=== PATIENT | male | born 1950 | race Caucasian/White ===

== ENCOUNTER 2016-05-29 09:32 | Inpatient (IN) | payer MEDICARE ==
--- NOTE | 2016-05-29 10:57 | ED ---
Psych HPI - General Chief Complaint: Psychiatric Symptoms Stated Complaint: MENTAL HEALTH Time Seen by Provider: 05/29/16 09:51 Source: patient, RN notes reviewed Mode of arrival: ambulatory - History of Present Illness Initial Comments: This patient is a 66-year-old man, with history of bipolar disease, who presents with concern that he may be becoming manic. The patient relates that over the past month he has nearly bought a motorcycle as well as a car, despite not really needing these vehicles. He has also had significant thoughts of suicide about 3 times over the past month. The patient did have a visiting nurse perform a mental health screening last night and she recommended that he be seen in the emergency department today about the symptoms. MD Complaint: other Onset/Timin -: month(s) Associated Psychiatric Symptoms: suicidal ideation, racing thoughts History of same: Yes Quality: getting worse Improves With: none Worsens With: none Associated Symptoms: denies other symptoms - Related Data Home Medications Medication Instructions Recorded Confirmed Citalopram Hydrobromide [CeleXA] 40 mg PO DAILY 10/08/13 05/29/16 Furosemide [Lasix] 20 mg PO DAILY 10/08/13 05/29/16 glipiZIDE [Glucotrol] 10 mg PO AC-BID 10/08/13 05/29/16 lamoTRIgine [LaMICtal] 100 mg PO DAILY 10/08/13 05/29/16 cloNIDine HCL [Catapres] 0.1 mg PO DAILY 01/07/14 05/29/16 Gabapentin [Neurontin] 400 mg PO Q5H 09/21/14 05/29/16 Metoprolol Tartrate [Lopressor] 50 mg PO AC-BRKFST 06/21/15 05/29/16 Metoprolol Tartrate [Lopressor] 75 mg PO HS 07/11/15 05/29/16 ALPRAZolam [Xanax] 0.5 mg PO DAILY PRN 07/12/15 05/29/16 Digoxin [Lanoxin] 250 mcg PO DAILY 07/12/15 05/29/16 metFORMIN HCL [Glucophage] 850 mg PO TID 07/12/15 05/29/16 ARIPiprazole [Abilify] 30 mg PO DAILY 05/29/16 05/29/16 Acyclovir 400 mg PO QID PRN 05/29/16 05/29/16 Albuterol Inhaler [Ventolin Hfa 2 puff INHALATION RT-Q6H PRN 05/29/16 05/29/16 Inhaler] Albuterol Nebulized [Ventolin 2.5 mg INHALATION RT-Q6H PRN 05/29/16 05/29/16 Nebulized] Cholecalciferol [Vitamin D3] 2,000 unit PO DAILY 05/29/16 05/29/16 HYDROcodone/APAP 5-325MG [[place] 1 tab PO DAILY PRN 05/29/16 05/29/16 5-325] LORazepam [Ativan] 1 mg PO Q6H PRN 05/29/16 05/29/16 Lisinopril [Prinivil] 20 mg PO BID 05/29/16 05/29/16 Niacin [Niacin ER] 750 mg PO HS 05/29/16 05/29/16 Nitrofurantoin Monohyd/M-Cryst 100 mg PO DAILY 05/29/16 05/29/16 [Macrobid] Warfarin [Coumadin] 10 mg PO DAILY 05/29/16 05/29/16 Zolpidem Tartrate [Ambien] 10 mg PO HS 05/29/16 05/29/16 amLODIPine [Norvasc] 5 mg PO DAILY 05/29/16 05/29/16 rOPINIRole HCL [Requip] 0.5 mg PO HS 05/29/16 05/29/16 Allergies Allergy/AdvReac Type Severity Reaction Status Date / Time No Known Allergies Allergy Verified 05/29/16 16:10 Review of Systems ROS Statement: Those systems with pertinent positive or pertinent negative responses have been documented in the HPI. ROS Other: All systems not noted in ROS Statement are negative. Constitutional: Denies: fever, chills Eyes: Denies: vision change Respiratory: Denies: cough, dyspnea Cardiovascular: Denies: chest pain, palpitations, syncope Gastrointestinal: Denies: abdominal pain, nausea, vomiting Genitourinary: Denies: dysuria, hematuria Musculoskeletal: Denies: back pain Skin: Denies: rash Neurological: Denies: headache Psychiatric: Reports: auditory hallucinations, suicidal thoughts, other (Racing thoughts). 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 peripheral neuropathy bilateral feet and hands progressively getting worse, exposure to agent orange,TIA- 2005, afib with cardiac ablation, NIDDM, COPD in the past but has been told no longer after he quit smoking, respiratory failure secondary to COPD and sepsis in 2012, last known seizure 1979, pt believes he has RA but has not been diagnosed by physician, psoriasis, R pulmonary nodes, infrahilar mass. History of Any Multi-Drug Resistant Organisms: None Reported Past Surgical History: Adenoidectomy, Cardiac Ablation, Cholecystectomy, Tonsillectomy Additional Past Surgical History / Comment(s): dual pancreas surgery with port placed between 1984, 2007 cardiac ablation for AFib, Biopsy of right arm mass December 2012, colonoscopy, CERVICAL CORE BX LYMPH NODE 06/26/15, bronchoscopy and bx, pilonidial cysts x 3 removed, L foot decub ulcer with debridements, R calf puritis rash. Past Anesthesia/Blood Transfusion Reactions: No Reported Reaction Past Psychological History: Anxiety, Depression, PTSD Additional Psychological History / Comment(s): Pt resides with his spouse. He uses a cane to ambulate. He no longer drives-his spouse takes him places. He has a wheelchair and walker and is in the process of getting modifications to his home thru [place]. Smoking Status: Former smoker Past Alcohol Use History: None Reported Additional Past Alcohol Use History / Comment(s): Patient was a smoker one pack per day from the time he was 20 years old to 42 and then he quit for 10 years. Patient then smoked again for 10 years and quit around his 62 year jean-pierre. Patient has had exposure to agent orange. Past Drug Use History: Marijuana Additional Drug Use History / Comment(s): Occ. marijuana use- LAST TIME SUMMER 2014 - Past Family History Father Family Medical History: Cancer Additional Family Medical History / Comment(s): brain/lung cancer Mother Family Medical History: Cancer Additional Family Medical History / Comment(s): brain/lung cancer General Exam Limitations: no limitations General appearance: alert, in no apparent distress Head exam: Present: atraumatic, normocephalic Eye exam: Present: normal appearance. Absent: scleral icterus, conjunctival injection Respiratory exam: Present: normal lung sounds bilaterally. Absent: respiratory distress, wheezes, rales, rhonchi, stridor Cardiovascular Exam: Present: regular rate, normal rhythm, normal heart sounds. Absent: systolic murmur, diastolic murmur, rubs, gallop GI/Abdominal exam: Present: soft. Absent: distended, tenderness, guarding, rebound, mass Extremities exam: Present: normal inspection, normal capillary refill. Absent: pedal edema, calf tenderness Neurological exam: Present: alert Psychiatric exam: Present: normal affect, suicidal ideation. Absent: depressed , agitated, anxious, flat affect, manic, homicidal ideation Skin exam: Present: warm, dry, intact, normal color. Absent: rash Course Vital Signs 05/29/16 05/29/16 09:36 14:44 Temperature 97.4 F L 98.3 F Pulse Rate 87 80 Respiratory 17 18 Rate Blood Pressure 139/83 175/83 O2 Sat by Pulse 96 95 Oximetry Medical Decision Making - Lab Data Result diagrams: 05/29/16 13:36 05/29/16 13:36 Lab Results 05/29/16 05/29/16 05/29/16 Range/Units 13:33 13:36 13:36 WBC 7.8 (3.8-10.6) k/uL RBC 4.47 (4.30-5.90) m/uL Hgb 14.4 (13.0-17.5) gm/dL Hct 41.2 (39.0-53.0) % MCV 92.2 (80.0-100.0) fL MCH 32.3 (25.0-35.0) pg MCHC 35.0 (31.0-37.0) g/dL RDW 14.1 (11.5-15.5) % Plt Count 199 (150-450) k/uL Neutrophils % 69 % Lymphocytes % 17 % Monocytes % 6 % Eosinophils % 4 % Basophils % 1 % Neutrophils # 5.4 (1.3-7.7) k/uL Lymphocytes # 1.3 (1.0-4.8) k/uL Monocytes # 0.5 (0-1.0) k/uL Eosinophils # 0.3 (0-0.7) k/uL Basophils # 0.1 (0-0.2) k/uL PT (9.0-12.0) sec INR (<1.1) Sodium 140 (137-145) mmol/L Potassium 4.4 (3.5-5.1) mmol/L Chloride 97 L (98-107) mmol/L Carbon Dioxide 28 (22-30) mmol/L Anion Gap 15 mmol/L BUN 13 (9-20) mg/dL Creatinine 0.63 L (0.66-1.25) mg/dL Est GFR (MDRD) Af Amer >60 (>60 ml/min/1.73 sqM) Est GFR (MDRD) Non-Af >60 (>60 ml/min/1.73 sqM) Glucose 225 H (74-99) mg/dL Calcium 9.1 (8.4-10.2) mg/dL Urine Opiates Screen Not Detected (NotDetected) Ur Oxycodone Screen Not Detected (NotDetected) Urine Methadone Screen Not Detected (NotDetected) Ur Propoxyphene Screen Not Detected (NotDetected) Ur Barbiturates Screen Not Detected (NotDetected) U Tricyclic Antidepress Not Detected (NotDetected) Ur Phencyclidine Scrn Not Detected (NotDetected) Ur Amphetamines Screen Not Detected (NotDetected) U Methamphetamines Scrn Not Detected (NotDetected) U Benzodiazepines Scrn Detected H (NotDetected) Urine Cocaine Screen Not Detected (NotDetected) U Marijuana (THC) Screen Not Detected (NotDetected) 05/29/16 Range/Units 13:36 WBC (3.8-10.6) k/uL RBC (4.30-5.90) m/uL Hgb (13.0-17.5) gm/dL Hct (39.0-53.0) % MCV (80.0-100.0) fL MCH (25.0-35.0) pg MCHC (31.0-37.0) g/dL RDW (11.5-15.5) % Plt Count (150-450) k/uL Neutrophils % % Lymphocytes % % Monocytes % % Eosinophils % % Basophils % % Neutrophils # (1.3-7.7) k/uL Lymphocytes # (1.0-4.8) k/uL Monocytes # (0-1.0) k/uL Eosinophils # (0-0.7) k/uL Basophils # (0-0.2) k/uL PT 26.1 H (9.0-12.0) sec INR 2.7 (<1.1) Sodium (137-145) mmol/L Potassium (3.5-5.1) mmol/L Chloride (98-107) mmol/L Carbon Dioxide (22-30) mmol/L Anion Gap mmol/L BUN (9-20) mg/dL Creatinine (0.66-1.25) mg/dL Est GFR (MDRD) Af Amer (>60 ml/min/1.73 sqM) Est GFR (MDRD) Non-Af (>60 ml/min/1.73 sqM) Glucose (74-99) mg/dL Calcium (8.4-10.2) mg/dL Urine Opiates Screen (NotDetected) Ur Oxycodone Screen (NotDetected) Urine Methadone Screen (NotDetected) Ur Propoxyphene Screen (NotDetected) Ur Barbiturates Screen (NotDetected) U Tricyclic Antidepress (NotDetected) Ur Phencyclidine Scrn (NotDetected) Ur Amphetamines Screen (NotDetected) U Methamphetamines Scrn (NotDetected) U Benzodiazepines Scrn (NotDetected) Urine Cocaine Screen (NotDetected) U Marijuana (THC) Screen (NotDetected) Disposition Clinical Impression: Bipolar disorder Disposition: ADMITTED IP TO THIS HOSP Condition: Fair
[2016-05-29 13:49] LABS: Basophils # (A) 0.1 k/uL (0-0.2); Basophils % (A) 1 %; CHCM 34.9; Eosinophils # (A) 0.3 k/uL (0-0.7); Eosinophils % (A) 4 %; HCT 41.2 % (39.0-53.0); HDW 2.99; HGB 14.4 gm/dL (13.0-17.5); Luc # (Auto) 0.27; Luc % (Auto) 3; Lymphocytes # (A) 1.3 k/uL (1.0-4.8); Lymphocytes % (A) 17 %; MCH 32.3 pg (25.0-35.0); MCV 92.2 fL (80.0-100.0); Mean Platelet Volume 7.3; Monocytes # (A) 0.5 k/uL (0-1.0); Monocytes % (A) 6 %; Neutrophils # (A) 5.4 k/uL (1.3-7.7); Neutrophils % (A) 69 %; RBC 4.47 m/uL (4.30-5.90); RDW 14.1 % (11.5-15.5); WBC 7.8 k/uL (3.8-10.6); WBC (Perox) 7.88
[2016-05-29 13:57] LABS: INR 2.7 (<1.1); Prothrombin Time 26.1 sec (9.0-12.0)
[2016-05-29 13:58] LABS: Anion Gap 15 mmol/L; Blood Urea Nitrogen 13 mg/dL (9-20); Calcium 9.1 mg/dL (8.4-10.2); Carbon Dioxide 28 mmol/L (22-30); Chloride 97 mmol/L (98-107); Glucose 225 mg/dL (74-99); Non-African American GFR(MDRD) >60 (>60 ml/min/1.73 sqM); Potassium 4.4 mmol/L (3.5-5.1); Sodium 140 mmol/L (137-145)
[2016-05-29] MEDS ORDERED: ALBUTEROL NEBULIZED 2.5 MG/3 ML INHALATION PRN (14:29)
[2016-05-29 15:33] VITALS: BMI 31.4
[2016-05-29] MEDS: GABAPENTIN 400 MG CAP PO SCH ×4 (15:58→23:31)
[2016-05-29 16:59] LABS: Glucose,Whole Blood 199 mg/dL (75-99)
[2016-05-29] MEDS: INSULIN LISPRO (humaLOG) 300 UNIT/3 ML VIAL SQ SCH ×2 (17:44→20:06)
[2016-05-29] MEDS: metFORMIN 850 MG TAB PO SCH (17:44)
[2016-05-29] MEDS: glipiZIDE 10 MG TAB PO SCH (17:44)
[2016-05-29 19:59] LABS: Glucose,Whole Blood 183 mg/dL (75-99)
[2016-05-29] MEDS: INSULIN GLARGINE 100 UNIT/ML 10 ML VIAL SQ SCH (20:05)
[2016-05-29] MEDS: LISINOPRIL 20 MG TAB PO SCH (20:06)
[2016-05-29] MEDS: NIACIN TR 250 MG CAPSULE.ER PO SCH (20:06)
[2016-05-29] MEDS: METOPROLOL TARTRATE 25 MG TAB PO SCH (20:06)
[2016-05-29] MEDS: ZOLPIDEM 10 MG TAB PO PRN (22:04)
[2016-05-30] MEDS: GABAPENTIN 400 MG CAP PO SCH ×4 (05:22→21:23)
[2016-05-30 06:14] LABS: Glucose,Whole Blood 190 mg/dL (75-99)
[2016-05-30] MEDS: glipiZIDE 10 MG TAB PO SCH ×2 (07:49→17:51)
[2016-05-30] MEDS: metFORMIN 850 MG TAB PO SCH ×3 (07:49→17:51)
[2016-05-30] MEDS: METOPROLOL TARTRATE 50 MG TAB PO SCH ×2 (07:50→21:22)
[2016-05-30] MEDS: INSULIN LISPRO (humaLOG) 300 UNIT/3 ML VIAL SQ SCH ×4 (07:50→21:15)
[2016-05-30] MEDS ORDERED: CITALOPRAM HYDROBROMIDE 20 MG TAB PO SCH (09:00)
[2016-05-30] MEDS: LISINOPRIL 20 MG TAB PO SCH ×2 (09:53→21:21)
[2016-05-30] MEDS: DIGOXIN 250 MCG TAB PO SCH (09:53)
[2016-05-30] MEDS: amLODIPine 5 MG TAB PO SCH (09:54)
[2016-05-30] MEDS: CHOLECALCIFEROL 1,000 UNIT TAB PO SCH (09:54)
[2016-05-30] MEDS: FUROSEMIDE 20 MG TAB PO SCH (09:54)
[2016-05-30] MEDS: NITROFURANTOIN MONOHYD/M-CRYST 100 MG CAP PO SCH (09:54)
[2016-05-30] MEDS: cloNIDine HCL 0.1 MG TAB PO SCH (09:55)
[2016-05-30] MEDS: ARIPiprazole 15 MG TAB PO SCH (09:55)
[2016-05-30] MEDS: lamoTRIgine 100 MG TAB PO SCH (09:55)
[2016-05-30 12:33] LABS: Glucose,Whole Blood 218 mg/dL (75-99)
--- NOTE | 2016-05-30 12:57 | P.HP ---
Psychiatric H&P - . H&P Date: 05/30/16 History & Physical: IDENTIFYING DATA: Mr. Patel is a 66-year-old who presented to voluntarily to the psychiatric unit at the behest of his family. HISTORY OF PRESENT ILLNESS: He was unable to describe a reason for his presentation. He stated that a psychiatric nurse, Anni, from [facility] suggested he come to the hospital during a home visit. He is unsure as to her concern about the reason she made the recommendation. He gave me permission to speak with his Irene. Irene stated that Anni came to the house yesterday on the orders of Mr. Patel's primary care provider. Apparently an occupational therapist who provides home health care recommended a psychiatric nurse assessment. The night after the home health nurse evaluation Mr. Patel told his that he was having suicidal thoughts. She asked him if he had a plan that he replied that he does endorse brought him to the emergency department. She stated that he has a history of a bipolar illness and has had a "bad cassy" since "January or March". She stated that during manic episodes he "does terrible things". She highlighted "indiscretions" with women. Recently she found out that he is setting up liaisons with women through a website called "[employer]." She discovered his contacts with the website because she received a billing statement for the service. She stated that he has had past "indiscretions" with women during past manic episodes. His infidelity has caused marital problems but she stated she is committed to maintaining the marriage. During manic episodes including the current he complains that his is not sexual enough and "uses this" as a reason for his infidelity. She stated that he tried to buy a car and actually purchased a motorcycle without his 's knowledge. She stated that she was able to stop the transaction for the motorcycle and recover that money that he had promised. She stated that he tried to refinance their house to obtain money. She stated that he is "lying to the children". For example, he told his son that he could not buy the motorcycle because "your mother never wanted him to be happy " ... "That is why she took the motorcycle away from me." His children noticed that "something is wrong" and his daughters have avoided all contact with him over the last few months. In addition to the sexual indiscretion and the impulsive behavior with money, his sleep has been poor and erratic. She stated that he goes for periods of up to 36-48 hours without sleeping. He talked about plans to go bow hunting even though he is physically incapacitated and requires a walker. He is much more talkative than usual and his children complained about his frequent calling at home and at work. He is irritable and becomes angry with his . She stated that after she stopped payment for the motorcycle he told her to "pack her bags". During a prior manic episodes he obtained a credit card under his daughter's name without her knowledge. He he made several charges to the credit card resulting in financial and legal problems for his daughter. PAST PSYCHIATRIC HISTORY: He stated that he "believes" he had one prior psychiatric hospitalization "many years ago" to this facility. He met with psychiatrists and therapists beginning and his mid 30s. A outpatient psychiatrist, Dr Antoine Foley, diagnose him with a bipolar disorder "in the early ." His current medications include Abilify 30 mg daily, citalopram 40 mg daily and Lamictal 100 mg daily. He last met with a psychiatrist " several years ago". His primary care physician has been managing his psychiatric medications. PAST MEDICAL HISTORY: He has a complicated medical history that includes atrial fibrillation, heart failure, COPD, CVA/TIA, diabetes mellitus, deafness, hypertension, peripheral neuropathy, gait disturbance, rheumatoid arthritis and a seizure disorder. He's been diagnosed with non-Hodgkin's lymphoma and completed a course of chemotherapy in October 2015. His current medications include albuterol,: Calciferol, digoxin, Lasix, gabapentin, insulin lispro and insulin glargine, lisinopril, metoprolol, niacin, nitrofurantoin, warfarin, clonidine, glipizide, metformin and Requip. ALLERGIES: He has NO KNOWN DRUG ALLERGIES.. SUBSTANCE USE HISTORY: He stated he does not use alcohol or other drugs to get high, help him sleep or changes mood. He is smoked marijuana in the past and used once in the last 12 months.. FAMILY PSYCHIATRIC/SUBSTANCE USE HISTORY: According to his he has a family history of mental illness in a paternal aunt and possibly his father. LEGAL HISTORY: He has no history of legal problems. SOCIAL HISTORY: His born and raised in [place] to an intact family. He graduated from high school and joined the [employer]. He was in the [employer] from 1969- 1974. 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 He denied that he was directly in combat or involved and fire fights. He is currently 100% service connected as a result of Agent George exposure, diabetes and non-Hodgkin's lymphoma. He began receiving social security disability in 2002 but denies that he is unemployed. 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 He has been for 43 years. He has 3 children and 3 grandchildren. 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 MENTAL STATUS EXAM: He presented as a tall neatly groomed elderly male with pale complexion and cespedes hair. He walked with the aid of a point walker. His gait was slow and slightly unsteady. He maintained eye contact and attended to interview. He had no distinguishing features or prominent physical abnormalities. He had a bright facial expression. He was alert and oriented to person, place and time. He showed no abnormality of psychomotor behavior. He had no abnormal involuntary movements. His speech was rapid with normal rhythm and gait. He had no articulation difficulties. His affect was bright almost inappropriate. He denied current suicidal ideation or wishes. He denied homicidal ideation. He denied depressive cognitions such as hopelessness , helplessness or worthlessness. He denied obsessions but ruminated about the issues that led to this hospitalization. He denied phobias, ideas reference, paranoid ideation and did not express delusional thoughts. His thinking was abstract. He showed flight of ideas. He did not demonstrate clang associations , neologisms or blocking. He described unusual auditory experiences. He states that he continually "hears music" and hears "whispering" as though "people were talking in a stadium." He denied visual or tactile hallucinations. Global impression of intellect is average to above. He has limited insight or understanding of his illness. We completed the [facility] Cognitive Assessment. His total score was 27/30. He has some difficulty with delayed recall and abstraction. He demonstrated no impairment with visual spatial/executive functioning, naming, attention, language or orientation. STRENGTHS: Strong family support, financial stability, stable housing, access to medical care and services. WEAKNESSES: Chronic mental illness, severe medical problems, poor insight or understanding of his mental illness. IMPRESSION: He is a 66-year-old male who has a history of bipolar illness. He presented to the psychiatric unit voluntarily at the behest of his family. He is unable to explain the reason for hospitalization but his describes a 2-3 month history of cassy and symptoms consistent with a manic episode. He has multiple medical problems and a complicated medical history including a recent course of chemotherapy for recurrence of non- Hodgkin's lymphoma. He should best be treated on an outpatient basis with a combination of psychotropic medications and multimodal therapy. Considering the severity of his manic episode he recommended discontinue the antidepressant and evaluate and today cassy treatment as an alternate or in addition to the current dose of aripiprazole. PRINCIPLE DIAGNOSIS: Bipolar disorder most most recent episode manic, history of non-Hodgkin's lymphoma and multiple other medical problems including hypertension, COPD, CVA/TIA, insulin-dependent diabetes mellitus, heart failure , atrial fibrillation, per probable peripheral neuropathy with gait disturbance , rheumatoid arthritis and a seizure disorder. RECOMMENDATION: Continue hospitalization on the inpatient psychiatric unit for treatment of acute cassy. Foreign Languages Department Chair textiles printer to complete a physical exam and medical history and manage current medical problems. Continue aripiprazole 30 mg daily. Discontinue citalopram 40 mg per day. Contact primary care provider and determine if the Lamictal was prescribed for seizures or for the treatment of the bipolar illness. If prescribed for bipolar illness then consider switching from Lamictal to an alternate mood stabilizer. Participated in therapeutic groups and activities. Evaluate clinical status and response to treatment on a daily basis. Allergies Allergy/AdvReac Type Severity Reaction Status Date / Time No Known Allergies Allergy Verified 05/29/16 16:10 Vital Signs Temp 97.6 F 05/30/16 05:15 Pulse 115 H 05/30/16 07:53 Resp 16 05/30/16 07:53 BP 126/76 05/30/16 07:53 Pulse Ox 95 05/29/16 14:44 Intake & Output 05/29/16 05/30/16 05/30/16 18:59 06:59 18:59 Weight 117.282 kg Laboratory Last Values WBC 7.8 k/uL (3.8-10.6) 05/29/16 13:36 RBC 4.47 m/uL (4.30-5.90) 05/29/16 13:36 Hgb 14.4 gm/dL (13.0-17.5) 05/29/16 13:36 Hct 41.2 % (39.0-53.0) 05/29/16 13:36 MCV 92.2 fL (80.0-100.0) 05/29/16 13:36 MCH 32.3 pg (25.0-35.0) 05/29/16 13:36 MCHC 35.0 g/dL (31.0-37.0) 05/29/16 13:36 RDW 14.1 % (11.5-15.5) 05/29/16 13:36 Plt Count 199 k/uL (150-450) 05/29/16 13:36 Neutrophils % 69 % 05/29/16 13:36 Lymphocytes % 17 % 05/29/16 13:36 Monocytes % 6 % 05/29/16 13:36 Eosinophils % 4 % 05/29/16 13:36 Basophils % 1 % 05/29/16 13:36 Neutrophils # 5.4 k/uL (1.3-7.7) 05/29/16 13:36 Lymphocytes # 1.3 k/uL (1.0-4.8) 05/29/16 13:36 Monocytes # 0.5 k/uL (0-1.0) 05/29/16 13:36 Eosinophils # 0.3 k/uL (0-0.7) 05/29/16 13:36 Basophils # 0.1 k/uL (0-0.2) 05/29/16 13:36 PT 26.1 sec (9.0-12.0) H 05/29/16 13:36 INR 2.7 (<1.1) 05/29/16 13:36 Sodium 140 mmol/L (137-145) 05/29/16 13:36 Potassium 4.4 mmol/L (3.5-5.1) 05/29/16 13:36 Chloride 97 mmol/L (98-107) L 05/29/16 13:36 Carbon Dioxide 28 mmol/L (22-30) 05/29/16 13:36 Anion Gap 15 mmol/L 05/29/16 13:36 BUN 13 mg/dL (9-20) 05/29/16 13:36 Creatinine 0.63 mg/dL (0.66-1.25) L 05/29/16 13:36 Est GFR (MDRD) Af Amer >60 (>60 ml/min/1.73 sqM) 05/29/16 13:36 Est GFR (MDRD) Non-Af >60 (>60 ml/min/1.73 sqM) 05/29/16 13:36 Glucose 225 mg/dL (74-99) H 05/29/16 13:36 POC Glucose (mg/dL) 190 mg/dL (75-99) H 05/30/16 06:08 POC Glu Otolaryngology Physician ID Seun Rosenbaum 05/30/16 06:[address] Glu mg/dL 183 mg/dL 05/29/16 14:37 Hemoglobin A1c 8.0 % (4.2-6.1) H 05/29/16 14:37 Calcium 9.1 mg/dL (8.4-10.2) 05/29/16 13:36 Urine Opiates Screen Not Detected (NotDetected) 05/29/16 13:33 Ur Oxycodone Screen Not Detected (NotDetected) 05/29/16 13:33 Urine Methadone Screen Not Detected (NotDetected) 05/29/16 13:33 Ur Propoxyphene Screen Not Detected (NotDetected) 05/29/16 13:33 Ur Barbiturates Screen Not Detected (NotDetected) 05/29/16 13:33 U Tricyclic Antidepress Not Detected (NotDetected) 05/29/16 13:33 Ur Phencyclidine Scrn Not Detected (NotDetected) 05/29/16 13:33 Ur Amphetamines Screen Not Detected (NotDetected) 05/29/16 13:33 U Methamphetamines Scrn Not Detected (NotDetected) 05/29/16 13:33 U Benzodiazepines Scrn Detected (NotDetected) H 05/29/16 13:33 Urine Cocaine Screen Not Detected (NotDetected) 05/29/16 13:33 U Marijuana (THC) Screen Not Detected (NotDetected) 05/29/16 13:33 05/30/16 09:58 05/30/16 12:15
[2016-05-30] MEDS ORDERED: LOPERAMIDE 2 MG CAP PO STA (16:24)
[2016-05-30 16:56] LABS: Glucose,Whole Blood 142 mg/dL (75-99)
[2016-05-30] MEDS: WARFARIN 10 MG TAB PO SCH (18:41)
[2016-05-30 20:15] LABS: Glucose,Whole Blood 193 mg/dL (75-99)
[2016-05-30] MEDS: INSULIN GLARGINE 100 UNIT/ML 10 ML VIAL SQ SCH (21:18)
[2016-05-30] MEDS: NIACIN TR 250 MG CAPSULE.ER PO SCH (21:20)
[2016-05-30] MEDS: METOPROLOL TARTRATE 25 MG TAB PO SCH (21:23)
[2016-05-30] MEDS: ZOLPIDEM 10 MG TAB PO PRN (22:37)
[2016-05-31] MEDS: GABAPENTIN 400 MG CAP PO SCH ×5 (04:28→20:13)
[2016-05-31 06:30] LABS: Glucose,Whole Blood 192 mg/dL (75-99)
[2016-05-31] MEDS: glipiZIDE 10 MG TAB PO SCH ×2 (07:51→17:35)
[2016-05-31] MEDS: metFORMIN 850 MG TAB PO SCH ×3 (07:51→17:35)
[2016-05-31] MEDS: INSULIN LISPRO (humaLOG) 300 UNIT/3 ML VIAL SQ SCH ×4 (07:51→20:18)
[2016-05-31] MEDS: lamoTRIgine 100 MG TAB PO SCH (07:54)
[2016-05-31] MEDS: cloNIDine HCL 0.1 MG TAB PO SCH (07:54)
[2016-05-31] MEDS: amLODIPine 5 MG TAB PO SCH (07:54)
[2016-05-31] MEDS: CHOLECALCIFEROL 1,000 UNIT TAB PO SCH (09:08)
[2016-05-31] MEDS: DIGOXIN 250 MCG TAB PO SCH (09:08)
[2016-05-31] MEDS: FUROSEMIDE 20 MG TAB PO SCH (09:08)
[2016-05-31] MEDS: NITROFURANTOIN MONOHYD/M-CRYST 100 MG CAP PO SCH (09:09)
[2016-05-31] MEDS: LISINOPRIL 20 MG TAB PO SCH ×2 (09:09→20:13)
[2016-05-31] MEDS: ARIPiprazole 15 MG TAB PO SCH (09:10)
--- NOTE | 2016-05-31 10:42 | CONS ---
DATE OF CONSULTATION: REASON FOR CONSULTATION: Medical management of hypertension, diabetes mellitus, coronary artery disease and multiple other medical problems including Coumadin monitoring. HISTORY OF PRESENT ILLNESS: Mr. Patel is a 66-year-old male with a known history of multiple medical problems including hypertension, insulin-dependent diabetes mellitus type 2, coronary artery disease, history of CVA, history of agent orange exposure, on anticoagulation due to CVA, chronic atrial fibrillation, non-Hodgkin's lymphoma, status post chemotherapy and relapse in June 2015 and had chemotherapy again until November 2015 from June 2015 presents to the ER with concerns that he may be becoming manic. Patient states that over the past month he has nearly bought a motorcycle as well as a car in spite of not really needing these vehicles, also having suicidal thoughts. Patient was admitted to the hospital for evaluation. Otherwise, currently patient complaining of funny feeling in the chest and spasms in the left axillary region lasting about 5 seconds, associated with lightheadedness. No nausea, vomiting. No headache. No syncope. Patient says that he had one episode of diarrhea this afternoon and also feeling like room is spinning around which is also lasting a few seconds only. No fever. No chills. No recent travel or sick contacts. Otherwise, no recent illnesses. REVIEW OF SYSTEMS: CONSTITUTIONAL: No fever. No chills. No weakness or malaise. RESPIRATORY: No cough or sputum production. CARDIOVASCULAR: No chest pain. No short of breath. No leg swelling. ABDOMEN: No nausea, vomiting or abdominal pain. NEUROLOGIC: No headache. Patient does have lightheadedness and vertigo. No numbness or tingling. No weakness. No focal weakness. PSYCHIATRIC: Cooperative and bipolar MUSCULOSKELETAL: Negative. SKIN: Negative. All other 41-point review of systems negative except the above. Past medical history includes atrial fibrillation chronic, history of non-Hodgkin's lymphoma, status post chemotherapy and relapse in early 2015, status post chemotherapy again, hearing disorder, diabetes mellitus, hypertension, rheumatoid arthritis, seizure disorder, diabetic neuropathy. PAST SURGICAL HISTORY: Adenoidectomy, cardiac ablation, cholecystectomy, tonsillectomy, dual pancreas surgery with port placed between 1984 and 2007, cardiac ablation for A. fib., biopsy of right arm mass in December 2012, colonoscopy, cervical core biopsy lymph node, bronchoscopy and biopsy, pilonidal cyst x3 removed, left foot decub ulcer with debridement, right calf pruritic rash. PSYCHOSOCIAL HISTORY: Anxiety, depression, PTSD and bipolar disorders. SOCIAL HISTORY: The patient resides with his spouse. He uses a cane to ambulate. No longer drives. The patient is a former smoker. Patient was a smoker 1 pack per day from the time he was 20 years old to 42 and then quit for 10 years. Patient then smoked again for 10 years and quit around 62 years of age. The patient has exposure to agent orange. History of marijuana use, last time was in summer of 2014. FAMILY HISTORY: Father had cancer, brain cancer and lung cancer. Mother had cancer as well. ALLERGIES: No known drug allergies. Home medications include Celexa, Lasix, ( ), Lamictal, Catapres, Neurontin, Lopressor, Xanax, digoxin, metformin, Abilify, acyclovir, albuterol inhaler, vitamin D3, [place] 5/325, lorazepam, Prinivil, Niacin, nitrofurantoin, warfarin, zolpidem, amlodipine, ropinirole. PHYSICAL EXAMINATION: A 66-year-old male sitting up in bed comfortably, awake, alert, oriented x3. Appears to be in no apparent distress. VITALS: Blood pressure is 136/67, pulse is 98, respirations 16, temperature afebrile, pulse ox 95% on room air. HEENT: Atraumatic, normocephalic. Neck is supple. No JVD. CVS: S1, S2 heard. No murmurs, no gallop, no rub. LUNGS: Bilateral air entry is present. No wheezes, no crackles. Nonlabored breathing. ABDOMEN: Soft, nontender. Bowel sounds are present. 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 No focal neurologic deficits. Cranial nerves grossly intact. EXTREMITIES: No edema. Pulses palpable bilaterally. No clubbing or cyanosis. PSYCHIATRIC: Cooperative, nonsuicidal. SKIN: No rash or skin lesions. LABORATORY DATA: WBC 7.8, hemoglobin 14.4, platelets 199. INR 2.7. Sodium 140, potassium 4.4, chloride 97, bicarb is 28. BUN 13, creatinine 0.63. Blood sugar is 225. HbA1c 8.0. UDS is positive for benzodiazepines. IMPRESSION: 1. Bipolar disorder with acute manic episode and is admitted to psychiatric unit at this time. 2. Hyperglycemia with uncontrolled diabetes, [id number]. HbA1c of 8.0. 3. Hypertension. 4. Hyperlipidemia. 5. History of cerebrovascular accident with no residual weakness. Was on Coumadin for stroke prophylaxis since then. 6. Atrial fibrillation with history of ablation. 7. Chest pain, atypical. We will check EKG and follow up. 8. Patient has history of non-Hodgkin lymphoma and status post chemotherapy and relapse in early 2016 status post chemotherapy again. 9. Acute diarrhea x1 episode, resolved now. 10. History of coronary artery disease. 11. Chronic history of nicotine addiction. 12. History of agent orange exposure. 13. ( ) INR monitoring. 14. History of seizure disorder. 15. Diabetic peripheral neuropathy. 16. Rheumatoid arthritis. 17. Hearing disorder/deafness. 18. Eye disorder. DISCUSSION AND PLAN: A 66-year-old male with known history of multiple medical problems and comorbid conditions was admitted to the hospital with manic symptoms. Otherwise, the patient will be continued on home dose of insulin and insulin sliding scale for better blood sugar control and will check UA as well. Apparently patient seems like he has been on Macrobid prophylactic dose 100 mg daily. Will check EKG and follow up closely. Continue the current medications and home medications. Further recommendations based on the clinical course.
[2016-05-31] MEDS: LORazepam 1 MG TAB PO PRN (12:10)
[2016-05-31 12:54] LABS: Glucose,Whole Blood 179 mg/dL (75-99)
--- NOTE | 2016-05-31 13:39 | P.PN ---
Progress Note - Text CLINICAL PROBLEMS: He is 66-year-old male who has history of bipolar disorder. He presented to the unit voluntarily at the behest of his family with a 2-3 month history of behaviors consistent with a manic episode. 24 HOUR EVENTS: According to the EMR he slept 5 hours last night. He received Ambien 10 mg a 20:37 last night. Female therapy staff reported that he is "flirty" and attempts to sit close and touch female staff and peers. He posed no management problem and did not require when necessary Geodon or lorazepam. EXAMINATION: He presented as a casually groomed 66-year-old male who was pleasant on approach. He had no abnormality of psychomotor behavior. He was not agitated or restless. His speech was spontaneous with normal rate, rhythm and volume. His affect was stable and appropriate. He did not express psychotic symptoms such as ideas of reference or paranoid ideation. 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 He denied auditory or visual hallucinations didn't appear to be responding to internal stimuli. PERTINENT DATA: His POC glucose has been elevated in the range of 179-218. ASSESSMENT: He is showing some elements of hypomania but not comparable to that described by his . His experienced no adverse effects after discontinuing the antidepressant. PLAN: Continue Abilify 30 mg and Lamictal 100 mg daily for treatment of bipolar illness. If he continues to show symptoms of cassy or hypomania consider changing the mood stabilizer from Lamictal to Depakote. Medicine consult pending. Evaluate clinical status response to treatment on a daily basis. Therapy staff to redirect inappropriate behaviors.
[2016-05-31 17:20] LABS: Glucose,Whole Blood 157 mg/dL (75-99)
[2016-05-31 20:06] LABS: Glucose,Whole Blood 206 mg/dL (75-99)
[2016-05-31] MEDS: NIACIN TR 250 MG CAPSULE.ER PO SCH (20:12)
[2016-05-31] MEDS: INSULIN GLARGINE 100 UNIT/ML 10 ML VIAL SQ SCH (20:20)
[2016-05-31] MEDS: ZOLPIDEM 10 MG TAB PO PRN (23:47)
[2016-06-01] MEDS: METOPROLOL TARTRATE 25 MG TAB PO SCH ×2 (00:05→20:41)
[2016-06-01] MEDS: GABAPENTIN 400 MG CAP PO SCH ×5 (06:31→22:26)
[2016-06-01 06:34] LABS: Glucose,Whole Blood 169 mg/dL (75-99)
[2016-06-01] MEDS: metFORMIN 850 MG TAB PO SCH ×3 (07:52→17:38)
[2016-06-01] MEDS: INSULIN LISPRO (humaLOG) 300 UNIT/3 ML VIAL SQ SCH ×4 (07:52→20:48)
[2016-06-01] MEDS: glipiZIDE 10 MG TAB PO SCH ×2 (07:52→17:38)
[2016-06-01] MEDS: METOPROLOL TARTRATE 50 MG TAB PO SCH (07:59)
[2016-06-01] MEDS: ARIPiprazole 15 MG TAB PO SCH (08:38)
[2016-06-01] MEDS: lamoTRIgine 100 MG TAB PO SCH (08:39)
[2016-06-01] MEDS: DIGOXIN 250 MCG TAB PO SCH (08:39)
[2016-06-01] MEDS: NITROFURANTOIN MONOHYD/M-CRYST 100 MG CAP PO SCH (08:39)
[2016-06-01] MEDS: LISINOPRIL 20 MG TAB PO SCH ×2 (08:39→20:41)
[2016-06-01] MEDS: CHOLECALCIFEROL 1,000 UNIT TAB PO SCH (08:39)
[2016-06-01] MEDS: FUROSEMIDE 20 MG TAB PO SCH (08:39)
[2016-06-01] MEDS: amLODIPine 5 MG TAB PO SCH (09:06)
[2016-06-01] MEDS: cloNIDine HCL 0.1 MG TAB PO SCH (09:06)
[2016-06-01 09:28] LABS: INR 1.6 (<1.1); Prothrombin Time 15.5 sec (9.0-12.0)
[2016-06-01 12:42] LABS: Glucose,Whole Blood 159 mg/dL (75-99)
[2016-06-01] MEDS ORDERED: ACETAMINOPHEN TAB 325 MG TAB PO PRN (13:59)
[2016-06-01] MEDS: ALBUTEROL INHALER 60 PUFF/8 GM INHALER INHALATION PRN ×2 (14:01→19:03)
--- NOTE | 2016-06-01 15:15 | P.PN ---
Subjective Psychiatric progress notes. Patient was seen covering for Dr. Srinivasan and he was cooperative and readily coming for evaluation and indicated that he is feeling much better and when he came he was in a manic state that was getting worse. Patient acknowledged that he has been under treatment for this and take the manic symptoms were getting steadily worse and at the request of his family members decided to come for inpatient care. With treatment his symptoms have been subsiding and at present does not have any specific issues, other than having pain in his lower extremities. Patient was requesting Tylenol as he cannot take other medications due to him being on Coumadin. Mental status. Patient is a tall well-built male who ambulates with the help of a walker and not showing any psychomotor disturbance. Patient was quite cooperative and somewhat spontaneous in speech explaining the circumstances of his admission as well as his past psychiatric and medical problems. 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 His speech and thought process did not show any abnormal traits. Patient was euthymic with appropriate affect. No evidence of any delusions or hallucinations. Has adequate degree of insight and judgment. Continue current treatment plans and Tylenol ordered. Objective - Vital Signs Vital signs: Vital Signs Temp 97.6 F 05/31/16 06:59 Pulse 107 H 06/01/16 09:07 Resp 16 06/01/16 09:07 BP 126/75 06/01/16 09:07 Pulse Ox 95 05/30/16 16:20 - Labs CBC & Chem 7: 05/29/16 13:36 05/29/16 13:36 Labs: Abnormal Lab Results - Last 24 Hours (Table) 05/31/16 05/31/16 06/01/16 Range/Units 17:16 20:03 06:26 PT (9.0-12.0) sec POC Glucose (mg/dL) 157 H 206 H 169 H (75-99) mg/dL 06/01/16 06/01/16 Range/Units 09:01 12:36 PT 15.5 H (9.0-12.0) sec POC Glucose (mg/dL) 159 H (75-99) mg/dL
[2016-06-01 17:37] LABS: Glucose,Whole Blood 138 mg/dL (75-99)
[2016-06-01] MEDS: WARFARIN 10 MG TAB PO SCH (17:55)
[2016-06-01 20:07] LABS: Glucose,Whole Blood 199 mg/dL (75-99)
[2016-06-01] MEDS: NIACIN TR 250 MG CAPSULE.ER PO SCH (20:42)
[2016-06-01] MEDS: INSULIN GLARGINE 100 UNIT/ML 10 ML VIAL SQ SCH (20:54)
[2016-06-01 23:06] LABS: Glucose,Whole Blood 150 mg/dL (75-99)
[2016-06-02 00:37] LABS: Troponin I <0.012 ng/mL (0.000-0.034)
[2016-06-02 00:48] LABS: Creatine Kinase MB 8.5 ng/mL (0.0-2.4)
[2016-06-02] MEDS: ZOLPIDEM 10 MG TAB PO PRN ×2 (02:27→23:52)
[2016-06-02] MEDS: GABAPENTIN 400 MG CAP PO SCH ×5 (04:39→22:41)
[2016-06-02 06:48] LABS: Glucose,Whole Blood 192 mg/dL (75-99)
[2016-06-02] MEDS: metFORMIN 850 MG TAB PO SCH ×3 (08:06→17:43)
[2016-06-02] MEDS: glipiZIDE 10 MG TAB PO SCH ×2 (08:06→17:43)
[2016-06-02] MEDS: INSULIN LISPRO (humaLOG) 300 UNIT/3 ML VIAL SQ SCH ×4 (08:07→21:38)
[2016-06-02] MEDS: METOPROLOL TARTRATE 50 MG TAB PO SCH (08:07)
[2016-06-02] MEDS: cloNIDine HCL 0.1 MG TAB PO SCH (09:26)
[2016-06-02] MEDS: ARIPiprazole 15 MG TAB PO SCH (09:26)
[2016-06-02] MEDS: DIGOXIN 250 MCG TAB PO SCH (09:26)
[2016-06-02] MEDS: amLODIPine 5 MG TAB PO SCH (09:26)
[2016-06-02] MEDS: CHOLECALCIFEROL 1,000 UNIT TAB PO SCH (09:26)
[2016-06-02] MEDS: NITROFURANTOIN MONOHYD/M-CRYST 100 MG CAP PO SCH (09:27)
[2016-06-02] MEDS: lamoTRIgine 100 MG TAB PO SCH (09:27)
[2016-06-02] MEDS: FUROSEMIDE 20 MG TAB PO SCH (09:27)
[2016-06-02] MEDS: LISINOPRIL 20 MG TAB PO SCH ×2 (09:27→21:33)
[2016-06-02 12:13] LABS: Glucose,Whole Blood 229 mg/dL (75-99)
[2016-06-02] MEDS: LORazepam 1 MG TAB PO PRN ×2 (12:13→21:34)
[2016-06-02] MEDS ORDERED: ACETAMINOPHEN TAB 500 MG TAB PO PRN (12:53)
[2016-06-02] MEDS: ASPIRIN 81 MG CHEW PO SCH (15:42)
--- NOTE | 2016-06-02 15:42 | P.PN ---
Subjective Psychiatric progress notes. Patient seen covering for Dr. Srinivasan indicates that he had somewhat of a rough time last evening, having had a dizzy spell while he was sitting and playing card. However all the necessary to send evaluation at that time did not show any abnormalities and his blood pressure was fine. Patient himself acknowledges that he understands why it happened and according to him it is because of the anxiety with a reference to the scheduled family session today. Further he stated that his 3 children do not acknowledge his psychiatric problem nor degree that he is in need of treatment. Patient states that he is somewhat hurt by their position however hopes to resolve that during the family session. 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 Patient had some difficulty sleeping last night. In general he does comply with treatment plans. Mental status. Patient is a tall average built gentleman of his stated age and comes readily for the evaluation maintaining good eye contact and without any psychomotor disturbance. Attention and concentration intact. Speech and thought process did not show any abnormal traits. Patient is preoccupied with the concern as to how the family session would go. Anxious over that. Denies any significant depression and person. Denies any thoughts of harm to self or others. No psychotic features. And has adequate degree of insight and judgment at this time. Continue current treatment plans. Objective - Vital Signs Vital signs: Vital Signs Temp 97.5 F L 06/02/16 05:38 Pulse 92 06/02/16 09:32 Resp 20 06/02/16 09:32 BP 152/69 06/02/16 09:32 Pulse Ox 96 06/02/16 00:54 Intake & Output 06/01/16 06/02/16 06/02/16 18:59 06:59 18:59 Weight 114.6 kg - Labs CBC & Chem 7: 05/29/16 13:36 05/29/16 13:36 Labs: Abnormal Lab Results - Last 24 Hours (Table) 06/01/16 06/01/16 06/01/16 Range/Units 17:32 20:05 22:46 POC Glucose (mg/dL) 138 H 199 H 150 H (75-99) mg/dL CK-MB (CK-2) (0.0-2.4) ng/mL 12/06/02/16 06/02/16 Range/Units 23:44 06:24 12:09 POC Glucose (mg/dL) 192 H 229 H (75-99) mg/dL CK-MB (CK-2) 8.5 H* (0.0-2.4) ng/mL
--- NOTE | 2016-06-02 17:23 | PN ---
DATE OF SERVICE: 06/02/2016 I am covering for Dr. Matute. This 66-year-old gentleman, who was admitted for psychiatry evaluation was complaining of chest pain yesterday. The pain was felt in the left side of the chest which are more sharp in character. CK-MB was 8.5, troponins are negative. EKG showed some old nonprogression R waves in the anterior leads and atrial fibrillation also. Patient is being closely monitored. No chest pain. No palpitations. No fever. No shortness of breath currently. The patient is being followed by day trader elsewhere at this time. On exam, alert and oriented times three. Pulse 84, blood pressure 151/82, respirations 18, temperature 97.2, pulse ox 94% on room air. HEENT: Conjunctivae normal. NECK: No jugular venous distention. CARDIOVASCULAR: S1, S2 muffled. RESPIRATORY: Breath sounds diminished at the bases. No rhonchi. No crackles. ABDOMEN: Soft. Nontender. LEGS: No edema. No swelling. CENTRAL NERVOUS SYSTEM: No focal deficits. LABS: Accu-Cheks noted. Otherwise, INR is 1.6. Troponins are negative. ASSESSMENT: 1. Chest pain, possibly musculoskeletal. 2. Rule out coronary artery disease. 3. Hypertension. 4. Diabetes mellitus type 2. 5. Obesity. 6. Bipolar. 7. Hyperlipidemia. 8. History of cerebrovascular incident. 9. History of atrial fibrillation with history of ablation. 10. Non-Hodgkin lymphoma. RECOMMENDATIONS AND DISCUSSION: In this 66-year-old gentleman who presented with multiple medical problems, presented for psychiatry evaluation, is being evaluated at this time currently. The patient did not have any evidence of acute coronary syndrome. I would recommend continued follow up with cardiology in the outpatient setting. Continue the current medications including beta blockers and as well as antiplatelet agents. Otherwise, continue to monitor. Further recommendations to follow. I recommend to add Ecotrin to the current regimen. Dr. Matute will follow.
[2016-06-02 17:27] LABS: Glucose,Whole Blood 163 mg/dL (75-99)
[2016-06-02] MEDS: WARFARIN 10 MG TAB PO SCH (17:43)
[2016-06-02] MEDS: ALBUTEROL INHALER 60 PUFF/8 GM INHALER INHALATION PRN (19:13)
[2016-06-02 20:37] LABS: Glucose,Whole Blood 224 mg/dL (75-99)
[2016-06-02] MEDS: NIACIN TR 250 MG CAPSULE.ER PO SCH (21:33)
[2016-06-02] MEDS: METOPROLOL TARTRATE 25 MG TAB PO SCH (21:33)
[2016-06-02] MEDS: INSULIN GLARGINE 100 UNIT/ML 10 ML VIAL SQ SCH (21:37)
[2016-06-03] MEDS: GABAPENTIN 400 MG CAP PO SCH ×5 (05:38→23:23)
[2016-06-03 06:16] LABS: Glucose,Whole Blood 161 mg/dL (75-99)
[2016-06-03] MEDS: INSULIN LISPRO (humaLOG) 300 UNIT/3 ML VIAL SQ SCH ×4 (08:13→20:15)
[2016-06-03] MEDS: ALBUTEROL INHALER 60 PUFF/8 GM INHALER INHALATION PRN ×2 (09:07→14:27)
[2016-06-03] MEDS: ARIPiprazole 15 MG TAB PO SCH (09:18)
[2016-06-03] MEDS: CHOLECALCIFEROL 1,000 UNIT TAB PO SCH (09:18)
[2016-06-03] MEDS: lamoTRIgine 100 MG TAB PO SCH (09:19)
[2016-06-03] MEDS: NITROFURANTOIN MONOHYD/M-CRYST 100 MG CAP PO SCH (09:19)
[2016-06-03] MEDS: FUROSEMIDE 20 MG TAB PO SCH (09:19)
[2016-06-03] MEDS: glipiZIDE 10 MG TAB PO SCH ×2 (09:20→18:03)
[2016-06-03] MEDS: metFORMIN 850 MG TAB PO SCH ×3 (09:20→18:04)
[2016-06-03 09:25] LABS: INR 1.8 (<1.1); Prothrombin Time 17.5 sec (9.0-12.0)
[2016-06-03] MEDS: METOPROLOL TARTRATE 50 MG TAB PO SCH ×2 (09:33→10:17)
[2016-06-03] MEDS: ASPIRIN 81 MG CHEW PO SCH (09:50)
[2016-06-03] MEDS: LISINOPRIL 20 MG TAB PO SCH ×2 (10:18→20:16)
[2016-06-03] MEDS: DIGOXIN 250 MCG TAB PO SCH (10:18)
[2016-06-03] MEDS: cloNIDine HCL 0.1 MG TAB PO SCH (10:18)
[2016-06-03] MEDS: amLODIPine 5 MG TAB PO SCH ×2 (10:18→11:36)
[2016-06-03] MEDS: LORazepam 1 MG TAB PO PRN ×2 (12:26→18:06)
[2016-06-03 12:43] LABS: Glucose,Whole Blood 167 mg/dL (75-99)
--- NOTE | 2016-06-03 13:59 | P.PN ---
Progress Note - Text CLINICAL PROBLEMS: He is a 66 y/o man who has a history of multiple medical problems (including a non-Hodgkin's lymphoma) and bipolar disorder. He was admitted 05/29/2016 with a reported history of hypomania. He denied problems or concerns on admission and the history of his behavior, prior to admission, was provided by his . 24 HOUR EVENTS: He was distressed regarding a family meeting from yesterday. He asked about the meaning of a "narcissistic personality" stating that the director of social work told his family that he has this problem. We talked about the concept of narcissism and he was able to identify what some behaviors but does not feel that he is a "narcissistic personality." He was distressed by the anger his children expressed during the family meeting. His son in particular was angry over his extramarital affairs. EXAMINATION: He presented as a tall casually groomed 66-year-old male who was pleasant on approach. He maintained eye contact and attended to the interview. He walked slowly and unsteadily with the aid of a wheeled walker. He had slight psychomotor retardation but no abnormal involuntary movements. His speech was slow with decreased rhythm and volume. His affect was depressed. He denied suicidal ideation or wishes. He denied homicidal ideation. He denied depressive cognitions such as hopelessness, helplessness or worthlessness. He denied ideas reference and did not express paranoid ideation. His thinking was abstract. Associations were coherent and logical. He denied hallucinations and did not appear to be responding to internal stimuli. PERTINENT DATA: He slept 5 hours last night. He's been compliant with medications. He is been attendting therapeutic groups and activities. He is posed no management problem. He is displayed no episodes of irritability or lost control over his anger. ASSESSMENT: He appears depressed over recent family meeting where his children expressed their anger and frustration about his past behaviors. However, he is denying symptoms suggestive of a depressive disorder. He does not have signs and symptoms of cassy or hypomania. PLAN: Continue Abilify 30 mg and Lamictal 100 mg daily, continue to encourage participation in therapeutic groups and activities, evaluate clinical status and response to treatment daily basis, discharge home on 06/04/2016 barring complications and arrange for outpatient mental health services that may include marital and/or family therapy.
[2016-06-03 14:34] LABS: Glucose,Whole Blood 155 mg/dL (75-99)
[2016-06-03 17:30] LABS: Glucose,Whole Blood 104 mg/dL (75-99)
[2016-06-03] MEDS: WARFARIN 10 MG TAB PO SCH (18:03)
[2016-06-03 20:00] LABS: Glucose,Whole Blood 139 mg/dL (75-99)
[2016-06-03] MEDS: INSULIN GLARGINE 100 UNIT/ML 10 ML VIAL SQ SCH (20:15)
[2016-06-03] MEDS: METOPROLOL TARTRATE 25 MG TAB PO SCH (20:16)
[2016-06-03] MEDS: NIACIN TR 250 MG CAPSULE.ER PO SCH (20:16)
[2016-06-03] MEDS: ZOLPIDEM 10 MG TAB PO PRN (21:46)
[2016-06-04] MEDS: GABAPENTIN 400 MG CAP PO SCH ×2 (06:01→10:12)
[2016-06-04] MEDS: LORazepam 1 MG TAB PO PRN ×2 (06:36→12:41)
[2016-06-04 06:37] LABS: Glucose,Whole Blood 137 mg/dL (75-99)
[2016-06-04 06:55] VITALS: TEMP 97.5
[2016-06-04] MEDS: glipiZIDE 10 MG TAB PO SCH (08:15)
[2016-06-04] MEDS: metFORMIN 850 MG TAB PO SCH ×2 (08:16→13:14)
[2016-06-04] MEDS: amLODIPine 5 MG TAB PO SCH (08:16)
[2016-06-04] MEDS: CHOLECALCIFEROL 1,000 UNIT TAB PO SCH (08:16)
[2016-06-04] MEDS: FUROSEMIDE 20 MG TAB PO SCH (08:16)
[2016-06-04] MEDS: ASPIRIN 81 MG CHEW PO SCH (08:16)
[2016-06-04] MEDS: METOPROLOL TARTRATE 50 MG TAB PO SCH (08:16)
[2016-06-04] MEDS: DIGOXIN 250 MCG TAB PO SCH (08:16)
[2016-06-04] MEDS: ARIPiprazole 15 MG TAB PO SCH (08:17)
[2016-06-04] MEDS: cloNIDine HCL 0.1 MG TAB PO SCH (08:18)
[2016-06-04] MEDS: lamoTRIgine 100 MG TAB PO SCH (08:18)
[2016-06-04] MEDS: LISINOPRIL 20 MG TAB PO SCH (08:18)
[2016-06-04] MEDS: NITROFURANTOIN MONOHYD/M-CRYST 100 MG CAP PO SCH (08:18)
[2016-06-04] MEDS: INSULIN LISPRO (humaLOG) 300 UNIT/3 ML VIAL SQ SCH ×2 (08:19→13:13)
[2016-06-04] MEDS: ALBUTEROL INHALER 60 PUFF/8 GM INHALER INHALATION PRN ×2 (08:46→12:31)
[2016-06-04 10:01] VITALS: BP 137/84; PULSE 81; RESP 18
--- NOTE | 2016-06-04 11:44 | P.DS ---
Providers Date of admission: 05/29/16 14:26 Attending physician: Antoine Srinivasan MD Consults: 05/30/16 08:38 Consult Physician Routine Consulting Provider: Teresa Camejo Consult Reason/Comments: history and physical Do you want consulting provider notified?: Already Contacted Primary care physician: Elver Matute - Discharge Diagnosis(es) (1) Bipolar disorder Current Visit: Yes Status: Chronic Priority: Medium (2) Diabetes Current Visit: No Status: Chronic Priority: Medium (3) Hyperlipidemia Current Visit: No Status: Chronic Priority: Low (4) Hypertension Current Visit: No Status: Chronic Priority: Low (5) Peripheral neuropathy Current Visit: No Status: Chronic Priority: Low Hospital Course: Mr. Patel is a 66-year-old who presented to voluntarily to the psychiatric unit at the behest of his family. He was unable to describe a reason for his presentation. He stated that a psychiatric nurse, Anni, from [facility] suggested he come to the hospital during a home visit. He is unsure as to her concern about the reason she made the recommendation. He gave me permission to speak with his Irene. Irene stated that Anni came to the house yesterday on the orders of Mr. Patel's primary care provider. Apparently an occupational therapist who provides home health care recommended a psychiatric nurse assessment. The night after the home health nurse evaluation Mr. Patel told his that he was having suicidal thoughts. She asked him if he had a plan that he replied that he does endorse brought him to the emergency department. She stated that he has a history of a bipolar illness and has had a "bad cassy" since "January or March". She stated that during manic episodes he "does terrible things". She highlighted "indiscretions" with women. Recently she found out that he is setting up liaisons with women through a website called "[employer]." She discovered his contacts with the website because she received a billing statement for the service. She stated that he has had past "indiscretions" with women during past manic episodes. His infidelity has caused marital problems but she stated she is committed to maintaining the marriage. During manic episodes including the current he complains that his is not sexual enough and "uses this" as a reason for his infidelity. She stated that he tried to buy a car and actually purchased a motorcycle without his 's knowledge. She stated that she was able to stop the transaction for the motorcycle and recover that money that he had promised. She stated that he tried to refinance their house to obtain money. She stated that he is "lying to the children". For example, he told his son that he could not buy the motorcycle because "your mother never wanted him to be happy " ... "That is why she took the motorcycle away from me." His children noticed that "something is wrong" and his daughters have avoided all contact with him over the last few months. In addition to the sexual indiscretion and the impulsive behavior with money, his sleep has been poor and erratic. She stated that he goes for periods of up to 36-48 hours without sleeping. He talked about plans to go bow hunting even though he is physically incapacitated and requires a walker. He is much more talkative than usual and his children complained about his frequent calling at home and at work. He is irritable and becomes angry with his . She stated that after she stopped payment for the motorcycle he told her to "pack her bags". During a prior manic episodes he obtained a credit card under his daughter's name without her knowledge. He he made several charges to the credit card resulting in financial and legal problems for his daughter. He presented as a tall neatly groomed elderly male with pale complexion and cespedes hair. He walked with the aid of a point walker. His gait was slow and slightly unsteady. He maintained eye contact and attended to interview. He had no distinguishing features or prominent physical abnormalities. He had a bright facial expression. He was alert and oriented to person, place and time. He showed no abnormality of psychomotor behavior. He had no abnormal involuntary movements. His speech was rapid with normal rhythm and gait. He had no articulation difficulties. His affect was bright almost inappropriate. He denied current suicidal ideation or wishes. He denied homicidal ideation. He denied depressive cognitions such as hopelessness, helplessness or worthlessness. He denied obsessions but ruminated about the issues that led to this hospitalization. He denied phobias, ideas reference, paranoid ideation and did not express delusional thoughts. His thinking was abstract. He showed flight of ideas. He did not demonstrate clang associations, neologisms or blocking. He described unusual auditory experiences. He states that he continually "hears music" and hears "whispering" as though "people were talking in a stadium." He denied visual or tactile hallucinations. Global impression of intellect is average to above. He has limited insight or understanding of his illness. We completed the [facility] Cognitive Assessment. His total score was 27/30. He has some difficulty with delayed recall and abstraction. He demonstrated no impairment with visual spatial/executive functioning, naming, attention, language or orientation. We admitted him to the psychiatric unit under the care of this telegraphic typewriter mechanic. We provided a biopsychosocial assessment. The application security consultant flower arranger completed the initial history and physical examination. The application security consultant recommended to continue with insulin in addition to a sliding scale. We resumed his outpatient medications with the exceptions of the antidepressant citalopram (we continued preadmission Abilify 30 mg by mouth daily and Lamictal 100 mg daily). We discontinued citalopram given the history of manic/hypomanic behavior. He showed signs of hypomania initially including increased self-esteem, talkativeness and some inappropriate sexual behavior. These symptoms gradually waned. He became markedly distress following a family meeting where his and children confronted him about his past behaviors including his infidelities. The social services assistant arranged for continued conjoint therapy sessions after discharge the family and interpersonal issues raised during the family meeting. He participated in therapeutic groups and activities. He posed no management problem and did not require when necessary medications for agitation or aggression. At the time of discharge he does not show signs of cassy or hypomania. He felt depressed over the results the family meeting but is looking forward to continued conjoint therapy sessions with his and children. He denied thoughts of or suicide. His speech was coherent with normal rate, rhythm and volume. His thinking was organized and goal directed. He denied psychotic symptoms such as auditory or visual hallucinations, ideas reference, thought insertion, thought broadcasting or thought control. Patient Condition at Discharge: Fair Plan - Discharge Summary New Discharge Prescriptions: Aspirin 81 mg PO DAILY #90 chew Discharge Medication List Furosemide [Lasix] 20 mg PO DAILY 10/08/13 [History] glipiZIDE [Glucotrol] 10 mg PO AC-BID 10/08/13 [History] lamoTRIgine [LaMICtal] 100 mg PO DAILY 10/08/13 [History] cloNIDine HCL [Catapres] 0.1 mg PO DAILY 01/07/14 [History] Gabapentin [Neurontin] 400 mg PO Q5H 09/21/14 [History] Metoprolol Tartrate [Lopressor] 50 mg PO AC-BRKFST 06/21/15 [History] Metoprolol Tartrate [Lopressor] 75 mg PO HS 07/11/15 [History] Digoxin [Lanoxin] 250 mcg PO DAILY 07/12/15 [History] metFORMIN HCL [Glucophage] 850 mg PO TID 07/12/15 [History] ARIPiprazole [Abilify] 30 mg PO DAILY 05/29/16 [History] Albuterol Inhaler [Ventolin Hfa Inhaler] 2 puff INHALATION RT-Q6H PRN 05/29/16 [ History] Cholecalciferol [Vitamin D3] 2,000 unit PO DAILY 05/29/16 [History] HYDROcodone/APAP 5-325MG [[place] 5-325] 1 tab PO DAILY PRN 05/29/16 [History] Lisinopril [Prinivil] 20 mg PO BID 05/29/16 [History] Niacin [Niacin ER] 750 mg PO HS 05/29/16 [History] Nitrofurantoin Monohyd/M-Cryst [Macrobid] 100 mg PO DAILY 05/29/16 [History] Warfarin [Coumadin] 10 mg PO DAILY 05/29/16 [History] Zolpidem Tartrate [Ambien] 10 mg PO HS 05/29/16 [History] amLODIPine [Norvasc] 5 mg PO DAILY 05/29/16 [History] rOPINIRole HCL [Requip] 0.5 mg PO HS 05/29/16 [History] Aspirin 81 mg PO DAILY #90 chew 06/04/16 [Rx] Insulin Glargine [Lantus] 15 unit SQ HS vial 06/04/16 [Rx] Follow up Appointment(s)/Referral(s): intake,intake [Other] - 06/05/16 10:00 am Elver Matute DO [Primary Care Provider] - 1 Week Activity/Diet/Wound Care/Special Instructions: Follow up with your protective signal repairer after discharge for follow up. Discharge Disposition: HOME SELF-CARE
[2016-06-04 11:52] LABS: Glucose,Whole Blood 184 mg/dL (75-99)
== END 2016-06-04 14:49 | disposition home or self-care (01) | DRG 885 ==
LOC: EC 09:32 → 3MHU 14:26
PROVIDERS: ADMIT Psychiatry & Neurology Psychiatry; ATTEND Psychiatry & Neurology Psychiatry
DX: F31.10 Bipolar disorder, current episode manic without psychotic features, unspecified (principal); R45.851 Suicidal ideations; E11.42 Type 2 diabetes mellitus with diabetic polyneuropathy; I50.9 Heart failure, unspecified; I11.0 Hypertensive heart disease with heart failure; I48.2 Chronic atrial fibrillation; E11.65 Type 2 diabetes mellitus with hyperglycemia; G40.909 Epilepsy, unspecified, not intractable, without status epilepticus; J44.9 Chronic obstructive pulmonary disease, unspecified; I25.10 Atherosclerotic heart disease of native coronary artery without angina pectoris; H91.90 Unspecified hearing loss, unspecified ear; M06.9 Rheumatoid arthritis, unspecified; F43.10 Post-traumatic stress disorder, unspecified; F12.90 Cannabis use, unspecified, uncomplicated; E78.5 Hyperlipidemia, unspecified; F41.9 Anxiety disorder, unspecified; H57.9 Unspecified disorder of eye and adnexa; R26.9 Unspecified abnormalities of gait and mobility; Z90.49 Acquired absence of other specified parts of digestive tract; Z92.21 Personal history of antineoplastic chemotherapy; Z85.72 Personal history of non-Hodgkin lymphomas; Z87.891 Personal history of nicotine dependence; Z86.73 Personal history of transient ischemic attack (TIA), and cerebral infarction without residual deficits; Z77.098 Contact with and (suspected) exposure to other hazardous, chiefly nonmedicinal, chemicals; Z79.01 Long term (current) use of anticoagulants; Z79.84 Long term (current) use of oral hypoglycemic drugs; Z79.899 Other long term (current) drug therapy; Z80.1 Family history of malignant neoplasm of trachea, bronchus and lung; Z80.8 Family history of malignant neoplasm of other organs or systems; Z63.0 Problems in relationship with spouse or partner
CPT/HCPCS: 36415; 80048; 80300; 82075; 82553; 83036; 84484; 85025; 85610; 93005; 94640; 99285

== ENCOUNTER → 2016-09-03 | Outpatient (CLI) | payer MEDICARE ==
[2016-09-03 18:29] LABS: Blood Urea Nitrogen 9 mg/dL (9-20); Non-African American GFR(MDRD) >60 (>60 ml/min/1.73 sqM)
--- NOTE | 2016-09-03 20:26 | CT ---
EXAMINATION TYPE: CT ChestAbdPelvis w con DATE OF EXAM: 09/03/2016 8:02 PM COMPARISON: NONE HISTORY: PT states of lumps to rigth buttocks area. Hx of lymphoma. CT DLP: 2073 mGycm Automated exposure control for dose reduction was used. CONTRAST: CT scan of the chest, abdomen and pelvis is performed with Oral Contrast and with IV Contrast, patien t injected with 100 mL of Omnipaque 300. FINDINGS: The lungs are clear of infiltrate. There is no evidence of a pulmonary mass. There is no pleural effu minesh. There is no mediastinal adenopathy. There are no hilar masses. There is no pericardial effusion. Liver spleen pancreas appear normal. There are clips from cholecystectomy. Bile ducts are not dilated . There is no adrenal mass. There are a few abdominal parodic lymph nodes that measure up to 1 cm. Th ere is a 2 cm cortical cyst on the lateral left kidney. There is no hydronephrosis. Abdominal aorta i s atheromatous. There are few diverticula in the sigmoid colon. There is no sign of diverticulitis. B ladder distends smoothly. There are prostatic calcifications. Appendix appears normal. I see no intes tinal wall thickening. There are no dilated loops. There is a 1.8 cm celiac lymph node. I see no bony destructive process. There are spondylotic changes in the thoracic and lumbar spine. There is a rounded soft tissue density that measures 1.6 cm in the subcutaneous fat over the right bu ttock. IMPRESSION: Left renal cortical cyst. There are a few abdominal retroperitoneal lymph nodes that brigette ure up to 1.8 cm without change in size compared to old CT scan of the abdomen of 11/11/2015. I do not see evidence of progression of disease in this patient with a history of lymphoma. Mild sigmoid dive rticulosis without diverticulitis. Normal appendix. There is a 1.6 mm rounded subcutaneous soft tissue density within the subcutaneous fat over the right buttock of uncertain significance.
== END | disposition home or self-care (01) ==
LOC: RADCTMAIN 17:44
PROVIDERS: ATTEND Internal Medicine Hematology & Oncology
DX: C85.90 Non-Hodgkin lymphoma, unspecified, unspecified site (principal); N28.1 Cyst of kidney, acquired; K57.30 Diverticulosis of large intestine without perforation or abscess without bleeding; M79.89 Other specified soft tissue disorders
CPT/HCPCS: 82565; 84520; 71260; 74177; 36415; Q9967

== ENCOUNTER 2016-09-16 13:52 | Day surgery (SDC) | payer MEDICARE ==
[2016-09-13 10:00] VITALS: BMI 68.4
[~2016-09-16 13:52] MED LIST: DEXAMETHASONE SOD PHOSPHATE 10 MG/ML 1 ML VIAL IV ONE; HYDROmorphone 1 MG/ML 1 ML SYRINGE IVP PRN; LACTATED RINGERS 1,000 ML IV SCH; LIDOCAINE 1% 20 ML VIAL (10MG/ML) FOR IV START INTRADERMA PRN; ONDANSETRON 4 MG/2 ML VIAL IVP ONE; Pre Op ABX Message 1 EACH MISC MISCELLANE ONE; SCOPOLAMINE 1.5MG/72HR PATCH TRANSDERM ONE
[2016-09-16 14:33] LABS: Glucose,Whole Blood 183 mg/dL (75-99)
[2016-09-16 14:58] LABS: INR 1.2 (<1.1); Prothrombin Time 12.3 sec (9.0-12.0)
[2016-09-16] MEDS ORDERED: MIDAZOLAM 2 MG/2 ML VIAL IV ONE (15:05)
[2016-09-16] MEDS: HEPARIN SODIUM,PORCINE 5,000 UNIT/ML 1 ML VIAL SQ ONE ×2 (15:06→15:30)
--- NOTE | 2016-09-16 15:40 | P.GSHP ---
History of Present Illness H&P Date: 09/16/16 Chief Complaint: Right buttock mass Patient is a 66-year-old male with a personal history of lymphoma. This was diagnosed in the arm at one point. He has already had one recurrence. Recently he felt a bulge in the right buttock that reminded him of previous episodes. There is some pain in that area the pain does radiate down the leg at times. He believes it is increasing in size. He is here today for surgical excision. 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 peripheral neuropathy bilateral feet and hands, exposure to agent orange, last known seizure 1979, psoriasis, infrahilar mass. Shingles 2013 History of Any Multi-Drug Resistant Organisms: None Reported Past Surgical History: Cardiac Ablation, Cholecystectomy, Tonsillectomy Additional Past Surgical History / Comment(s): dual pancreas surgery with port placed between 1984, 2007 cardiac ablation for AFib, Biopsy of right arm mass December 2012, colonoscopy, CERVICAL CORE BX LYMPH NODE 06/26/15, bronchoscopy and bx, pilonidial cysts x 3 removed, L foot decub ulcer with debridements, R calf puritis rash. Past Anesthesia/Blood Transfusion Reactions: No Reported Reaction Past Psychological History: Anxiety, Depression, PTSD Additional Psychological History / Comment(s): Pt resides with his spouse. He uses a cane to ambulate. He no longer drives-his spouse takes him places. He has a wheelchair and walker and is in the process of getting modifications to his home thru [place]. Smoking Status: Former smoker Past Alcohol Use History: None Reported Additional Past Alcohol Use History / Comment(s): Patient was a smoker one pack per day from the time he was 20 years old to 42 and then he quit for 10 years. Patient then smoked again for 10 years and quit around his 62 year jean-pierre. Patient has had exposure to agent orange. Past Drug Use History: Marijuana Additional Drug Use History / Comment(s): Occ. marijuana use- LAST TIME SUMMER 2014 - Past Family History Father Family Medical History: Cancer Additional Family Medical History / Comment(s): brain/lung cancer Mother Family Medical History: Cancer Additional Family Medical History / Comment(s): brain/lung cancer Medications and Allergies Home Medications Medication Instructions Recorded Confirmed Type Furosemide [Lasix] 20 mg PO W/LUNCH 10/08/13 09/13/16 History glipiZIDE [Glucotrol] 10 mg PO AC-BID 10/08/13 09/13/16 History lamoTRIgine [LaMICtal] 100 mg PO DAILY 10/08/13 09/13/16 History cloNIDine HCL [Catapres] 0.1 mg PO DAILY 01/07/14 09/13/16 History Gabapentin [Neurontin] 400 mg PO QID 09/21/14 09/13/16 History Metoprolol Tartrate [Lopressor] 50 mg PO AC-BRKFST 06/21/15 09/13/16 History Metoprolol Tartrate [Lopressor] 75 mg PO HS 07/11/15 09/13/16 History Digoxin [Lanoxin] 250 mcg PO DAILY 07/12/15 09/13/16 History metFORMIN HCL [Glucophage] 850 mg PO TID 07/12/15 09/13/16 History ARIPiprazole [Abilify] 30 mg PO DAILY 05/29/16 09/16/16 History Albuterol Inhaler [Ventolin Hfa 2 puff INHALATION RT-Q6H PRN 05/29/16 09/13/16 History Inhaler] Cholecalciferol [Vitamin D3] 2,000 unit PO DAILY 05/29/16 09/13/16 History HYDROcodone/APAP 5-325MG [[place] 1 tab PO DAILY PRN 05/29/16 09/13/16 History 5-325] Lisinopril [Prinivil] 20 mg PO BID 05/29/16 09/13/16 History Niacin [Niacin ER] 750 mg PO HS 05/29/16 09/13/16 History Warfarin [Coumadin] 10 mg PO DAILY 05/29/16 09/13/16 History Zolpidem Tartrate [Ambien] 10 mg PO HS 05/29/16 09/13/16 History amLODIPine [Norvasc] 5 mg PO DAILY 05/29/16 09/13/16 History LORazepam [Ativan] 1 mg PO Q6H PRN 09/13/16 09/13/16 History Multivitamin [Men's Multi-Vitamin] 1 each PO DAILY 09/13/16 09/13/16 History Allergies Allergy/AdvReac Type Severity Reaction Status Date / Time No Known Allergies Allergy Verified 09/13/16 09:40 Surgical - Exam Vital Signs Temp Pulse Resp BP Pulse Ox 97.3 F L 71 18 148/84 99 09/16/16 14:13 09/16/16 14:13 09/16/16 14:13 09/16/16 14:13 09/16/16 14:13 Physical exam: General: Well-developed, well-nourished HEENT: Normocephalic, sclerae nonicteric Abdomen: Nontender, nondistended Extremities: No edema, right buttock with 2.5 cm palpable slightly tender mass. No overlying skin changes Neuro: Alert and oriented Results - Labs Abnormal Lab Results - Last 24 Hours (Table) 09/16/16 09/16/16 Range/Units 14:19 14:23 PT 12.3 H (9.0-12.0) sec POC Glucose (mg/dL) 183 H (75-99) mg/dL Assessment and Plan (1) Right buttock pain Narrative/Plan: We'll proceed with surgical excision. Risks of bleeding, infection, recurrence were discussed. He understands and wishes to proceed. Status: Acute
[2016-09-16] MEDS ORDERED: PROPOFOL 10 MG/ML 20 ML VIAL IV ONE (16:02)
[2016-09-16] MEDS ORDERED: ePHEDrine 50 MG/ML 1 ML AMP ONE (16:02)
[2016-09-16] MEDS ORDERED: LIDOCAINE 1% INJ 10MG/ML (20 ML MDV) ONE (16:02)
[2016-09-16] MEDS ORDERED: PHENYLEPHRINE-0.9% NACL SYG 1 MG/10 ML SYRINGE ONE (16:02)
[2016-09-16] MEDS ORDERED: SUCCINYLCHOLINE CHLORIDE 100 MG/5 ML SYR IV ONE (16:02)
[2016-09-16] MEDS ORDERED: BUPIVACAIN-EPI 0.25%-1:200,000 30 ML VIAL SQ ONE ×3 (16:10→16:46)
[2016-09-16] MEDS ORDERED: LACTATED RINGERS 1,000 ML IV ONE ×3 (16:36)
[2016-09-16] MEDS ORDERED: HYDROcodone/APAP 5-325MG 1 EACH TAB PO PRN (16:53)
[2016-09-16] MEDS ORDERED: NALOXONE 0.4 MG/ML 1 ML VIAL IV PRN (16:53)
--- NOTE | 2016-09-16 16:55 | P.PCN ---
Date of Procedure: 09/16/16 Procedure(s) Performed: PREOPERATIVE DIAGNOSIS: Right buttock mass POSTOPERATIVE DIAGNOSIS: Same PROCEDURE: Excision SURGEON: Vicenta EBL: 5 mL ANESTHESIA: General COMPLICATIONS: None OPERATIVE PROCEDURE: Patient was placed in the left decubitus position after general anesthesia was achieved. The mass was identified. An overlying incision was created. The subcutaneous mass was excised at that point. This appeared to involve the fascia. This was fully excised with the use of electrocautery. This measured 3.2 x 2.2 cm in size. This was sent to pathology for close examination. The subcutaneous tissues were closed using 3- 0 Vicryl sutures and the skin was closed using a 5 running 4-0 Monocryl suture. DISPOSITION: Stable to recovery room
[2016-09-16 17:12] VITALS: TEMP 97.2
[2016-09-16 17:31] LABS: Glucose,Whole Blood 203 mg/dL (75-99)
[2016-09-16] MEDS ORDERED: INSULIN LISPRO (humaLOG) 300 UNIT/3 ML VIAL SQ ONE (17:32)
[2016-09-16 18:15] VITALS: RESP 18
[2016-09-16 18:28] VITALS: BP 145/78; PULSE 94
== END 2016-09-16 18:40 | disposition home or self-care (01) ==
LOC: OR 13:52
PROVIDERS: ATTEND Surgery
DX: C83.39 Diffuse large B-cell lymphoma, extranodal and solid organ sites (principal); I50.9 Heart failure, unspecified; I49.9 Cardiac arrhythmia, unspecified; I10 Essential (primary) hypertension; I48.91 Unspecified atrial fibrillation; F12.90 Cannabis use, unspecified, uncomplicated; G62.9 Polyneuropathy, unspecified; F31.9 Bipolar disorder, unspecified; H91.90 Unspecified hearing loss, unspecified ear; M06.9 Rheumatoid arthritis, unspecified; Z87.891 Personal history of nicotine dependence; Z79.84 Long term (current) use of oral hypoglycemic drugs; Z79.891 Long term (current) use of opiate analgesic; Z79.899 Other long term (current) drug therapy; Z92.21 Personal history of antineoplastic chemotherapy
CPT/HCPCS: 21931; 88305; 85610; 88342; 88341; J2250; J1644; J1100; J2405; J2001; J2370; J0330; J2704

== ENCOUNTER → 2016-09-28 | Outpatient (CLI) | payer MEDICARE ==
--- NOTE | 2016-09-30 18:51 | PE ---
EXAMINATION TYPE: PET CT fusion skull to thigh DATE OF EXAM: 09/28/2016 2:13 PM CLINICAL HISTORY: 66-year-old male subsequent staging for non-Hodgkin's lymphoma. Patient with last c hemotherapy on 06/06/2015. Prior biopsies in 2012 and 2017 along the arm and gluteal region, respective ly. TECHNIQUE: Following the intravenous administration of 14.67 mCi of F-18 FDG, whole body images are performed from the skull base to the midthigh. Images are reviewed on the computer in the coronal, axial, and sagittal planes. Reconstructed rotating images are created on independent workstation and reviewed on the computer. A localization and attenuation correction CT is performed in conjunction with the PET scan. Glucose level: 175 mg/dL CTDI: 5.14 mGy DLP: 518.07 mGy-cm COMPARISON: CT 09/03/[address] 11/25/2015 FINDINGS: PET: A few right-sided cervical lymph nodes. These are nonenlarged to mildly enlarged measuring up to 1.6 cm and show no discrete hypermetabolism and are stable from 11/25/2015. Mild focal FDG uptake in the region of the right lingual tonsils, maximal SUV 3.1, associated with so me soft tissue asymmetry. Otherwise, physiologic FDG uptake within the neck. - 6 mm pulmonary nodule anterior right mid lung unchanged. - 8 mm right upper lobe pulmonary nodule axial image 102 unchanged. - A 1 cm patch of groundglass superior segment right lower lobe is unchanged. - Couple 4 mm pulmonary nodules peripheral right upper lobe axial image 92 are unchanged. - 8 mm groundglass nodule posteromedial right base is unchanged. None of these nodules show appreciable hypermetabolism. Stable 1.9 cm hypodense lesion lateral lower pole left kidney which shows no discrete FDG uptake sugg estive of a cyst. Scattered nonenlarged and mildly enlarged mesenteric and retroperitoneal lymph nodes, for example, me asuring 1.5 cm below the pancreatic head and measuring up to 1 cm in the left para-aortic region. The se are unchanged from 11/25/2015 and show no discrete hypermetabolism. Variable moderate to intense long segments of bowel activity likely physiologic. Borderline enlarged iliac chain lymph nodes measure up to 8 mm and are unchanged from 11/25/2015. Uptake in the left gluteal insertion suggests insertional tendinopathy. Enlarging hyperdense subcutaneous mass overlying the right posterolateral gluteal region now measures 3.6 cm versus 1.9 cm on 09/03/2016. This area shows minimal peripheral FDG uptake, maximum SUV 1.8. F indings are suggestive of a benign etiology. ATTENUATION CORRECTION CT: Rightward nasal septal deviation with clear paranasal sinuses and mastoid air cells. The heart is normal size with mitral annular calcifications and scattered coronary vessel calcificati ons which are remarkable for coronary artery disease. Mild atherosclerotic arch calcifications with c onventional arch vessel branching anatomy. Mildly enlarged caliber to the main right and left pulmona ry arteries measuring 2.8 cm each may reflect underlying pulmonary arterial hypertension. No thoracic lymphadenopathy. Mild underlying centrilobular emphysema and mild diffuse bronchial wall thickening compatible with CO PD. Some strandy atelectasis at the inferior lingula. Respiratory motion in the lower lungs. Tiny hiatal hernia. There is mild to moderate stool burden and sigmoid diverticulosis without evidenc e for acute diverticulitis. No dilated small bowel, free fluid, or free air. Mild circumferential bladder wall thickening. Central prostatic calcifications. Bones: Degenerative changes at the hips and mid to lower lumbar spine. Endplate spondylosis throughou t the mid to lower thoracic spine. No osseous destructive process. IMPRESSION: 1. Mild hypermetabolism involving asymmetrically larger right lingual tonsil is probably post inflamm atory. Correlate with direct visualization. 2. Otherwise, no convincing evidence for recurrent disease; scattered pulmonary nodules measure up to 1 cm and show no discrete hypermetabolism and are stable from 11/25/2015. Additional scattered nonenl arged and borderline to mildly enlarged right-sided cervical, abdominal, and pelvic lymph nodes are a lso unchanged without FDG uptake. 3. Clinical correlation recommended for the patient's enlarging subcutaneous lesion overlying the rig ht posterolateral gluteal region. This is hyperdense measuring 3.6 cm versus 1.9 cm on 09/03/2016 and h as no significant uptake. Consider surgical excision if continued enlargement. 4. Variable hypermetabolism throughout segments of the colon is probably physiologic and can be corre lated with routine colonoscopy. 4. COPD, possible pulmonary arterial hypertension, tiny hiatal hernia, and sigmoid diverticulosis.
== END | disposition home or self-care (01) ==
LOC: RADPETMAIN 10:41
PROVIDERS: ATTEND Internal Medicine Hematology & Oncology
DX: C83.39 Diffuse large B-cell lymphoma, extranodal and solid organ sites (principal); R91.8 Other nonspecific abnormal finding of lung field; L98.9 Disorder of the skin and subcutaneous tissue, unspecified; J44.9 Chronic obstructive pulmonary disease, unspecified; K44.9 Diaphragmatic hernia without obstruction or gangrene; K57.30 Diverticulosis of large intestine without perforation or abscess without bleeding
CPT/HCPCS: 78815; A9552

== ENCOUNTER → 2016-12-21 | Outpatient (CLI) | payer MEDICARE | END | disposition home or self-care (01) | LOC: RADPETMAIN 08:32 | PROVIDERS: ATTEND Internal Medicine Hematology & Oncology | DX: Z53.9 Procedure and treatment not carried out, unspecified reason (principal) ==

== ENCOUNTER → 2017-01-04 | Outpatient (CLI) | payer MEDICARE, OTHER | LOC: RADPETMAIN 07:57 | PROVIDERS: ATTEND Internal Medicine Hematology & Oncology | DX: Z53.9 Procedure and treatment not carried out, unspecified reason (principal) ==

== ENCOUNTER → 2017-01-11 | Outpatient (CLI) | payer MEDICARE, OTHER ==
--- NOTE | 2017-01-12 10:40 | PE ---
EXAMINATION TYPE: PET CT fusion skull to thigh DATE OF EXAM: 01/11/2017 CLINICAL HISTORY: 67-year-old male history of non-Hodgkin's lymphoma. Chemotherapy in 2014. Patient w ith radiation therapy to the right buttock on November 2016 and surgery to the right buttock on October 2016 . TECHNIQUE: Following the intravenous administration of 11.3 mCi of F-18 FDG, whole body images are performed from the skull base to the midthigh. Images are reviewed on the computer in the coronal, a xial, and sagittal planes. Reconstructed rotating images are created on independent workstation and reviewed on the computer. A localization and attenuation correction CT is performed in conjunction with the PET scan. Glucose level: 159 mg/dL CTDI: 5.07 mGY DLP: 511.07 mGy-cm COMPARISON: 09/28/2016 FINDINGS: PET: Redemonstrated asymmetric uptake along the right lingual tonsils, now borderline moderate (max SUV 3. 9 versus 3.1, previously) associated with some soft tissue asymmetry. Mildly enlarged 1.6 cm lower right cervical lymph node on axial image 64 is unchanged and shows no di screte uptake. Scattered pulmonary nodules, particularly within the right lung measuring up to 1 cm are unchanged an d show no discrete FDG uptake. Variable moderate to intense long segment of bowel activity as seen previously likely physiologic. Retroperitoneal lymph nodes such as aortocaval axial image 174 measures 9 mm, left paraaortic measure s 1 cm; these show no discrete FDG uptake and are stable. 8 mm right external iliac chain lymph node, axial image 230 also shows no discrete FDG uptake and is stable. There is residual poorly defined density within the subcutaneous fat of the right posterolateral butt ock region measuring 3.3 x 1.8 cm versus 3.6 x 3.1 cm, previously. There is residual minimal uptake, maximum SUV 2.3 versus 1.8, previously. ATTENUATION CORRECTION CT: Rightward nasal septal deviation. Visualized paranasal sinuses and mastoid air cells appear clear. Heart is normal size without pericardial effusion. Mitral annular calcifications. Conventional arch v essel branching anatomy. 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 Mildly enlarg ed caliber to the main right and left pulmonary arteries and 2.7 and 2.6 cm, respectively, suggesting underlying pulmonary arterial hypertension. No thoracic lymphadenopathy seen. No consolidation or pl eural effusion. Mild diffuse bronchial wall thickening. Cholecystectomy clips. No dilated small bowel, free fluid, or free air. Mild stool burden noted. Norm al appendix. Sigmoid diverticulosis. Circumferential bladder wall thickening as seen previously. Central prostatic calcifications. No abno rmal fluid collection in the pelvis. Bones: Degenerative changes of the hips and lower lumbar spine. Endplate spondylosis mid to lower tho racic spine. IMPRESSION: 1. Decreasing size, density, and definition of the previous right posterolateral buttock subcutaneous lesion (3.3 x 1.8 cm versus 3.6 x 3.1 cm, previously). Mild FDG uptake here is slightly increased pr obably reflecting posttreatment change especially given the interval decrease in size (Max SUV 2.3 ve rsus 1.8, previously). Continued follow-up as indicated. 2. Now borderline moderate hypermetabolism involving asymmetrically larger right lingual tonsil, rela tively similar to slightly increased from prior. Probably postinflammatory. Continued surveillance re commended. 3. Scattered borderline enlarged lymph nodes (lower right cervical, retroperitoneal, and right flat sheet maker al iliac chain) measuring up to 1.6 cm are stable and show no discrete FDG uptake. 3. Scattered pulmonary nodules measuring up to 1 cm are also unchanged showing no discrete FDG uptake . 4. Similar long segments of prominent bowel uptake, probably physiologic.
== END ==
LOC: RADPETMAIN 12:16
PROVIDERS: ATTEND Internal Medicine Hematology & Oncology
DX: C83.39 Diffuse large B-cell lymphoma, extranodal and solid organ sites (principal); R91.8 Other nonspecific abnormal finding of lung field
CPT/HCPCS: 78815; A9552

== ENCOUNTER → 2017-04-12 | Outpatient (CLI) | payer MEDICARE, OTHER ==
--- NOTE | 2017-04-12 14:15 | PE ---
Nuclear medicine PET/CT HISTORY: Lymphoma, subsequent Patient received 13.6 mCi F-18 FDG intravenously. Delayed scanning was performed from the skull base to the mid thighs. Localization and attenuation correction CT scan was performed. Correlation to prior nuclear medicine PET/CT 01/11/2017 Neck and chest: There is no evident adenopathy. No suspicious hypermetabolic uptake. There is no evid ent lung mass. There is no pleural or pericardial effusion. Abdomen pelvis: No retroperitoneal adenopathy. No mesenteric adenopathy. No evident pelvic adenopathy . No suspicious hypermetabolic uptake. Prostatic calcifications are present. Nondescript subcutaneous fat increased density seen on prior exam shows only minimal increased uptake as on prior exam. Bowel uptake is likely physiologic. Osseous structures are stable. IMPRESSION: No significant interval change. Recurrence is not evident.
== END | disposition home or self-care (01) ==
LOC: RADPETMAIN 09:54
PROVIDERS: ATTEND Internal Medicine Hematology & Oncology
DX: C83.39 Diffuse large B-cell lymphoma, extranodal and solid organ sites (principal)
CPT/HCPCS: 78815; A9552

== ENCOUNTER → 2017-07-30 | Outpatient (CLI) | payer MEDICARE, OTHER ==
--- NOTE | 2017-07-30 16:40 | MR ---
EXAMINATION TYPE: MR brain wo/w con DATE OF EXAM: 07/30/2017 COMPARISON: 11/11/2015 and 11/08/2014 HISTORY: CAMILO, Lymphoma TECHNIQUE: Multiplanar, multisequence images of the brain and brainstem is performed without and with IV contras t, utilizing 12 mL intravenous Gadavist . FINDINGS: Diffusion weighted images demonstrate no evidence of a recent infarct or other diffusion ab normality. There is no extra-axial fluid collection patchy areas of T2/IR hyperintensity are scatter ed throughout the periventricular and subcortical white matter, most pronounced within the parietal l obes. These are similar in degree to the exam of 2014. The major intracranial flow voids are maintain ed. Linear signal within the left vertebral artery on axial images corresponds to eccentric plaquing on the sagittal images within the vertebral artery. Flow is seen throughout excluding dissection. The left vertebral artery is dominant. The ventricular system and cisternal spaces are normal in size an d appearance. The brain volume is age appropriate. Midline structures demonstrate normal morphology. The craniocervical junction appears within normal limits. Post contrast images demonstrate no abnormal enhancement. The dural venous sinuses appear pa tent. Scant mucosal thickening is seen within the ethmoid sinuses and left maxillary sinus. The remai milagros visualized sinuses are clear and the globes are intact. Mastoid air cells are well aerated. Inho mogeneous fat saturation is seen within the orbits. No focal lesion is identified. No abnormal leptom eningeal enhancement. IMPRESSION: 1. No evidence of intracranial mass or abnormal intracranial enhancement to suggest lymphomatous invo lvement. 2. Moderate degree plaquing within the left dominant vertebral artery. Vascular flow is currently andreas ntained. 3. Mild burden nonspecific white matter changes, likely on the basis of chronic microangiopathy that are similar in degree to the exam of 2014.
== END | disposition home or self-care (01) ==
LOC: RADMRIMAIN 13:34
PROVIDERS: ATTEND Internal Medicine Hematology & Oncology
DX: I67.2 Cerebral atherosclerosis (principal); R90.82 White matter disease, unspecified; C83.39 Diffuse large B-cell lymphoma, extranodal and solid organ sites
CPT/HCPCS: 70553; A9581

== ENCOUNTER → 2017-08-09 | Outpatient (CLI) | payer MEDICARE, OTHER ==
--- NOTE | 2017-08-09 16:39 | PE ---
EXAMINATION TYPE: PET CT fusion skull to thigh DATE OF EXAM: 08/09/2017 COMPARISON: Prior PET/CT April 12, [address] chest abdomen and pelvis September 03, 2016 HISTORY: Lymphoma progress study. Originally diagnosed right forearm and buttocks region per patient . Completed chemotherapy 2015. Completed radiation treatment 2017. Had surgery for both forearm and g luteal lesions per patient. TECHNIQUE: Following the intravenous administration of 14.77 mCi of F-18 FDG, whole body images are performed from the skull base to the midthigh. Images are reviewed on the computer in the coronal, a xial, and sagittal planes. Reconstructed rotating images are created on independent workstation and reviewed on the computer. A noncontrast CT is performed in conjunction with the PET scan. SCAN: Subsequent Scan FINDINGS: SKULL BASE AND NECK: No new suspicious hypermetabolic uptake is seen. CHEST, MEDIASTINUM, AND HILAR REGION: No new suspicious hypermetabolic uptake ABDOMEN AND PELVIS: Uptake throughout bowel and bladder is redemonstrated. No new suspicious hypermet abolic uptake identified. There is persistent subcutaneous oval lesion right posterior lateral gluteal region axial image 239 m easuring 2.1 x 0.7 cm current study, this is not significantly changed in size from most recent PET/C T. No suspicious no hypermetabolic uptake is present. OSSEOUS STRUCTURES: No suspicious hypermetabolic uptake is seen. OTHER CT: Mild to moderate calcified plaque bilateral carotid bulb level is redemonstrated. Nasal sep lori is deviated to right of midline. There is background mild underlying emphysematous change redemonstrated. Calcifications at level of m itral valve are redemonstrated. Cholecystectomy clips are again seen. There is moderate calcified plaque of the infrarenal abdominal aorta extending into pelvic branch ves sels. There are diverticula in the sigmoid colon. There is diffuse fullness at sigmoid colon level seen bes t axial image 247. Would advise colonoscopy follow-up if has not been performed in the last 3 years t o exclude mass or wall thickening at this level. No suspicious proximal dilatation is present. There is posterior gastric diverticulum redemonstrated axial image 151. Central zone calcifications and prostate gland are redemonstrated. Incidental normal-appearing appendix. There is multilevel facet arthropathy in the mid to lower lumbar spine. There is multilevel spurring in the thoracolumbar spine. IMPRESSION: Stable right posterior lateral nonspecific gluteal lesion from recent PET/CT favoring sca r given history of surgical resection and nonenlargement. No new suspicious masses identified to sugg est recurrent lymphoma. Would advise colonoscopy to assess sigmoid colon up has not been performed in last 3 years as there is poor visualization of lumen and prominence seen on PET/CT and prior PET/CT.
== END | disposition home or self-care (01) ==
LOC: RADPETMAIN 09:25
PROVIDERS: ATTEND Internal Medicine Hematology & Oncology
DX: M62.9 Disorder of muscle, unspecified (principal); C83.39 Diffuse large B-cell lymphoma, extranodal and solid organ sites; Z98.890 Other specified postprocedural states
CPT/HCPCS: 78815; A9552

== ENCOUNTER 2017-11-24 06:48 | Day surgery (SDC) | payer MEDICARE, OTHER ==
[2017-11-19 12:32] VITALS: BMI 30.2
[~2017-11-24 06:48] MED LIST changes: -DEXAMETHASONE SOD PHOSPHATE 10 MG/ML 1 ML VIAL IV ONE; -HYDROmorphone 1 MG/ML 1 ML SYRINGE IVP PRN; -ONDANSETRON 4 MG/2 ML VIAL IVP ONE; -Pre Op ABX Message 1 EACH MISC MISCELLANE ONE; -SCOPOLAMINE 1.5MG/72HR PATCH TRANSDERM ONE
[2017-11-24 07:17] VITALS: RESP 18; TEMP 97.8
[2017-11-24 07:18] LABS: Glucose,Whole Blood 118 mg/dL (75-99)
[2017-11-24] MEDS ORDERED: GLUCAGON 1 MG/ML VIAL ONE (07:44)
[2017-11-24] MEDS ORDERED: PROPOFOL 10 MG/ML 20 ML VIAL IV ONE (07:44)
--- NOTE | 2017-11-24 08:01 | P.GSHP ---
History of Present Illness H&P Date: 11/24/17 Chief Complaint: Screening colonoscopy This is a 67-year-old male presents today for screening colonoscopy. His last colonoscopy was over 15 years ago. He denies a significant GI bleed. 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 Shingles 2013 , TINNITUS; History of Any Multi-Drug Resistant Organisms: None Reported Past Surgical History: Cardiac Ablation, Cholecystectomy, Tonsillectomy Additional Past Surgical History / Comment(s): dual pancreas surgery with port placed between 1984, Biopsy of right arm mass December 2012, CERVICAL CORE BX LYMPH NODE 06/26/15, bronchoscopy and bx, pilonidial cysts x 3 removed, L foot decub ulcer with debridements, RT BUTTOCK CA REMOVED. HX OF PORT A CATH'S WITH REMOVAL Past Anesthesia/Blood Transfusion Reactions: No Reported Reaction Smoking Status: Former smoker - Past Family History Father Family Medical History: Cancer Additional Family Medical History / Comment(s): brain/lung cancer Mother Family Medical History: Cancer Additional Family Medical History / Comment(s): brain/lung cancer Medications and Allergies Home Medications Medication Instructions Recorded Confirmed Type Furosemide [Lasix] 20 mg PO QAM 10/08/13 11/24/17 History glipiZIDE [Glucotrol] 10 mg PO AC-BID 10/08/13 11/24/17 History lamoTRIgine [LaMICtal] 100 mg PO QAM 10/08/13 11/24/17 History cloNIDine HCL [Catapres] 0.1 mg PO AC-LUNCH 01/07/14 11/24/17 History Gabapentin [Neurontin] 600 mg PO TID 09/21/14 11/24/17 History Metoprolol Tartrate [Lopressor] 50 mg PO AC-BRKFST 06/21/15 11/24/17 History Metoprolol Tartrate [Lopressor] 75 mg PO HS 07/11/15 11/24/17 History Digoxin [Lanoxin] 250 mcg PO DAILY 07/12/15 11/24/17 History metFORMIN HCL [Glucophage] 850 mg PO TID 07/12/15 11/24/17 History ARIPiprazole [Abilify] 30 mg PO DAILY 05/29/16 11/24/17 History Albuterol Inhaler [Ventolin Hfa 2 puff INHALATION RT-Q6H PRN 05/29/16 11/24/17 History Inhaler] Cholecalciferol [Vitamin D3] 2,000 unit PO DAILY 05/29/16 11/24/17 History Lisinopril [Prinivil] 20 mg PO BID 05/29/16 11/24/17 History Niacin [Niacin ER] 750 mg PO HS 05/29/16 11/24/17 History Warfarin [Coumadin] 10 mg PO DAILY 05/29/16 11/24/17 History Zolpidem Tartrate [Ambien] 10 mg PO HS 05/29/16 11/24/17 History amLODIPine [Norvasc] 5 mg PO AC-LUNCH 05/29/16 11/24/17 History Multivitamin [Men's Multi-Vitamin] 1 each PO DAILY 09/13/16 11/24/17 History ALPRAZolam [Xanax] 0.5 mg PO QID PRN 05/16/17 11/24/17 History Insulin Glargine [Lantus] 30 unit SQ HS 05/16/17 11/24/17 History Meloxicam [Mobic] 15 mg PO DAILY 05/16/17 11/24/17 History Naproxen [Naprosyn] 500 mg PO Q12HR PRN 05/16/17 11/24/17 History Allergies Allergy/AdvReac Type Severity Reaction Status Date / Time No Known Allergies Allergy Verified 11/19/17 12:25 Surgical - Exam Vital Signs Temp Pulse Resp BP Pulse Ox 97.8 F 72 18 130/80 97 11/24/17 07:10 11/24/17 07:10 11/24/17 07:10 11/24/17 07:10 11/24/17 07:10 - General well developed, no distress - Eyes PERRL - ENT normal pinna - Neck no masses - Respiratory normal expansion - Cardiovascular Rhythm: regular - Abdomen Abdomen: soft, non tender Results - Labs Abnormal Lab Results - Last 24 Hours (Table) 11/24/17 Range/Units 07:16 POC Glucose (mg/dL) 118 H (75-99) mg/dL Assessment and Plan Assessment: We will perform screening colonoscopy.
--- NOTE | 2017-11-24 08:20 | P.OP ---
Date of Procedure: 11/24/17 Preoperative Diagnosis: Screening colonoscopy Postoperative Diagnosis: Rectal polyp Diverticulosis Procedure(s) Performed: Colonoscopy Anesthesia: MAC Surgeon: Toribio Banks Pathology: other (Rectal polyp) Condition: stable Disposition: PACU Description of Procedure: The patient's placed on the endoscopy table in the lateral position. He received IV sedation. Digital rectal exam was performed which revealed no abnormalities. The flexible colonoscope was then placed patient anus passed with colon. Scope could not be passed beyond the sigmoid colon secondary to tortuosity bowel. There were diverticular changes noted. Scope was then brought back and the rectum at 20 cm there was a small sessile polyp. This removed the forcep. Scope was withdrawn for patient.
[2017-11-24 09:17] VITALS: BP 143/82; PULSE 68
== END 2017-11-24 09:37 | disposition home or self-care (01) ==
LOC: ORWHC2ENDO 06:48
PROVIDERS: ATTEND Surgery
DX: Z12.11 Encounter for screening for malignant neoplasm of colon (principal); K62.1 Rectal polyp; Q43.8 Other specified congenital malformations of intestine; I48.91 Unspecified atrial fibrillation; I11.0 Hypertensive heart disease with heart failure; I50.9 Heart failure, unspecified; Z87.891 Personal history of nicotine dependence; E13.42 Other specified diabetes mellitus with diabetic polyneuropathy; J44.9 Chronic obstructive pulmonary disease, unspecified; Z86.73 Personal history of transient ischemic attack (TIA), and cerebral infarction without residual deficits; R41.3 Other amnesia; M06.9 Rheumatoid arthritis, unspecified; G40.909 Epilepsy, unspecified, not intractable, without status epilepticus; Z85.72 Personal history of non-Hodgkin lymphomas; Z85.89 Personal history of malignant neoplasm of other organs and systems; Z92.21 Personal history of antineoplastic chemotherapy; Z92.3 Personal history of irradiation; Z77.098 Contact with and (suspected) exposure to other hazardous, chiefly nonmedicinal, chemicals; Z79.4 Long term (current) use of insulin; Z79.1 Long term (current) use of non-steroidal anti-inflammatories (NSAID); Z79.899 Other long term (current) drug therapy
CPT/HCPCS: 88305; 45331; J1610; J2704

== ENCOUNTER → 2017-11-27 | Outpatient (CLI) | payer MEDICARE, OTHER ==
--- NOTE | 2017-11-27 10:21 | FL ---
EXAMINATION TYPE: FL barium enema DATE OF EXAM: 11/27/2017 CLINICAL HISTORY: 67-year-old male incomplete colonoscopy 2 days ago, sessile polyp excised in the si gmoid. Unable to pass beyond the sigmoid colon. TECHNIQUE: A double contrast barium enema study is performed. Total fluoroscopy time: 3.47 minutes Total images: 68 COMPARISON: Correlation PET/CT of 08/09/2017. FINDINGS: C[employer]ation [employer] Outreach Specialist view of the abdomen shows overall non-obstructive bowel gas pattern. Cholecystectomy clips and some degenerative changes in the lower lumbar spine. Note that there was technical difficulty in being able to adequately opacify the entire colon. Extens lala diverticular disease and irregular narrowing is present along the mid sigmoid which resulted in p ainful distention of the rectum. Contrast eventually reached the lower ascending colon and cecum but has poor overall coating. Diffuse colonic diverticulosis especially within the ascending colon, hepatic flexure, and more exten sively throughout the sigmoid colon. There is irregular narrowing with age partially distends along the mid sigmoid colon at the site of m ost extensive diverticular change. No evident mass or polyp is seen throughout the colon. There was no reflux into the terminal ileum. IMPRESSION: 1. Exam limitations due to incomplete coating of the cecum and ascending colon; extensive diverticula r disease with irregular narrowing at the mid sigmoid resulted in painful distention of the rectum an d limited the ability to instill additional contrast and air. 2. This area of narrowing showed gradual partial distention. Correlate for chronic diverticulitis and any associated clinical symptomatology. Based on the appearance, an underlying annular lesion here w ould be difficult to exclude. Correlation with CEA levels may be reassuring. 3. Additional diverticulosis within the ascending colon and hepatic flexure. 4. Again, limited assessment of the cecum and lower ascending colon.
== END | disposition home or self-care (01) ==
LOC: RADFLMAIN 07:37
PROVIDERS: ATTEND Surgery
DX: K57.30 Diverticulosis of large intestine without perforation or abscess without bleeding (principal)
CPT/HCPCS: 74270

== ENCOUNTER → 2017-12-23 | Outpatient (CLI) | payer MEDICARE, OTHER ==
[2017-12-23 12:46] LABS: HCT 38.1 % (39.0-53.0); HGB 12.6 gm/dL (13.0-17.5); INR 1.7 (<1.2); MCH 29.5 pg (25.0-35.0); MCV 89.3 fL (80.0-100.0); Mean Platelet Volume 7.4; Platelet Count 277 k/uL (150-450); Prothrombin Time 15.8 sec (9.0-12.0); RBC 4.26 m/uL (4.30-5.90); RDW 14.2 % (11.5-15.5); WBC 8.4 k/uL (3.8-10.6)
[2017-12-23 13:02] LABS: Potassium 4.6 mmol/L (3.5-5.1)
== END | disposition home or self-care (01) ==
LOC: LABPAT 11:18
PROVIDERS: ATTEND Surgery
DX: Z01.818 Encounter for other preprocedural examination (principal); Z01.812 Encounter for preprocedural laboratory examination; K57.33 Diverticulitis of large intestine without perforation or abscess with bleeding
CPT/HCPCS: 36415; 80051; 80162; 85027; 85610; 93005

== ENCOUNTER 2017-12-26 09:00 | Inpatient (IN) | payer MEDICARE, OTHER ==
[~2017-12-26 09:00] MED LIST changes: +DEXAMETHASONE SOD PHOSPHATE 10 MG/ML 1 ML VIAL IV ONE; +HEPARIN SODIUM,PORCINE 5,000 UNIT/ML 1 ML VIAL SQ ONE; -LACTATED RINGERS 1,000 ML IV SCH; +MIDAZOLAM 2 MG/2 ML VIAL IV PRN; +NALBUPHINE 10 MG/ML VIAL (10ML MDV) IV PRN; +ONDANSETRON 4 MG/2 ML VIAL IVP ONE; +ROPIVACAINE 250 MG, HYDROMORPHONE (PF) 5 MG in SODIUM CHLORIDE 0.9% 200 ML EPIDURAL PRN; +fentaNYL (PF) 50 MCG/ML 2 ML AMP IV PRN; +metroNIDAZOLE-NS PMX 500 MG in SALINE 1 100ML.BAG IVPB ONE
[2017-12-26 10:33] LABS: Glucose,Whole Blood 141 mg/dL (75-99)
[2017-12-26 10:38] LABS: INR 1.2 (<1.2); Prothrombin Time 11.1 sec (9.0-12.0)
--- NOTE | 2017-12-26 10:42 | P.GSHP ---
History of Present Illness H&P Date: 12/26/17 Chief Complaint: Diverticulitis This a 67-year-old male who's had chronic history diverticulitis. Patient presents today for low anterior resection. 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, peripheral neuropathy bilateral feet(causes balance problems at times) and hands, exposure to agent orange, last known seizure 1989 , psoriasis, Shingles 2013, TINNITUS; TIA-10 yrs-no effects, diiverticulosis, diverticulitis, constipation/diarrhea, hx pancreatitis, hx cellulitis 2011 History of Any Multi-Drug Resistant Organisms: None Reported Past Surgical History: Cardiac Ablation, Cholecystectomy, Tonsillectomy Additional Past Surgical History / Comment(s): dual pancreas surgery with port placed between 1984, Biopsy of right arm mass December 2012, CERVICAL CORE BX LYMPH NODE 06/26/15, bronchoscopy and bx, pilonidial cysts x 3 removed, L foot decub ulcer with debridements, RT BUTTOCK CA REMOVED. HX OF PORT A CATHETER/ later REMOVAL Past Anesthesia/Blood Transfusion Reactions: No Reported Reaction Additional Drug Use History / Comment(s): . - Past Family History Father Family Medical History: Cancer Additional Family Medical History / Comment(s): lung cancer Mother Family Medical History: Cancer Additional Family Medical History / Comment(s): lung cancer Medications and Allergies Home Medications Medication Instructions Recorded Confirmed Type Furosemide [Lasix] 20 mg PO QAM 10/08/13 12/26/17 History glipiZIDE [Glucotrol] 10 mg PO AC-BID 10/08/13 12/26/17 History lamoTRIgine [LaMICtal] 100 mg PO 1300 10/08/13 12/26/17 History cloNIDine HCL [Catapres] 0.1 mg PO QAM 01/07/14 12/26/17 History Gabapentin [Neurontin] 600 mg PO TID 09/21/14 12/26/17 History Metoprolol Tartrate [Lopressor] 50 mg PO AC-BRKFST 06/21/15 12/26/17 History Metoprolol Tartrate [Lopressor] 75 mg PO HS 07/11/15 12/26/17 History Digoxin [Lanoxin] 250 mcg PO DAILY 07/12/15 12/26/17 History metFORMIN HCL [Glucophage] 850 mg PO TID 07/12/15 12/26/17 History ARIPiprazole [Abilify] 30 mg PO 1300 05/29/16 12/26/17 History Albuterol Inhaler [Ventolin Hfa 2 puff INHALATION Q6H PRN 05/29/16 12/26/17 History Inhaler] Cholecalciferol [Vitamin D3] 2,000 unit PO DAILY 05/29/16 12/26/17 History Lisinopril [Prinivil] 20 mg PO BID 05/29/16 12/26/17 History Niacin [Niacin ER] 750 mg PO HS 05/29/16 12/26/17 History Warfarin [Coumadin] 10 mg PO SUTUTH 05/29/16 12/26/17 History Zolpidem Tartrate [Ambien] 10 mg PO HS 05/29/16 12/26/17 History amLODIPine [Norvasc] 5 mg PO W/SUPPER 05/29/16 12/26/17 History Multivitamin [Men's Multi-Vitamin] 1 each PO DAILY 09/13/16 12/26/17 History ALPRAZolam [Xanax] 0.5 mg PO QID PRN 05/16/17 12/26/17 History Insulin Glargine [Lantus] 30 unit SQ HS 05/16/17 12/26/17 History Meloxicam [Mobic] 15 mg PO DAILY 05/16/17 12/26/17 History Naproxen [Naprosyn] 500 mg PO Q12HR PRN 05/16/17 12/26/17 History Albuterol Nebulized [Ventolin 2.5 mg INHALATION Q6H PRN 12/22/17 12/26/17 History Nebulized] Hydrocodone/Acetaminophen [[place]wood 1 tab PO Q6HR PRN 12/22/17 12/26/17 History 5-325] Warfarin [Coumadin] 5 mg PO MOWEFRSA 12/22/17 12/26/17 History lamoTRIgine [LaMICtal] 50 mg PO HS 12/22/17 12/26/17 History Allergies Allergy/AdvReac Type Severity Reaction Status Date / Time No Known Allergies Allergy Verified 12/26/17 10:19 Surgical - Exam - General well developed, well nourished, no distress - Eyes PERRL - ENT normal pinna - Neck no masses - Respiratory normal expansion - Cardiovascular Rhythm: regular - Abdomen Abdomen: soft, non tender Results - Labs Abnormal Lab Results - Last 24 Hours (Table) 12/26/17 12/26/17 Range/Units 10:17 10:17 INR 1.2 H (<1.2) POC Glucose (mg/dL) 141 H (75-99) mg/dL Assessment and Plan Assessment: Diverticula is. We'll perform low anterior section. Patient aware the risk of colostomy, wound infection.
[2017-12-26] MEDS: LACTATED RINGERS 1,000 ML IV SCH ×2 (11:07→16:10)
[2017-12-26] MEDS: ceFAZolin IN SWFI 2 GM/20 ML SYRINGE IVP ONE ×2 (11:14→11:37)
[2017-12-26] MEDS ORDERED: NEOSTIGMINE 1 MG/ML 10 ML VIAL ONE (11:22)
[2017-12-26] MEDS ORDERED: LIDOCAINE 1% INJ 10MG/ML (20 ML MDV) ONE (11:22)
[2017-12-26] MEDS ORDERED: ROCURONIUM BROMIDE 10 MG/ML 10 ML VIAL IV ONE (11:22)
[2017-12-26] MEDS ORDERED: SUCCINYLCHOLINE CHLORIDE 100 MG/5 ML SYR IV ONE (11:22)
[2017-12-26] MEDS ORDERED: PROPOFOL 10 MG/ML 20 ML VIAL IV ONE (11:22)
[2017-12-26] MEDS ORDERED: GLYCOPYRROLATE 0.2 MG/ML 2 ML VIAL ONE (11:22)
[2017-12-26] MEDS ORDERED: LACTATED RINGERS 1,000 ML IV ONE (11:44)
[2017-12-26] MEDS ORDERED: ONDANSETRON 4 MG/2 ML VIAL IVP PRN (13:20)
[2017-12-26] MEDS ORDERED: METOCLOPRAMIDE 5 MG/ML 2 ML VIAL IVP PRN (13:20)
--- NOTE | 2017-12-26 13:36 | P.OP ---
Date of Procedure: 12/26/17 Preoperative Diagnosis: Diverticulitis Postoperative Diagnosis: Diverticulitis Procedure(s) Performed: Low anterior section Partial omentectomy Anesthesia: DENIS Surgeon: Toribio Banks Estimated Blood Loss (ml): 50 Pathology: other (Sigmoid colon, omentum) Condition: stable Disposition: PACU Description of Procedure: DESCRIPTION OF PROCEDURE: The patient was placed on the operating table in the supine position. Patient received a general anesthesia. Patient was then placed in the dorsal lithotomy position. The patients abdomen was prepped and draped in the usual sterile fashion. Through a low midline incision, the abdomen was entered. The Herman wound protector was placed in the wound. The Alec retractor was placed in the wound. The stomach appeared normal. The small bowel appeared normal. The liver appeared normal. The right colon and transverse colon appeared normal. On the left colon, there was an extensive diverticulosis noted. There was extensive inflammation of the rectosigmoid area. The sigmoid colon was then mobilized by dividing the white line of Toldt with electrocautery. A portion of the omentum was transected with the axilla device. At this point, the proximal sigmoid colon was transected with a GI stapler after a window had been made in the mesentery. The distal sigmoid colon was then dissected. Mesentery was taken down between Brandie clamps and ligated with #0 silk ties. At a point beyond the lesion, the bowel was then transected with a Proximate stapler. This was then removed. The splenic flexure was then taken down in order to provide adequate lengthening of the sigmoid colon. At this point, the auto purse- string suture device was placed across the proximal colon and fired. The colon was then opened. The 29 mm EEA anvil was then placed into the colon and then the purse-string was secured. The EEA stapler device was then placed in the patients anus and passed into the rectum. The nail for the EEA was then brought out through the distal rectum and then attached to the anvil. The EEA stapler device was then fired. The anastomosis was inspected. There were 2 good donuts of tissue removed from the EEA stapler. The anastomosis was then tested under water and there was no air leak seen. At this point the abdomen was then irrigated. There was no bleeding seen. Next using clean instruments The fascia was then closed with double stranded #1 PDS. The skin was closed with stas. The patient tolerated the procedure well.
[2017-12-26] MEDS ORDERED: BUPIVACAINE (PF) 0.25% 30 ML VIAL EPIDURAL ONE (14:04)
[2017-12-26 14:26] LABS: Glucose,Whole Blood 175 mg/dL (75-99)
[2017-12-26] MEDS: HEPARIN SODIUM,PORCINE 5,000 UNIT/ML 1 ML VIAL SQ SCH ×2 (16:10→23:30)
[2017-12-26] MEDS: D5-0.45% NACL WITH KCL 20MEQ/L 1,000 ML IV SCH ×2 (16:10→23:29)
[2017-12-26 16:27] LABS: Basophils % (A) 0 %; Eosinophils # (A) 0.1 k/uL (0-0.7); Eosinophils % (A) 1 %; HCT 41.2 % (39.0-53.0); Lymphocytes # (A) 0.8 k/uL (1.0-4.8); Lymphocytes % (A) 6 %; MCH 28.1 pg (25.0-35.0); MCHC 31.6 g/dL (31.0-37.0); MCV 88.8 fL (80.0-100.0); Mean Platelet Volume 7.1; Monocytes # (A) 0.3 k/uL (0-1.0); Monocytes % (A) 2 %; Neutrophils # (A) 13.5 k/uL (1.3-7.7); Neutrophils % (A) 91 %; Platelet Count 283 k/uL (150-450); RBC 4.64 m/uL (4.30-5.90); RDW 13.9 % (11.5-15.5); WBC 14.8 k/uL (3.8-10.6)
[2017-12-26 16:34] LABS: Anion Gap 8 mmol/L; Blood Urea Nitrogen 10 mg/dL (9-20); Calcium 9.1 mg/dL (8.4-10.2); Carbon Dioxide 29 mmol/L (22-30); Chloride 104 mmol/L (98-107); Glucose 173 mg/dL (74-99); Potassium 4.4 mmol/L (3.5-5.1); Sodium 141 mmol/L (137-145)
[2017-12-26 20:04] LABS: Glucose,Whole Blood 263 mg/dL (75-99)
[2017-12-26] MEDS: FAMOTIDINE 20 MG/2 ML VIAL IV SCH (20:12)
[2017-12-26] MEDS: INSULIN ASPART 100 UNIT/ML 1 ML 10 ML VIAL SQ SCH (20:12)
[2017-12-26] MEDS: INSULIN DETEMIR 100 UNIT/ML 10 ML VIAL SQ SCH (20:13)
[2017-12-26] MEDS: lamoTRIgine 25 MG TAB PO SCH (20:13)
[2017-12-26] MEDS: LISINOPRIL 20 MG TAB PO SCH (20:14)
[2017-12-26] MEDS: GABAPENTIN 300 MG CAP PO SCH (20:14)
[2017-12-26] MEDS: METOPROLOL TARTRATE 25 MG TAB PO SCH (20:14)
[2017-12-27] MEDS: ZOLPIDEM 10 MG TAB PO SCH (02:55)
[2017-12-27 07:17] LABS: Glucose,Whole Blood 214 mg/dL (75-99)
[2017-12-27] MEDS: INSULIN ASPART 100 UNIT/ML 1 ML 10 ML VIAL SQ SCH ×3 (07:59→17:32)
[2017-12-27] MEDS: MELOXICAM 7.5 MG TAB PO SCH (08:00)
[2017-12-27] MEDS: GABAPENTIN 300 MG CAP PO SCH ×2 (08:00→17:32)
[2017-12-27] MEDS: FUROSEMIDE 20 MG TAB PO SCH (08:00)
[2017-12-27] MEDS: HEPARIN SODIUM,PORCINE 5,000 UNIT/ML 1 ML VIAL SQ SCH ×2 (08:00→17:32)
[2017-12-27] MEDS: ALVIMOPAN 12 MG CAPSULE PO SCH (08:00)
[2017-12-27] MEDS: MULTIVITAMINS, THERA 1 EACH TAB PO SCH (08:01)
[2017-12-27] MEDS: CHOLECALCIFEROL 1,000 UNIT TAB PO SCH (08:01)
[2017-12-27] MEDS: cloNIDine HCL 0.1 MG TAB PO SCH (08:01)
[2017-12-27] MEDS: LISINOPRIL 20 MG TAB PO SCH (08:01)
[2017-12-27] MEDS: METOPROLOL TARTRATE 50 MG TAB PO SCH (08:01)
[2017-12-27] MEDS: FAMOTIDINE 20 MG/2 ML VIAL IV SCH (08:03)
[2017-12-27] MEDS: DIGOXIN 250 MCG TAB PO SCH (08:03)
[2017-12-27] MEDS: D5-0.45% NACL WITH KCL 20MEQ/L 1,000 ML IV SCH ×2 (08:04→14:45)
--- NOTE | 2017-12-27 11:15 | P.PN ---
Subjective Progress Note Date: 12/27/17 Principal diagnosis: Diverticulitis Patient doing well today. Denies pain. Some right leg numbness. No labs from this morning. Tolerating clears. No vomiting. Objective - Vital Signs Vital signs: Vital Signs Temp 97.8 F 12/27/17 07:00 Pulse 74 12/27/17 07:45 Resp 12 12/27/17 07:00 BP 129/72 12/27/17 07:45 Pulse Ox 95 12/27/17 07:00 Intake & Output 12/26/17 12/27/17 12/27/17 18:59 06:59 18:59 Intake Total 1709 1312.5 Output Total 525 550 Balance 1184 762.5 Weight 116.573 kg Intake: IV 1709 Intake, IV Titration 1312.5 Amount D5-0.45% NaCl with KCl 1312.5 20Meq/l 1,000 ml @ 125 mls/hr IV .Q8H [facility] Rx#: [id number] Output: Urine 475 550 Estimated Blood Loss 50 Other: Voiding Method Indwelling Catheter Indwelling Catheter Indwelling Catheter - Exam Abdomen: Soft, nondistended, incision clean and dry, nontender - Labs CBC & Chem 7: 12/26/17 15:57 12/26/17 15:57 Labs: Abnormal Lab Results - Last 24 Hours (Table) 12/26/17 12/26/17 12/26/17 Range/Units 14:24 15:57 15:57 WBC 14.8 H (3.8-10.6) k/uL Neutrophils # 13.5 H (1.3-7.7) k/uL Lymphocytes # 0.8 L (1.0-4.8) k/uL Glucose 173 H (74-99) mg/dL POC Glucose (mg/dL) 175 H (75-99) mg/dL 12/26/17 12/27/17 Range/Units 20:01 07:16 WBC (3.8-10.6) k/uL Neutrophils # (1.3-7.7) k/uL Lymphocytes # (1.0-4.8) k/uL Glucose (74-99) mg/dL POC Glucose (mg/dL) 263 H 214 H (75-99) mg/dL Assessment and Plan (1) Diverticulitis Narrative/Plan: Continue clear liquids. Decrease epidural rate until ambulation possible. Recheck labs tomorrow. Current Visit: Yes Status: Acute Code(s): K57.92 - DVTRCLI OF INTEST, PART UNSP, W/O PERF OR ABSCESS W/O BLEED SNOMED Code(s): 800508195
[2017-12-27 11:29] LABS: Glucose,Whole Blood 176 mg/dL (75-99)
--- NOTE | 2017-12-27 12:20 | P.PN ---
Progress Note - Text Anesthesia POD 1. Status Post low anterior resection under general endotracheal anesthesia with an epidrual catheter placed at approximately L1 for post surgical pain releif. VAS (0, 2) with Ropivicaine 0.1 % and Dilaudid 20 mcg / cc running at 6 cc / hr. Lower extremity strength (1,4) on the right and (3, 4) on the left. Minimal sedation. Site looks OK. Plan to decrease the rate to 4 mL per hour and hopefully regain some strength in the right lower extremity.
--- NOTE | 2017-12-27 14:29 | CONS ---
CONSULTATION I am covering for Dr. Matute. DATE OF SERVICE: 12/27/2017. REASON FOR CONSULTATION: Advice regarding atrial fibrillation and other multiple medical issues requested by Dr. Banks. HISTORY OF PRESENT ILLNESS: This 67-year-old gentleman with a past history atrial fibrillation, CVA, TIA, diabetes mellitus, hypertension, memory impairment, seizure disorder being followed by Dr. Matute in the outpatient setting underwent low anterior resection, partial omentectomy for acute diverticulitis, underwent surgery by Dr. Banks. The patient is closely monitored. There is no history of fever, rigors. No history of headache, loss of consciousness, seizures. PAST MEDICAL HISTORY: Atrial fibrillation, CVA, TIA, diabetes, hypertension, memory impairment, DJD. MEDICATIONS: Prior to admission include home medications are: 1. Glucophage 850 mg p.o. t.i.d. 2. Lamictal 150 mg q.h.s. and 100 mg p.o. daily. 3. Glucotrol 10 mg p.o. a.c. b.i.d. 4. Catapres 0.1 q.a.m. 5. Norvasc 5 mg with supper. 6. Ambien 10 mg p.o. q.h.s. 7. Coumadin 5 mg Friday, Friday, Friday, Friday and 10 mg Friday, Friday, . 8. Niacin ER 750 mg p.o. q.h.s. 9. Naprosyn 500 mg p.o. b.i.d. p.r.n. 10.Multivitamins 1 p.o. daily. 11.Lopressor 70 mg q.h.s. and 50 mg a.c. breakfast. 12.Mobic 15 mg p.o. 13.Prinivil 20 mg p.o. b.i.d. 14.Lantus 30 units subcu q.h.s. 15.Hydrocodone 1 tablets q.6h p.r.n. 16.Neurontin 600 mg p.o. t.i.d. 17.Lasix 20 mg q.a.m. 18.Lanoxin 250 mcg p.o. daily. 19.Vitamin D3 2000. 20.Ventolin 2.5 q.i.d. p.r.n. 21.HFA inhaler 2 puffs q.6h p.r.n. 22.Abilify 30 mg p.o. daily. 23.Xanax 0.5 q.i.d. p.r.n. ALLERGIES: None. FAMILY HISTORY: History of lung cancer. SOCIAL HISTORY: Previous history of smoking. No history of alcohol intake. REVIEW OF SYSTEMS: ENT: No diminished hearing or vision. CARDIOVASCULAR: No angina. RESPIRATORY: No cough. GI: As mentioned earlier. : No dysuria. NERVOUS SYSTEM: No numbness or weakness. ALLERGY/IMMUNOLOGY: No history of asthma. MUSCULOSKELETAL: As mentioned earlier. HEMATOLOGY: No history of anemia. ENDOCRINE: Diabetes. CONSTITUTIONAL: As mentioned earlier. DERMATOLOGY: Negative. RHEUMATOLOGY: Negative. PSYCHIATRY: As mentioned earlier. PHYSICAL EXAMINATION: Alert and oriented x3. Pulse 67, blood pressure 98/62, respiratory 12, temperature 97.8, pulse ox 94% on room air. HEENT: Conjunctivae normal. Oral mucosa moist. NECK: No jugular venous distention. No carotid bruit. No lymph node enlargement. CARDIOVASCULAR: S1, S2. RESPIRATORY: Breath sounds diminished in the bases. No rhonchi. No crackles. ABDOMEN: Soft, status post surgery. LEGS: No edema. NERVOUS SYSTEM: Higher function as mentioned earlier. Moves all four limbs. No focal motor deficits. LYMPHATICS: No lymphadenopathy in the neck, axillae, groin. SKIN: No ulcer, rash, bleeding. LABS: WBC 14.8, hemoglobin 13. Glucose noted. ASSESSMENT: 1. Status post anterior resection, partial omentectomy for diverticulitis. 2. Atrial fibrillation. 3. Cerebrovascular accident, transient ischemic attack. 4. Diabetes mellitus type 2. 5. Hypertension. 6. History of seizure disorder. 7. History of B-cell lymphoma. Chemotherapy in the past. 8. History of cardiac ablation. 9. History of anxiety, bipolar, depression, posttraumatic stress disorder. RECOMMENDATIONS AND DISCUSSION: This 67-year-old gentleman who presented with multiple complex medical issues. Will monitor the patient closely. Continue the current management and symptomatic treatment. I would recommend to resume the home medications and continue to monitor. DVT prophylaxis. Otherwise incentive spirometry. Follow the patient closely with you and the patient may be asked to follow with Dr. Matute closely after discharge. Coumadin may be initiated when okay with Surgery. Further recommendations to follow. MMODL / IJN: [id number] /
[2017-12-27 14:32] LABS: INR 1.1 (<1.2)
[2017-12-27] MEDS: lamoTRIgine 100 MG TAB PO SCH (14:45)
[2017-12-27] MEDS: ARIPiprazole 15 MG TAB PO SCH (14:45)
[2017-12-27] MEDS: LACTATED RINGERS 1,000 ML IV SCH (15:37)
[2017-12-27 17:10] LABS: Glucose,Whole Blood 152 mg/dL (75-99)
[2017-12-27] MEDS: glipiZIDE 10 MG TAB PO SCH (17:32)
[2017-12-27] MEDS: amLODIPine 5 MG TAB PO SCH (17:32)
[2017-12-27] MEDS: metFORMIN 850 MG TAB PO SCH (17:32)
[2017-12-27] MEDS ORDERED: SODIUM CHLORIDE 0.9% 500 ML IV ONE ×2 (19:47→21:31)
[2017-12-27] MEDS: NALOXONE 0.4 MG/ML 1 ML VIAL IV PRN ×2 (19:47→21:37)
[2017-12-27 20:04] LABS: Basophils % (A) 0 %; Eosinophils # (A) 0.1 k/uL (0-0.7); Eosinophils % (A) 1 %; HCT 36.9 % (39.0-53.0); HGB 11.5 gm/dL (13.0-17.5); Lymphocytes # (A) 1.4 k/uL (1.0-4.8); Lymphocytes % (A) 20 %; MCHC 31.1 g/dL (31.0-37.0); MCV 90.1 fL (80.0-100.0); Mean Platelet Volume 7.2; Monocytes # (A) 0.3 k/uL (0-1.0); Monocytes % (A) 4 %; Neutrophils # (A) 5.2 k/uL (1.3-7.7); Neutrophils % (A) 73 %; Platelet Count 282 k/uL (150-450); RBC 4.09 m/uL (4.30-5.90); RDW 14.2 % (11.5-15.5); WBC 7.1 k/uL (3.8-10.6)
[2017-12-27] MEDS ORDERED: MORPHINE SULFATE 2 MG/ML SYRINGE IVP PRN (20:23)
[2017-12-27 20:39] LABS: Glucose,Whole Blood 120 mg/dL (75-99)
[2017-12-27 22:04] LABS: Calcium 9.1 mg/dL (8.4-10.2); Potassium 4.5 mmol/L (3.5-5.1)
[2017-12-27 22:30] LABS: Troponin I 0.012 ng/mL (0.000-0.034)
[2017-12-27 22:51] LABS: Albumin 3.9 g/dL (3.5-5.0); Total Bilirubin 0.4 mg/dL (0.2-1.3); Total Protein 6.2 g/dL (6.3-8.2)
[2017-12-27 22:53] LABS: Creatine Kinase MB 5.7 ng/mL (0.0-2.4)
[2017-12-28] MEDS: NALOXONE 0.4 MG/ML 1 ML VIAL IV PRN (00:04)
[2017-12-28] MEDS: FAMOTIDINE 20 MG/2 ML VIAL IV SCH ×2 (00:06→09:00)
[2017-12-28] MEDS: ALVIMOPAN 12 MG CAPSULE PO SCH ×3 (00:06→21:23)
[2017-12-28] MEDS: METOPROLOL TARTRATE 25 MG TAB PO SCH ×2 (00:07→21:24)
[2017-12-28] MEDS: NIACIN TR 250 MG CAPSULE.ER PO SCH ×2 (00:07→21:23)
[2017-12-28] MEDS: lamoTRIgine 25 MG TAB PO SCH ×2 (00:07→21:24)
[2017-12-28] MEDS: LISINOPRIL 20 MG TAB PO SCH ×3 (00:07→21:24)
[2017-12-28] MEDS: INSULIN ASPART 100 UNIT/ML 1 ML 10 ML VIAL SQ SCH ×5 (00:07→21:23)
[2017-12-28] MEDS: ZOLPIDEM 10 MG TAB PO SCH (00:08)
[2017-12-28] MEDS: D5-0.45% NACL WITH KCL 20MEQ/L 1,000 ML IV SCH ×4 (00:09→21:24)
[2017-12-28] MEDS: GABAPENTIN 300 MG CAP PO SCH ×4 (00:09→21:23)
[2017-12-28] MEDS: SODIUM CHLORIDE 0.9% 1,000 ML IV SCH ×3 (00:10→09:01)
[2017-12-28] MEDS: metFORMIN 850 MG TAB PO SCH ×4 (00:10→21:23)
[2017-12-28 04:31] LABS: Basophils % (A) 0 %; Eosinophils # (A) 0.2 k/uL (0-0.7); Eosinophils % (A) 2 %; HCT 38.5 % (39.0-53.0); HGB 12.3 gm/dL (13.0-17.5); Lymphocytes # (A) 1.2 k/uL (1.0-4.8); Lymphocytes % (A) 14 %; MCH 28.7 pg (25.0-35.0); MCHC 32.1 g/dL (31.0-37.0); MCV 89.5 fL (80.0-100.0); Mean Platelet Volume 7.6; Monocytes # (A) 0.7 k/uL (0-1.0); Monocytes % (A) 8 %; Neutrophils # (A) 6.3 k/uL (1.3-7.7); Neutrophils % (A) 74 %; Platelet Count 259 k/uL (150-450); RDW 14.2 % (11.5-15.5); WBC 8.6 k/uL (3.8-10.6)
[2017-12-28 04:38] LABS: INR 1.2 (<1.2); Prothrombin Time 11.8 sec (9.0-12.0)
[2017-12-28 04:40] LABS: Calcium 8.7 mg/dL (8.4-10.2); Potassium 4.5 mmol/L (3.5-5.1)
[2017-12-28 06:06] LABS: Glucose,Whole Blood 99 mg/dL (75-99)
[2017-12-28] MEDS: INSULIN DETEMIR 100 UNIT/ML 10 ML VIAL SQ SCH ×2 (07:54→21:23)
[2017-12-28] MEDS: HEPARIN SODIUM,PORCINE 5,000 UNIT/ML 1 ML VIAL SQ SCH ×4 (07:54→23:14)
[2017-12-28] MEDS: METOPROLOL TARTRATE 50 MG TAB PO SCH (08:59)
[2017-12-28] MEDS: glipiZIDE 10 MG TAB PO SCH ×2 (08:59→17:32)
[2017-12-28] MEDS: CHOLECALCIFEROL 1,000 UNIT TAB PO SCH (08:59)
[2017-12-28] MEDS: DIGOXIN 250 MCG TAB PO SCH (09:00)
[2017-12-28] MEDS: MELOXICAM 7.5 MG TAB PO SCH (09:00)
[2017-12-28] MEDS: cloNIDine HCL 0.1 MG TAB PO SCH (09:00)
[2017-12-28] MEDS: FUROSEMIDE 20 MG TAB PO SCH (09:01)
[2017-12-28] MEDS: ACETAMINOPHEN TAB 325 MG TAB PO PRN (09:06)
--- NOTE | 2017-12-28 10:23 | P.PN ---
Subjective Progress Note Date: 12/28/17 Principal diagnosis: Diverticulitis Patient yesterday afternoon into the evening developed increasing somnolence. Patient had episodes with relative hypotension as well. He was given Narcan with no significant change in his symptoms. His epidural catheter was removed. He was given IV boluses. Numerous labs were evaluated with nothing coming back significantly elevated. Patient was transferred to [facility]. Patient did following that increase his urine output. He did have a fever last night of 11.8. Much more alert today. He recalls being very sleepy yesterday. No history of similar events in the past. Today's white blood cell count 8.6. Hemoglobin is 12.3. Lactic acid last night was normal. Mild abdominal discomfort. Objective - Vital Signs Vital signs: Vital Signs Temp 100.0 F H 12/28/17 08:00 Pulse 111 H 12/28/17 08:00 Resp 18 12/28/17 05:48 BP 141/65 12/28/17 08:00 Pulse Ox 95 12/28/17 08:00 Intake & Output 12/27/17 12/28/17 12/28/17 18:59 06:59 18:59 Intake Total 1000 1250 Output Total 400 1065 Balance 600 185 Weight 0 g Intake: Intake, IV Titration 1000 1250 Amount D5-0.45% NaCl with KCl 1000 250 20Meq/l 1,000 ml @ 125 mls/hr IV .Q8H [facility] Rx#: [id number] Sodium Chloride 0.9% 500 500 ml @ 999 mls/hr IV .Q31M [facility] Rx#:[id number] Sodium Chloride 0.9% 500 500 ml @ 999 mls/hr IV .Q31M [facility] Rx#:[id number] Output: Urine 400 1065 Other: Voiding Method Indwelling Catheter Indwelling Catheter # Bowel Movements 2 - Exam Abdomen: Soft, nondistended, mild incisional tenderness, incision clean and dry - Labs CBC & Chem 7: 12/28/17 04:16 12/28/17 04:16 Labs: Abnormal Lab Results - Last 24 Hours (Table) 12/27/17 12/27/17 12/27/17 Range/Units 11:27 16:56 19:54 RBC 4.09 L (4.30-5.90) m/uL Hgb 11.5 L (13.0-17.5) gm/dL Hct 36.9 L (39.0-53.0) % INR (<1.2) Creatinine (0.66-1.25) mg/dL Glucose (74-99) mg/dL POC Glucose (mg/dL) 176 H 152 H (75-99) mg/dL CK-MB (CK-2) (0.0-2.4) ng/mL Total Protein (6.3-8.2) g/dL 12/27/17 12/27/17 12/27/17 Range/Units 20:18 21:41 21:41 RBC (4.30-5.90) m/uL Hgb (13.0-17.5) gm/dL Hct (39.0-53.0) % INR (<1.2) Creatinine 2.10 H (0.66-1.25) mg/dL Glucose 111 H (74-99) mg/dL POC Glucose (mg/dL) 120 H (75-99) mg/dL CK-MB (CK-2) 5.7 H* (0.0-2.4) ng/mL Total Protein 6.2 L (6.3-8.2) g/dL 12/28/17 12/28/17 12/28/17 Range/Units 04:16 04:16 04:16 RBC (4.30-5.90) m/uL Hgb 12.3 L (13.0-17.5) gm/dL Hct 38.5 L (39.0-53.0) % INR 1.2 H (<1.2) Creatinine 2.00 H (0.66-1.25) mg/dL Glucose 100 H (74-99) mg/dL POC Glucose (mg/dL) (75-99) mg/dL CK-MB (CK-2) (0.0-2.4) ng/mL Total Protein (6.3-8.2) g/dL 12/28/17 Range/Units 04:16 RBC (4.30-5.90) m/uL Hgb (13.0-17.5) gm/dL Hct (39.0-53.0) % INR (<1.2) Creatinine (0.66-1.25) mg/dL Glucose (74-99) mg/dL POC Glucose (mg/dL) (75-99) mg/dL CK-MB (CK-2) 5.5 H* (0.0-2.4) ng/mL Total Protein (6.3-8.2) g/dL Assessment and Plan (1) Diverticulitis Narrative/Plan: Continue clear liquids. Fevers likely on the basis of atelectasis. Increase pulmonary toilet. Check chest x-ray. Repeat labs tomorrow. Increase activity. Current Visit: Yes Status: Acute Code(s): K57.92 - DVTRCLI OF INTEST, PART UNSP, W/O PERF OR ABSCESS W/O BLEED SNOMED Code(s): 544890230
--- NOTE | 2017-12-28 11:42 | XR ---
EXAMINATION TYPE: XR chest 1V DATE OF EXAM: 12/28/2017 HISTORY: Evaluate for fevers. REFERENCE: Previous study dated 11/10/2015. FINDINGS: Lung volumes are prominent. The heart is mildly enlarged. The lungs are clear. Pleural spac es are clear. IMPRESSION: 1. COPD. 2. MILD CARDIOMEGALY.
[2017-12-28 12:04] LABS: Glucose,Whole Blood 143 mg/dL (75-99)
--- NOTE | 2017-12-28 12:11 | P.PN ---
Progress Note - Text Anesthesia POD 2. Patient became very lethargic last evening and at approximately 2:00 am the epidural was discontinued and he was transferred to telemetry. Not sure what the rate of the epidural was at that time. Early in the day yesterday approximately 10 AM we turned the epidural down to 4 mL per hour because he was experiencing some lower extremity weakness. In any event he is comfortable now doing well with no sedation in the former epidural site looks good.
[2017-12-28] MEDS: ARIPiprazole 15 MG TAB PO SCH (12:35)
[2017-12-28] MEDS: lamoTRIgine 100 MG TAB PO SCH (12:36)
[2017-12-28] MEDS: MULTIVITAMINS, THERA 1 EACH TAB PO SCH (12:36)
[2017-12-28] MEDS: HYDROmorphone 1 MG/ML 1 ML SYRINGE IVP PRN (12:38)
--- NOTE | 2017-12-28 17:12 | PN ---
PROGRESS NOTE DATE OF SERVICE: 12/28/2017 I am covering for Dr. Matute. This 67-year-old gentleman with a past medical history of multiple medical problems, admitted with after low anterior resection for diverticulitis. Overnight the patient had diminished urine output. The patient also had change in mental status. Patient was found to be confused and lethargic. Epidural was discontinued. Patient received multiple doses of Narcan today. The patient is much more alert at this time. Urine output is improved. However, the creatinine is around 2. The patient closely monitored in telemetry at this time. Dr. Yadav is following the patient closely. Anesthesia has seen the patient as well. The patient also had some fever. PAST MEDICAL HISTORY: Reviewed. REVIEW OF SYSTEMS: CARDIOVASCULAR: As mentioned. RESPIRATORY: As mentioned earlier. GI: As mentioned earlier. : As mentioned earlier. NERVOUS SYSTEM: as mentioned earlier. CURRENT MEDICATIONS: 1. Tylenol 650 q.4h p.r.n. 2. Ventolin q.i.d. 3. Xanax 0.5 q.i.d. 4. Entereg 12 mg b.i.d. 5. Norvasc 5 mg. 6. Abilify. 7. Vitamin D3. 8. Catapres 0.1. 9. Lanoxin 250 mcg p.o. daily. 10.Pepcid 20 mg IV b.i.d. 11.Neurontin. 12.Glucotrol. 13.Heparin. 14.Dilaudid. 15.NovoLog. 16.Lamictal. 17.Zestril. 18.Mobic. 19.Glucophage. 20.Lopressor. 21.Multivitamins. 22.Nubain. 23.Niacin. 24.Zofran. 25.Ambien. PHYSICAL EXAM: Patient is alert and oriented x3. Pulse 90, blood pressure 130/60, respiration 18, temperature 99.5, pulse ox 94% on room air. HEENT: Conjunctivae normal. Oral mucosa moist. NECK: No jugular venous distention. No carotid bruit. No lymph node enlargement. CARDIOVASCULAR: S1, S2. RESPIRATORY: Breath sounds diminished in the bases. ABDOMEN: Soft, status post surgery. LEGS: No edema, no swelling. NERVOUS SYSTEM: Higher functions as mentioned earlier. Moves all 4 limbs. No focal motor or sensory deficits. LYMPHATICS: No lymphadenopathy in the neck, axillae, groin. SKIN: No ulcer, rash, bleeding. LABS: WBC 8.2, hemoglobin 12.3, glucose 143. ASSESSMENT: 1. Status post low anterior resection with partial omentectomy for diverticulitis. 2. Atrial fibrillation. 3. Possible acute renal failure, possible prerenal factors. 4. Change in mental status, metabolic encephalopathy, possibly secondary to drug induced. 5. Cerebrovascular accident, transient ischemic attack. 6. Diabetes mellitus type 2. 7. Hypertension. 8. History of seizure disorder. 9. History of B-cell lymphoma with chemotherapy in the past. 10.History of cardiac ablation. 11.History of anxiety, bipolar depression. 12.Posttraumatic stress disorder. RECOMMENDATIONS AND DISCUSSION: This 67-year-old gentleman who presented with multiple complex medical issues, will monitor the patient closely. Continue the current management and symptomatic treatment. Otherwise at this time I recommend repeat labs. Continue the IV fluids. Monitor closely. Otherwise, the chest x-ray done yesterday last night showed COPD and only mild cardiomegaly and recommend incentive spirometry. Closely follow with surgery. Dr. Matute will follow tomorrow. MMAMILCARL / IJN: [id number] /
[2017-12-28 17:14] LABS: Glucose,Whole Blood 121 mg/dL (75-99)
[2017-12-28] MEDS: amLODIPine 5 MG TAB PO SCH (17:32)
[2017-12-28 20:50] LABS: Glucose,Whole Blood 159 mg/dL (75-99)
[2017-12-29] MEDS: HYDROmorphone 1 MG/ML 1 ML SYRINGE IVP PRN (03:41)
[2017-12-29] MEDS: D5-0.45% NACL WITH KCL 20MEQ/L 1,000 ML IV SCH ×2 (04:54→09:55)
[2017-12-29] MEDS: METOPROLOL TARTRATE 50 MG TAB PO SCH (05:01)
[2017-12-29 06:26] LABS: Glucose,Whole Blood 148 mg/dL (75-99)
[2017-12-29] MEDS: INSULIN ASPART 100 UNIT/ML 1 ML 10 ML VIAL SQ SCH ×4 (06:48→22:14)
[2017-12-29] MEDS: glipiZIDE 10 MG TAB PO SCH ×2 (06:48→17:31)
[2017-12-29 07:16] LABS: Basophils % (A) 0 %; Eosinophils # (A) 0.4 k/uL (0-0.7); Eosinophils % (A) 4 %; HCT 36.8 % (39.0-53.0); HGB 11.7 gm/dL (13.0-17.5); Lymphocytes # (A) 1.1 k/uL (1.0-4.8); Lymphocytes % (A) 12 %; MCH 28.7 pg (25.0-35.0); MCHC 31.8 g/dL (31.0-37.0); MCV 90.3 fL (80.0-100.0); Mean Platelet Volume 7.2; Monocytes # (A) 0.7 k/uL (0-1.0); Monocytes % (A) 8 %; Neutrophils # (A) 6.8 k/uL (1.3-7.7); Neutrophils % (A) 73 %; Platelet Count 247 k/uL (150-450); RBC 4.08 m/uL (4.30-5.90); RDW 14.4 % (11.5-15.5); WBC 9.4 k/uL (3.8-10.6)
[2017-12-29 07:25] LABS: Calcium 9.1 mg/dL (8.4-10.2); INR 1.3 (<1.2); Potassium 4.4 mmol/L (3.5-5.1); Prothrombin Time 12.1 sec (9.0-12.0)
[2017-12-29] MEDS: ACETAMINOPHEN TAB 325 MG TAB PO PRN (08:28)
[2017-12-29] MEDS: HEPARIN SODIUM,PORCINE 5,000 UNIT/ML 1 ML VIAL SQ SCH ×3 (08:28→22:55)
[2017-12-29] MEDS: MELOXICAM 7.5 MG TAB PO SCH (08:28)
[2017-12-29] MEDS: cloNIDine HCL 0.1 MG TAB PO SCH (08:29)
[2017-12-29] MEDS: metFORMIN 850 MG TAB PO SCH ×3 (08:29→20:29)
[2017-12-29] MEDS: DIGOXIN 250 MCG TAB PO SCH (08:29)
[2017-12-29] MEDS: LISINOPRIL 20 MG TAB PO SCH ×2 (08:29→20:30)
[2017-12-29] MEDS: GABAPENTIN 300 MG CAP PO SCH ×3 (08:29→20:29)
[2017-12-29] MEDS: CHOLECALCIFEROL 1,000 UNIT TAB PO SCH (08:29)
[2017-12-29] MEDS: ALVIMOPAN 12 MG CAPSULE PO SCH ×2 (09:03→20:28)
[2017-12-29] MEDS ORDERED: HYDROcodone/APAP 5-325MG 1 EACH TAB PO PRN (09:07)
--- NOTE | 2017-12-29 10:34 | P.PN ---
Subjective Progress Note Date: 12/29/17 Patient seen and examined at the bedside on rounds with Dr. Matute. Patient underwent low anterior resection by Dr. Banks on 12/26/2017. Spoke with nursing who states when she examined patient he was very confused and thought he was at a kids birthday libertarian. 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 Matute , the patients orientation seems to have improved. He is able to state his name and the correct location of where he is at. He states he was very confused when he woke up this morning and that scared him and made his anxiety increase significantly. Suspect confusion is likely due to narcotic as the patient has been receiving dilaudid 1mg for pain. His blood pressure this morning was elevated with systolic over 200s. The patient reports when he gets very anxious , his blood pressure has increased alot in the past. Patient received his schduled antihypertensives this morning and his repeat blood pressure is 134/ 73. He was initially tachycardic this morning with heart rate of 117. His heart rate has improved with a heart rate in the 80s. Temperature this morning was 100.0. Repeat 99.5. The patient is sitting up in bed. He states his pain is tolerable at this time. Denies shortness of breath. Denies cough or congestion. Denies chest pain. Anderson remains intact with clear yellow urine. Patient has been having loose stools. C-diff was negative. Dressing is saturated with old bloody drainage. Per nursing, it is scheduled to be changed today. Hemoglobin today is 11.7. Potassium 4.4. BUN 12. Creatinine 1.04. INR is 1.3. The patient takes Coumadin for atrial fibrillation. It has been held since surgery and can be restarted when okay with surgery. Objective - Vital Signs Vital signs: Vital Signs Temp 98.7 F 12/28/17 20:00 Pulse 103 H 12/29/17 04:00 Resp 18 12/29/17 04:00 BP 185/87 12/29/17 04:00 Pulse Ox 94 L 12/29/17 04:00 Intake & Output 12/28/17 12/29/17 12/29/17 18:59 06:59 18:59 Intake Total 730 470 0 Output Total 1999 2900 Balance -1270 -2430 0 Weight 115.8 kg Intake: Intake, IV Titration 500 Amount D5-0.45% NaCl with KCl 500 20Meq/l 1,000 ml @ 125 mls/hr IV .Q8H [facility] Rx#: [id number] Oral 230 470 0 Output: Urine 1999 2900 Other: Voiding Method Indwelling Catheter Indwelling Catheter # Bowel Movements 0 - Exam GENERAL: This is a 67-year-old male in no apparent distress at the time of examination. Pleasant and cooperative. HEENT: Head is atraumatic, normocephalic. Pupils are equal, round, and reactive to light. Sclerae anicteric. Conjunctivae are clear. Mucus membranes of the mouth are moist. Neck is supple. RESPIRATORY: Clear to ausculation, diminished at the bases. No wheezes, rales, or rhonchi. No use of accessory muscles. Patient maintaining oxygen saturation greater than 92%. No chest wall tenderness is noted on palpation or with deep breathing. CARDIOVASCULAR: Irregular rhythm. potline monitor reveals atrial fibrillation. S1 and S2 noted. No JVD noted. No S3 or S4 noted. GASTROINTESTINAL: Dressing saturated with old bloody drainage. No distention noted. Abdomen soft and round. Bowel sounds auscultated x 4 quadrants. No pain or tenderness noted upon palpation. INTEGUMENTARY: No cyanosis. No jaundice. No rashes noted. No cellulitis noted. EXTREMITIES: 2+ peripheral pulses. Trace bilateral lower extremity edema. No calf tenderness noted. NEUROLOGIC: Cranial nerves II-XII intact. PSYCHIATRIC: Awake, alert, and oriented X 2. Reorients easily. Appropriate affect. - Labs CBC & Chem 7: 12/29/17 06:54 12/29/17 06:54 Labs: Abnormal Lab Results - Last 24 Hours (Table) 12/28/17 12/28/17 12/28/17 Range/Units 12:02 16:59 20:48 RBC (4.30-5.90) m/uL Hgb (13.0-17.5) gm/dL Hct (39.0-53.0) % PT (9.0-12.0) sec INR (<1.2) Chloride (98-107) mmol/L Glucose (74-99) mg/dL POC Glucose (mg/dL) 143 H 121 H 159 H (75-99) mg/dL 12/29/17 12/29/17 12/29/17 Range/Units 06:21 06:54 06:54 RBC 4.08 L (4.30-5.90) m/uL Hgb 11.7 L (13.0-17.5) gm/dL Hct 36.8 L (39.0-53.0) % PT 12.1 H (9.0-12.0) sec INR 1.3 H (<1.2) Chloride (98-107) mmol/L Glucose (74-99) mg/dL POC Glucose (mg/dL) 148 H (75-99) mg/dL 12/29/17 Range/Units 06:54 RBC (4.30-5.90) m/uL Hgb (13.0-17.5) gm/dL Hct (39.0-53.0) % PT (9.0-12.0) sec INR (<1.2) Chloride 108 H (98-107) mmol/L Glucose 144 H (74-99) mg/dL POC Glucose (mg/dL) (75-99) mg/dL Assessment and Plan Plan: ASSESSMENT: History of diverticulitis, s/p low anterior resection with partial omentectomy Chronic atrial fibrillation, on long-term anticoagulation with Coumadin Metabolic encephalopathy, suspect secondary to narcotics Accelerated hypertension, suspect anxiety induced, resolved History of CVA/TIA Diabetes mellitus, type II Hypertension History of seizure disorder History of B cell lymphoma with chemotherapy Anxiety, unspecified Bipolar disorder History of depression History of posttraumatic stress disorder PLAN: Resume Coumadin tonight if okay with surgery Continue postoperative care per Dr. Banks Daily INR. Continue heparin subcu until INR is therapeutic Continue indwelling urinary catheter. Discontinue when confusion improves. Discontinue IV narcotics. Trial of [place] for pain to see if confusion improves Decrease IV fluids to 50 mL an hour Activity as tolerated Incentive spirometer 10 times an hour while awake Home meds as appropriate Monitor labs GI prophylaxis: Protonix 40 mg IV Daily DVT prophylaxis: Heparin 5000 units subcu every 8 hours Monitor vital signs and address as appropriate Further recommendations pending patient's course Nurse practitioner note has been reviewed by physician. Signing provider agrees with the documented findings, assessment, and plan of care.
[2017-12-29 12:03] LABS: Glucose,Whole Blood 93 mg/dL (75-99)
[2017-12-29] MEDS: ARIPiprazole 15 MG TAB PO SCH (12:29)
[2017-12-29] MEDS: MULTIVITAMINS, THERA 1 EACH TAB PO SCH (12:30)
[2017-12-29] MEDS: lamoTRIgine 100 MG TAB PO SCH (12:30)
[2017-12-29] MEDS ORDERED: WARFARIN 5 MG TAB PO SCH (13:45)
--- NOTE | 2017-12-29 13:58 | P.PN ---
Subjective Progress Note Date: 12/29/17 67-year-old male seen this morning sitting up in a chair at bedside patient currently is awake alert and oriented to person and place. Able to use the incentive spirometer and achieved thousand. States has mild abdominal discomfort. The temp this morning was 100. Current temp is 98.7. Blood pressure 151/74 abdomen nondistended states had a small bowel movement no nausea no vomiting Postop December 26 low anterior resection and partial omentectomy for diverticulitis Objective - Vital Signs Vital signs: Vital Signs Temp 98.7 F 12/29/17 12:58 Pulse 86 12/29/17 12:58 Resp 16 12/29/17 12:58 BP 151/74 12/29/17 12:58 Pulse Ox 95 12/29/17 12:58 Intake & Output 12/28/17 12/29/17 12/29/17 18:59 06:59 18:59 Intake Total 730 470 375 Output Total 1999 2900 1275 Balance -1270 -2430 -900 Weight 115.8 kg Intake: Intake, IV Titration 500 375 Amount D5-0.45% NaCl with KCl 500 375 20Meq/l 1,000 ml @ 50 mls /hr IV .Q20H [facility] Rx#: [id number] Oral 230 470 0 Output: Urine 1999 2900 1275 Uretheral (Anderson) 275 Other: Voiding Method Indwelling Catheter Indwelling Catheter Indwelling Catheter # Bowel Movements 0 - Exam Physical exam 67-year-old sitting up in a chair more alert appears in no acute distress Lungs adequate air movement bilaterally Heart S1-S2 audible regular Abdomen surgical dressing sites dry few hypoactive bowel tones no stool this morning no reports of nausea vomiting tolerating diet soft nondistended nontender Extremities no edema noted - Labs CBC & Chem 7: 12/29/17 06:54 12/29/17 06:54 Labs: Abnormal Lab Results - Last 24 Hours (Table) 12/28/17 12/28/17 12/29/17 Range/Units 16:59 20:48 06:21 RBC (4.30-5.90) m/uL Hgb (13.0-17.5) gm/dL Hct (39.0-53.0) % PT (9.0-12.0) sec INR (<1.2) Chloride (98-107) mmol/L Glucose (74-99) mg/dL POC Glucose (mg/dL) 121 H 159 H 148 H (75-99) mg/dL 12/29/17 12/29/17 12/29/17 Range/Units 06:54 06:54 06:54 RBC 4.08 L (4.30-5.90) m/uL Hgb 11.7 L (13.0-17.5) gm/dL Hct 36.8 L (39.0-53.0) % PT 12.1 H (9.0-12.0) sec INR 1.3 H (<1.2) Chloride 108 H (98-107) mmol/L Glucose 144 H (74-99) mg/dL POC Glucose (mg/dL) (75-99) mg/dL Assessment and Plan Assessment: Impression Chronic atrial fibrillation on long-term anticoagulation Coumadin Postop December 26 low anterior resection, partial omentectomy for diverticulitis Metabolic encephalopathy likely due to narcotics resolved Accelerated hypertension History of a prior CVA TIA History of B cell lymphoma with chemotherapy Plan PT OT eval DVT and GI prophylaxis Anderson catheter now Continue postop surgical care The above impression and plan of care have been discussed and directed by signing physician. Tayla Blankenship nurse practitioner acting as scribe for signing physician.
[2017-12-29] MEDS ORDERED: KETOROLAC 30 MG/ML 1 ML VIAL IVP STA (15:27)
[2017-12-29] MEDS ORDERED: METOPROLOL TARTRATE 25 MG TAB PO STA (15:31)
--- NOTE | 2017-12-29 15:54 | P.PN ---
Progress Note - Text Progress Note Date: 12/29/17 Nursing notified provider the patient was having chest pain. Upon assessment, patient states he has been having chest pain for the last 30-40 minutes, but it comes and goes. He describes the pain as a dull ache but states it does increase in severity at times. The pain does not radiate to his arm, neck, or jaw. He denies shortness of breath. Patient states the pain is not worse with deep inspiration. Pain is not reproducible upon palpation to chest. He denies palpitations during my examination but does state he had palpitations earlier. court recording monitor does reveal an episode of heart rate in the 150s. Patient remains in atrial fibrillation. Per telemetry monitoring, he did have an episode of atrial flutter during the night. Patient was hypertensive this morning which was likely due to anxiety. After administration of antihypertensives the patient's blood pressure improved. However the patient's blood pressure is elevated again with a systolic in the 180s. Heart rate is sustaining 100-110. Repeat blood pressure at the bedside is 193/84. Twelve- lead EKG was completed revealing atrial fibrillation, rate uncontrolled. No ST elevation was noted. Will give patient Lopressor 25 mg by mouth x 1 now. Patient currently taking Lopressor 50 mg in the morning and 75 mg at night. Will increase Lopressor to 75 mg twice a day. Will increase patient's Norvasc from 5 mg to 10 mg for better blood pressure control. Troponin and dig level ordered. The patient states he has never seen a ortho rn in the past for any reason. He does report having a stress test many years ago but cannot remember the specific reason why he underwent stress testing, but does not think it was due to having chest pain. Will consult cardiology for further evaluation. Nurse practitioner note has been reviewed by physician. Signing provider agrees with the documented findings, assessment, and plan of care.
[2017-12-29] MEDS: amLODIPine 10 MG TAB PO SCH (16:10)
[2017-12-29 17:17] LABS: Glucose,Whole Blood 151 mg/dL (75-99)
[2017-12-29] MEDS: WARFARIN 5 MG TAB PO SCH (17:33)
[2017-12-29] MEDS: NIACIN TR 250 MG CAPSULE.ER PO SCH (20:29)
[2017-12-29] MEDS: lamoTRIgine 25 MG TAB PO SCH (20:29)
[2017-12-29] MEDS: METOPROLOL TARTRATE 25 MG TAB PO SCH (20:29)
[2017-12-29 21:03] LABS: Glucose,Whole Blood 129 mg/dL (75-99)
[2017-12-29] MEDS: INSULIN DETEMIR 100 UNIT/ML 10 ML VIAL SQ SCH (22:55)
[2017-12-30] MEDS: ALBUTEROL NEBULIZED 2.5 MG/3 ML INHALATION PRN ×2 (00:30→20:50)
[2017-12-30] MEDS: ACETAMINOPHEN TAB 325 MG TAB PO PRN ×2 (02:22→09:53)
[2017-12-30] MEDS: ALPRAZolam 0.5 MG TAB PO PRN (02:22)
[2017-12-30 05:38] LABS: INR 1.4 (<1.2); Prothrombin Time 13.3 sec (9.0-12.0)
[2017-12-30 06:09] LABS: Glucose,Whole Blood 139 mg/dL (75-99)
[2017-12-30] MEDS: INSULIN ASPART 100 UNIT/ML 1 ML 10 ML VIAL SQ SCH ×4 (06:40→20:48)
[2017-12-30] MEDS ORDERED: METOPROLOL TARTRATE 25 MG TAB PO SCH (07:30)
--- NOTE | 2017-12-30 09:31 | P.CRDCN ---
History of Present Illness Consult date: 12/30/17 Requesting physician: Elver Matute Consult reason: chest pain Chief complaint: Chest pain History of present illness: This is a 67-year-old gentleman with history of hypertension, diabetes , hyperlipidemia, chronic persistent atrial fibrillation, on Coumadin for anticoagulation, prior CVA, history of seizures, diverticulitis, who was admitted to the hospital to undergo low anterior resection and partial omentectomy by Dr. Louise sorensen. Surgery was performed on the . Yesterday patient had an episode of chest discomfort which she described as an ache or uncomfortable feeling in his chest. He denies any associated shortness of breath or diaphoresis. Patient states he's never had like this before. Pain did not change with deep breathing or movement, no tenderness to the chest wall. Chest x-ray showed COPD and mild cardiomegaly. Blood pressure this morning 170/78, heart rate low 100s, temperature this morning 100.5, at 2:30 this morning the temperature was up to 102.1. Labratory data, white blood cell count 9.4, hemoglobin 11.7, platelet count 247. INR this morning 1.4. Sodium 142, potassium 4.4, BUN 12, creatinine 1.0. Creatinine yesterday 2.0. Troponins 0.012, 0.039, 0.074. Initial EKG showed atrial fibrillation with a controlled ventricular response, and EKG showed atrial fibrillation with a moderately rapid ventricular response and ST depression noted in the inferior leads. At the time of my examination this morning, patient denies any chest discomfort, no shortness of breath. Patient's current cardiac medications include Norvasc 10 mg daily, Lanoxin 250 g daily, lisinopril 20 mg twice a day , metoprolol 75 mg in the morning and 75 mg in the evening. Coumadin 5 mg alternating with 10 mg every other day. Patient states he's had a stress test in the past was over 20 years ago according to him. No prior myocardial infarction, no family history of premature coronary artery disease and patient is a nonsmoker. 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, peripheral neuropathy bilateral feet(causes balance problems at times) and hands, exposure to agent orange, last known seizure 1989 , psoriasis, Shingles 2013, TINNITUS; TIA-10 yrs-no effects, diiverticulosis, diverticulitis, constipation/diarrhea, hx pancreatitis, hx cellulitis 2011 History of Any Multi-Drug Resistant Organisms: None Reported Past Surgical History: Cardiac Ablation, Cholecystectomy, Tonsillectomy Additional Past Surgical History / Comment(s): dual pancreas surgery with port placed between 1984, Biopsy of right arm mass December 2012, CERVICAL CORE BX LYMPH NODE 06/26/15, bronchoscopy and bx, pilonidial cysts x 3 removed, L foot decub ulcer with debridements, RT BUTTOCK CA REMOVED. HX OF PORT A CATHETER/ later REMOVAL Past Anesthesia/Blood Transfusion Reactions: No Reported Reaction Past Psychological History: Anxiety, Bipolar, Depression, PTSD Additional Psychological History / Comment(s): memory loss Smoking Status: Former smoker Past Alcohol Use History: Rare Additional Past Alcohol Use History / Comment(s): Patient was a smoker 1PPD AGE [age] and then he quit for 10 years. Patient then smoked again for 10 years and quit again 2012 Past Drug Use History: None Reported Additional Drug Use History / Comment(s): . - Past Family History Father Family Medical History: Cancer Additional Family Medical History / Comment(s): lung cancer Mother Family Medical History: Cancer Additional Family Medical History / Comment(s): lung cancer Medications and Allergies Home Medications Medication Instructions Recorded Confirmed Type Furosemide [Lasix] 20 mg PO QAM 10/08/13 12/26/17 History glipiZIDE [Glucotrol] 10 mg PO AC-BID 10/08/13 12/26/17 History lamoTRIgine [LaMICtal] 100 mg PO DAILY@1300 10/08/13 12/26/17 History cloNIDine HCL [Catapres] 0.1 mg PO QAM 01/07/14 12/26/17 History Gabapentin [Neurontin] 600 mg PO TID 09/21/14 12/26/17 History Metoprolol Tartrate [Lopressor] 50 mg PO AC-BRKFST 06/21/15 12/26/17 History Metoprolol Tartrate [Lopressor] 75 mg PO HS 07/11/15 12/26/17 History Digoxin [Lanoxin] 250 mcg PO DAILY 07/12/15 12/26/17 History metFORMIN HCL [Glucophage] 850 mg PO TID 07/12/15 12/26/17 History ARIPiprazole [Abilify] 30 mg PO DAILY@1300 05/29/16 12/26/17 History Albuterol Inhaler [Ventolin Hfa 2 puff INHALATION RT-Q6H PRN 05/29/16 12/26/17 History Inhaler] Cholecalciferol [Vitamin D3] 2,000 unit PO DAILY 05/29/16 12/26/17 History Lisinopril [Prinivil] 20 mg PO BID 05/29/16 12/26/17 History Niacin [Niacin ER] 750 mg PO HS 05/29/16 12/26/17 History Warfarin [Coumadin] 10 mg PO SUTUTH 05/29/16 12/26/17 History Zolpidem Tartrate [Ambien] 10 mg PO HS 05/29/16 12/26/17 History amLODIPine [Norvasc] 5 mg PO W/SUPPER 05/29/16 12/26/17 History Multivitamin [Men's Multi-Vitamin] 1 tab PO DAILY 09/13/16 12/26/17 History ALPRAZolam [Xanax] 0.5 mg PO QID PRN 05/16/17 12/26/17 History Insulin Glargine [Lantus] 30 unit SQ HS 05/16/17 12/26/17 History Meloxicam [Mobic] 15 mg PO DAILY 05/16/17 12/26/17 History Naproxen [Naprosyn] 500 mg PO Q12HR PRN 05/16/17 12/26/17 History Albuterol Nebulized [Ventolin 2.5 mg INHALATION RT-QID PRN 12/22/17 12/26/17 History Nebulized] Hydrocodone/Acetaminophen [[place] 1 tab PO Q6HR PRN 12/22/17 12/26/17 History 5-325] Warfarin [Coumadin] 5 mg PO MOWEFRSA 12/22/17 12/26/17 History lamoTRIgine [LaMICtal] 50 mg PO HS 12/22/17 12/26/17 History Allergies Allergy/AdvReac Type Severity Reaction Status Date / Time No Known Allergies Allergy Verified 12/26/17 15:19 Physical Exam Vitals: Vital Signs Temp Pulse Pulse Resp BP Pulse Ox 12/30/17 05:03 100.5 F H 12/30/17 03:46 101.3 F H 109 H 22 171/79 95 12/30/17 02:30 102.1 F H 12/30/17 00:41 130 H 12/30/17 00:31 125 H 12/29/17 23:00 98.4 F 90 18 173/80 97 12/29/17 20:36 98.6 F 86 18 137/71 97 12/29/17 17:56 85 148/71 12/29/17 14:59 99.2 F 110 H 20 181/75 96 12/29/17 12:58 98.7 F 86 16 151/74 95 12/29/17 12:00 16 12/29/17 10:07 99.5 F 86 18 134/73 95 Intake and Output 12/29/17 12/30/17 12/30/17 22:59 06:59 14:59 Intake Total 220 Output Total 800 100 Balance -580 -100 Intake: Oral 220 Output: Urine 800 100 Other: Voiding Method Urinal # Bowel Movements 1 Weight 116.3 kg PHYSICAL EXAMINATION: GENERAL: She 7-year-old gentleman in no acute distress at the time of my examination HEENT: Head is atraumatic, normocephalic. Pupils equal, round. Sclera anicteric. Conjunctiva are clear. Mucous membranes of the mouth are moist. Neck is supple. There is elevated jugular venous pressure. No carotid bruit is heard. HEART EXAMINATION: Heart S1 and S2 irregularly irregular a systolic murmur is heard CHEST EXAMINATION: Lungs reveal scattered wheezing throughout with decreased air exchange ABDOMEN: Soft, nontender. Bowel sounds are heard. No organomegaly noted. EXTREMITIES: 2+ peripheral pulses with no evidence of peripheral edema and no calf tenderness noted. NEUROLOGIC patient is awake, alert and oriented X3. . Results 12/29/17 06:54 12/29/17 06:54 Cardiac Enzymes 12/29/17 12/29/17 12/30/17 Range/Units 16:10 22:09 05:02 Troponin I 0.049 H* 0.039 H* 0.074 H* (0.000-0.034) ng/mL Coagulation 12/30/17 Range/Units 05:02 PT 13.3 H (9.0-12.0) sec Current Medications Generic Name Dose Route Start Last Admin Trade Name Ramon PRN Reason Stop Dose Admin Acetaminophen 650 mg 12/28/17 03:43 12/30/17 02:22 Tylenol Tab PO 650 mg Q4HR PRN Administration Fever and/ or Pain Hydrocodone Bitart/Acetaminophen 1 each 12/29/17 09:07 [place] 5-325 PO Q4HR PRN Pain Albuterol Sulfate 2.5 mg 12/26/17 17:54 12/30/17 00:30 Ventolin Nebulized INHALATION 2.5 mg RT-Q6H PRN Administration Shortness Of Breath Alprazolam 0.5 mg 12/26/17 17:54 12/30/17 02:22 Xanax PO 0.5 mg QID PRN Administration Anxiety Alvimopan 12 mg 12/27/17 09:00 12/29/17 20:28 Entereg PO 01/02/18 21:01 12 mg BID RYLIE Administration Amlodipine Besylate 10 mg 12/29/17 17:30 12/29/17 16:10 Norvasc PO 10 mg W/SUPPER RYLIE Administration Aripiprazole 30 mg 12/27/17 13:00 12/29/17 12:29 Abilify PO 30 mg DAILY@1300 RYLIE Administration Cholecalciferol 2,000 unit 12/27/17 09:00 12/29/17 08:29 Vitamin D3 PO 2,000 unit DAILY RYLIE Administration Clonidine 0.1 mg 12/27/17 09:00 12/29/17 08:29 Catapres PO 0.1 mg QAM RYLIE Administration Digoxin 250 mcg 12/27/17 09:00 12/29/17 08:29 Lanoxin PO 250 mcg DAILY RYLIE Administration Gabapentin 600 mg 12/26/17 22:00 12/29/17 20:29 Neurontin PO 600 mg TID RYLIE Administration Glipizide 10 mg 12/27/17 17:30 12/29/17 17:31 Glucotrol PO 10 mg AC-BID RYLIE Administration Heparin Sodium (Porcine) 5,000 unit 12/26/17 16:00 12/29/17 22:55 Heparin SQ 5,000 unit Q8HR RYLIE Administration Potassium Chloride/Dextrose/Sod Cl 1,000 mls @ 50 mls/hr 12/26/17 14:00 12/29 09:55 D5%-1/2ns-Kcl 20 Meq/L Iv Solution IV 50 mls/hr .Q20H RYLIE Administration Insulin Aspart 0 unit 12/26/17 21:00 12/30/17 06:40 Novolog SQ Not Given ACHS [facility] Protocol Insulin Detemir 15 unit 12/26/17 21:00 12/29/17 22:55 Levemir SQ 15 unit HS RYLIE Administration Lamotrigine 50 mg 12/26/17 21:00 12/29/17 20:29 Lamictal PO 50 mg HS RYLIE Administration Lamotrigine 100 mg 12/27/17 13:00 12/29/17 12:30 Lamictal PO 100 mg DAILY@1300 RYLIE Administration Lidocaine HCl 0.1 ml 12/25/17 16:57 12/26/17 10:10 .Xylocaine 1% Inj (10mg/Ml) For Iv Start INTRADERMA 0.1 ml PER PROTOCOL PRN Administration IV Start Lisinopril 20 mg 12/26/17 21:00 12/29/17 20:30 Zestril PO 20 mg BID RYLIE Administration Meloxicam 15 mg 12/27/17 09:00 12/29/17 08:28 Mobic PO 15 mg DAILY RYLIE Administration Metformin HCl 850 mg 12/27/17 16:00 12/29/17 20:29 Glucophage PO 850 mg TID RYLIE Administration Metoclopramide HCl 10 mg 12/26/17 13:20 Reglan IVP Q6HR PRN Nausea and Vomiting Metoprolol Tartrate 75 mg 12/26/17 21:00 12/29/17 20:29 Lopressor PO 75 mg HS RYLIE Administration Metoprolol Tartrate 75 mg 12/30/17 07:30 12/30/17 04:43 Lopressor PO 75 mg AC-BRKFST RYLIE Administration Multivitamins 1 each 12/27/17 12:00 12/29/17 12:30 Theragran PO 1 each DAILY@1200 RYLIE Administration Nalbuphine HCl 2.5 mg 12/25/17 16:57 Nubain IV Q4HR PRN Itching Naloxone HCl 0.2 mg 12/25/17 16:57 12/28/17 00:04 Narcan IV 0.2 mg Q2M PRN Administration Opioid Reversal Niacin 750 mg 12/27/17 21:00 12/29/17 20:29 Niacin Tr PO 750 mg HS RYLIE Administration Ondansetron HCl 4 mg 12/26/17 13:20 Zofran IVP Q8HR PRN Nausea And Vomiting Pantoprazole Sodium 40 mg 12/30/17 09:00 Protonix IVP DAILY RYLIE Warfarin Sodium 10 mg 12/30/17 18:00 Coumadin PO SuTuTh@1800 RYLIE Warfarin Sodium 5 mg 12/29/17 18:00 12/29/17 17:33 Coumadin PO 5 mg MoWeFrSa@1800 RYLIE Administration Intake and Output 12/29/17 12/30/17 12/30/17 22:59 06:59 14:59 Intake Total 220 Output Total 800 100 Balance -580 -100 Intake: Oral 220 Output: Urine 800 100 Other: Voiding Method Urinal # Bowel Movements 1 Weight 116.3 kg 12/29/17 06:54 12/29/17 06:54 EKG Interpretations (text) Initial EKG shows atrial fibrillation with a controlled ventricular response, subsequent EKG showed atrial fibrillation with moderately rapid ventricular response, mild ST depression noted in the inferior leads. Assessment and Plan Plan: Assessment and plan #1 status post low anterior resection with partial omentectomy in a patient with history of diverticulitis #2 chest pain, troponins 0.012, 0.039, 0.074. EKG shows atrial fibrillation with mild ST depression noted in the inferior leads #3 chronic persistent atrial fibrillation on Coumadin for anticoagulation, INR 1.4 today #4 diabetes #5 hypertension #6 hyperlipidemia #7 fever Plan Will obtain an echocardiogram with Doppler study. We will also repeat an EKG this morning and obtain a chest x-ray today. Patient was also running temperatures this morning. Chest discomfort suggestive of possible acute coronary syndrome. We will maximize the patient's medication at this time. We will give the patient an aspirin if okay with surgery, initiate a statin and nitrates. Discontinue Lanoxin. Increase beta isidro to 100 twice a day for more optimal heart rate and blood pressure control. Further recommendations to follow. DNP note has been reviewed, I agree with a documented findings and plan of care. Patient was seen and examined.
[2017-12-30] MEDS: HEPARIN SODIUM,PORCINE 5,000 UNIT/ML 1 ML VIAL SQ SCH ×2 (09:39→18:48)
[2017-12-30] MEDS: glipiZIDE 10 MG TAB PO SCH ×2 (09:39→18:47)
[2017-12-30] MEDS: ALVIMOPAN 12 MG CAPSULE PO SCH ×2 (09:40→20:36)
[2017-12-30] MEDS: cloNIDine HCL 0.1 MG TAB PO SCH (09:40)
[2017-12-30] MEDS: DIGOXIN 250 MCG TAB PO SCH (09:40)
[2017-12-30] MEDS: CHOLECALCIFEROL 1,000 UNIT TAB PO SCH (09:40)
[2017-12-30] MEDS: LISINOPRIL 20 MG TAB PO SCH ×2 (09:41→20:36)
[2017-12-30] MEDS: GABAPENTIN 300 MG CAP PO SCH ×3 (09:41→20:36)
[2017-12-30] MEDS: MELOXICAM 7.5 MG TAB PO SCH (09:41)
[2017-12-30] MEDS: metFORMIN 850 MG TAB PO SCH ×3 (09:41→20:36)
[2017-12-30] MEDS: MULTIVITAMINS, THERA 1 EACH TAB PO SCH (09:42)
[2017-12-30] MEDS: PANTOPRAZOLE 40 MG/10 ML VIAL IVP SCH (09:42)
[2017-12-30] MEDS: ATORVASTATIN 40 MG TAB PO SCH (09:49)
--- NOTE | 2017-12-30 11:00 | P.PN ---
Progress Note - Text this is an addendum to the dictated cardiology consultation. The patient has a history of chronic persistent atrial fibrillation, anticoagulated who underwent coronary sex 4 tablets and had episode chest comfort for the last 2 days and was found to have mild elevation of the troponin. He has no history of documented obstructive coronary disease but no recent cardiac workup. He denies any dizziness, palpitations or syncope. He's feeling well at this time and he is ambulating. He is febrile. On his examination he has scattered wheezes, he is in atrial fibrillation but has no evidence of peripheral edema. The patient's has what appears to be a non-STEMI. I would maximize his medical therapy, obtain an echocardiogram with Doppler. I will not proceed with invasive workup at this time because of his recent surgery unless he has recurrent symptoms. Once he is stable from the surgical standpoint further workup will be needed. thank you for this consult we will follow with you.
--- NOTE | 2017-12-30 11:24 | P.PN ---
Subjective Progress Note Date: 12/30/17 12/29/2017 Patient seen and examined at the bedside on rounds with Dr. Matute. Patient underwent low anterior resection by Dr. Banks on 12/26/2017. Spoke with nursing who states when she examined patient he was very confused and thought he was at a kids birthday green party. Upon assessment from this radio script writer and Dr. Matute , the patients orientation seems to have improved. He is able to state his name and the correct location of where he is at. He states he was very confused when he woke up this morning and that scared him and made his anxiety increase significantly. Suspect confusion is likely due to narcotic as the patient has been receiving dilaudid 1mg for pain. His blood pressure this morning was elevated with systolic over 200s. The patient reports when he gets very anxious , his blood pressure has increased alot in the past. Patient received his schduled antihypertensives this morning and his repeat blood pressure is 134/ 73. He was initially tachycardic this morning with heart rate of 117. His heart rate has improved with a heart rate in the 80s. Temperature this morning was 100.0. Repeat 99.5. The patient is sitting up in bed. He states his pain is tolerable at this time. Denies shortness of breath. Denies cough or congestion. Denies chest pain. Anderson remains intact with clear yellow urine. Patient has been having loose stools. C-diff was negative. Dressing is saturated with old bloody drainage. Per nursing, it is scheduled to be changed today. Hemoglobin today is 11.7. Potassium 4.4. BUN 12. Creatinine 1.04. INR is 1.3. The patient takes Coumadin for atrial fibrillation. It has been held since surgery and can be restarted when okay with surgery. Progress Note - Text Progress Note Date: 12/29/17 1540 Nursing notified provider the patient was having chest pain. Upon assessment, patient states he has been having chest pain for the last 30-40 minutes, but it comes and goes. He describes the pain as a dull ache but states it does increase in severity at times. The pain does not radiate to his arm, neck, or jaw. He denies shortness of breath. Patient states the pain is not worse with deep inspiration. Pain is not reproducible upon palpation to chest. He denies palpitations during my examination but does state he had palpitations earlier. captain room service does reveal an episode of heart rate in the 150s. Patient remains in atrial fibrillation. Per telemetry monitoring, he did have an episode of atrial flutter during the night. Patient was hypertensive this morning which was likely due to anxiety. After administration of antihypertensives the patient's blood pressure improved. However the patient's blood pressure is elevated again with a systolic in the 180s. Heart rate is sustaining 100-110. Repeat blood pressure at the bedside is 193/84. Twelve- lead EKG was completed revealing atrial fibrillation, rate uncontrolled. No ST elevation was noted. Will give patient Lopressor 25 mg by mouth x 1 now. Patient currently taking Lopressor 50 mg in the morning and 75 mg at night. Will increase Lopressor to 75 mg twice a day. Will increase patient's Norvasc from 5 mg to 10 mg for better blood pressure control. Troponin and dig level ordered. The patient states he has never seen a director prospect in the past for any reason. He does report having a stress test many years ago but cannot remember the specific reason why he underwent stress testing, but does not think it was due to having chest pain. Will consult cardiology for further evaluation. 12/30/2017 Patient seen and examined at the bedside on rounds Dr. Matute. Patient states he has not had any further episodes of chest pain. Troponins resulted at 0.049 , 0.039, and 0.074. Cardiology evaluated the patient this morning who believes the patient had an non-STEMI. Outpatient workup is recommended. Echocardiogram was ordered and is currently pending. The patient remained tachycardic throughout the night. His metoprolol was increased to 100 mg by mouth twice a day per cardiology. Blood pressure continues to run on the high side. His Norvasc was increased yesterday to 10 mg. Patient was febrile through the night with a temperature of 102.1. Coumadin was restarted yesterday. INR 1.4 this AM. Patient remains on heparin subcu until INR is therapeutic. Objective - Vital Signs Vital signs: Vital Signs Temp 100.5 F H 12/30/17 05:03 Pulse 109 H 12/30/17 03:46 Resp 22 12/30/17 03:46 BP 171/79 12/30/17 03:46 Pulse Ox 95 12/30/17 03:46 Intake & Output 12/29/17 12/30/17 12/30/17 18:59 06:59 18:59 Intake Total 595 Output Total 1875 300 Balance -1280 -300 Weight 116.3 kg Intake: Intake, IV Titration 375 Amount D5-0.45% NaCl with KCl 375 20Meq/l 1,000 ml @ 50 mls /hr IV .Q20H RYLIE Rx#: [id number] Oral 220 Output: Urine 1875 300 Uretheral (Anderson) 275 Other: Voiding Method Bedside Commode Urinal # Voids 1 # Bowel Movements 1 1 - Exam GENERAL: This is a 67-year-old male in no apparent distress at the time of examination. Pleasant and cooperative. HEENT: Head is atraumatic, normocephalic. Pupils are equal, round, and reactive to light. Sclerae anicteric. Conjunctivae are clear. Mucus membranes of the mouth are moist. Neck is supple. RESPIRATORY: Mostly clear to ausculation, diminished at the bases. Occasional mild expiratory wheezing noted. No rales or rhonchi. No use of accessory muscles. Patient maintaining oxygen saturation greater than 92%. No chest wall tenderness is noted on palpation or with deep breathing. CARDIOVASCULAR: Irregular rhythm. captain room service reveals atrial fibrillation. S1 and S2 noted. No JVD noted. No S3 or S4 noted. GASTROINTESTINAL: No distention noted. Abdomen soft and round. Bowel sounds auscultated x 4 quadrants. No pain or tenderness noted upon palpation. INTEGUMENTARY: No cyanosis. No jaundice. No rashes noted. No cellulitis noted. EXTREMITIES: 2+ peripheral pulses. Trace bilateral lower extremity edema. No calf tenderness noted. NEUROLOGIC: Cranial nerves II-XII intact. PSYCHIATRIC: Awake, alert, and oriented X 3. Appropriate affect. - Labs CBC & Chem 7: 12/30/17 05:02 12/29/17 06:54 Labs: Abnormal Lab Results - Last 24 Hours (Table) 12/29/17 12/29/17 12/29/17 Range/Units 16:10 17:12 21:02 PT (9.0-12.0) sec INR (<1.2) POC Glucose (mg/dL) 151 H 129 H (75-99) mg/dL Troponin I 0.049 H* (0.000-0.034) ng/mL 07/12/30/17 12/30/17 Range/Units 22:09 05:02 05:02 PT 13.3 H (9.0-12.0) sec INR 1.4 H (<1.2) POC Glucose (mg/dL) (75-99) mg/dL Troponin I 0.039 H* 0.074 H* (0.000-0.034) ng/mL 12/30/17 Range/Units 06:07 PT (9.0-12.0) sec INR (<1.2) POC Glucose (mg/dL) 139 H (75-99) mg/dL Troponin I (0.000-0.034) ng/mL Assessment and Plan Plan: ASSESSMENT: History of diverticulitis, s/p low anterior resection with partial omentectomy Chronic atrial fibrillation, on long-term anticoagulation with Coumadin Metabolic encephalopathy, suspect secondary to narcotics, resolved Chest pain, troponins 0.049, 0.039, 0.074, suspected non-STEMI per cardiology Fever, r/o infectious process Urinary retention, requiring straight cath 1 History of CVA/TIA Diabetes mellitus, type II Hypertension History of seizure disorder History of B cell lymphoma with chemotherapy Anxiety, unspecified Bipolar disorder History of depression History of posttraumatic stress disorder PLAN: Continue postoperative care per Dr. Banks Continue Coumadin. Daily INR. Continue heparin subcu until INR is therapeutic Continue [place] for pain. Avoid IV narcotics as it causes confusion and anxiety for patient Cardiology on consult. Appreciate recommendations and input Outpatient workup recommended for non-STEMI Norvasc increased yesterday for hypertension Metoprolol increased to 100 mg twice a day per cardiology. Continue telemetry Echo ordered. Await results Blood cultures x 2, sputum culture, CBC, UA, and chest xray Continue to monitor for urinary retention. Obtain PVR. Activity as tolerated Incentive spirometer 10 times an hour while awake Home meds as appropriate Monitor labs GI prophylaxis: Protonix 40 mg IV Daily DVT prophylaxis: Heparin 5000 units subcu every 8 hours and Coumadin Monitor vital signs and address as appropriate DC Plan: [place] Further recommendations pending patient's course Nurse practitioner note has been reviewed by physician. Signing provider agrees with the documented findings, assessment, and plan of care.
[2017-12-30 11:43] LABS: Basophils % (A) 0 %; Eosinophils # (A) 0.2 k/uL (0-0.7); Eosinophils % (A) 2 %; HCT 33.8 % (39.0-53.0); HGB 10.6 gm/dL (13.0-17.5); Lymphocytes # (A) 1.2 k/uL (1.0-4.8); Lymphocytes % (A) 9 %; MCH 28.1 pg (25.0-35.0); MCHC 31.4 g/dL (31.0-37.0); MCV 89.5 fL (80.0-100.0); Mean Platelet Volume 9.3; Monocytes # (A) 0.8 k/uL (0-1.0); Monocytes % (A) 6 %; Neutrophils # (A) 11.4 k/uL (1.3-7.7); Neutrophils % (A) 83 %; Platelet Count 264 k/uL (150-450); RBC 3.78 m/uL (4.30-5.90); RDW 14.3 % (11.5-15.5); WBC 13.8 k/uL (3.8-10.6)
[2017-12-30 11:59] LABS: Glucose,Whole Blood 168 mg/dL (75-99)
[2017-12-30] MEDS: ISOSORBIDE MONONITRATE ER 30 MG TAB.ER.24H PO SCH (13:02)
[2017-12-30] MEDS: lamoTRIgine 100 MG TAB PO SCH (13:02)
[2017-12-30] MEDS: ARIPiprazole 15 MG TAB PO SCH (13:03)
--- NOTE | 2017-12-30 13:37 | P.PN ---
Progress Note - Text Progress Note Date: 12/30/17 The patient is resting calculated in his bed. He appears to be quite sleepy. He has no plans of pain. On exam his vital signs are stable. His abdomen soft. His incision site is clean dry tach. The patient will have his diet advanced. He'll be discharged home hopefully the next 24 hours.
[2017-12-30 14:36] LABS: Appearance,Urine Clear (Clear); Bilirubin,Urine Negative (Negative); Blood,Urine Negative (Negative); Color,Urine Yellow; Glucose,Urine (UA) Trace (Negative); Ketones,Urine Trace (Negative); Leukocyte Esterase,Urine Negative (Negative); Mucus,Urine Rare /hpf; Nitrite,Urine Negative (Negative); Protein,Urine 1+ (Negative); Specific Gravity,Urine 1.009 (1.001-1.035); Urobilinogen,Urine <2.0 mg/dL (<2.0); WBC,Urine 1 /hpf (0-5)
--- NOTE | 2017-12-30 15:18 | XR ---
EXAMINATION TYPE: XR chest 2V DATE OF EXAM: 12/30/2017 COMPARISON: NONE TECHNIQUE: PA and lateral views submitted. HISTORY: Fever FINDINGS: Mild cardiomegaly and atherosclerotic change aorta. Coarsened interstitium. Subsegmental linear de guzman es at the lung base. Hypertrophic and degenerative change of the spine. Arthropathy of the shoulders. IMPRESSION: 1. Interstitium is somewhat prominent which could be seen with interstitial pneumonitis or atypical p neumonia correlate clinically. There are 2 subsegmental atelectasis favored over early infiltrate lef t lung base.
[2017-12-30 16:26] LABS: Glucose,Whole Blood 103 mg/dL (75-99)
[2017-12-30] MEDS ORDERED: WARFARIN 10 MG TAB PO SCH (18:00)
[2017-12-30] MEDS: amLODIPine 10 MG TAB PO SCH (18:48)
[2017-12-30] MEDS: D5-0.45% NACL WITH KCL 20MEQ/L 1,000 ML IV SCH (20:24)
[2017-12-30] MEDS: NIACIN TR 250 MG CAPSULE.ER PO SCH (20:36)
[2017-12-30] MEDS: METOPROLOL TARTRATE 50 MG TAB PO SCH (20:36)
[2017-12-30] MEDS: lamoTRIgine 25 MG TAB PO SCH (20:37)
[2017-12-30 20:44] LABS: Glucose,Whole Blood 97 mg/dL (75-99)
[2017-12-30] MEDS: INSULIN DETEMIR 100 UNIT/ML 10 ML VIAL SQ SCH (20:47)
[2017-12-31] MEDS: HEPARIN SODIUM,PORCINE 5,000 UNIT/ML 1 ML VIAL SQ SCH ×4 (00:07→23:10)
[2017-12-31 05:49] LABS: Glucose,Whole Blood 81 mg/dL (75-99)
[2017-12-31] MEDS: INSULIN ASPART 100 UNIT/ML 1 ML 10 ML VIAL SQ SCH ×4 (06:44→22:14)
[2017-12-31] MEDS: glipiZIDE 10 MG TAB PO SCH ×2 (06:46→15:49)
[2017-12-31] MEDS: D5-0.45% NACL WITH KCL 20MEQ/L 1,000 ML IV SCH (06:47)
[2017-12-31 06:56] LABS: Basophils % (A) 0 %; Eosinophils # (A) 0.6 k/uL (0-0.7); Eosinophils % (A) 6 %; HCT 34.3 % (39.0-53.0); HGB 10.9 gm/dL (13.0-17.5); Lymphocytes # (A) 1.6 k/uL (1.0-4.8); Lymphocytes % (A) 15 %; MCH 28.2 pg (25.0-35.0); MCHC 31.8 g/dL (31.0-37.0); MCV 88.5 fL (80.0-100.0); Mean Platelet Volume 7.7; Monocytes # (A) 0.7 k/uL (0-1.0); Monocytes % (A) 7 %; Neutrophils # (A) 7.5 k/uL (1.3-7.7); Neutrophils % (A) 71 %; Platelet Count 286 k/uL (150-450); RBC 3.87 m/uL (4.30-5.90); RDW 14.2 % (11.5-15.5); WBC 10.6 k/uL (3.8-10.6)
[2017-12-31 07:04] LABS: INR 1.7 (<1.2); Prothrombin Time 15.5 sec (9.0-12.0)
[2017-12-31 07:28] LABS: Anion Gap 8 mmol/L; Blood Urea Nitrogen 9 mg/dL (9-20); Calcium 9.2 mg/dL (8.4-10.2); Carbon Dioxide 28 mmol/L (22-30); Chloride 108 mmol/L (98-107); Glucose 78 mg/dL (74-99); Potassium 4.1 mmol/L (3.5-5.1); Sodium 144 mmol/L (137-145)
[2017-12-31] MEDS: PANTOPRAZOLE 40 MG/10 ML VIAL IVP SCH (08:47)
[2017-12-31] MEDS: ALVIMOPAN 12 MG CAPSULE PO SCH ×2 (08:47→20:38)
[2017-12-31] MEDS: GABAPENTIN 300 MG CAP PO SCH ×3 (08:48→20:39)
[2017-12-31] MEDS: MULTIVITAMINS, THERA 1 EACH TAB PO SCH (08:48)
[2017-12-31] MEDS: METOPROLOL TARTRATE 50 MG TAB PO SCH ×2 (08:49→20:38)
[2017-12-31] MEDS: metFORMIN 850 MG TAB PO SCH ×3 (08:49→22:18)
[2017-12-31] MEDS: CHOLECALCIFEROL 1,000 UNIT TAB PO SCH (08:49)
[2017-12-31] MEDS: ATORVASTATIN 40 MG TAB PO SCH (08:50)
[2017-12-31] MEDS: MELOXICAM 7.5 MG TAB PO SCH (08:50)
[2017-12-31] MEDS: cloNIDine HCL 0.1 MG TAB PO SCH (08:50)
[2017-12-31] MEDS: ISOSORBIDE MONONITRATE ER 30 MG TAB.ER.24H PO SCH (08:50)
[2017-12-31] MEDS: LISINOPRIL 20 MG TAB PO SCH ×2 (08:50→20:38)
[2017-12-31] MEDS: ALPRAZolam 0.5 MG TAB PO PRN ×2 (09:28→22:18)
--- NOTE | 2017-12-31 10:41 | P.PN ---
Subjective Progress Note Date: 12/31/17 12/29/2017 Patient seen and examined at the bedside on rounds with Dr. Matute. Patient underwent low anterior resection by Dr. Banks on 12/26/2017. Spoke with nursing who states when she examined patient he was very confused and thought he was at a kids birthday alliance party. Upon assessment from this commercial insurance underwriter and Dr. Matute , the patients orientation seems to have improved. He is able to state his name and the correct location of where he is at. He states he was very confused when he woke up this morning and that scared him and made his anxiety increase significantly. Suspect confusion is likely due to narcotic as the patient has been receiving dilaudid 1mg for pain. His blood pressure this morning was elevated with systolic over 200s. The patient reports when he gets very anxious , his blood pressure has increased alot in the past. Patient received his schduled antihypertensives this morning and his repeat blood pressure is 134/ 73. He was initially tachycardic this morning with heart rate of 117. His heart rate has improved with a heart rate in the 80s. Temperature this morning was 100.0. Repeat 99.5. The patient is sitting up in bed. He states his pain is tolerable at this time. Denies shortness of breath. Denies cough or congestion. Denies chest pain. Anderson remains intact with clear yellow urine. Patient has been having loose stools. C-diff was negative. Dressing is saturated with old bloody drainage. Per nursing, it is scheduled to be changed today. Hemoglobin today is 11.7. Potassium 4.4. BUN 12. Creatinine 1.04. INR is 1.3. The patient takes Coumadin for atrial fibrillation. It has been held since surgery and can be restarted when okay with surgery. Progress Note - Text Progress Note Date: 12/29/17 1540 Nursing notified provider the patient was having chest pain. Upon assessment, patient states he has been having chest pain for the last 30-40 minutes, but it comes and goes. He describes the pain as a dull ache but states it does increase in severity at times. The pain does not radiate to his arm, neck, or jaw. He denies shortness of breath. Patient states the pain is not worse with deep inspiration. Pain is not reproducible upon palpation to chest. He denies palpitations during my examination but does state he had palpitations earlier. vehicle monitor technician does reveal an episode of heart rate in the 150s. Patient remains in atrial fibrillation. Per telemetry monitoring, he did have an episode of atrial flutter during the night. Patient was hypertensive this morning which was likely due to anxiety. After administration of antihypertensives the patient's blood pressure improved. However the patient's blood pressure is elevated again with a systolic in the 180s. Heart rate is sustaining 100-110. Repeat blood pressure at the bedside is 193/84. Twelve- lead EKG was completed revealing atrial fibrillation, rate uncontrolled. No ST elevation was noted. Will give patient Lopressor 25 mg by mouth x 1 now. Patient currently taking Lopressor 50 mg in the morning and 75 mg at night. Will increase Lopressor to 75 mg twice a day. Will increase patient's Norvasc from 5 mg to 10 mg for better blood pressure control. Troponin and dig level ordered. The patient states he has never seen a artificial limb fitter in the past for any reason. He does report having a stress test many years ago but cannot remember the specific reason why he underwent stress testing, but does not think it was due to having chest pain. Will consult cardiology for further evaluation. 12/30/2017 Patient seen and examined at the bedside on rounds Dr. Matute. Patient states he has not had any further episodes of chest pain. Troponins resulted at 0.049 , 0.039, and 0.074. Cardiology evaluated the patient this morning who believes the patient had an non-STEMI. Outpatient workup is recommended. Echocardiogram was ordered and is currently pending. The patient remained tachycardic throughout the night. His metoprolol was increased to 100 mg by mouth twice a day per cardiology. Blood pressure continues to run on the high side. His Norvasc was increased yesterday to 10 mg. Patient was febrile through the night with a temperature of 102.1. Coumadin was restarted yesterday. INR 1.4 this AM. Patient remains on heparin subcu until INR is therapeutic. 12/31/2017 Patient seen and examined at the bedside. Patient is eating breakfast and tolerating well. He denies nausea or vomiting. States his pain is controlled. Denies shortness of breath or cough. Patients fevers have have resolved. Chest x-ray completed yesterday reveals possible atelectasis or early infiltrate. Patient clinically does not appear to have signs or symptoms of a pneumonia. Cultures to date are negative. White count has decreased from 13.8-10.6. Patients blood pressure and heart rate are better controlled at this time. Patient is requesting an abdominal binder. Patient's INR is 1.7 today. He remains on Coumadin. Also remains on heparin subcu until INR is therapeutic. Discharge plan includes [facility]. Objective - Vital Signs Vital signs: Vital Signs Temp 97.9 F 12/31/17 04:00 Pulse 85 12/31/17 04:00 Resp 20 12/31/17 04:00 BP 147/74 12/31/17 04:00 Pulse Ox 98 12/31/17 04:00 Intake & Output 12/30/17 12/31/17 12/31/17 18:59 06:59 18:59 Intake Total 590 500 180 Output Total 200 Balance 590 300 180 Weight 117.1 kg Intake: IV 500 D5-0.45% NaCl with KCl 500 20Meq/l 1,000 ml @ 50 mls /hr IV .Q20H RYLIE Rx#: [id number] Oral 590 180 Output: Urine 200 Other: Voiding Method Bedside Commode Bedside Commode Urinal Urinal # Voids 1 # Bowel Movements 1 - Exam GENERAL: This is a 67-year-old male in no apparent distress at the time of examination. Pleasant and cooperative. HEENT: Head is atraumatic, normocephalic. Pupils are equal, round, and reactive to light. Sclerae anicteric. Conjunctivae are clear. Mucus membranes of the mouth are moist. Neck is supple. RESPIRATORY: Mostly clear to ausculation, diminished at the bases. No rales or rhonchi. No use of accessory muscles. Patient maintaining oxygen saturation greater than 92%. No chest wall tenderness is noted on palpation or with deep breathing. CARDIOVASCULAR: Irregular rhythm. vehicle monitor technician reveals atrial fibrillation. S1 and S2 noted. No JVD noted. No S3 or S4 noted. GASTROINTESTINAL: No distention noted. Abdomen soft and round. Bowel sounds auscultated x 4 quadrants. No pain or tenderness noted upon palpation. INTEGUMENTARY: No cyanosis. No jaundice. No rashes noted. No cellulitis noted. EXTREMITIES: 2+ peripheral pulses. No lower extremity edema. No calf tenderness noted. NEUROLOGIC: Cranial nerves II-XII intact. PSYCHIATRIC: Awake, alert, and oriented X 3. Appropriate affect. - Labs CBC & Chem 7: 12/31/17 06:30 12/31/17 06:30 Labs: Abnormal Lab Results - Last 24 Hours (Table) 12/30/17 12/30/17 12/30/17 Range/Units 05:02 11:57 14:24 WBC 13.8 H (3.8-10.6) k/uL RBC 3.78 L (4.30-5.90) m/uL Hgb 10.6 L (13.0-17.5) gm/dL Hct 33.8 L (39.0-53.0) % Neutrophils # 11.4 H (1.3-7.7) k/uL PT (9.0-12.0) sec INR (<1.2) Chloride (98-107) mmol/L POC Glucose (mg/dL) 168 H (75-99) mg/dL Urine Protein 1+ H (Negative) Urine Glucose (UA) Trace H (Negative) Urine Ketones Trace H (Negative) Urine Mucus Rare H (None) /hpf 12/30/17 12/31/17 12/31/17 Range/Units 16:21 06:30 06:30 WBC (3.8-10.6) k/uL RBC 3.87 L (4.30-5.90) m/uL Hgb 10.9 L (13.0-17.5) gm/dL Hct 34.3 L (39.0-53.0) % Neutrophils # (1.3-7.7) k/uL PT 15.5 H (9.0-12.0) sec INR 1.7 H (<1.2) Chloride (98-107) mmol/L POC Glucose (mg/dL) 103 H (75-99) mg/dL Urine Protein (Negative) Urine Glucose (UA) (Negative) Urine Ketones (Negative) Urine Mucus (None) /hpf 12/31/17 Range/Units 06:30 WBC (3.8-10.6) k/uL RBC (4.30-5.90) m/uL Hgb (13.0-17.5) gm/dL Hct (39.0-53.0) % Neutrophils # (1.3-7.7) k/uL PT (9.0-12.0) sec INR (<1.2) Chloride 108 H (98-107) mmol/L POC Glucose (mg/dL) (75-99) mg/dL Urine Protein (Negative) Urine Glucose (UA) (Negative) Urine Ketones (Negative) Urine Mucus (None) /hpf Microbiology - Last 24 Hours (Table) 12/30/17 07:51 Blood Culture - Preliminary Blood No Growth after 24 hours 12/30/17 07:40 Blood Culture - Preliminary Blood No Growth after 24 hours 12/30/17 14:24 Urine Culture - Preliminary Urine,Voided 12/30/17 14:00 Gram Stain - Final Sputum Sputum Culture - Final Assessment and Plan Plan: ASSESSMENT: History of diverticulitis, s/p low anterior resection with partial omentectomy Chronic atrial fibrillation, on long-term anticoagulation with Coumadin Metabolic encephalopathy, suspect secondary to narcotics, resolved Chest pain, troponins 0.049, 0.039, 0.074, suspected non-STEMI per cardiology Fever, may be secondary to atelectasis, resolved Urinary retention, requiring straight cath 1 History of CVA/TIA Diabetes mellitus, type II Hypertension History of seizure disorder History of B cell lymphoma with chemotherapy Anxiety, unspecified Bipolar disorder History of depression History of posttraumatic stress disorder PLAN: Continue postoperative care per Dr. Banks Continue Coumadin. Daily INR. Continue heparin subcu until INR is therapeutic Continue Effie for pain. Avoid IV narcotics as it causes confusion and anxiety for patient Cardiology on consult. Appreciate recommendations and input Outpatient workup recommended for non-STEMI Activity as tolerated Incentive spirometer 10 times an hour while awake Home meds as appropriate Monitor labs GI prophylaxis: Protonix 40 mg PO Daily DVT prophylaxis: Heparin 5000 units subcu every 8 hours and Coumadin Monitor vital signs and address as appropriate DC Plan: [place] Further recommendations pending patient's course Obtain an abdominal binder if okay with surgery Anticipate discharge tomorrow to subacute rehab, unless cleared by attending provider this afternoon Nurse practitioner note has been reviewed by physician. Signing provider agrees with the documented findings, assessment, and plan of care.
--- NOTE | 2017-12-31 11:17 | ECHOF ---
Referral Reason:chest pain MEASUREMENTS -------- HEIGHT: 193.0 cm WEIGHT: 116.1 kg BP: 171/79 RVIDd: 2.6 cm (< 3.3) IVSd: 1.6 cm (0.6 - 1.1) LVIDd: 4.4 cm (3.9 - 5.3) LVPWd: 1.6 cm (0.6 - 1.1) IVSs: 2.0 cm LVIDs: 3.0 cm LVPWs: 1.8 cm LAESV Index (A-L): 37.50 ml/m Ao Diam: 3.1 cm (2.0 - 3.7) AV Cusp: 1.2 cm (1.5 - 2.6) LA Diam: 4.8 cm (2.7 - 3.8) EPSS: 0.6 cm MV E Milton: 1.43 m/s MV DecT: 202 ms MV A Milton: 0.24 m/s MV E/A Ratio: 5.94 AV maxP.41 mmHg AV meanP.87 mmHg RAP: 5.00 mmHg RVSP: 17.57 mmHg MV EF SLOPE: 83.14 mm/s (70 - 150) MV EXCURSION: 1.64 cm (> 18.000) FINDINGS -------- Atrial fibrillation. This was a technically difficult study with suboptimal views. The left ventricular size is normal. There is moderate concentric left ventricular hypertrophy. O verall left ventricular systolic function is normal with, an EF between 55 - 60 %. The right ventricle is normal in size and function. LA is moderately dilated 34-39 ml/m2 The right atrium is normal in size. 3ml of Lumason was utilized for enhancement of images. There is moderate aortic valve sclerosis. There is no evidence of aortic regurgitation. There is mild to moderate aortic stenosis present. Peak/mean gradient across the Aortic Valve is 33.41mmHg / 19.87mmHg. The mitral valve leaflets are mildly thickened. Mild mitral annular calcification present. Mild m itral regurgitation is present. Trace tricuspid regurgitation present. Right ventricular systolic pressure is normal at < 35 mmHg. There is no evidence of pulmonary hypertension. The pulmonic valve was not well visualized. The aortic root size is normal. The IVC is dilated with normal collapse. There is no pericardial effusion. CONCLUSIONS -------- 1. Atrial fibrillation. 2. This was a technically difficult study with suboptimal views. 3. The left ventricular size is normal. 4. There is moderate concentric left ventricular hypertrophy. 5. Overall left ventricular systolic function is normal with, an EF between 55 - 60 %. 6. LA is moderately dilated 34-39 ml/m2 7. 3ml of Lumason was utilized for enhancement of images. 8. There is moderate aortic valve sclerosis. 9. There is no evidence of aortic regurgitation. 10. There is mild to moderate aortic stenosis present. 11. Peak/mean gradient across the Aortic Valve is 33.41mmHg / 19.87mmHg. 12. The mitral valve leaflets are mildly thickened. 13. Mild mitral annular calcification present. 14. Mild mitral regurgitation is present. 15. Trace tricuspid regurgitation present. 16. Right ventricular systolic pressure is normal at < 35 mmHg. 17. There is no evidence of pulmonary hypertension. 18. The pulmonic valve was not well visualized. 19. The aortic root size is normal. 20. The IVC is dilated with normal collapse. 21. There is no pericardial effusion. FOUNDER / CEO: Dale Edwards RDCS
[2017-12-31 11:35] LABS: Glucose,Whole Blood 166 mg/dL (75-99)
[2017-12-31] MEDS: ALBUTEROL NEBULIZED 2.5 MG/3 ML INHALATION PRN (12:21)
[2017-12-31] MEDS: lamoTRIgine 100 MG TAB PO SCH (13:09)
[2017-12-31] MEDS: ARIPiprazole 15 MG TAB PO SCH (13:10)
--- NOTE | 2017-12-31 15:21 | P.PN ---
Subjective Progress Note Date: 12/31/17 This is a 67-year-old gentleman with history of hypertension, diabetes , hyperlipidemia, chronic persistent atrial fibrillation, on Coumadin for anticoagulation, prior CVA, history of seizures, diverticulitis, who was admitted to the hospital to undergo low anterior resection and partial omentectomy by Dr. Louise sorensen. Surgery was performed on the . Yesterday patient had an episode of chest discomfort which she described as an ache or uncomfortable feeling in his chest. He denies any associated shortness of breath or diaphoresis. Patient states he's never had like this before. Pain did not change with deep breathing or movement, no tenderness to the chest wall. Chest x-ray showed COPD and mild cardiomegaly. Blood pressure this morning 170/78, heart rate low 100s, temperature this morning 100.5, at 2:30 this morning the temperature was up to 102.1. Labratory data, white blood cell count 9.4, hemoglobin 11.7, platelet count 247. INR this morning 1.4. Sodium 142, potassium 4.4, BUN 12, creatinine 1.0. Creatinine yesterday 2.0. Troponins 0.012, 0.039, 0.074. Initial EKG showed atrial fibrillation with a controlled ventricular response, and EKG showed atrial fibrillation with a moderately rapid ventricular response and ST depression noted in the inferior leads. At the time of my examination this morning, patient denies any chest discomfort, no shortness of breath. Patient's current cardiac medications include Norvasc 10 mg daily, Lanoxin 250 g daily, lisinopril 20 mg twice a day , metoprolol 75 mg in the morning and 75 mg in the evening. Coumadin 5 mg alternating with 10 mg every other day. Patient states he's had a stress test in the past was over 20 years ago according to him. No prior myocardial infarction, no family history of premature coronary artery disease and patient is a nonsmoker. 12/31/2017 Patient seen and examined this morning, abdomen overall feeling much better. Denies any further chest discomfort. Blood pressure 140/70, heart rate in the 70s to 80s, 98% on 2 L of oxygen. Echocardiogram with Doppler study was performed which revealed a normal left ventricular systolic function. Dr. Whitman did have a discussion with the patient and his today, explaining that he did have a non-Q-wave myocardial infarction and that once he recovers from the surgery, he will need to undergo stress testing in the office. Objective - Vital Signs Vital signs: Vital Signs Temp 98.9 F 12/31/17 08:00 Pulse 91 12/31/17 12:32 Resp 16 12/31/17 12:32 BP 145/73 12/31/17 12:00 Pulse Ox 98 12/31/17 12:00 Intake & Output 12/30/17 12/31/17 12/31/17 18:59 06:59 18:59 Intake Total 590 500 180 Output Total 200 Balance 590 300 180 Weight 117.1 kg Intake: IV 500 D5-0.45% NaCl with KCl 500 20Meq/l 1,000 ml @ 50 mls /hr IV .Q20H RYLIE Rx#: [id number] Oral 590 180 Output: Urine 200 Other: Voiding Method Bedside Commode Bedside Commode Urinal Urinal # Voids 1 # Bowel Movements 1 - Exam PHYSICAL EXAMINATION: GENERAL: She 7-year-old gentleman in no acute distress at the time of my examination HEENT: Head is atraumatic, normocephalic. Pupils equal, round. Sclera anicteric. Conjunctiva are clear. Mucous membranes of the mouth are moist. Neck is supple. There is elevated jugular venous pressure. No carotid bruit is heard. HEART EXAMINATION: Heart S1 and S2 irregularly irregular a systolic murmur is heard CHEST EXAMINATION: Lungs reveal scattered wheezing throughout with decreased air exchange ABDOMEN: Soft, nontender. Bowel sounds are heard. No organomegaly noted. EXTREMITIES: 2+ peripheral pulses with no evidence of peripheral edema and no calf tenderness noted. NEUROLOGIC patient is awake, alert and oriented X3. - Labs CBC & Chem 7: 12/31/17 06:30 12/31/17 06:30 Labs: Abnormal Lab Results - Last 24 Hours (Table) 12/30/17 12/31/17 12/31/17 Range/Units 16:21 06:30 06:30 RBC 3.87 L (4.30-5.90) m/uL Hgb 10.9 L (13.0-17.5) gm/dL Hct 34.3 L (39.0-53.0) % PT 15.5 H (9.0-12.0) sec INR 1.7 H (<1.2) Chloride (98-107) mmol/L POC Glucose (mg/dL) 103 H (75-99) mg/dL 12/31/17 12/31/17 Range/Units 06:30 11:31 RBC (4.30-5.90) m/uL Hgb (13.0-17.5) gm/dL Hct (39.0-53.0) % PT (9.0-12.0) sec INR (<1.2) Chloride 108 H (98-107) mmol/L POC Glucose (mg/dL) 166 H (75-99) mg/dL Microbiology - Last 24 Hours (Table) 12/30/17 07:51 Blood Culture - Preliminary Blood No Growth after 24 hours 12/30/17 07:40 Blood Culture - Preliminary Blood No Growth after 24 hours 12/30/17 14:24 Urine Culture - Preliminary Urine,Voided 12/30/17 14:00 Gram Stain - Final Sputum Sputum Culture - Final Assessment and Plan Plan: Assessment and plan #1 status post low anterior resection with partial omentectomy in a patient with history of diverticulitis #2 non-Q-wave NV #3 chronic persistent atrial fibrillation on Coumadin for anticoagulation, INR 1.4 today #4 diabetes #5 hypertension #6 hyperlipidemia #7 fever Plan Echo cardiac gram with Doppler study revealed a normal left ventricular systolic function with mild to moderate aortic stenosis. From cardiology's perspective, a follow-up appointment will be made with Dr. Whitman in the office post discharge. Once the patient recovers from this surgery, he will require to undergo stress testing as an outpatient. DNP note has been reviewed, I agree with a documented findings and plan of care. Patient was seen and examined.
[2017-12-31] MEDS: amLODIPine 10 MG TAB PO SCH (15:49)
[2017-12-31] MEDS: WARFARIN 5 MG TAB PO SCH (15:49)
[2017-12-31 16:51] LABS: Glucose,Whole Blood 143 mg/dL (75-99)
[2017-12-31] MEDS: lamoTRIgine 25 MG TAB PO SCH (20:38)
[2017-12-31] MEDS: NIACIN TR 250 MG CAPSULE.ER PO SCH (20:38)
[2017-12-31 20:47] VITALS: RESP 17
[2017-12-31 20:58] LABS: Glucose,Whole Blood 125 mg/dL (75-99)
[2017-12-31] MEDS: INSULIN DETEMIR 100 UNIT/ML 10 ML VIAL SQ SCH (22:18)
[2018-01-01 01:08] LABS: Glucose,Whole Blood 103 mg/dL (75-99)
[2018-01-01 01:55] LABS: Anion Gap 6 mmol/L; Blood Urea Nitrogen 10 mg/dL (9-20); Carbon Dioxide 28 mmol/L (22-30); Chloride 108 mmol/L (98-107); Glucose 93 mg/dL (74-99); Potassium 3.9 mmol/L (3.5-5.1); Sodium 142 mmol/L (137-145)
[2018-01-01 01:56] LABS: Calcium 8.9 mg/dL (8.4-10.2); Magnesium 1.9 mg/dL (1.6-2.3)
[2018-01-01] MEDS: ALPRAZolam 0.5 MG TAB PO PRN (03:39)
[2018-01-01] MEDS: D5-0.45% NACL WITH KCL 20MEQ/L 1,000 ML IV SCH (03:43)
[2018-01-01 05:45] LABS: Glucose,Whole Blood 111 mg/dL (75-99)
[2018-01-01] MEDS: INSULIN ASPART 100 UNIT/ML 1 ML 10 ML VIAL SQ SCH (05:50)
[2018-01-01 06:24] LABS: Basophils % (A) 0 %; Eosinophils # (A) 0.6 k/uL (0-0.7); Eosinophils % (A) 6 %; HCT 33.2 % (39.0-53.0); HGB 10.6 gm/dL (13.0-17.5); Lymphocytes # (A) 1.4 k/uL (1.0-4.8); Lymphocytes % (A) 15 %; MCH 28.1 pg (25.0-35.0); MCV 88.1 fL (80.0-100.0); Mean Platelet Volume 7.6; Monocytes # (A) 0.6 k/uL (0-1.0); Monocytes % (A) 6 %; Neutrophils # (A) 6.6 k/uL (1.3-7.7); Neutrophils % (A) 71 %; Platelet Count 282 k/uL (150-450); RBC 3.77 m/uL (4.30-5.90); RDW 14.2 % (11.5-15.5); WBC 9.3 k/uL (3.8-10.6)
[2018-01-01 06:31] LABS: INR 1.7 (<1.2); Prothrombin Time 15.8 sec (9.0-12.0)
[2018-01-01 06:39] LABS: Anion Gap 5 mmol/L; Blood Urea Nitrogen 8 mg/dL (9-20); Calcium 8.9 mg/dL (8.4-10.2); Carbon Dioxide 28 mmol/L (22-30); Chloride 109 mmol/L (98-107); Glucose 105 mg/dL (74-99); Sodium 142 mmol/L (137-145)
[2018-01-01] MEDS: glipiZIDE 10 MG TAB PO SCH (06:58)
[2018-01-01] MEDS ORDERED: PANTOPRAZOLE 40 MG TABLET PO SCH (07:30)
[2018-01-01] MEDS: HEPARIN SODIUM,PORCINE 5,000 UNIT/ML 1 ML VIAL SQ SCH (08:36)
[2018-01-01] MEDS: metFORMIN 850 MG TAB PO SCH (08:36)
[2018-01-01] MEDS: ALVIMOPAN 12 MG CAPSULE PO SCH (08:36)
[2018-01-01] MEDS: ISOSORBIDE MONONITRATE ER 30 MG TAB.ER.24H PO SCH (08:36)
[2018-01-01] MEDS: MULTIVITAMINS, THERA 1 EACH TAB PO SCH (08:36)
[2018-01-01] MEDS: MELOXICAM 7.5 MG TAB PO SCH (08:36)
[2018-01-01] MEDS: cloNIDine HCL 0.1 MG TAB PO SCH (08:36)
[2018-01-01] MEDS: METOPROLOL TARTRATE 50 MG TAB PO SCH (08:37)
[2018-01-01] MEDS: CHOLECALCIFEROL 1,000 UNIT TAB PO SCH (08:37)
[2018-01-01] MEDS: GABAPENTIN 300 MG CAP PO SCH (08:37)
[2018-01-01] MEDS: ATORVASTATIN 40 MG TAB PO SCH (08:37)
[2018-01-01] MEDS: LISINOPRIL 20 MG TAB PO SCH (08:37)
[2018-01-01 08:46] VITALS: BP 135/80; PULSE 102; TEMP 98.2
[2018-01-01 10:00] VITALS: BMI 30.5
[2018-01-01] MEDS ORDERED: WARFARIN 2.5 MG TAB PO ONE (10:30)
--- NOTE | 2018-01-01 13:06 | P.DS ---
Providers Date of admission: 12/26/17 09:43 Expected date of discharge: 01/01/18 Attending physician: Elver Matute Consults: 12/26/17 13:20 Consult Physician Routine Consulting Provider: Elver Matute Consult Reason/Comments: Medical management Do you want consulting provider notified?: Yes 12/29/17 15:37 Consult Physician Routine Consulting Provider: Anisa Whitman Reason/Comments: chest pain Do you want consulting provider notified?: Yes Primary care physician: Elver Matute Hospital Course: 67-year-old male who underwent low anterior resection by Dr. Banks on 12/26/2017. The patients diet was advanced as tolerated postoperatively. Patient has been having bowel movements. His pain has been tolerable. He denies any nausea or vomiting. The patient has chronic atrial fibrillation and at times his rate was uncontrolled. Patient was also hypertensive during hospitalization. His metoprolol was increased to 100 mg twice a day. His Norvasc was also increased to 10 mg a day. The patient had an episode of chest pain on 12/29/2017. Troponins were completed and were abnormal. He was evaluated by cardiology. Patient was started on Imdur. His digoxin was discontinued. The patient is to follow up outpatient for further testing including possible cardiac catheterization. Patient did have a a few isolated episodes of fevers postoperatively. The patient was pancultured which have all been negative to date. The patient was restarted on his Coumadin postoperatively. Most recent INR is 1.7. The patient will receive an additional 2.5 mg of Coumadin today and then continue his regular Coumadin dosing tonight at home. He will repeat his INR at his follow-up appointment. The patient worked with physical therapy and occupational therapy during hospitalization. Initially the patient's discharge plan included subacute rehab however the patient has progressed and has been ambulating in the hallway and now was deemed stable for discharge home with home care. DISCHARGE DIAGNOSIS: History of diverticulitis, s/p low anterior resection with partial omentectomy Chronic atrial fibrillation, on long-term anticoagulation with Coumadin Metabolic encephalopathy, suspect secondary to narcotics, resolved Chest pain, troponins 0.049, 0.039, 0.074, suspected non-STEMI per cardiology Fever, may be secondary to atelectasis, resolved Urinary retention, requiring straight cath 1 History of CVA/TIA Diabetes mellitus, type II Hypertension History of seizure disorder History of B cell lymphoma with chemotherapy Anxiety, unspecified Bipolar disorder History of depression History of posttraumatic stress disorder Nurse practitioner note has been reviewed by physician. Signing provider agrees with the documented findings, assessment, and plan of care. Patient Condition at Discharge: Stable Plan - Discharge Summary Discharge Rx Participant: Yes New Discharge Prescriptions: New Alvimopan [Entereg] 12 mg PO BID #4 capsule amLODIPine [Norvasc] 10 mg PO W/SUPPER #30 tab Atorvastatin [Lipitor] 40 mg PO DAILY #30 tab Isosorbide Mononitrate ER [Imdur] 30 mg PO DAILY #30 tab Metoprolol Tartrate [Lopressor] 100 mg PO BID #120 tab Continue Furosemide [Lasix] 20 mg PO QAM lamoTRIgine [LaMICtal] 100 mg PO DAILY@1300 glipiZIDE [Glucotrol] 10 mg PO AC-BID cloNIDine HCL [Catapres] 0.1 mg PO QAM Gabapentin [Neurontin] 600 mg PO TID metFORMIN HCL [Glucophage] 850 mg PO TID Albuterol Inhaler [Ventolin Hfa Inhaler] 2 puff INHALATION RT-Q6H PRN PRN Reason: Shortness Of Breath ARIPiprazole [Abilify] 30 mg PO DAILY@1300 Cholecalciferol [Vitamin D3] 2,000 unit PO DAILY Lisinopril [Prinivil] 20 mg PO BID Niacin [Niacin ER] 750 mg PO HS Warfarin [Coumadin] 10 mg PO SUTUTH Zolpidem Tartrate [Ambien] 10 mg PO HS Multivitamin [Men's Multi-Vitamin] 1 tab PO DAILY Insulin Glargine [Lantus] 30 unit SQ HS Meloxicam [Mobic] 15 mg PO DAILY ALPRAZolam [Xanax] 0.5 mg PO QID PRN PRN Reason: Anxiety Hydrocodone/Acetaminophen [Eaton 5-325] 1 tab PO Q6HR PRN PRN Reason: Pain Albuterol Nebulized [Ventolin Nebulized] 2.5 mg INHALATION RT-QID PRN PRN Reason: sob Warfarin [Coumadin] 5 mg PO MOWEFRSA lamoTRIgine [LaMICtal] 50 mg PO HS Discontinued Metoprolol Tartrate [Lopressor] 50 mg PO AC-BRKFST Metoprolol Tartrate [Lopressor] 75 mg PO HS Digoxin [Lanoxin] 250 mcg PO DAILY amLODIPine [Norvasc] 5 mg PO W/SUPPER Naproxen [Naprosyn] 500 mg PO Q12HR PRN PRN Reason: Pain Discharge Medication List Furosemide [Lasix] 20 mg PO QAM 10/08/13 [History] glipiZIDE [Glucotrol] 10 mg PO AC-BID 10/08/13 [History] lamoTRIgine [LaMICtal] 100 mg PO DAILY@1300 10/08/13 [History] cloNIDine HCL [Catapres] 0.1 mg PO QAM 01/07/14 [History] Gabapentin [Neurontin] 600 mg PO TID 09/21/14 [History] metFORMIN HCL [Glucophage] 850 mg PO TID 07/12/15 [History] ARIPiprazole [Abilify] 30 mg PO DAILY@1300 05/29/16 [History] Albuterol Inhaler [Ventolin Hfa Inhaler] 2 puff INHALATION RT-Q6H PRN 05/29/16 [ History] Cholecalciferol [Vitamin D3] 2,000 unit PO DAILY 05/29/16 [History] Lisinopril [Prinivil] 20 mg PO BID 05/29/16 [History] Niacin [Niacin ER] 750 mg PO HS 05/29/16 [History] Warfarin [Coumadin] 10 mg PO SUTUTH 05/29/16 [History] Zolpidem Tartrate [Ambien] 10 mg PO HS 05/29/16 [History] Multivitamin [Men's Multi-Vitamin] 1 tab PO DAILY 09/13/16 [History] ALPRAZolam [Xanax] 0.5 mg PO QID PRN 05/16/17 [History] Insulin Glargine [Lantus] 30 unit SQ HS 05/16/17 [History] Meloxicam [Mobic] 15 mg PO DAILY 05/16/17 [History] Albuterol Nebulized [Ventolin Nebulized] 2.5 mg INHALATION RT-QID PRN 12/22/17 [ History] Hydrocodone/Acetaminophen [Eaton 5-325] 1 tab PO Q6HR PRN 12/22/17 [History] Warfarin [Coumadin] 5 mg PO MOWEFRSA 12/22/17 [History] lamoTRIgine [LaMICtal] 50 mg PO HS 12/22/17 [History] Alvimopan [Entereg] 12 mg PO BID #4 capsule 01/01/18 [Rx] Atorvastatin [Lipitor] 40 mg PO DAILY #30 tab 01/01/18 [Rx] Isosorbide Mononitrate ER [Imdur] 30 mg PO DAILY #30 tab 01/01/18 [Rx] Metoprolol Tartrate [Lopressor] 100 mg PO BID #120 tab 01/01/18 [Rx] amLODIPine [Norvasc] 10 mg PO W/SUPPER #30 tab 01/01/18 [Rx] Follow up Appointment(s)/Referral(s): Anisa Whitman MD [STAFF PHYSICIAN] - 2 Weeks Elver Matute DO [Primary Care Provider] - 3 Days () Toribio Banks MD [STAFF PHYSICIAN] - 1 Week Patient Instructions/Handouts: Chest Pain (DC), Colectomy (DC), Colectomy Diet (DC), Acute Wounds (DC) Activity/Diet/Wound Care/Special Instructions: Repeat INR at follow up appointment with Dr. Matute No soaking or tub baths Keep incisions clean and dry No lifting over 10 lbs for 6 weeks Discharge Disposition: HOME WITH HOME HEALTH SERVICES
--- NOTE | 2018-01-01 14:59 | P.PN ---
Subjective Progress Note Date: 01/01/18 This is a 67-year-old gentleman with history of hypertension, diabetes , hyperlipidemia, chronic persistent atrial fibrillation, on Coumadin for anticoagulation, prior CVA, history of seizures, diverticulitis, who was admitted to the hospital to undergo low anterior resection and partial omentectomy by Dr. Louise sorensen. Surgery was performed on the . Yesterday patient had an episode of chest discomfort which she described as an ache or uncomfortable feeling in his chest. He denies any associated shortness of breath or diaphoresis. Patient states he's never had like this before. Pain did not change with deep breathing or movement, no tenderness to the chest wall. Chest x-ray showed COPD and mild cardiomegaly. Blood pressure this morning 170/78, heart rate low 100s, temperature this morning 100.5, at 2:30 this morning the temperature was up to 102.1. Labratory data, white blood cell count 9.4, hemoglobin 11.7, platelet count 247. INR this morning 1.4. Sodium 142, potassium 4.4, BUN 12, creatinine 1.0. Creatinine yesterday 2.0. Troponins 0.012, 0.039, 0.074. Initial EKG showed atrial fibrillation with a controlled ventricular response, and EKG showed atrial fibrillation with a moderately rapid ventricular response and ST depression noted in the inferior leads. At the time of my examination this morning, patient denies any chest discomfort, no shortness of breath. Patient's current cardiac medications include Norvasc 10 mg daily, Lanoxin 250 g daily, lisinopril 20 mg twice a day , metoprolol 75 mg in the morning and 75 mg in the evening. Coumadin 5 mg alternating with 10 mg every other day. Patient states he's had a stress test in the past was over 20 years ago according to him. No prior myocardial infarction, no family history of premature coronary artery disease and patient is a nonsmoker. 12/31/2017 Patient seen and examined this morning, abdomen overall feeling much better. Denies any further chest discomfort. Blood pressure 140/70, heart rate in the 70s to 80s, 98% on 2 L of oxygen. Echocardiogram with Doppler study was performed which revealed a normal left ventricular systolic function. Dr. Whitman did have a discussion with the patient and his today, explaining that he did have a non-Q-wave myocardial infarction and that once he recovers from the surgery, he will need to undergo stress testing in the office. 01/01/2018 Patient seen and examined this morning, he's been up ambulating without any difficulty. Anticipating discharge home today. He denies having any chest discomfort, breathing has been stable. Objective - Vital Signs Vital signs: Vital Signs Temp 98.2 F 01/01/18 08:40 Pulse 102 H 01/01/18 08:40 Resp 17 01/01/18 08:40 BP 135/80 01/01/18 08:40 Pulse Ox 94 L 01/01/18 08:40 Intake & Output 12/31/17 01/01/18 01/01/18 18:59 06:59 18:59 Intake Total 730 1100 240 Output Total 100 2 1 Balance 630 1098 239 Weight 113.8 kg 113.8 kg Intake: Intake, IV Titration 550 Amount D5-0.45% NaCl with KCl 550 20Meq/l 1,000 ml @ 50 mls /hr IV .Q20H RYLIE Rx#: [id number] Oral 730 550 240 Output: Urine 100 Stool 2 1 Other: Voiding Method Bedside Commode Bedside Commode Urinal Urinal # Voids 2 # Bowel Movements 2 - Exam PHYSICAL EXAMINATION: GENERAL: She 7-year-old gentleman in no acute distress at the time of my examination HEENT: Head is atraumatic, normocephalic. Pupils equal, round. Sclera anicteric. Conjunctiva are clear. Mucous membranes of the mouth are moist. Neck is supple. There is elevated jugular venous pressure. No carotid bruit is heard. HEART EXAMINATION: Heart S1 and S2 irregularly irregular a systolic murmur is heard CHEST EXAMINATION: Lungs reveal scattered wheezing throughout with decreased air exchange ABDOMEN: Soft, nontender. Bowel sounds are heard. No organomegaly noted. EXTREMITIES: 2+ peripheral pulses with no evidence of peripheral edema and no calf tenderness noted. NEUROLOGIC patient is awake, alert and oriented X3. - Labs CBC & Chem 7: 01/01/18 05:47 01/01/18 05:47 Labs: Abnormal Lab Results - Last 24 Hours (Table) 12/31/17 12/31/17 01/01/18 Range/Units 16:32 20:56 00:58 RBC (4.30-5.90) m/uL Hgb (13.0-17.5) gm/dL Hct (39.0-53.0) % PT (9.0-12.0) sec INR (<1.2) Chloride (98-107) mmol/L BUN (9-20) mg/dL Glucose (74-99) mg/dL POC Glucose (mg/dL) 143 H 125 H 103 H (75-99) mg/dL 01/01/18 01/01/18 01/01/18 Range/Units 01:26 05:43 05:47 RBC (4.30-5.90) m/uL Hgb (13.0-17.5) gm/dL Hct (39.0-53.0) % PT 15.8 H (9.0-12.0) sec INR 1.7 H (<1.2) Chloride 108 H (98-107) mmol/L BUN (9-20) mg/dL Glucose (74-99) mg/dL POC Glucose (mg/dL) 111 H (75-99) mg/dL 01/01/18 01/01/18 Range/Units 05:47 05:47 RBC 3.77 L (4.30-5.90) m/uL Hgb 10.6 L (13.0-17.5) gm/dL Hct 33.2 L (39.0-53.0) % PT (9.0-12.0) sec INR (<1.2) Chloride 109 H (98-107) mmol/L BUN 8 L (9-20) mg/dL Glucose 105 H (74-99) mg/dL POC Glucose (mg/dL) (75-99) mg/dL Microbiology - Last 24 Hours (Table) 12/30/17 07:51 Blood Culture - Preliminary Blood No Growth after 48 hours 12/30/17 07:40 Blood Culture - Preliminary Blood No Growth after 48 hours 12/30/17 14:24 Urine Culture - Final Urine,Voided Assessment and Plan Plan: Assessment and plan #1 status post low anterior resection with partial omentectomy in a patient with history of diverticulitis #2 non-Q-wave OR #3 chronic persistent atrial fibrillation on Coumadin for anticoagulation, INR 1.4 today #4 diabetes #5 hypertension #6 hyperlipidemia #7 fever Plan Echo cardiac gram with Doppler study revealed a normal left ventricular systolic function with mild to moderate aortic stenosis. From cardiology's perspective, a follow-up appointment will be made with Dr. Whitman in the office post discharge. Once the patient recovers from this surgery, he will require to undergo stress testing as an outpatient. DNP note has been reviewed, I agree with a documented findings and plan of care. Patient was seen and examined.
== END 2018-01-01 12:18 | disposition home health service (06) | DRG 329 ==
LOC: 2ORMAIN 09:43 → 3SUR 13:20 → 6SEL 12-27 22:07
PROVIDERS: ADMIT Family Medicine; ATTEND Family Medicine
PROC: 0DBU0ZZ Excision of Omentum, Open Approach (ICD-10-PCS; 2017-12-26)
PROC: 0DBN0ZZ Excision of Sigmoid Colon, Open Approach (ICD-10-PCS; principal; 2017-12-26 12:15)
DX: K57.20 Diverticulitis of large intestine with perforation and abscess without bleeding (principal); G92 Toxic encephalopathy; I21.4 Non-ST elevation (NSTEMI) myocardial infarction; I48.1 Persistent atrial fibrillation; I48.92 Unspecified atrial flutter; J98.11 Atelectasis; E11.42 Type 2 diabetes mellitus with diabetic polyneuropathy; Z79.4 Long term (current) use of insulin; E78.5 Hyperlipidemia, unspecified; F31.9 Bipolar disorder, unspecified; F43.10 Post-traumatic stress disorder, unspecified; G40.909 Epilepsy, unspecified, not intractable, without status epilepticus; T40.605A Adverse effect of unspecified narcotics, initial encounter; I11.9 Hypertensive heart disease without heart failure; I48.2 Chronic atrial fibrillation; J44.9 Chronic obstructive pulmonary disease, unspecified; Z79.01 Long term (current) use of anticoagulants; Z79.1 Long term (current) use of non-steroidal anti-inflammatories (NSAID); Z79.899 Other long term (current) drug therapy; Z80.1 Family history of malignant neoplasm of trachea, bronchus and lung; Z85.72 Personal history of non-Hodgkin lymphomas; Z86.73 Personal history of transient ischemic attack (TIA), and cerebral infarction without residual deficits; Z87.891 Personal history of nicotine dependence; Z92.21 Personal history of antineoplastic chemotherapy; Z92.3 Personal history of irradiation; Z85.828 Personal history of other malignant neoplasm of skin; L40.9 Psoriasis, unspecified; R50.9 Fever, unspecified; F41.9 Anxiety disorder, unspecified; M19.90 Unspecified osteoarthritis, unspecified site; Z57.4 Occupational exposure to toxic agents in agriculture; R41.3 Other amnesia
CPT/HCPCS: 36415; 71045; 71046; 80048; 80051; 80053; 80162; 81001; 82553; 83605; 83735; 84132; 84484; 85025; 85027; 85610; 86850; 86900; 86901; 87040; 87070; 87086; 87205; 87324; 88307; 93005; 93306; 94640; 94760

== ENCOUNTER 2018-01-21 06:17 | Day surgery (SDC) | payer MEDICARE, OTHER ==
[2018-01-15 08:48] VITALS: BMI 29.2
[~2018-01-21 06:17] MED LIST changes: +ALPRAZolam 0.25 MG TAB PO PRN; +ALPRAZolam 0.5 MG TAB PO PRN; +ASPIRIN 325 MG TAB PO STA; +ATORVASTATIN 80 MG TAB PO STA; -DEXAMETHASONE SOD PHOSPHATE 10 MG/ML 1 ML VIAL IV ONE; -HEPARIN SODIUM,PORCINE 5,000 UNIT/ML 1 ML VIAL SQ ONE; -LIDOCAINE 1% 20 ML VIAL (10MG/ML) FOR IV START INTRADERMA PRN; -MIDAZOLAM 2 MG/2 ML VIAL IV PRN; -NALBUPHINE 10 MG/ML VIAL (10ML MDV) IV PRN; +NITROGLYCERIN SL TABS 0.4 MG TAB SUBLINGUAL PRN; -ONDANSETRON 4 MG/2 ML VIAL IVP ONE; -ROPIVACAINE 250 MG, HYDROMORPHONE (PF) 5 MG in SODIUM CHLORIDE 0.9% 200 ML EPIDURAL PRN; +SODIUM CHLORIDE 0.9% 1,000 ML in EMPTY BAG 1 BAG IV ONE; -fentaNYL (PF) 50 MCG/ML 2 ML AMP IV PRN; -metroNIDAZOLE-NS PMX 500 MG in SALINE 1 100ML.BAG IVPB ONE
[2018-01-21 07:15] LABS: Glucose,Whole Blood 248 mg/dL (75-99)
[2018-01-21 07:27] LABS: INR 1.1 (<1.2); Prothrombin Time 10.7 sec (9.0-12.0)
[2018-01-21 07:31] VITALS: PULSE 58; TEMP 97.9
[2018-01-21] MEDS ORDERED: fentaNYL (PF) 50 MCG/ML 2 ML AMP IV ONE (07:52)
[2018-01-21] MEDS ORDERED: LIDOCAINE 1% INJ 10MG/ML (20 ML MDV) SQ ONE (07:58)
[2018-01-21] MEDS ORDERED: IOPAMIDOL-370 125ML BTL INJ ONE (08:11)
[2018-01-21] MEDS ORDERED: RX INFO: IV CONTRAST WAS GIVEN 1 EACH MISC MISCELLANE PRN (08:26)
[2018-01-21] MEDS ORDERED: MELOXICAM 7.5 MG TAB PO PRN (08:26)
[2018-01-21] MEDS ORDERED: ALBUTEROL NEBULIZED 2.5 MG/3 ML INHALATION PRN (08:26)
[2018-01-21] MEDS ORDERED: HYDROcodone/APAP 5-325MG 1 EACH TAB PO PRN (08:26)
[2018-01-21] MEDS ORDERED: ALPRAZolam 0.5 MG TAB PO PRN (08:26)
[2018-01-21] MEDS ORDERED: ALBUTEROL INHALER 60 PUFF/8 GM INHALER INHALATION PRN (08:26)
[2018-01-21] MEDS ORDERED: SODIUM CHLORIDE 0.9% 1,000 ML IV SCH (08:30)
[2018-01-21] MEDS ORDERED: WARFARIN 5 MG TAB PO SCH (08:30)
--- NOTE | 2018-01-21 08:51 | CC ---
CARDIAC CATHETERIZATION REPORT Mr. Patel is a 68-year-old male with known history of hypertension, hyperlipidemia, diabetes mellitus, who recently underwent abdominal surgery and following the surgery he had chest discomfort with troponin elevation consistent with [id number]-[id number] elevation myocardial infarction. Because of that and after recovery from the surgery, recommendation was made regarding cardiac catheterization. The procedure as well as the risks and complication were discussed with the patient who is in full understanding and agreement. PROCEDURE: Patient was brought to the laboratory veterinarian in the fasting semi-sedated state after receiving fentanyl and Benadryl and achieving moderate conscious sedated state. Using Xylocaine anesthesia in the Seldinger technique, a 6-Kazakh sheath was introduced in the right femoral artery. Selective right and left coronary angiography performed using 6-Kazakh 4 bend right and left Kristen catheters. Multiple views of the coronary artery including hemiaxial views were obtained. Following that 6-Kazakh tight pigtail catheter was introduced in the left ventricle and a 30-degree MOTTA view of the left ventricle was obtained. Following that, catheter and sheath were removed. Hemostasis was obtained with deployment of an Angio-Seal. There was no immediate complication. Patient is returned to his room in stable condition. FINDINGS: LEFT MAIN: This is a large-sized vessel bifurcating in left circumflex and left anterior descending artery. Left main coronary artery has no evidence of high-grade stenosis. LEFT ANTERIOR DESCENDING ARTERY: This is a large-size vessel reaching toward the apex with a wraparound apex segment giving rise to 2 diagonal branches. The first one is large in caliber. The left anterior descending artery as well as branches have no evidence of obstructive coronary artery disease. LEFT CIRCUMFLEX: This is a nondominant vessel, large in caliber giving rise to 3 obtuse marginal branches. The first obtuse marginal branch is very proximal. After the takeoff of the second obtuse marginal branch, there is an intimal plaque off 30% to 40% without any evidence of high-grade stenosis. RIGHT CORONARY ARTERY: This is a large dominant vessel bifurcating distally PDA and posterolateral and branches. The right coronary artery as well as branches have no evidence of obstructive coronary disease. LEFT VENTRICULOGRAM: Left ventriculogram was performed in 30-degree MOTTA view and reveal normal left ventricular size and systolic function. Ejection fraction is 60%. There was no significant mitral regurgitation. HEMODYNAMICS: The left ventricular end-diastolic pressure was 14 to 16 mmHg. There was no significant gradient across the aortic valve. CONCLUSION: 1. Mild to moderate disease involving the mid left circumflex. 2. Normal left ventricular size and systolic function. RECOMMENDATION: In view of finding anatomy, I would recommend continue medical therapy with aggressive coronary risk modification that has been initiated. Those findings and recommendation were discussed with the patient and his family and are in full understanding and agreement. Duration of procedure is 14 minutes. MMSNOW / IJN: [id number] /
[2018-01-21] MEDS ORDERED: CHOLECALCIFEROL 1,000 UNIT TAB PO SCH (09:00)
[2018-01-21] MEDS ORDERED: ARIPIPRAZOLE 30 MG PO SCH (09:00)
[2018-01-21] MEDS ORDERED: NON-FORMULARY DRUG (Multivitamin [Men's Multi-Vitamin] 1 TAB) PO SCH (09:00)
[2018-01-21] MEDS ORDERED: cloNIDine HCL 0.1 MG TAB PO SCH (09:00)
[2018-01-21] MEDS ORDERED: lamoTRIgine 100 MG TAB PO SCH ×2 (09:00→21:00)
[2018-01-21] MEDS ORDERED: GABAPENTIN 400 MG CAP PO SCH (09:00)
[2018-01-21] MEDS ORDERED: ATORVASTATIN 40 MG TAB PO SCH (09:00)
[2018-01-21] MEDS ORDERED: METOPROLOL TARTRATE 50 MG TAB PO SCH (09:00)
[2018-01-21] MEDS ORDERED: ISOSORBIDE MONONITRATE ER 30 MG TAB.ER.24H PO SCH (09:00)
[2018-01-21] MEDS ORDERED: LISINOPRIL 20 MG TAB PO SCH (09:00)
[2018-01-21] MEDS ORDERED: FUROSEMIDE 20 MG TAB PO SCH (09:00)
--- NOTE | 2018-01-21 09:00 | LTR ---
January 21, 2018 Re: Papi Patel Dear Dr. Matute: I had the opportunity to perform cardiac catheterization on Mr. Paetl at [facility] on the 21 of January and a full copy of the procedure note will be forwarded to you. In brief, he was found to have mild to moderate disease involving the left circumflex with a normal left ventricular size and systolic function. Based on those findings, I recommend to continue medical therapy with aggressive coronary risk modifications that has been initiated. Thank you again for allowing me the opportunity to participate in his care. Please feel free to call for any questions. Sincerely yours, MD ZOHRA Quinonez / MICHAELN: [id number] /
[2018-01-21] MEDS ORDERED: INSULIN ASPART 100 UNIT/ML 1 ML 10 ML VIAL SQ ONE (12:32)
[2018-01-21 15:40] VITALS: BP 103/60; RESP 18
[2018-01-21 17:06] LABS: Glucose,Whole Blood 348 mg/dL (75-99)
[2018-01-21] MEDS ORDERED: glipiZIDE 10 MG TAB PO SCH (17:30)
[2018-01-21] MEDS ORDERED: amLODIPine 10 MG TAB PO SCH (17:30)
[2018-01-21] MEDS ORDERED: NON-FORMULARY DRUG (Insulin Glargine 30 UNIT) SQ SCH (21:00)
[2018-01-21] MEDS ORDERED: ZOLPIDEM 10 MG TAB PO SCH (21:00)
[2018-01-21] MEDS ORDERED: NIACIN 750 MG PO SCH (21:00)
[2018-01-22] MEDS ORDERED: WARFARIN 10 MG TAB PO SCH (08:26)
== END 2018-01-21 16:30 | disposition home or self-care (01) ==
LOC: CATHCVL 06:17
PROVIDERS: ATTEND Internal Medicine Interventional Cardiology
DX: I25.10 Atherosclerotic heart disease of native coronary artery without angina pectoris (principal); I21.4 Non-ST elevation (NSTEMI) myocardial infarction; I10 Essential (primary) hypertension; I48.1 Persistent atrial fibrillation; E78.2 Mixed hyperlipidemia; E11.9 Type 2 diabetes mellitus without complications; F17.210 Nicotine dependence, cigarettes, uncomplicated; Z79.01 Long term (current) use of anticoagulants; Z79.82 Long term (current) use of aspirin; Z79.4 Long term (current) use of insulin; Z79.1 Long term (current) use of non-steroidal anti-inflammatories (NSAID); Z79.899 Other long term (current) drug therapy
CPT/HCPCS: 93458; 85610; C1760; C1894; C1769; J2001; J3010; Q9967

== ENCOUNTER → 2018-04-17 | Outpatient (CLI) | payer MEDICARE, OTHER ==
[2018-04-17 11:45] LABS: Blood Urea Nitrogen 14 mg/dL (9-20)
--- NOTE | 2018-04-17 13:16 | CT ---
EXAMINATION TYPE: CT abdomen pelvis w con DATE OF EXAM: 04/17/2018 COMPARISON: 10/23/2016 HISTORY: RUQ pain CT DLP: 1542.4 mGycm CONTRAST: CT scan of the abdomen and pelvis is performed with Oral Contrast and with IV Contrast, patient injec abril with 100 mL of Isovue 300. FINDINGS: LUNG BASES-:1 cm pulmonary nodule left medial lung base. Bilateral pulmonary nodule right posterior l haylee base measuring 5 mm. LIVER/GB: Innumerable new hepatic lesions throughout all segments measuring up to 3 cm medial segment left hepatic lobe. There is hepatomegaly. Cholecystectomy clips are in place. Biliary tree is of nor mal caliber. PANCREAS: No inflammation. Hypoechoic lesion at the level of the uncinate process measures 2.2 x 1.5 cm. This was present previously and appears unchanged. This is unlikely to reflect neoplasm. Clinica l correlation however is advised. SPLEEN: No splenic enlargement. No lesion seen. ADRENALS: No nodule. No thickening. KIDNEYS/BLADDER: No hydronephrosis. No nephrolithiasis. 2.7 cm simple cyst lower pole left kidney. No solid masses identified. Urinary bladder grossly unremarkable. BOWEL: Normal appendix. Normal bowel caliber. No inflammation. GENITAL ORGANS: No gross abnormality. LYMPH NODES: Report a lateral adenopathy measuring 5.0 x 4.4 cm and 5.2 x 4.3 cm. Aortoenteric caval lymph node me asuring 1.1 cm. Subcentimeter left para-aortic lymph nodes identified. No iliac chain or inguinal marvin nopathy appreciated. AORTA: No significant abnormality. OSSEOUS STRUCTURES: Paraspinal soft tissue mass with the infiltration into the T11 vertebral segment. Soft tissue mass measures approximately 5.1 x 3.0 cm. Loss of vertebral body height estimated at lucrecia roximately 25%. No bony retropulsion seen. Remaining osseous structures are grossly intact within the imaged field. OTHER: No significant additional abnormality is seen. IMPRESSION: 1. T11 the right paraspinal mass with infiltration into the T11 vertebral segment and mild loss of he ight. No evidence of bony retropulsion. 2. Innumerable new hepatic lesions compatible with metastatic disease. 3. Basilar pulmonary nodules compatible with metastatic disease. 4. Periportal and retroperitoneal adenopathy as discussed. 5. Stable uncinate process lesion of decreased attenuation is of uncertain etiology. Neoplasm not exc luded.
== END | disposition home or self-care (01) ==
LOC: RADCTMAIN 10:57
PROVIDERS: ATTEND Internal Medicine Hematology & Oncology
DX: K76.89 Other specified diseases of liver (principal); R59.1 Generalized enlarged lymph nodes; K86.89 Other specified diseases of pancreas; C83.39 Diffuse large B-cell lymphoma, extranodal and solid organ sites; R10.84 Generalized abdominal pain
CPT/HCPCS: 82565; 84520; 74177; 36415; Q9967

== ENCOUNTER 2018-05-06 08:40 | Day surgery (SDC) | payer MEDICARE, OTHER ==
[2018-05-06] MEDS ORDERED: HYDROmorphone 1 MG/ML 1 ML SYRINGE IVP STA (08:47)
[2018-05-06 09:06] VITALS: TEMP 98.2
[2018-05-06 09:21] LABS: Mean Platelet Volume 7.7; Platelet Count 255 k/uL (150-450)
[2018-05-06 09:24] LABS: INR 1.1 (<1.2); Prothrombin Time 10.4 sec (9.0-12.0)
[2018-05-06 09:30] LABS: Glucose,Whole Blood 436 mg/dL (75-99)
[2018-05-06] MEDS ORDERED: INSULIN REGULAR 100 UNIT/ML VIAL SQ ONE (10:45)
[2018-05-06 11:02] LABS: Glucose,Whole Blood 373 mg/dL (75-99)
[2018-05-06 13:28] VITALS: RESP 16
--- NOTE | 2018-05-06 14:33 | US ---
EXAMINATION TYPE: US biopsy liver DATE OF EXAM: 05/06/2018 HISTORY: Left lobe liver mass. FINDINGS: Maximal barrier technique was utilized. The skin overlying a suitable path to the patient' s left lobe liver mass was localized with ultrasound and the overlying skin prepped and draped. Ultr asound was utilized with sterile technique. Lidocaine was used for local anesthesia. A skin elsa wa s made with a scalpel. An 17-gauge needle was advanced under direct ultrasound guidance and coaxial placement of an 18-gauge needle performed, core specimen obtained of the mass, second pass made with the 18-gauge needle and additional core specimen obtained. Specimens submitted in formalin to Pathmoni smith and on wet Telfa. Following the procedure, hemostasis achieved and the patient is discharged in stable condition without complication. IMPRESSION:STATUS POST ULTRASOUND GUIDED CORE BIOPSY OF left lobe liver MASS, PATHOLOGY IS PENDING. THIS PROCEDURE IS PERFORMED BY THE UNDERSIGNED.
[2018-05-06 15:08] VITALS: BP 136/72; PULSE 80
== END 2018-05-06 15:00 | disposition home or self-care (01) ==
LOC: RADPROMAIN 08:40
PROVIDERS: ATTEND Internal Medicine Hematology & Oncology
DX: C83.39 Diffuse large B-cell lymphoma, extranodal and solid organ sites (principal)
CPT/HCPCS: 36415; 47000; 76942; 85049; 85610; 88307; 88341; 88342

== ENCOUNTER → 2018-07-01 | Outpatient (CLI) | payer MEDICARE, OTHER ==
[2018-07-01 11:47] LABS: Blood Urea Nitrogen 12 mg/dL (9-20)
--- NOTE | 2018-07-01 15:02 | CT ---
EXAMINATION TYPE: CT ChestAbdPelvis w con DATE OF EXAM: 07/01/2018 INDICATION: Non hodgkins lymphoma follow up. COMPARISON: CT abdomen pelvis 04/17/2018, PET/CT 08/09/2017 CT DLP: 1562.3 mGycm CONTRAST: Performed with Oral Contrast and with IV Contrast, patient injected with 100 mL of Isovue M300. TECHNIQUE: Axial images at 5 mm thick sections. Reconstructed images in the coronal plane. Delayed images through the kidneys. FINDINGS: CT CHEST: Portion of the thyroid visualized is normal. No suspicious lung nodules or focal infiltrates are present. There is a 1.2 cm pretracheal lymph node at the level the aortic arch which appears to be increase in size from comparison. The ascending aorta diameter at the level of the main pulmonary artery is 3.4 cm. The main pulmonary artery diameter at the bifurcation is 2.[address] ABDOMEN: Liver: Multiple hypodensities are scattered through the left and right lobes liver. This are less wel l visualized this phase of contrast compared to the prior study. Largest area previously measured lucrecia ears diminished in size, measuring 2.1 cm, diminished from 3.1 cm in diameter. Spleen: There is patchy distribution of the contrast to the spleen at this phase of contrast. Pancreas: There is stable 0.7 cm hypodensity within the posterior tail of the pancreas present previo usly. Hypodensity at the pancreatic head is again evident measuring 3.2 cm which is smaller than comp arison. Adrenal glands: The adrenal glands are normal. Gallbladder: Surgically absent Kidneys: No masses are evident. No hydronephrosis is present. There is a 3.2 cm cyst measuring 12 H [place] units on the posterior lateral inferior pole left kidney. Delayed images were obtained thr ough the kidneys, which remain unremarkable. Aorta: Vascular calcification is within the aorta. Periaortic adenopathy appears diminished over the interval Inferior vena cava: Normal. CT PELVIS: Loops of bowel within the abdomen and pelvis are normal. There are loops of bowel which are incom pletely distended or lack oral contrast limiting their evaluation. Appendix: Normal as visualized. Urinary bladder: Normal. Genitourinary structures: Prostate is prominent. Prostate calcification is present. Osseous structures: No suspicious lytic or sclerotic lesions. There is a compression deformity at T11 . Some adjacent soft tissue density with a central anterior lytic area suspicious for metastatic lesi on. IMPRESSIONS: 1. Head of the pancreas mass is diminished in size from comparison. 2. Multiple metastatic lesions are scattered throughout the liver less distinct and may be smaller th an comparison. 3. Mild compression deformity and lytic lesion within the T11 vertebral level again evident and appea rs stable. 4. Enlarging pretracheal lymph node may be present. Consider repeat PET/CT. Remaining previous abnorm al enlarged adenopathy is diminished in size or resolved over the interval
== END ==
LOC: RADCTMAIN 10:29
PROVIDERS: ATTEND Internal Medicine Hematology & Oncology
DX: C78.7 Secondary malignant neoplasm of liver and intrahepatic bile duct (principal); C83.39 Diffuse large B-cell lymphoma, extranodal and solid organ sites; K86.9 Disease of pancreas, unspecified
CPT/HCPCS: 82565; 84520; 71260; 74177; 36415; Q9967

== ENCOUNTER 2018-08-27 06:47 | Day surgery (SDC) | payer MEDICARE, OTHER ==
[2018-08-21 11:13] VITALS: BMI 31.1
[~2018-08-27 06:47] MED LIST changes: -ALPRAZolam 0.25 MG TAB PO PRN; -ALPRAZolam 0.5 MG TAB PO PRN; -ASPIRIN 325 MG TAB PO STA; -ATORVASTATIN 80 MG TAB PO STA; +DEXAMETHASONE SOD PHOSPHATE 10 MG/ML 1 ML VIAL IV ONE; +HEPARIN SODIUM,PORCINE 5,000 UNIT/ML 1 ML VIAL SQ ONE; +HYDROmorphone 0.5 MG/0.5 ML SYRINGE IVP PRN; +LACTATED RINGERS 1,000 ML IV SCH; +LIDOCAINE 1% 20 ML VIAL (10MG/ML) FOR IV START INTRADERMA PRN; +MIDAZOLAM (PF) 2 MG/2 ML VIAL IV PRN; -NITROGLYCERIN SL TABS 0.4 MG TAB SUBLINGUAL PRN; +ONDANSETRON 4 MG/2 ML VIAL IVP ONE; +Pre Op ABX Message 1 EACH MISC MISCELLANE ONE; +SCOPOLAMINE 1.5MG/72HR PATCH TRANSDERM ONE; -SODIUM CHLORIDE 0.9% 1,000 ML in EMPTY BAG 1 BAG IV ONE
[2018-08-27 07:21] VITALS: RESP 16; TEMP 97.1
[2018-08-27] MEDS ORDERED: LIDOCAINE 1% 20 ML VIAL (10MG/ML) FOR IV START INTRADERMA ONE (07:21)
[2018-08-27 07:30] LABS: Glucose,Whole Blood 93 mg/dL (75-99)
[2018-08-27] MEDS ORDERED: PROPOFOL 10 MG/ML 20 ML VIAL IV ONE (07:51)
[2018-08-27] MEDS ORDERED: LIDOCAINE 1% INJ 10MG/ML (20 ML MDV) ONE (07:51)
[2018-08-27] MEDS ORDERED: MIDAZOLAM 2 MG/2 ML VIAL ONE (07:51)
[2018-08-27] MEDS ORDERED: fentaNYL (PF) 50 MCG/ML 2 ML AMP ONE (07:51)
[2018-08-27] MEDS ORDERED: IOHEXOL 180 MG/ML 1 ML ML MISCELLANE ONE ×2 (08:17→08:32)
[2018-08-27] MEDS ORDERED: HEPARIN SODIUM,PORCINE 100 UNIT/ML 5 ML VIAL IV ONE ×3 (08:17→08:32)
[2018-08-27] MEDS ORDERED: BUPIVACAIN-EPI 0.5%-1:200,000 30 ML VIAL SQ ONE ×2 (08:18→08:32)
[2018-08-27] MEDS ORDERED: SODIUM CHLORIDE 0.9% 50 ML with ceFAZolin 2,000 MG IV ONE ×2 (08:30)
--- NOTE | 2018-08-27 08:51 | P.OP ---
Date of Procedure: 08/27/18 Preoperative Diagnosis: Lymphoma Postoperative Diagnosis: Lymphoma Procedure(s) Performed: Port-A-Cath placement Anesthesia: MAC Surgeon: Toribio Banks Estimated Blood Loss (ml): 3 Pathology: none sent Condition: stable Disposition: PACU Description of Procedure: MPROCEDURE: The patient was placed on the operating table in the supine position. She received MAC anesthetic. The [right] chest was prepped and draped in the usual sterile fashion. The skin underneath the right clavicle was anesthetized with 1% Xylocaine and using Seldinger technique, the right subclavian vein was cannulized. The wire was placed through the needle and positioned under fluoroscopy. Next, the needle was removed and the port site was anesthetized with 1% Xylocaine. Skin was incised with #15 blade and port pocket was made using blunt and sharp dissection. Following this the catheter was attached to the sport and the port was flushed. The port was positioned into the pocket site and was secured with 3-0 Vicryl suture. The catheter was then brought out through the wire site and then the dilator sheath was placed over the wire and the dilator and the wire were removed. The catheter was placed through the sheath and the sheath was removed. The port was flushed with hep-lock solution. Skin was closed with interrupted 3-0 Vicryl sutures. Steri-Strips were applied. The patient tolerated the procedure well. The patient was sent to recovery room for chest x-ray after the procedure.
--- NOTE | 2018-08-27 08:55 | FL ---
EXAMINATION TYPE: FL guided central line placemt HISTORY: Fluoroscopy time Impression: 1. Fluoroscopy support provided to the referring physician. 2 seconds of fluoroscopy provided.
--- NOTE | 2018-08-27 09:13 | XR ---
EXAMINATION TYPE: XR chest 1V portable DATE OF EXAM: 08/27/2018 COMPARISON: 12/30/2017 HISTORY: Line placement TECHNIQUE: Single frontal view of the chest is obtained. FINDINGS: There is no focal air space opacity, pleural effusion, or pneumothorax seen. The cardiac silhouette size is within normal limits. The osseous structures are intact. Right-sided Mediport ca theter seen with tip overlying the SVC. No sizable pneumothorax. Underlying COPD suspected there is h ypertrophic change of the spine. Atherosclerotic change aorta. Mild cardiomegaly. IMPRESSION: Mediport appears in good position with no sizable pneumothorax.
--- NOTE | 2018-08-27 09:14 | P.OP ---
Date of Procedure: 08/27/18 Preoperative Diagnosis: GI bleed Postoperative Diagnosis: Mild antral gastritis Diverticulosis moderate to severe Probable ischemic colitis of descending colon pathology pending Procedure(s) Performed: EGD Colonoscopy Anesthesia: MAC Surgeon: Toribio Banks Pathology: other (Antral gastritis, left colon mild colitis possible ischemic colitis,) Condition: stable Disposition: PACU Description of Procedure: The patient's placed on the endoscopy table in the lateral position. He received IV sedation. The gastroscope placed oropharynx and passed in the esophagus and into the stomach. Scope was then placed through the pylorus. First and second portion of the duodenum appeared normal. Scope was then brought back the antrum and this appeared mildly inflamed. A biopsies performed. The scope was then retroflexed and the remainder of the stomach appeared normal. There was no significant hiatal hernia. The GE junction was at 40 cm. The distal esophagus appeared normal. The proximal esophagus appeared normal. Scope was withdrawn from patient. Next digital rectal exam was performed which revealed no abnormalities. The prostate was symmetric without nodules. The flexible colonoscope was then placed patient anus and passed throughout the entire colon. The ileocecal valve was visualized. The cecum, ascending colon appeared normal. The transverse colon appeared normal. In the proximal descending colon there is evidence of some inflammatory changes of the colon. This appeared to be mild ischemic colitis. A biopsies performed. The scope was then withdrawn and in the distal descending colon and sigmoid colon there was extensive diverticular changes. There was no evidence of any diverticular bleeding. The scope was then brought back the rectum this appeared normal. Scope was withdrawn for patient. Patient was presumed to have had bleeding from his mild colitis.
[2018-08-27 09:27] VITALS: BP 106/72; PULSE 83
[2018-08-27 09:29] LABS: Glucose,Whole Blood 86 mg/dL (75-99)
== END 2018-08-27 09:55 | disposition home or self-care (01) ==
LOC: OR 06:47
PROVIDERS: ATTEND Surgery
DX: C85.90 Non-Hodgkin lymphoma, unspecified, unspecified site (principal); Z88.5 Allergy status to narcotic agent; E78.5 Hyperlipidemia, unspecified; I10 Essential (primary) hypertension; I48.91 Unspecified atrial fibrillation; I25.10 Atherosclerotic heart disease of native coronary artery without angina pectoris; Z86.73 Personal history of transient ischemic attack (TIA), and cerebral infarction without residual deficits; E11.42 Type 2 diabetes mellitus with diabetic polyneuropathy; G40.909 Epilepsy, unspecified, not intractable, without status epilepticus; Z79.01 Long term (current) use of anticoagulants; Z79.4 Long term (current) use of insulin; Z79.899 Other long term (current) drug therapy
CPT/HCPCS: 77001; 71045; 36571; C1788; J2250; J1642; J1100; Q9965; J2405; J2001; J3010; J0690; J2704

== ENCOUNTER → 2018-08-29 | Outpatient (CLI) | payer MEDICARE, OTHER ==
--- NOTE | 2018-08-31 07:07 | PE ---
EXAMINATION TYPE: PET CT fusion skull to thigh DATE OF EXAM: 08/29/2018 COMPARISON: Most recent whole body CT July 01, 2018. Most recent PET CT August 09, 2017 and older P ET CTs. HISTORY: Lymphoma with history of surgery 2012 and 2017 right arm and buttocks with radiation treatme nt to buttocks 2017 and recent recurrence to liver completed chemotherapy August 13, 2018. TECHNIQUE: Following the intravenous administration of 11.08 mCi of F-18 FDG, whole body images are performed from the skull base to the midthigh. Images are reviewed on the computer in the coronal, a xial, and sagittal planes. Reconstructed rotating images are created on independent workstation and reviewed on the computer. A noncontrast CT is performed in conjunction with the PET scan. SCAN: Subsequent Scan FINDINGS: MEDIASTINUM MEAN SUV: 1.12 LIVER MEAN SUV: 2.35 SKULL BASE AND NECK: No suspicious hypermetabolic uptake is seen. CHEST, MEDIASTINUM, AND HILAR REGION: There is hypermetabolic uptake right humeral head level, max MARCELINO V is 4.81, CT images there is suspicious soft tissue replacing bone marrow with pathologic fracture t hrough the medial aspect humeral head, this correlates with recent CT axial image 1. There is mild hypermetabolic soft tissue at anterior costochondral junction of left fifth rib axial i mage 129 measuring 2.3 x 1.7 cm, max SUV is 2.59. There is redemonstration of enlarged paratracheal lymph node increased in size from older CTs measuri ng 2.0 x 1.3 cm current study image 89, mild hypermetabolic uptake is seen, max SUV is 2.68. ABDOMEN AND PELVIS: Scattered hypodense lesions throughout the liver are more vague and felt diminish ed in size from recent CTs, areas of mild hypermetabolic uptake remaining present. The max SUV is 3.8 9 axial image 154 involving deep left hepatic lobe. Peripancreatic mass measuring 3.7 x 3.2 cm axial image 165 is redemonstrated with perhaps mild hyperm etabolic uptake, max SUV is 3.41. No new areas of hypermetabolic uptake are identified. Mild uptake throughout bowel loops of the pelvi s are noted. Physiologic bladder uptake is seen. OSSEOUS STRUCTURES: Lytic and sclerotic destructive lesion T11 vertebra shows mild hypermetabolic upt sammie axial image 144, max SUV is 3.86. OTHER CT: There is right subclavian Mediport catheter new from recent CT terminating in proximal SVC. Mild underlying emphysematous change is present. Mild cardiomegaly is seen. Cholecystectomy clips are noted. There is moderate calcified plaque of aorta extending into branch ve ssels. There is small fat-containing right inguinal hernia. There is multilevel facet arthropathy in the low er lumbar spine. There is mild to moderate calcified plaque of aorta extending into branch vessels. S urgical sutures from bowel anastomosis sigmoid rectal colon level axial image 237 are noted. IMPRESSION: Improving hepatic metastatic disease and peripancreatic adenopathy. There is however path ologic fracture right humeral head level with active neoplasm felt present. Cannot exclude some react lala active neoplasm at T11 vertebral body level as well as anterior left fifth costochondral rib. Sarah picious minimally hypermetabolic but enlarging paratracheal lymph node is also noted. Thus overall mi xed response.
== END | disposition home or self-care (01) ==
LOC: RADPETMAIN 13:59
PROVIDERS: ATTEND Internal Medicine Hematology & Oncology
DX: C78.7 Secondary malignant neoplasm of liver and intrahepatic bile duct (principal); R59.0 Localized enlarged lymph nodes; C83.39 Diffuse large B-cell lymphoma, extranodal and solid organ sites
CPT/HCPCS: 78815; A9552

== ENCOUNTER 2018-09-08 11:37 | Inpatient (IN) | payer MEDICARE, OTHER ==
[2018-09-08] MEDS ORDERED: ACETAMINOPHEN TAB 500 MG TAB PO STA (12:00)
[2018-09-08] MEDS ORDERED: IBUPROFEN 600 MG TAB PO STA (12:00)
[2018-09-08] MEDS ORDERED: SODIUM CHLORIDE 0.9% 1,000 ML IV STA (12:00)
[2018-09-08 13:20] LABS: Anisocytosis Slight; Basophils % (A) 0 %; Eosinophils # (A) 0.1 k/uL (0-0.7); Eosinophils % (A) 1 %; HCT 33.8 % (39.0-53.0); HGB 10.9 gm/dL (13.0-17.5); Lymphocytes # (A) 0.3 k/uL (1.0-4.8); Lymphocytes % (A) 3 %; MCH 27.7 pg (25.0-35.0); MCHC 32.1 g/dL (31.0-37.0); MCV 86.2 fL (80.0-100.0); Mean Platelet Volume 7.4; Monocytes % (A) 8 %; Neutrophils # (A) 10.8 k/uL (1.3-7.7); Neutrophils % (A) 86 %; Platelet Count 154 k/uL (150-450); RBC 3.92 m/uL (4.30-5.90); RDW 17.4 % (11.5-15.5); WBC 12.5 k/uL (3.8-10.6)
--- NOTE | 2018-09-08 13:21 | XR ---
EXAMINATION TYPE: XR chest 2V DATE OF EXAM: 09/08/2018 COMPARISON: 08/27/2018 TECHNIQUE: PA and lateral views submitted. HISTORY: Fever, pain and weakness FINDINGS: The lungs are clear and there is no pneumothorax, pleural effusion, or focal pneumonia. Heart is pr ominent is atherosclerotic change aorta. Mediport catheter seen with the tip overlying the SVC. Arthr opathy of the shoulders. Hypertrophic and degenerative change of the spine. Deformity involving the t horacolumbar junction suggestive of metastasis is stable relative to the CT scan of 07/01/2018. IMPRESSION: 1. No acute infiltrate. 2. There is a compression fracture lower thoracic spine suspicious for metastasis but stable in appea laura from the exam of 07/01/2018.
[2018-09-08 13:22] LABS: Appearance,Urine Clear (Clear); Bilirubin,Urine Negative (Negative); Blood,Urine Negative (Negative); Color,Urine Light Yellow; Glucose,Urine (UA) Negative (Negative); Ketones,Urine Trace (Negative); Leukocyte Esterase,Urine Negative (Negative); Nitrite,Urine Negative (Negative); Protein,Urine Negative (Negative); Specific Gravity,Urine 1.009 (1.001-1.035); Urobilinogen,Urine <2.0 mg/dL (<2.0)
[2018-09-08 13:33] LABS: INR 1.1 (<1.2); Partial Thromboplastin Time 29.1 sec (22.0-30.0); Prothrombin Time 11.8 sec (9.0-12.0)
--- NOTE | 2018-09-08 13:38 | ED ---
Fever HPI - General Chief Complaint: Dizziness Stated Complaint: dizziness Time Seen by Provider: 09/08/18 11:45 Source: patient, RN notes reviewed, old records reviewed Mode of arrival: wheelchair Limitations: no limitations - History of Present Illness Initial Comments: This is a 68-year-old male the ER for evaluation. Patient presents today for evaluation regards to fever. Fever weakness, states altered. provides history states patient little delirious. Patient does have CVA, going to chemotherapy. Aside from weakness denies any other complaints no cough congestion shortness of breath or abdominal pain no nausea vomiting or diarrhea. MD Complaint: fever, weakness -: days(s) Temperature Source: oral Context: on chemotherapy Associated Symptoms: chills, rigors, myalgias Treatments Prior to Arrival: none - Related Data Home Medications Medication Instructions Recorded Confirmed Furosemide [Lasix] 20 mg PO BID 10/08/13 09/08/18 glipiZIDE [Glucotrol] 10 mg PO AC-BID 10/08/13 09/08/18 lamoTRIgine [LaMICtal] 100 mg PO DAILY@1200 10/08/13 09/08/18 cloNIDine HCL [Catapres] 0.1 mg PO QAM@1200 01/07/14 09/08/18 metFORMIN HCL [Glucophage] 850 mg PO TID-W/MEALS 07/12/15 09/08/18 ARIPiprazole [Abilify] 30 mg PO DAILY@1200 05/29/16 09/08/18 Albuterol Inhaler [Ventolin Hfa 2 puff INHALATION RT-Q6H PRN 05/29/16 09/08/18 Inhaler] Cholecalciferol [Vitamin D3] 2,000 unit PO DAILY 05/29/16 09/08/18 Niacin [Niacin ER] 750 mg PO HS 05/29/16 09/08/18 Zolpidem Tartrate [Ambien] 10 mg PO HS 05/29/16 09/08/18 Multivitamin [Men's Multi-Vitamin] 1 tab PO DAILY 09/13/16 09/08/18 ALPRAZolam [Xanax] 0.5 mg PO QID PRN 05/16/17 09/08/18 Albuterol Nebulized [Ventolin 2.5 mg INHALATION RT-QID PRN 12/22/17 09/08/18 Nebulized] lamoTRIgine [LaMICtal] 50 mg PO HS 12/22/17 09/08/18 Lisinopril [Zestril] 20 mg PO BID 01/15/18 09/08/18 Allopurinol [Zyloprim] 300 mg PO HS 08/21/18 09/08/18 Apixaban [Eliquis] 5 mg PO BID 08/21/18 09/08/18 Insulin Glargine [Lantus] 50 unit SQ HS 08/21/18 09/08/18 Gabapentin [Neurontin] 600 mg PO TID 09/08/18 09/08/18 Metoprolol Tartrate [Lopressor] 100 mg PO BID 09/08/18 09/08/18 Previous Rx's Medication Instructions Recorded Atorvastatin [Lipitor] 40 mg PO DAILY #30 tab 01/01/18 Isosorbide Mononitrate ER [Imdur] 30 mg PO DAILY #30 tab 01/01/18 Allergies Allergy/AdvReac Type Severity Reaction Status Date / Time meperidine [From Demerol] Allergy Hallucinati Verified 09/08/18 12:14 ons Review of Systems ROS Statement: Those systems with pertinent positive or pertinent negative responses have been documented in the HPI. ROS Other: All systems not noted in ROS Statement are negative. 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, peripheral neuropathy bilateral feet(causes balance problems at times) and hands, exposure to agent orange, last known seizure 1989, psoriasis, Shingles 2013, TINNITUS; TIA-10 yrs ago-no effects, diverticulosis, diverticulitis, hx pancreatitis, hx cellulitis 2011, heart murmer, gout Last Myocardial Infarction Date:: 12/26/17 History of Any Multi-Drug Resistant Organisms: None Reported Past Surgical History: Bowel Resection, Cardiac Ablation, Cholecystectomy, Heart Catheterization, Tonsillectomy Additional Past Surgical History / Comment(s): pancreas surgery, Biopsy of right arm mass, CERVICAL CORE BX LYMPH NODE, bronchoscopy with biopsy, pilonidial cyst surgery x 3, L foot ulcer with debridements, RT BUTTOCK CA REMOVED. HX OF PORT A CATHETER/later removed Past Anesthesia/Blood Transfusion Reactions: Previous Problems w/ Anesthesia Additional Past Anesthesia/Blood Transfusion Reaction / Comment(s): hallucination with last surgery with demerol Past Psychological History: Anxiety, Bipolar, Depression, PTSD Smoking Status: Former smoker Past Alcohol Use History: None Reported Past Drug Use History: None Reported - Past Family History Father Family Medical History: Cancer Additional Family Medical History / Comment(s): lung cancer Mother Family Medical History: Cancer Additional Family Medical History / Comment(s): lung cancer General Exam Limitations: no limitations General appearance: alert, in no apparent distress Head exam: Present: atraumatic, normocephalic, normal inspection Eye exam: Present: normal appearance, PERRL, EOMI. Absent: scleral icterus, conjunctival injection, periorbital swelling ENT exam: Present: normal exam, mucous membranes dry Neck exam: Present: normal inspection. Absent: tenderness, meningismus, lymphadenopathy Respiratory exam: Present: normal lung sounds bilaterally. Absent: respiratory distress, wheezes, rales, rhonchi, stridor Cardiovascular Exam: Present: tachycardia, irregular rhythm, normal heart sounds. Absent: systolic murmur, diastolic murmur, rubs, gallop, clicks GI/Abdominal exam: Present: soft, normal bowel sounds. Absent: distended, tenderness, guarding, rebound, rigid Extremities exam: Present: normal inspection, full ROM, normal capillary refill. Absent: tenderness, pedal edema, joint swelling, calf tenderness Back exam: Present: normal inspection Neurological exam: Present: alert, oriented X3, CN II-XII intact Psychiatric exam: Present: normal affect, normal mood Skin exam: Present: warm, dry, intact, normal color. Absent: rash Course Vital Signs 09/08/18 09/08/18 09/08/18 11:41 11:55 12:00 Temperature 98.8 F Pulse Rate 120 H 122 H 115 H Respiratory 18 14 20 Rate Blood Pressure 138/84 125/73 O2 Sat by Pulse 95 93 L 94 L Oximetry 09/08/18 09/08/18 09/08/18 12:10 12:30 13:00 Temperature 101.2 F H Pulse Rate 121 H 110 H Respiratory 29 H 20 Rate Blood Pressure 114/68 O2 Sat by Pulse 96 96 Oximetry 09/08/18 09/08/18 09/08/18 13:30 14:00 14:30 Temperature Pulse Rate 96 105 H 95 Respiratory 22 25 H 10 L Rate Blood Pressure 120/65 100/65 97/60 O2 Sat by Pulse 96 96 96 Oximetry 09/08/18 14:44 Temperature 98.7 F Pulse Rate Respiratory Rate Blood Pressure O2 Sat by Pulse Oximetry - Reevaluation(s) Reevaluation #1: 09/08/18 15:31 Medical records reviewed Reevaluation #2: 09/08/18 15:31 Patient still: Weak fatigue Medical Decision Making - Medical Decision Making 68 male the ER for evaluation positive fever, history of CVA going through chemo. Patient be admitted for IV antibiotics rule out sepsis rule out bacteremia. - Lab Data Result diagrams: 09/08/18 12:34 09/08/18 12:34 Lab Results 09/08/18 09/08/18 09/08/18 Range/Units 12:34 12:34 12:34 WBC 12.5 H (3.8-10.6) k/uL RBC 3.92 L (4.30-5.90) m/uL Hgb 10.9 L (13.0-17.5) gm/dL Hct 33.8 L (39.0-53.0) % MCV 86.2 (80.0-100.0) fL MCH 27.7 (25.0-35.0) pg MCHC 32.1 (31.0-37.0) g/dL RDW 17.4 H (11.5-15.5) % Plt Count 154 (150-450) k/uL Neutrophils % 86 % Lymphocytes % 3 % Monocytes % 8 % Eosinophils % 1 % Basophils % 0 % Neutrophils # 10.8 H (1.3-7.7) k/uL Lymphocytes # 0.3 L (1.0-4.8) k/uL Monocytes # 1.0 (0-1.0) k/uL Eosinophils # 0.1 (0-0.7) k/uL Basophils # 0.0 (0-0.2) k/uL Anisocytosis Slight PT (9.0-12.0) sec INR (<1.2) APTT (22.0-30.0) sec Sodium 139 (137-145) mmol/L Potassium 4.3 (3.5-5.1) mmol/L Chloride 102 (98-107) mmol/L Carbon Dioxide 28 (22-30) mmol/L Anion Gap 9 mmol/L BUN 13 (9-20) mg/dL Creatinine 0.71 (0.66-1.25) mg/dL Est GFR (CKD-EPI)AfAm >90 (>60 ml/min/1.73 sqM) Est GFR (CKD-EPI)NonAf >90 (>60 ml/min/1.73 sqM) Glucose 119 H (74-99) mg/dL Plasma Lactic Acid Godwin 1.7 (0.7-2.0) mmol/L Calcium 9.4 (8.4-10.2) mg/dL Phosphorus 3.3 (2.5-4.5) mg/dL Magnesium 1.7 (1.6-2.3) mg/dL Total Bilirubin 0.8 (0.2-1.3) mg/dL AST 39 (17-59) U/L ALT 33 (21-72) U/L Alkaline Phosphatase 67 (38-126) U/L Troponin I (0.000-0.034) ng/mL Total Protein 6.2 L (6.3-8.2) g/dL Albumin 3.8 (3.5-5.0) g/dL Urine Color Urine Appearance (Clear) Urine pH (5.0-8.0) Ur Specific [place] (1.001-1.035) Urine Protein (Negative) Urine Glucose (UA) (Negative) Urine Ketones (Negative) Urine Blood (Negative) Urine Nitrite (Negative) Urine Bilirubin (Negative) Urine Urobilinogen (<2.0) mg/dL Ur Leukocyte Esterase (Negative) Influenza Type A RNA (Not Detectd) Influenza Type B (PCR) (Not Detectd) 09/08/18 09/08/18 09/08/18 Range/Units 12:34 12:34 12:34 WBC (3.8-10.6) k/uL RBC (4.30-5.90) m/uL Hgb (13.0-17.5) gm/dL Hct (39.0-53.0) % MCV (80.0-100.0) fL MCH (25.0-35.0) pg MCHC (31.0-37.0) g/dL RDW (11.5-15.5) % Plt Count (150-450) k/uL Neutrophils % % Lymphocytes % % Monocytes % % Eosinophils % % Basophils % % Neutrophils # (1.3-7.7) k/uL Lymphocytes # (1.0-4.8) k/uL Monocytes # (0-1.0) k/uL Eosinophils # (0-0.7) k/uL Basophils # (0-0.2) k/uL Anisocytosis PT 11.8 (9.0-12.0) sec INR 1.1 (<1.2) APTT 29.1 (22.0-30.0) sec Sodium (137-145) mmol/L Potassium (3.5-5.1) mmol/L Chloride (98-107) mmol/L Carbon Dioxide (22-30) mmol/L Anion Gap mmol/L BUN (9-20) mg/dL Creatinine (0.66-1.25) mg/dL Est GFR (CKD-EPI)AfAm (>60 ml/min/1.73 sqM) Est GFR (CKD-EPI)NonAf (>60 ml/min/1.73 sqM) Glucose (74-99) mg/dL Plasma Lactic Acid Godwin (0.7-2.0) mmol/L Calcium (8.4-10.2) mg/dL Phosphorus (2.5-4.5) mg/dL Magnesium (1.6-2.3) mg/dL Total Bilirubin (0.2-1.3) mg/dL AST (17-59) U/L ALT (21-72) U/L Alkaline Phosphatase (38-126) U/L Troponin I <0.012 (0.000-0.034) ng/mL Total Protein (6.3-8.2) g/dL Albumin (3.5-5.0) g/dL Urine Color Urine Appearance (Clear) Urine pH (5.0-8.0) Ur Specific [place] (1.001-1.035) Urine Protein (Negative) Urine Glucose (UA) (Negative) Urine Ketones (Negative) Urine Blood (Negative) Urine Nitrite (Negative) Urine Bilirubin (Negative) Urine Urobilinogen (<2.0) mg/dL Ur Leukocyte Esterase (Negative) Influenza Type A RNA Not Detected (Not Detectd) Influenza Type B (PCR) Not Detected (Not Detectd) 09/08/18 Range/Units 12:34 WBC (3.8-10.6) k/uL RBC (4.30-5.90) m/uL Hgb (13.0-17.5) gm/dL Hct (39.0-53.0) % MCV (80.0-100.0) fL MCH (25.0-35.0) pg MCHC (31.0-37.0) g/dL RDW (11.5-15.5) % Plt Count (150-450) k/uL Neutrophils % % Lymphocytes % % Monocytes % % Eosinophils % % Basophils % % Neutrophils # (1.3-7.7) k/uL Lymphocytes # (1.0-4.8) k/uL Monocytes # (0-1.0) k/uL Eosinophils # (0-0.7) k/uL Basophils # (0-0.2) k/uL Anisocytosis PT (9.0-12.0) sec INR (<1.2) APTT (22.0-30.0) sec Sodium (137-145) mmol/L Potassium (3.5-5.1) mmol/L Chloride (98-107) mmol/L Carbon Dioxide (22-30) mmol/L Anion Gap mmol/L BUN (9-20) mg/dL Creatinine (0.66-1.25) mg/dL Est GFR (CKD-EPI)AfAm (>60 ml/min/1.73 sqM) Est GFR (CKD-EPI)NonAf (>60 ml/min/1.73 sqM) Glucose (74-99) mg/dL Plasma Lactic Acid Godwin (0.7-2.0) mmol/L Calcium (8.4-10.2) mg/dL Phosphorus (2.5-4.5) mg/dL Magnesium (1.6-2.3) mg/dL Total Bilirubin (0.2-1.3) mg/dL AST (17-59) U/L ALT (21-72) U/L Alkaline Phosphatase (38-126) U/L Troponin I (0.000-0.034) ng/mL Total Protein (6.3-8.2) g/dL Albumin (3.5-5.0) g/dL Urine Color Light Yellow Urine Appearance Clear (Clear) Urine pH 6.0 (5.0-8.0) Ur Specific [place] 1.009 (1.001-1.035) Urine Protein Negative (Negative) Urine Glucose (UA) Negative (Negative) Urine Ketones Trace H (Negative) Urine Blood Negative (Negative) Urine Nitrite Negative (Negative) Urine Bilirubin Negative (Negative) Urine Urobilinogen <2.0 (<2.0) mg/dL Ur Leukocyte Esterase Negative (Negative) Influenza Type A RNA (Not Detectd) Influenza Type B (PCR) (Not Detectd) - EKG Data -: EKG Interpreted by Me (EKG shows sinus rhythm rate of A. fib with RVR 109, QRS 90, QTc 465) - Radiology Data Radiology results: report reviewed (Chest x-rays negative for acute disease), image reviewed Disposition Clinical Impression: Fever, Leukocytosis, Fever of unknown origin Disposition: ADMITTED IP TO THIS HOSP Condition: Fair Is patient prescribed a controlled substance at d/c from ED?: No Referrals: Elver Matute DO [Primary Care Provider] - 1-2 days
[2018-09-08 13:42] LABS: ALT 33 U/L (21-72); AST 39 U/L (17-59); Albumin 3.8 g/dL (3.5-5.0); Alkaline Phosphatase 67 U/L (38-126); Anion Gap 9 mmol/L; Blood Urea Nitrogen 13 mg/dL (9-20); Calcium 9.4 mg/dL (8.4-10.2); Carbon Dioxide 28 mmol/L (22-30); Chloride 102 mmol/L (98-107); Glucose 119 mg/dL (74-99); Magnesium 1.7 mg/dL (1.6-2.3); Phosphorus 3.3 mg/dL (2.5-4.5); Sodium 139 mmol/L (137-145); Total Bilirubin 0.8 mg/dL (0.2-1.3); Total Protein 6.2 g/dL (6.3-8.2)
[2018-09-08 13:49] LABS: Potassium 4.3 mmol/L (3.5-5.1)
[2018-09-08] MEDS ORDERED: PIPERACILLIN-TAZOBACTAM 3.375 GM in SODIUM CHLORIDE 0.9% 100 ML IVPB STA (15:27)
[2018-09-08] MEDS: SODIUM CHLORIDE 0.9% 500 ML 500 ML IV SCH ×2 (15:30→19:50)
[2018-09-08] MEDS: SODIUM CHLORIDE 0.9% 1,000 ML IV SCH ×2 (16:08→23:30)
[2018-09-08 19:49] VITALS: BMI 30.4
[2018-09-08] MEDS ORDERED: ALPRAZolam 0.5 MG TAB PO PRN (20:42)
[2018-09-08 21:38] LABS: Glucose,Whole Blood 144 mg/dL (75-99)
[2018-09-08] MEDS: LISINOPRIL 20 MG TAB PO SCH (21:51)
[2018-09-08] MEDS: METOPROLOL TARTRATE 50 MG TAB PO SCH (21:51)
[2018-09-08] MEDS: ACETAMINOPHEN TAB 500 MG TAB PO PRN (21:51)
[2018-09-08] MEDS: NIACIN TR 250 MG CAPSULE.ER PO SCH (21:51)
[2018-09-08] MEDS: lamoTRIgine 25 MG TAB PO SCH (21:52)
[2018-09-08] MEDS: APIXABAN 5 MG TAB PO SCH (21:52)
[2018-09-08] MEDS: ALLOPURINOL 300 MG TAB PO SCH (21:52)
[2018-09-08] MEDS: GABAPENTIN 300 MG CAP PO SCH (21:52)
[2018-09-08] MEDS: INSULIN DETEMIR (LEVEMIR) 100 UNIT/ML SYR SQ SCH (21:52)
[2018-09-08] MEDS: ZOLPIDEM 10 MG TAB PO SCH (21:52)
[2018-09-08] MEDS ORDERED: ALBUTEROL NEBULIZED 2.5 MG/3 ML INHALATION PRN (22:15)
[2018-09-09] MEDS: PIPERACILLIN-TAZOBACTAM 3.375 GM in SODIUM CHLORIDE 0.9% 100 ML IVPB SCH ×4 (00:13→23:35)
[2018-09-09] MEDS: SODIUM CHLORIDE 0.9% 1,000 ML IV SCH ×2 (00:20→20:53)
[2018-09-09 07:00] LABS: Glucose,Whole Blood 86 mg/dL (75-99)
[2018-09-09] MEDS: ALBUTEROL NEBULIZED 2.5 MG/3 ML INHALATION PRN ×3 (07:07→20:31)
[2018-09-09] MEDS: METOPROLOL TARTRATE 50 MG TAB PO SCH ×2 (08:22→20:50)
[2018-09-09] MEDS: LISINOPRIL 20 MG TAB PO SCH ×2 (08:22→20:50)
[2018-09-09] MEDS: APIXABAN 5 MG TAB PO SCH ×2 (08:22→20:50)
[2018-09-09] MEDS: ATORVASTATIN 40 MG TAB PO SCH (08:22)
[2018-09-09] MEDS: ISOSORBIDE MONONITRATE ER 30 MG TAB.ER.24H PO SCH (08:23)
[2018-09-09] MEDS: CHOLECALCIFEROL 1,000 UNIT TAB PO SCH (08:23)
[2018-09-09] MEDS: FUROSEMIDE 20 MG TAB PO SCH ×2 (08:23→20:50)
[2018-09-09] MEDS: GABAPENTIN 300 MG CAP PO SCH ×3 (08:23→20:51)
[2018-09-09] MEDS: MULTIVITAMINS, THERA 1 EACH TAB PO SCH (08:23)
[2018-09-09] MEDS: glipiZIDE 10 MG TAB PO SCH ×2 (08:24→17:07)
[2018-09-09] MEDS: metFORMIN 850 MG TAB PO SCH ×3 (08:24→17:07)
[2018-09-09] MEDS: ACETAMINOPHEN TAB 500 MG TAB PO PRN (08:26)
[2018-09-09] MEDS ORDERED: ENOXAPARIN 40 MG/0.4 ML SYRINGE SQ SCH (09:00)
[2018-09-09 09:47] LABS: ALT 29 U/L (21-72); AST 25 U/L (17-59); Albumin 3.7 g/dL (3.5-5.0); Alkaline Phosphatase 74 U/L (38-126); Anion Gap 7 mmol/L; Blood Urea Nitrogen 14 mg/dL (9-20); Calcium 9.2 mg/dL (8.4-10.2); Carbon Dioxide 32 mmol/L (22-30); Chloride 103 mmol/L (98-107); Glucose 149 mg/dL (74-99); LDH 1014 U/L (313-618); Sodium 142 mmol/L (137-145); Total Bilirubin 0.7 mg/dL (0.2-1.3); Uric Acid 2.8 mg/dL (3.5-8.5)
[2018-09-09 10:12] LABS: Anisocytosis Slight; Basophils % (A) 0 %; Eosinophils # (A) 0.3 k/uL (0-0.7); Eosinophils % (A) 3 %; HCT 36.1 % (39.0-53.0); HGB 11.1 gm/dL (13.0-17.5); Hypochromasia Slight; Lymphocytes # (A) 0.2 k/uL (1.0-4.8); Lymphocytes % (A) 2 %; MCH 27.4 pg (25.0-35.0); MCHC 30.8 g/dL (31.0-37.0); Mean Platelet Volume 7.5; Monocytes # (A) 0.7 k/uL (0-1.0); Monocytes % (A) 7 %; Neutrophils # (A) 8.4 k/uL (1.3-7.7); Neutrophils % (A) 85 %; Platelet Count 154 k/uL (150-450); RBC 4.06 m/uL (4.30-5.90); RDW 17.4 % (11.5-15.5); WBC 9.9 k/uL (3.8-10.6)
[2018-09-09 11:28] LABS: Glucose,Whole Blood 139 mg/dL (75-99)
--- NOTE | 2018-09-09 11:51 | P.CONS ---
History of Present Illness - Reason for Consult Consult date: 09/08/18 NHL Requesting physician: Elver Matute - Chief Complaint Fever - History of Present Illness Status Post Cycle 4 of Chemotherapy for NHL on 08/13/18 - Rituxan and Bendamustine R-ICE completed 3 cycles in September 2015 Mr. Patel presents to emergency today for complaints of fevers, increased weakness and worsening mental status. Patient is a poor historian therefore provides much of the history and denies any signs suggestive of etiology of fever. T-Max since admission at 1210 today was documented at 101.2, gonzalez cultures ordered and pending, we have added additional blood culture to obtain one from central line and one peripherally. 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, peripheral neuropathy bilateral feet(causes balance problems at times) and hands, exposure to agent orange, last known seizure 1989, psoriasis, Shingles 2013, TINNITUS; TIA-10 yrs ago-no effects, diverticulosis, diverticulitis, hx pancreatitis, hx cellulitis 2011, heart murmer, gout Last Myocardial Infarction Date:: 12/26/17 History of Any Multi-Drug Resistant Organisms: None Reported Past Surgical History: Bowel Resection, Cardiac Ablation, Cholecystectomy, Heart Catheterization, Tonsillectomy Additional Past Surgical History / Comment(s): pancreas surgery, Biopsy of right arm mass, CERVICAL CORE BX LYMPH NODE, bronchoscopy with biopsy, pilonidial cyst surgery x 3, L foot ulcer with debridements, RT BUTTOCK CA REMOVED. HX OF PORT A CATHETER/later removed Past Anesthesia/Blood Transfusion Reactions: Previous Problems w/ Anesthesia Additional Past Anesthesia/Blood Transfusion Reaction / Comm: hallucination with last surgery with demerol Past Psychological History: Anxiety, Bipolar, Depression, PTSD Smoking Status: Former smoker Past Alcohol Use History: None Reported Past Drug Use History: None Reported - Past Family History Father Family Medical History: Cancer Additional Family Medical History / Comment(s): lung cancer Mother Family Medical History: Cancer Additional Family Medical History / Comment(s): lung cancer Medications and Allergies Home Medications Medication Instructions Recorded Confirmed Type Furosemide [Lasix] 20 mg PO BID 10/08/13 09/08/18 History glipiZIDE [Glucotrol] 10 mg PO AC-BID 10/08/13 09/08/18 History lamoTRIgine [LaMICtal] 100 mg PO DAILY@1200 10/08/13 09/08/18 History cloNIDine HCL [Catapres] 0.1 mg PO QAM@1200 01/07/14 09/08/18 History metFORMIN HCL [Glucophage] 850 mg PO TID-W/MEALS 07/12/15 09/08/18 History ARIPiprazole [Abilify] 30 mg PO DAILY@1200 05/29/16 09/08/18 History Albuterol Inhaler [Ventolin Hfa 2 puff INHALATION RT-Q6H PRN 05/29/16 09/08/18 History Inhaler] Cholecalciferol [Vitamin D3] 2,000 unit PO DAILY 05/29/16 09/08/18 History Niacin [Niacin ER] 750 mg PO HS 05/29/16 09/08/18 History Zolpidem Tartrate [Ambien] 10 mg PO HS 05/29/16 09/08/18 History Multivitamin [Men's Multi-Vitamin] 1 tab PO DAILY 09/13/16 09/08/18 History ALPRAZolam [Xanax] 0.5 mg PO QID PRN 05/16/17 09/08/18 History Albuterol Nebulized [Ventolin 2.5 mg INHALATION RT-QID PRN 12/22/17 09/08/18 History Nebulized] lamoTRIgine [LaMICtal] 50 mg PO HS 12/22/17 09/08/18 History Atorvastatin [Lipitor] 40 mg PO DAILY #30 tab 01/01/18 09/08/18 Rx Isosorbide Mononitrate ER [Imdur] 30 mg PO DAILY #30 tab 01/01/18 09/08/18 Rx Lisinopril [Zestril] 20 mg PO BID 01/15/18 09/08/18 History Allopurinol [Zyloprim] 300 mg PO HS 08/21/18 09/08/18 History Apixaban [Eliquis] 5 mg PO BID 08/21/18 09/08/18 History Insulin Glargine [Lantus] 50 unit SQ HS 08/21/18 09/08/18 History Gabapentin [Neurontin] 600 mg PO TID 09/08/18 09/08/18 History Insulin Glargine,Hum.rec.anlog 50 unit SQ DAILY 09/08/18 09/08/18 History [Lantus Solostar] Metoprolol Tartrate [Lopressor] 100 mg PO BID 09/08/18 09/08/18 History Allergies Allergy/AdvReac Type Severity Reaction Status Date / Time meperidine [From Demerol] Allergy Hallucinati Verified 09/08/18 12:14 ons Physical Exam Vitals: Vital Signs Temp Pulse Resp BP Pulse Ox 09/08/18 17:28 97 17 107/67 09/08/18 17:00 97 17 107/67 09/08/18 16:30 90 17 89/59 98 09/08/18 16:00 89 16 95/54 98 09/08/18 15:30 89 19 95/55 97 09/08/18 15:00 102 H 21 88/51 96 09/08/18 14:44 98.7 F 09/08/18 14:30 95 10 L 97/60 96 09/08/18 14:00 105 H 25 H 100/65 96 09/08/18 13:30 96 22 120/65 96 09/08/18 13:00 110 H 20 96 09/08/18 12:30 121 H 29 H 114/68 96 09/08/18 12:10 101.2 F H 09/08/18 12:00 115 H 20 125/73 94 L 09/08/18 11:55 122 H 14 93 L 09/08/18 11:41 98.8 F 120 H 18 138/84 95 Intake and Output 09/08/18 09/08/18 09/08/18 06:59 14:59 22:59 Other: Weight 113.398 kg Gen: ALert and Oriented, NAD Head: NCNT Mouth: Dry Membranes, No erythema Neck: Supple Lungs: No increased respiratory effort note, DIminished bases, Heart: RRR, S1S2 Abdomen: Non-tender, ND, BSx4 Extremities: No edema, no rashed, skin is dry Neuro: Peripheral neuropathy in bilateral hands and feet present from first treatment of chemotherapy effects. Right Arm increased sensory deficits, improving. no other or new sensory or motor deficits from baseline. Results CBC & Chem 7: 09/09/18 08:57 09/09/18 08:57 Labs: Abnormal Lab Results - Last 24 Hours (Table) 09/08/18 09/08/18 09/08/18 Range/Units 12:34 12:34 12:34 WBC 12.5 H (3.8-10.6) k/uL RBC 3.92 L (4.30-5.90) m/uL Hgb 10.9 L (13.0-17.5) gm/dL Hct 33.8 L (39.0-53.0) % RDW 17.4 H (11.5-15.5) % Neutrophils # 10.8 H (1.3-7.7) k/uL Lymphocytes # 0.3 L (1.0-4.8) k/uL Glucose 119 H (74-99) mg/dL Total Protein 6.2 L (6.3-8.2) g/dL Urine Ketones Trace H (Negative) Chest x-ray: report reviewed (PET Reviewed from 08/29/18) Assessment and Plan Plan: Assessment and Recommendations: 1. Non-Hodgkins Lymphoma: - Currently Undergoing treatment and status POst 4 cycles of Rituxan and Bendamustine - Last PET Scan showed response in visceral Tissue with decreased hepatic lesions and abdominal adenopathy 2. Febrile on Chemotherapy: - Gonzalez CUltures Pending - Chest Xray Reviewed - IV Antibiotics have been ordered - ZOsyn 3. Pathological Fracture at the humeral Head at level of known recurrence of malignancy
[2018-09-09] MEDS: lamoTRIgine 100 MG TAB PO SCH (13:49)
[2018-09-09] MEDS: cloNIDine HCL 0.1 MG TAB PO SCH (13:49)
[2018-09-09] MEDS: ARIPiprazole 15 MG TAB PO SCH (13:49)
[2018-09-09] MEDS: IBUPROFEN 800 MG TAB PO PRN (15:38)
--- NOTE | 2018-09-09 16:23 | P.HPIM ---
History of Present Illness H&P Date: 09/09/18 Chief Complaint: Fatigue, weakness,fever History of present illness: This is a 68-year-old gentleman admitted with increased weakness, fever, fatigue, mild confusion and multiple other medical issues in a patient with history of large B cell lymphoma (non-Hodgkin's lymphoma), atrial fibrillation, [place]/coronary artery disease, diabetes mellitus, hyperlipidemia, hypertension, bipolar disorder, osteoarthritis, seizure disorder, TIA diverticulosis and multiple other medical issues. Patient reports that he completed 4 out of 6 chemotherapy treatments, with ast chemotherapy one month ago. T-max 101.2, pancultured. WBC 12.5 on admission now down to 9.9. Reports generalized discomfort, :"achy back," nonproductive cough ,feels"poor". Chest x-ray reporting no acute infiltrate, compression fracture lower thoracic spine suspicious for metastasis, but stable in comparison to prior exam of 07/01/2018 .EKG atrial fibrillation with ventricular rate 109. Gentle IV fluid hydration, nebulized bronchodilators, Zosyn initiated. Patient is a poor historian, no family currently at bedside, information obtained from staff and chart. Review of Systems Patient is a poor historian, unable to complete full review of systems Constitutional: Reports fatigue and fever. Cardio vascular: denied any chest pain, palpitations Gastrointestinal denied any nausea vomiting Pulmonary: Denied any shortness of breath cough, reports nonproductive cough Neurologic denied any new focal deficits, reports generalized weakness Past Medical History Past Medical History: Atrial Fibrillation, Coronary Artery Disease (CAD), Cancer, CVA/TIA, Diabetes Mellitus, Hyperlipidemia, Hypertension, Memory I mpairment, Myocardial Infarction ([place]), Osteoarthritis (OA), Seizure Disorder, Skin Disorder Additional Past Medical History / Comment(s): hx large B-cell lymphoma with chemotherapy x 5 since 2012 (NON-HODGKINS LYMPHOMA currently with tumors on liver), 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, peripheral neuropathy bilateral feet(causes balance problems at times) and hands, exposure to agent orange, last known seizure 1989, psoriasis, Shingles 2013, TINNITUS; TIA-10 yrs ago-no effects, diverticulosis, diverticulitis, hx pancreatitis, hx cellulitis 2011, heart murmer, gout Last Myocardial Infarction Date:: 12/26/17 History of Any Multi-Drug Resistant Organisms: None Reported Past Surgical History: Bowel Resection, Cardiac Ablation, Cholecystectomy, Heart Catheterization, Tonsillectomy Additional Past Surgical History / Comment(s): pancreas surgery, Biopsy of right arm mass, CERVICAL CORE BX LYMPH NODE, bronchoscopy with biopsy, pilonidial cyst surgery x 3, L foot ulcer with debridements, RT BUTTOCK CA REMOVED. HX OF PORT A CATHETER/later removed Past Anesthesia/Blood Transfusion Reactions: Previous Problems w/ Anesthesia Additional Past Anesthesia/Blood Transfusion Reaction / Comment(s): hallucination with last surgery with demerol Past Psychological History: Anxiety, Bipolar, Depression, PTSD Smoking Status: Former smoker Past Alcohol Use History: None Reported Past Drug Use History: None Reported - Past Family History Father Family Medical History: Cancer Additional Family Medical History / Comment(s): lung cancer Mother Family Medical History: Cancer Additional Family Medical History / Comment(s): lung cancer Medications and Allergies Home Medications Medication Instructions Recorded Confirmed Type Furosemide [Lasix] 20 mg PO BID 10/08/13 09/08/18 History glipiZIDE [Glucotrol] 10 mg PO AC-BID 10/08/13 09/08/18 History lamoTRIgine [LaMICtal] 100 mg PO DAILY@1200 10/08/13 09/08/18 History cloNIDine HCL [Catapres] 0.1 mg PO QAM@1200 01/07/14 09/08/18 History metFORMIN HCL [Glucophage] 850 mg PO TID-W/MEALS 07/12/15 09/08/18 History ARIPiprazole [Abilify] 30 mg PO DAILY@1200 05/29/16 09/08/18 History Albuterol Inhaler [Ventolin Hfa 2 puff INHALATION RT-Q6H PRN 05/29/16 09/08/18 History Inhaler] Cholecalciferol [Vitamin D3] 2,000 unit PO DAILY 05/29/16 09/08/18 History Niacin [Niacin ER] 750 mg PO HS 05/29/16 09/08/18 History Zolpidem Tartrate [Ambien] 10 mg PO HS 05/29/16 09/08/18 History Multivitamin [Men's Multi-Vitamin] 1 tab PO DAILY 09/13/16 09/08/18 History ALPRAZolam [Xanax] 0.5 mg PO QID PRN 05/16/17 09/08/18 History Albuterol Nebulized [Ventolin 2.5 mg INHALATION RT-QID PRN 12/22/17 09/08/18 History Nebulized] lamoTRIgine [LaMICtal] 50 mg PO HS 12/22/17 09/08/18 History Atorvastatin [Lipitor] 40 mg PO DAILY #30 tab 01/01/18 09/08/18 Rx Isosorbide Mononitrate ER [Imdur] 30 mg PO DAILY #30 tab 01/01/18 09/08/18 Rx Lisinopril [Zestril] 20 mg PO BID 01/15/18 09/08/18 History Allopurinol [Zyloprim] 300 mg PO HS 08/21/18 09/08/18 History Apixaban [Eliquis] 5 mg PO BID 08/21/18 09/08/18 History Insulin Glargine [Lantus] 50 unit SQ HS 08/21/18 09/08/18 History Gabapentin [Neurontin] 600 mg PO TID 09/08/18 09/08/18 History Insulin Glargine,Hum.rec.anlog 50 unit SQ DAILY 09/08/18 09/08/18 History [Lantus Solostar] Metoprolol Tartrate [Lopressor] 100 mg PO BID 09/08/18 09/08/18 History Allergies Allergy/AdvReac Type Severity Reaction Status Date / Time meperidine [From Demerol] Allergy Hallucinati Verified 09/08/18 12:14 ons Physical Exam Vitals: Vital Signs Temp Pulse Pulse Resp BP BP Pulse Ox 09/09/18 15:10 101 H 18 09/09/18 12:14 84 09/09/18 12:06 98 F 101 H 18 112/69 98 09/09/18 12:03 84 09/09/18 08:00 98 18 09/09/18 07:17 88 09/09/18 07:07 88 09/09/18 05:41 97.9 F 100 18 122/79 98 09/08/18 23:22 18 09/08/18 22:16 107 H 98 09/08/18 19:34 97.8 F 108 H 18 138/79 99 09/08/18 19:05 98.7 F 97 17 107/67 98 09/08/18 17:42 18 09/08/18 17:28 97 17 107/67 09/08/18 17:00 97 17 107/67 09/08/18 16:30 90 17 89/59 98 09/08/18 16:00 89 16 95/54 98 Intake and Output 09/09/18 09/09/18 09/09/18 06:59 14:59 22:59 Intake Total 400 1460 Balance 400 1460 Intake: Intake, IV Titration 400 500 Amount Piperacillin-Tazobactam 3 100 100 .375 gm In Sodium Chloride 0.9% 100 ml @ 25 mls/hr IVPB Q8HR RYLIE Rx# :[id number] Sodium Chloride 0.9% 1, 300 400 000 ml @ 50 mls/hr IV . Q20H RYLIE Rx#:[id number] Oral 960 Other: Voiding Method Urinal Urinal Urinal # Voids 2 3 3 PHYSICAL EXAM: VITAL SIGNS: As above GENERAL: Sitting up in bed, HEENT: Conjunctivae normal. eyes normal. Oral mucosa dry. NECK: No JVD. No thyroid enlargement. No LNs CARDIOVASCULAR: S1, S2 muffled. No murmur RESPIRATION: Breath sounds diminished in the bases. No rhonchi or crackles. Slight expiratory wheezing bilateral. No bronchial breathing. ABDOMEN: Soft, nontender . No guarding. no masses palpable. No ascites, No palpable masses.Bowel sounds heard. LEGS: Mild pedal edema, PSYCHIATRY: Alert and oriented -3, mood and affect normal. NERVOUS SYSTEM: Cranial N 2-12 grossly normal. Moves all 4 limbs. Diffuse weakness. No focal deficits. Skin: no lesions, no rash Lymphatic system. No LN neck axilla or groin. Results CBC & Chem 7: 09/09/18 08:57 09/09/18 08:57 Labs: Abnormal Lab Results - Last 24 Hours (Table) 09/08/18 09/09/18 09/09/18 Range/Units 21:36 08:57 08:57 RBC 4.06 L (4.30-5.90) m/uL Hgb 11.1 L (13.0-17.5) gm/dL Hct 36.1 L (39.0-53.0) % MCHC 30.8 L (31.0-37.0) g/dL RDW 17.4 H (11.5-15.5) % Neutrophils # 8.4 H (1.3-7.7) k/uL Lymphocytes # 0.2 L (1.0-4.8) k/uL Carbon Dioxide 32 H (22-30) mmol/L Glucose 149 H (74-99) mg/dL POC Glucose (mg/dL) 144 H (75-99) mg/dL Uric Acid 2.8 L (3.5-8.5) mg/dL Lactate Dehydrogenase 1014 H (313-618) U/L Total Protein 6.0 L (6.3-8.2) g/dL 09/09/18 Range/Units 11:27 RBC (4.30-5.90) m/uL Hgb (13.0-17.5) gm/dL Hct (39.0-53.0) % MCHC (31.0-37.0) g/dL RDW (11.5-15.5) % Neutrophils # (1.3-7.7) k/uL Lymphocytes # (1.0-4.8) k/uL Carbon Dioxide (22-30) mmol/L Glucose (74-99) mg/dL POC Glucose (mg/dL) 139 H (75-99) mg/dL Uric Acid (3.5-8.5) mg/dL Lactate Dehydrogenase (313-618) U/L Total Protein (6.3-8.2) g/dL Microbiology - Last 24 Hours (Table) 09/08/18 12:34 Blood Culture - Preliminary Blood No Growth after 24 hours Assessment and Plan Assessment: -Fever, leukocytosis, on chemotherapy -Pathological compression fracture lower thoracic spine suspicious for metastasis, per chest x-ray -Non-Hodgkin's lymphoma -CAD, history of [place] -Chronic atrial fibrillation -Diabetes mellitus type 2 -Hypertension -Hyperlipidemia -Bipolar disorder -Seizure disorder Plan: Continue on current medication regime ,monitoring and symptomatic treatment. Maintain Zosyn, follow cultures closely. GI and DVT prophylaxis in place. Thigh-high teds ordered. Evaluated by oncology with recommendations noted. Avoid opioids/narcotics as patient does not do well with these. Alternate Tylenol with Motrin. Close monitoring of electrolytes, renal function, CBC with repeat labs ordered. Home meds have been reviewed and resumed. Prognosis guarded given multiple complex medical issues. The impression and plan of care has been dictated as directed. : I performed a history and examination of this patient, discussed the same with the dictator. I agree with the dictator's note ,documented as a scribe. Any additional findings or plans will be noted. I'm takin minutes
[2018-09-09 16:44] LABS: Glucose,Whole Blood 111 mg/dL (75-99)
[2018-09-09] MEDS: PANTOPRAZOLE 40 MG/10 ML VIAL IVP SCH (17:07)
[2018-09-09] MEDS: INSULIN ASPART (NovoLOG) 100 UNIT/ML VIAL SQ SCH ×2 (17:08→20:51)
[2018-09-09 20:50] LABS: Glucose,Whole Blood 149 mg/dL (75-99)
[2018-09-09] MEDS: ALLOPURINOL 300 MG TAB PO SCH (20:50)
[2018-09-09] MEDS: ZOLPIDEM 10 MG TAB PO SCH (20:50)
[2018-09-09] MEDS: lamoTRIgine 25 MG TAB PO SCH (20:51)
[2018-09-09] MEDS: NIACIN TR 250 MG CAPSULE.ER PO SCH (20:51)
[2018-09-09] MEDS: INSULIN DETEMIR (LEVEMIR) 100 UNIT/ML SYR SQ SCH (20:51)
--- NOTE | 2018-09-09 21:24 | P.PN ---
Subjective Progress Note Date: 09/09/18 Principal diagnosis: Fever No family at bedside during interaction, complaints of back achy, was on 3L oxygen although sitting next to him and no apparent shortness of breath. Objective - Vital Signs Vital signs: Vital Signs Temp 97.9 F 09/09/18 05:41 Pulse 88 09/09/18 07:17 Resp 18 09/09/18 05:41 BP 122/79 09/09/18 05:41 Pulse Ox 98 09/09/18 05:41 Intake & Output 09/08/18 09/09/18 09/09/18 18:59 06:59 18:59 Intake Total 3020 Balance 3020 Weight 113.398 kg Intake: Amount of Fluid Infused ( 1500 ml) Intake, IV Titration 800 Amount Piperacillin-Tazobactam 3 200 .375 gm In Sodium Chloride 0.9% 100 ml @ 25 mls/hr IVPB Q8HR [facility]YL[facility] Rx# :[id number] Sodium Chloride 0.9% 1, 300 000 ml @ 150 mls/hr IV . Q6H40M RYLIE Rx#:[id number] Sodium Chloride 0.9% 1, 300 000 ml @ 50 mls/hr IV . Q20H RYLIE Rx#:[id number] Oral 720 Other: Voiding Method Urinal Urinal # Voids 2 - Exam Gen: Awake NAD Head: NCNT Mouth: Dry Membranes, No erythema Neck: Supple Lungs: No increased respiratory effort note, DIminished bases, Heart: RRR, S1S2 Abdomen: Non-tender, ND, BSx4 Extremities: No edema, no rashed, skin is dry Neuro: Peripheral neuropathy in bilateral hands and feet present from first treatment of chemotherapy effects. Right Arm increased sensory deficits, improving. no other or new sensory or motor deficits from baseline. - Labs CBC & Chem 7: 09/09/18 08:57 09/09/18 08:57 Labs: Abnormal Lab Results - Last 24 Hours (Table) 09/08/18 09/08/18 09/08/18 Range/Units 12:34 12:34 12:34 WBC 12.5 H (3.8-10.6) k/uL RBC 3.92 L (4.30-5.90) m/uL Hgb 10.9 L (13.0-17.5) gm/dL Hct 33.8 L (39.0-53.0) % MCHC (31.0-37.0) g/dL RDW 17.4 H (11.5-15.5) % Neutrophils # 10.8 H (1.3-7.7) k/uL Lymphocytes # 0.3 L (1.0-4.8) k/uL Carbon Dioxide (22-30) mmol/L Glucose 119 H (74-99) mg/dL POC Glucose (mg/dL) (75-99) mg/dL Uric Acid (3.5-8.5) mg/dL Lactate Dehydrogenase (313-618) U/L Total Protein 6.2 L (6.3-8.2) g/dL Urine Ketones Trace H (Negative) 09/08/18 09/09/18 09/09/18 Range/Units 21:36 08:57 08:57 WBC (3.8-10.6) k/uL RBC 4.06 L (4.30-5.90) m/uL Hgb 11.1 L (13.0-17.5) gm/dL Hct 36.1 L (39.0-53.0) % MCHC 30.8 L (31.0-37.0) g/dL RDW 17.4 H (11.5-15.5) % Neutrophils # 8.4 H (1.3-7.7) k/uL Lymphocytes # 0.2 L (1.0-4.8) k/uL Carbon Dioxide 32 H (22-30) mmol/L Glucose 149 H (74-99) mg/dL POC Glucose (mg/dL) 144 H (75-99) mg/dL Uric Acid 2.8 L (3.5-8.5) mg/dL Lactate Dehydrogenase 1014 H (313-618) U/L Total Protein 6.0 L (6.3-8.2) g/dL Urine Ketones (Negative) 09/09/18 Range/Units 11:27 WBC (3.8-10.6) k/uL RBC (4.30-5.90) m/uL Hgb (13.0-17.5) gm/dL Hct (39.0-53.0) % MCHC (31.0-37.0) g/dL RDW (11.5-15.5) % Neutrophils # (1.3-7.7) k/uL Lymphocytes # (1.0-4.8) k/uL Carbon Dioxide (22-30) mmol/L Glucose (74-99) mg/dL POC Glucose (mg/dL) 139 H (75-99) mg/dL Uric Acid (3.5-8.5) mg/dL Lactate Dehydrogenase (313-618) U/L Total Protein (6.3-8.2) g/dL Urine Ketones (Negative) Assessment and Plan Plan: Assessment and Recommendations: Non-Hodgkins Lymphoma: - Currently Undergoing treatment and status POst 4 cycles of Rituxan and Bendamustine - Last PET Scan showed response in visceral Tissue with decreased hepatic lesions and abdominal adenopathy Febrile on Chemotherapy: - Reynolds CUltures Pending - Chest Xray Reviewed - IV Antibiotics have been ordered - Zosyn - Fevers improved today Pain secondary to Malignancy Pathological Fracture at the humeral Head at level of known recurrence of malignancy Acute Respiratory Insufficiency: - Requiring 3L Nasal Canula, attempt to wean on oxygen. If hypoxia consider CT. - No increased effort during vit and oxygen next to bedside, pulse ox on room air 95%. Normocytic Hypochromic Anemia: - Secondary to chemotherapy and Lymphoma - Stable, No intervention needed Racheal Winston AOCNP Physician Attest: I have completed the full history and physical and devloped the above impression and plan, agree with dictation. Dictated as a scribe
[2018-09-10 07:05] LABS: Glucose,Whole Blood 150 mg/dL (75-99)
[2018-09-10] MEDS: glipiZIDE 10 MG TAB PO SCH ×2 (07:46→17:38)
[2018-09-10] MEDS: metFORMIN 850 MG TAB PO SCH ×3 (07:47→17:38)
[2018-09-10] MEDS: ACETAMINOPHEN TAB 500 MG TAB PO PRN ×2 (07:47→22:39)
[2018-09-10] MEDS: INSULIN ASPART (NovoLOG) 100 UNIT/ML VIAL SQ SCH ×4 (07:47→22:27)
[2018-09-10] MEDS: PIPERACILLIN-TAZOBACTAM 3.375 GM in SODIUM CHLORIDE 0.9% 100 ML IVPB SCH ×2 (08:49→16:01)
[2018-09-10] MEDS: METOPROLOL TARTRATE 50 MG TAB PO SCH ×2 (09:10→22:38)
[2018-09-10] MEDS: CHOLECALCIFEROL 1,000 UNIT TAB PO SCH (09:10)
[2018-09-10] MEDS: ISOSORBIDE MONONITRATE ER 30 MG TAB.ER.24H PO SCH (09:10)
[2018-09-10] MEDS: APIXABAN 5 MG TAB PO SCH ×2 (09:11→22:38)
[2018-09-10] MEDS: LISINOPRIL 20 MG TAB PO SCH ×2 (09:11→22:39)
[2018-09-10] MEDS: ATORVASTATIN 40 MG TAB PO SCH (09:11)
[2018-09-10] MEDS: FUROSEMIDE 20 MG TAB PO SCH ×2 (09:11→22:38)
[2018-09-10] MEDS: ALBUTEROL NEBULIZED 2.5 MG/3 ML INHALATION PRN (09:49)
[2018-09-10] MEDS: PANTOPRAZOLE 40 MG/10 ML VIAL IVP SCH (10:28)
[2018-09-10] MEDS: GABAPENTIN 300 MG CAP PO SCH ×3 (10:42→22:38)
[2018-09-10 11:37] LABS: Glucose,Whole Blood 169 mg/dL (75-99)
[2018-09-10] MEDS: lamoTRIgine 100 MG TAB PO SCH (12:57)
[2018-09-10] MEDS: cloNIDine HCL 0.1 MG TAB PO SCH (12:58)
[2018-09-10] MEDS: ARIPiprazole 15 MG TAB PO SCH (12:58)
[2018-09-10] MEDS: MULTIVITAMINS, THERA 1 EACH TAB PO SCH (12:58)
[2018-09-10] MEDS: IBUPROFEN 800 MG TAB PO PRN (13:30)
[2018-09-10] MEDS: SODIUM CHLORIDE 0.9% 1,000 ML IV SCH (16:01)
--- NOTE | 2018-09-10 16:11 | P.PN ---
Subjective Progress Note Date: 09/10/18 This is a 68-year-old gentleman admitted with increased weakness, fever, fatigue, mild confusion and multiple other medical issues in a patient with history of large B cell lymphoma (non-Hodgkin's lymphoma), atrial fibrillation, MT/coronary artery disease, diabetes mellitus, hyperlipidemia, hypertension, b ipolar disorder, osteoarthritis, seizure disorder, TIA diverticulosis and multiple other medical issues. Patient reports that he completed 4 out of 6 chemotherapy treatments, with ast chemotherapy one month ago. T-max 101.2, pancultured. WBC 12.5 on admission now down to 9.9. Reports generalized discomfort, :"achy back," nonproductive cough ,feels"poor". Chest x-ray reporting no acute infiltrate, compression fracture lower thoracic spine suspicious for metastasis, but stable in comparison to prior exam of 07/01/2018 .EKG atrial fibrillation with ventricular rate 109. Gentle IV fluid hydration, nebulized bronchodilators, Zosyn initiated. Patient is a poor historian, no family currently at bedside, information obtained from staff and chart. 09/10/2018 maintained on gentle IV fluid hydration, Zosyn, Motrin alternating with Tylenol, nebulized bronchodilators with significant clinical improvement. Sitting up in chair, consumed 100% of tray. Blood sugars controlled. States he feels much better; denies pain, no cough, no shortness of breath. Nasal cannula oxygen has been weaned off inpatient maintaining O2 sats in the high 90s on room air. Afebrile, preliminary blood cultures negative. Objective - Vital Signs Vital signs: Vital Signs Temp 98.2 F 09/10/18 12:19 Pulse 102 H 09/10/18 12:19 Resp 16 09/10/18 12:19 BP 134/66 09/10/18 12:19 Pulse Ox 96 09/10/18 12:19 Intake & Output 09/09/18 09/10/18 09/10/18 18:59 06:59 18:59 Intake Total 4878 685 2916 Balance 6358 866 0215 Intake: Intake, IV Titration 500 300 700 Amount Piperacillin-Tazobactam 3 100 100 100 .375 gm In Sodium Chloride 0.9% 100 ml @ 25 mls/hr IVPB Q8HR [facility] Rx# :[id number] Sodium Chloride 0.9% 1, 400 200 600 000 ml @ 50 mls/hr IV . Q20H [facility] Rx#:[id number] Oral 1200 980 Other: Voiding Method Urinal Toilet Toilet # Voids 3 2 4 # Bowel Movements 1 - Exam VITAL SIGNS: As above GENERAL: Sitting up in chair HEENT: Conjunctivae normal. eyes normal. Oral mucosa moist. NECK: No JVD. No thyroid enlargement. No LNs CARDIOVASCULAR: S1, S2 muffled. No murmur, rubs or gallops. Mild tachycardia. RESPIRATION: Breath sounds diminished in the bases. No rhonchi or crackles. No wheezing ABDOMEN: Soft, nontender . No guarding. no masses palpable. No ascites, No palpable masses.Bowel sounds heard. LEGS: Mild pedal edema, PSYCHIATRY: Alert and oriented -3, mood and affect normal. NERVOUS SYSTEM: Cranial N 2-12 grossly normal. Moves all 4 limbs. Diffuse weakness. No focal deficits. Skin: no lesions, no rash - Labs CBC & Chem 7: 09/09/18 08:57 09/09/18 08:57 Labs: Abnormal Lab Results - Last 24 Hours (Table) 09/09/18 09/09/18 09/10/18 Range/Units 16:43 20:48 07:04 POC Glucose (mg/dL) 111 H 149 H 150 H (75-99) mg/dL 09/10/18 Range/Units 11:36 POC Glucose (mg/dL) 169 H (75-99) mg/dL Microbiology - Last 24 Hours (Table) 09/08/18 12:34 Blood Culture - Preliminary Blood No Growth after 48 hours 09/08/18 19:49 Blood Culture - Preliminary Blood No Growth after 24 hours Assessment and Plan Assessment: -Fever, leukocytosis, on chemotherapy, improving -Pathological compression fracture lower thoracic spine suspicious for metastasis, per chest x-ray -Non-Hodgkin's lymphoma -CAD, history of MT -Chronic atrial fibrillation -Diabetes mellitus type 2 -Hypertension -Hyperlipidemia -Bipolar disorder -Seizure disorder Plan: Continue on current medication regime ,monitoring and symptomatic treatment. Await final culture results, continue on Zosyn, follow cultures closely. Pain controlled with alternating Tylenol and Motrin. Close monitoring of electrolytes, renal function, with repeat labs ordered. Prognosis guarded given multiple complex medical issues. Discharge planning in progress for her tomorrow, and oncology clearance. The impression and plan of care has been dictated as directed. : I performed a history and examination of this patient, discussed the same with the dictator. I agree with the dictator's note ,documented as a scribe. Any a dditional findings or plans will be noted. I'm takin minutes
[2018-09-10 16:50] LABS: Glucose,Whole Blood 165 mg/dL (75-99)
[2018-09-10 20:41] LABS: Glucose,Whole Blood 124 mg/dL (75-99)
--- NOTE | 2018-09-10 21:15 | P.PN ---
Subjective Progress Note Date: 09/10/18 Principal diagnosis: Fever He continues to show good clinical improvement, eating well, sitting up in chair, no family at bedside Objective - Vital Signs Vital signs: Vital Signs Temp 98.2 F 09/10/18 17:30 Pulse 73 09/10/18 17:30 Resp 18 09/10/18 17:30 BP 104/55 09/10/18 17:30 Pulse Ox 96 09/10/18 12:19 Intake & Output 09/10/18 09/10/18 09/11/18 06:59 18:59 06:59 Intake Total 300 2160 Balance 300 2160 Intake: Intake, IV Titration 300 700 Amount Piperacillin-Tazobactam 3 100 100 .375 gm In Sodium Chloride 0.9% 100 ml @ 25 mls/hr IVPB Q8HR [facility] Rx# :[id number] Sodium Chloride 0.9% 1, 200 600 000 ml @ 50 mls/hr IV . 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 Right Arm increased sensory deficits, improving. no other or new sensory or motor deficits from baseline. - Labs CBC & Chem 7: 09/09/18 08:57 09/09/18 08:57 Labs: Abnormal Lab Results - Last 24 Hours (Table) 09/09/18 09/10/18 09/10/18 Range/Units 20:48 07:04 11:36 POC Glucose (mg/dL) 149 H 150 H 169 H (75-99) mg/dL 09/10/18 Range/Units 16:44 POC Glucose (mg/dL) 165 H (75-99) mg/dL Microbiology - Last 24 Hours (Table) 09/08/18 12:34 Blood Culture - Preliminary Blood No Growth after 48 hours 09/08/18 19:49 Blood Culture - Preliminary Blood No Growth after 24 hours Assessment and Plan Plan: Assessment and Recommendations: Non-Hodgkins Lymphoma: - Currently Undergoing treatment and status POst 4 cycles of Rituxan and Bendamustine - Last PET Scan showed response in visceral Tissue with decreased hepatic lesions and abdominal adenopathy Febrile on Chemotherapy: - Reynolds CUltures Pending - Chest Xray Reviewed - IV Antibiotics have been ordered - Zosyn - Fevers improved today - Afebrile 24 hours, continuing to give ibuprofen and tylenol per MAR Pain secondary to Malignancy - Pathological Fracture at the humeral Head at level of known recurrence of malignancy - Appears controlled Acute Respiratory Insufficiency: - Improving - No increased effort during vit and oxygen next to bedside, pulse ox on room air 95%. Normocytic Hypochromic Anemia: - Secondary to chemotherapy and Lymphoma - Stable, No intervention needed - Will recheck CBC in am Racheal Winston AOP Physician Attest: I have completed the full history and physical and devloped the above impression and plan, agree with dictation. Dictated as a scribe
[2018-09-10] MEDS: lamoTRIgine 25 MG TAB PO SCH (22:37)
[2018-09-10] MEDS: ZOLPIDEM 10 MG TAB PO SCH (22:37)
[2018-09-10] MEDS: ALLOPURINOL 300 MG TAB PO SCH (22:38)
[2018-09-10] MEDS: NIACIN TR 250 MG CAPSULE.ER PO SCH (22:40)
[2018-09-10] MEDS: INSULIN DETEMIR (LEVEMIR) 100 UNIT/ML SYR SQ SCH (22:44)
[2018-09-11] MEDS: PIPERACILLIN-TAZOBACTAM 3.375 GM in SODIUM CHLORIDE 0.9% 100 ML IVPB SCH ×3 (00:32→17:02)
[2018-09-11] MEDS: SODIUM CHLORIDE 0.9% 1,000 ML IV SCH (00:32)
[2018-09-11 07:09] LABS: Glucose,Whole Blood 128 mg/dL (75-99)
[2018-09-11] MEDS: INSULIN ASPART (NovoLOG) 100 UNIT/ML VIAL SQ SCH ×4 (07:36→21:33)
[2018-09-11] MEDS: PANTOPRAZOLE 40 MG TABLET PO SCH (07:37)
[2018-09-11] MEDS: metFORMIN 850 MG TAB PO SCH ×3 (07:37→17:02)
[2018-09-11] MEDS: glipiZIDE 10 MG TAB PO SCH ×2 (07:37→17:02)
[2018-09-11] MEDS: CHOLECALCIFEROL 1,000 UNIT TAB PO SCH (08:27)
[2018-09-11] MEDS: FUROSEMIDE 20 MG TAB PO SCH ×2 (08:29→21:35)
[2018-09-11] MEDS: ATORVASTATIN 40 MG TAB PO SCH (08:30)
[2018-09-11] MEDS: ISOSORBIDE MONONITRATE ER 30 MG TAB.ER.24H PO SCH (08:30)
[2018-09-11] MEDS: LISINOPRIL 20 MG TAB PO SCH ×2 (08:30→21:37)
[2018-09-11] MEDS: METOPROLOL TARTRATE 50 MG TAB PO SCH ×2 (08:30→21:36)
[2018-09-11] MEDS: GABAPENTIN 300 MG CAP PO SCH ×3 (08:30→21:35)
[2018-09-11] MEDS: APIXABAN 5 MG TAB PO SCH ×2 (08:30→21:37)
[2018-09-11] MEDS ORDERED: FUROSEMIDE 10 MG/ML 4 ML VIAL IV STA (08:39)
[2018-09-11] MEDS: ALBUTEROL NEBULIZED 2.5 MG/3 ML INHALATION PRN (09:15)
--- NOTE | 2018-09-11 09:18 | XR ---
EXAMINATION TYPE: XR chest 2V DATE OF EXAM: 09/11/2018 COMPARISON: 09/08/2018 TECHNIQUE: PA and lateral views submitted. HISTORY: Shortness of breath FINDINGS: No focal consolidation. There is blunting of both costophrenic angles. Linear changes are seen in the left lower lobe near the cardiac border most typical of atelectasis. Mediport catheter seen heart is enlarged. Hypertrophic and degenerative change of the spine. Chronic appearing wedge deformity at the thoracolumbar junction. Surgical clips in the abdomen. No overt fail ure. Biapical pleural thickening. Arthropathy of the shoulders. IMPRESSION: 1. Cardiomegaly. There is blunting of both costophrenic angles on the lateral view which may represen t tiny effusions or pleural thickening.
[2018-09-11 09:39] LABS: Anisocytosis Slight; Basophils # (A) 0.1 k/uL (0-0.2); Basophils % (A) 1 %; Eosinophils # (A) 0.6 k/uL (0-0.7); Eosinophils % (A) 6 %; HCT 33.8 % (39.0-53.0); HGB 10.7 gm/dL (13.0-17.5); Hypochromasia Slight; Lymphocytes # (A) 0.3 k/uL (1.0-4.8); Lymphocytes % (A) 3 %; MCH 28.4 pg (25.0-35.0); MCHC 31.8 g/dL (31.0-37.0); MCV 89.2 fL (80.0-100.0); Mean Platelet Volume 7.7; Monocytes # (A) 0.7 k/uL (0-1.0); Monocytes % (A) 8 %; Neutrophils # (A) 7.2 k/uL (1.3-7.7); Neutrophils % (A) 80 %; Platelet Count 179 k/uL (150-450); RBC 3.78 m/uL (4.30-5.90); RDW 17.1 % (11.5-15.5)
[2018-09-11 09:59] LABS: ALT 33 U/L (21-72); AST 38 U/L (17-59); Albumin 3.7 g/dL (3.5-5.0); Alkaline Phosphatase 99 U/L (38-126); Anion Gap 8 mmol/L; Blood Urea Nitrogen 11 mg/dL (9-20); Calcium 9.4 mg/dL (8.4-10.2); Carbon Dioxide 31 mmol/L (22-30); Chloride 104 mmol/L (98-107); Glucose 100 mg/dL (74-99); Potassium 3.6 mmol/L (3.5-5.1); Sodium 143 mmol/L (137-145); Total Bilirubin 0.6 mg/dL (0.2-1.3)
[2018-09-11] MEDS ORDERED: ALBUTEROL NEBULIZED 2.5 MG/3 ML INHALATION PRN (10:33)
[2018-09-11 11:00] LABS: Glucose,Whole Blood 145 mg/dL (75-99)
[2018-09-11] MEDS: ARIPiprazole 15 MG TAB PO SCH (12:45)
[2018-09-11] MEDS: lamoTRIgine 100 MG TAB PO SCH (12:46)
[2018-09-11] MEDS: MULTIVITAMINS, THERA 1 EACH TAB PO SCH (12:47)
[2018-09-11] MEDS: cloNIDine HCL 0.1 MG TAB PO SCH (12:47)
[2018-09-11] MEDS: IPRATROPIUM-ALBUTEROL 3 ML NEB INHALATION SCH ×3 (13:12→20:43)
[2018-09-11] MEDS: SYMBICORT 160-4.5 MCG INHALER INHALATION SCH ×2 (13:12→20:43)
--- NOTE | 2018-09-11 14:52 | P.PN ---
Subjective Progress Note Date: 09/11/18 Principal diagnosis: Fever He continues to show good clinical improvement, continues eating well, sitting up in chair, no family at bedside CBC is stable Objective - Vital Signs Vital signs: Vital Signs Temp 98.5 F 09/11/18 11:30 Pulse 100 09/11/18 13:24 Resp 17 09/11/18 11:30 BP 140/68 09/11/18 11:30 Pulse Ox 93 L 09/11/18 11:30 Intake & Output 09/10/18 09/11/18 09/11/18 18:59 06:59 18:59 Intake Total 2160 460 Output Total 900 Balance 2160 -440 Intake: Intake, IV Titration 700 100 Amount Piperacillin-Tazobactam 3 100 100 .375 gm In Sodium Chloride 0.9% 100 ml @ 25 mls/hr IVPB Q8HR [facility] Rx# :[id number] Sodium Chloride 0.9% 1, 600 0 000 ml @ 50 mls/hr IV . 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 Right Arm increased sensory deficits, improving. no other or new sensory or motor deficits from baseline. - Labs CBC & Chem 7: 09/11/18 09:20 09/11/18 09:20 Labs: Abnormal Lab Results - Last 24 Hours (Table) 09/10/18 09/10/18 09/11/18 Range/Units 16:44 20:40 07:07 RBC (4.30-5.90) m/uL Hgb (13.0-17.5) gm/dL Hct (39.0-53.0) % RDW (11.5-15.5) % Lymphocytes # (1.0-4.8) k/uL Carbon Dioxide (22-30) mmol/L Glucose (74-99) mg/dL POC Glucose (mg/dL) 165 H 124 H 128 H (75-99) mg/dL Total Protein (6.3-8.2) g/dL 09/11/18 09/11/18 09/11/18 Range/Units 09:20 09:20 10:59 RBC 3.78 L (4.30-5.90) m/uL Hgb 10.7 L (13.0-17.5) gm/dL Hct 33.8 L (39.0-53.0) % RDW 17.1 H (11.5-15.5) % Lymphocytes # 0.3 L (1.0-4.8) k/uL Carbon Dioxide 31 H (22-30) mmol/L Glucose 100 H (74-99) mg/dL POC Glucose (mg/dL) 145 H (75-99) mg/dL Total Protein 6.0 L (6.3-8.2) g/dL Microbiology - Last 24 Hours (Table) 09/08/18 19:49 Blood Culture - Preliminary Blood No Growth after 48 hours 09/08/18 12:34 Blood Culture - Preliminary Blood No Growth after 48 hours Assessment and Plan Plan: Assessment and Recommendations: Non-Hodgkins Lymphoma: - Currently Undergoing treatment and status POst 4 cycles of Rituxan and Bendamustine - Last PET Scan showed response in visceral Tissue with decreased hepatic lesions and abdominal adenopathy Febrile on Chemotherapy: - Reynolds CUltures Pending - Chest Xray Reviewed - IV Antibiotics have been ordered - Zosyn - Fevers improved today - Afebrile 24 hours, continuing to give ibuprofen and tylenol per MAR Pain secondary to Malignancy - Pathological Fracture at the humeral Head at level of known recurrence of malignancy - Appears controlled Acute Respiratory Insufficiency: - Improving - No increased effort during vit and oxygen next to bedside, pulse ox on room air 95%. Normocytic Hypochromic Anemia: - Secondary to chemotherapy and Lymphoma - Stable, No intervention needed - Will recheck CBC in am Plan: - At discharge will follow up with [employer] in Dr. Mendiola office next week and determine restart of chemotherapy. - Continue to hold Chemo this week and likely next week - Overall stable and improving clinically, ok for discharge from oncology standpoint, ID regarding medications at discharge and duration. Racheal Winston AOP Physician Attest: I have completed the full history and physical and devloped the above impression and plan, agree with dictation. Dictated as a scribe
[2018-09-11 16:57] LABS: Glucose,Whole Blood 151 mg/dL (75-99)
[2018-09-11] MEDS ORDERED: Potassium Replacement Protocol 1 EACH MISC MISCELLANE PRN (19:06)
--- NOTE | 2018-09-11 19:11 | P.PN ---
Subjective Progress Note Date: 09/11/18 This is a 68-year-old gentleman admitted with increased weakness, fever, fatigue, mild confusion and multiple other medical issues in a patient with history of large B cell lymphoma (non-Hodgkin's lymphoma), atrial fibrillation, NH/coronary artery disease, diabetes mellitus, hyperlipidemia, hypertension, b ipolar disorder, osteoarthritis, seizure disorder, TIA diverticulosis and multiple other medical issues. Patient reports that he completed 4 out of 6 chemotherapy treatments, with ast chemotherapy one month ago. T-max 101.2, pancultured. WBC 12.5 on admission now down to 9.9. Reports generalized discomfort, :"achy back," nonproductive cough ,feels"poor". Chest x-ray reporting no acute infiltrate, compression fracture lower thoracic spine suspicious for metastasis, but stable in comparison to prior exam of 07/01/2018 .EKG atrial fibrillation with ventricular rate 109. Gentle IV fluid hydration, nebulized bronchodilators, Zosyn initiated. Patient is a poor historian, no family currently at bedside, information obtained from staff and chart. 09/10/2018 maintained on gentle IV fluid hydration, Zosyn, Motrin alternating with Tylenol, nebulized bronchodilators with significant clinical improvement. Sitting up in chair, consumed 100% of tray. Blood sugars controlled. States he feels much better; denies pain, no cough, no shortness of breath. Nasal cannula oxygen has been weaned off inpatient maintaining O2 sats in the high 90s on room air. Afebrile, preliminary blood cultures negative. 09/11/2018 complains of shortness of breath this morning. Flushed appearing. Maintaining O2 sats of 93% on room air .Zero diet intake this morning at breakfast. Denies chest pain. Denies abdominal pain. Afebrile, normal WBC. Blood cultures negative at both 48 and 72 hours. Objective - Vital Signs Vital signs: Vital Signs Temp 98.7 F 09/11/18 08:25 Pulse 111 H 09/11/18 08:25 Resp 18 09/11/18 08:25 BP 161/106 09/11/18 08:25 Pulse Ox 93 L 09/11/18 08:25 Intake & Output 09/10/18 09/11/18 09/11/18 18:59 06:59 18:59 Intake Total 2160 Balance 2160 Intake: Intake, IV Titration 700 Amount Piperacillin-Tazobactam 3 100 .375 gm In Sodium Chloride 0.9% 100 ml @ 25 mls/hr IVPB Q8HR [facility] Rx# :[id number] Sodium Chloride 0.9% 1, 600 000 ml @ 50 mls/hr IV . Q20H [facility] Rx#:[id number] Oral 1460 Other: Voiding Method Toilet Toilet # Voids 4 3 # Bowel Movements 1 - Exam VITAL SIGNS: As above GENERAL: Lying in bed, flushed appearance, increased respiratory effort HEENT: Conjunctivae normal. eyes normal. Oral mucosa moist. NECK: No JVD. No thyroid enlargement. No LNs CARDIOVASCULAR: S1, S2 muffled. No murmur, rubs or gallops. Mild tachycardia. RESPIRATION: Breath sounds diminished in the bases. No rhonchi or crackles. No wheezing ABDOMEN: Soft, nontender . No guarding. no masses palpable. No ascites, No palpable masses.Bowel sounds heard. LEGS: Mild pedal edema, PSYCHIATRY: Alert and oriented -3, mood and affect normal. NERVOUS SYSTEM: Cranial N 2-12 grossly normal. Moves all 4 limbs. Diffuse weakness. No focal deficits. Skin: no lesions, no rash - Labs CBC & Chem 7: 09/11/18 09:20 09/11/18 09:20 Labs: Abnormal Lab Results - Last 24 Hours (Table) 09/10/18 09/10/18 09/10/18 Range/Units 11:36 16:44 20:40 POC Glucose (mg/dL) 169 H 165 H 124 H (75-99) mg/dL 09/11/18 Range/Units 07:07 POC Glucose (mg/dL) 128 H (75-99) mg/dL Microbiology - Last 24 Hours (Table) 09/08/18 19:49 Blood Culture - Preliminary Blood No Growth after 48 hours 09/08/18 12:34 Blood Culture - Preliminary Blood No Growth after 48 hours Assessment and Plan Assessment: -Fever, leukocytosis, suspect r/t chemotherapy, expected, resolved -Shortness of breath, workup in progress -Pathological compression fracture lower thoracic spine suspicious for metastasis, per chest x-ray -Non-Hodgkin's lymphoma -CAD, history of NH -Chronic atrial fibrillation -Diabetes mellitus type 2 -Hypertension -Hyperlipidemia -Bipolar disorder -Seizure disorder Plan: Continue on current medication regime ,monitoring and symptomatic treatment. PIVL IV fluids. Lasix 40 IV push 1 now. Chest x-ray PA and lateral now. Nebulized bronchodilators scheduled in addition to prn. Symbicort added to med regime. Maintain empiric antibiotics. Close monitoring of electrolytes, renal function, with repeat labs ordered. Prognosis guarded given multiple complex medical issues. Discharge planning in progress for her tomorrow, and oncology clearance. The impression and plan of care has been dictated as directed. : I performed a history and examination of this patient, discussed the same with the dictator. I agree with the dictator's note ,documented as a scribe. Any additional findings or plans will be noted. I'm takin minutes
[2018-09-11 20:16] LABS: Glucose,Whole Blood 213 mg/dL (75-99)
[2018-09-11] MEDS: INSULIN DETEMIR (LEVEMIR) 100 UNIT/ML SYR SQ SCH (21:34)
[2018-09-11] MEDS: ZOLPIDEM 10 MG TAB PO SCH (21:35)
[2018-09-11] MEDS: lamoTRIgine 25 MG TAB PO SCH (21:36)
[2018-09-11] MEDS: ALLOPURINOL 300 MG TAB PO SCH (21:37)
[2018-09-11] MEDS: NIACIN TR 250 MG CAPSULE.ER PO SCH (21:37)
[2018-09-12] MEDS: PIPERACILLIN-TAZOBACTAM 3.375 GM in SODIUM CHLORIDE 0.9% 100 ML IVPB SCH ×2 (01:42→08:48)
[2018-09-12 05:00] VITALS: TEMP 98.2
[2018-09-12 07:10] LABS: Glucose,Whole Blood 69 mg/dL (75-99)
[2018-09-12 07:19] LABS: Anisocytosis Slight; Basophils % (A) 1 %; Eosinophils # (A) 0.3 k/uL (0-0.7); Eosinophils % (A) 5 %; HCT 32.6 % (39.0-53.0); Hypochromasia Slight; Lymphocytes # (A) 0.2 k/uL (1.0-4.8); Lymphocytes % (A) 3 %; MCH 27.5 pg (25.0-35.0); MCHC 30.6 g/dL (31.0-37.0); MCV 89.8 fL (80.0-100.0); Mean Platelet Volume 7.4; Monocytes # (A) 0.6 k/uL (0-1.0); Monocytes % (A) 8 %; Neutrophils # (A) 5.8 k/uL (1.3-7.7); Neutrophils % (A) 80 %; Platelet Count 165 k/uL (150-450); RBC 3.63 m/uL (4.30-5.90); RDW 16.8 % (11.5-15.5); WBC 7.2 k/uL (3.8-10.6)
[2018-09-12 07:32] LABS: Glucose,Whole Blood 84 mg/dL (75-99)
[2018-09-12 07:35] LABS: Anion Gap 4 mmol/L; Blood Urea Nitrogen 13 mg/dL (9-20); Calcium 9.1 mg/dL (8.4-10.2); Carbon Dioxide 35 mmol/L (22-30); Chloride 104 mmol/L (98-107); Glucose 67 mg/dL (74-99); Potassium 3.2 mmol/L (3.5-5.1); Sodium 143 mmol/L (137-145)
[2018-09-12] MEDS: FUROSEMIDE 20 MG TAB PO SCH (08:47)
[2018-09-12] MEDS: ISOSORBIDE MONONITRATE ER 30 MG TAB.ER.24H PO SCH (08:47)
[2018-09-12] MEDS: LISINOPRIL 20 MG TAB PO SCH (08:47)
[2018-09-12] MEDS: METOPROLOL TARTRATE 50 MG TAB PO SCH (08:47)
[2018-09-12] MEDS: GABAPENTIN 300 MG CAP PO SCH (08:47)
[2018-09-12] MEDS: ATORVASTATIN 40 MG TAB PO SCH (08:48)
[2018-09-12] MEDS: metFORMIN 850 MG TAB PO SCH ×2 (08:48→12:50)
[2018-09-12] MEDS: glipiZIDE 10 MG TAB PO SCH (08:48)
[2018-09-12] MEDS: CHOLECALCIFEROL 1,000 UNIT TAB PO SCH (08:48)
[2018-09-12] MEDS: PANTOPRAZOLE 40 MG TABLET PO SCH (08:48)
[2018-09-12] MEDS: APIXABAN 5 MG TAB PO SCH (08:52)
[2018-09-12] MEDS: SYMBICORT 160-4.5 MCG INHALER INHALATION SCH (08:55)
[2018-09-12] MEDS: IPRATROPIUM-ALBUTEROL 3 ML NEB INHALATION SCH ×2 (08:55→12:40)
[2018-09-12] MEDS: INSULIN ASPART (NovoLOG) 100 UNIT/ML VIAL SQ SCH ×2 (08:58→13:02)
[2018-09-12 11:24] LABS: Glucose,Whole Blood 220 mg/dL (75-99)
[2018-09-12 12:29] VITALS: BP 120/65; PULSE 95; RESP 18
[2018-09-12] MEDS: MULTIVITAMINS, THERA 1 EACH TAB PO SCH (12:50)
[2018-09-12] MEDS: cloNIDine HCL 0.1 MG TAB PO SCH (12:50)
[2018-09-12] MEDS: lamoTRIgine 100 MG TAB PO SCH (12:50)
[2018-09-12] MEDS: ARIPiprazole 15 MG TAB PO SCH (12:50)
--- NOTE | 2018-09-12 16:07 | P.DS ---
Providers Date of admission: 09/08/18 15:27 Attending physician: Elver Matute Primary care physician: Evler Matute Hospital Course: 68-year-old male was admitted for fever etiology of his sepsis is unknown patient was receiving chemotherapy. Patient is on empiric antibiotics Zosyn and his fever resolved patient is being discharged on Augmentin. Patient does clinically received Lasix 1 time yesterday for pulmonary edema possibly because of IV fluids she was receiving. Patient is being discharged today in stable medical condition to home. PHYSICAL EXAMINATION: GENERAL: The patient is alert and oriented x3, not in any acute distress. Well developed, well nourished. HEENT: Pupils are round and equally reacting to light. EOMI. No scleral icterus. No conjunctival pallor. Normocephalic, atraumatic. No pharyngeal erythema. No thyromegaly. CARDIOVASCULAR: S1 and S2 present. No murmurs, rubs, or gallops. PULMONARY: Chest is clear to auscultation, no wheezing or crackles. ABDOMEN: Soft, nontender, nondistended, normoactive bowel sounds. No palpable organomegaly. MUSCULOSKELETAL: No joint swelling or deformity. EXTREMITIES: No cyanosis, clubbing, or pedal edema. NEUROLOGICAL: Gross neurological examination did not reveal any focal deficits. SKIN: No rashes. For rest of the other chronic medical problems hospitalization course please refer to dictation of progress note from Dr. Matute Patient Condition at Discharge: Fair Plan - Discharge Summary Discharge Rx Participant: No New Discharge Prescriptions: New Amoxic-Pot Clav 500-125 mg [Augmentin 500-125 mg] 1 tab PO Q12HR #14 tab Continue Furosemide [Lasix] 20 mg PO BID lamoTRIgine [LaMICtal] 100 mg PO DAILY@1200 glipiZIDE [Glucotrol] 10 mg PO AC-BID cloNIDine HCL [Catapres] 0.1 mg PO QAM@1200 metFORMIN HCL [Glucophage] 850 mg PO TID-W/MEALS Albuterol Inhaler [Ventolin Hfa Inhaler] 2 puff INHALATION RT-Q6H PRN PRN Reason: Shortness Of Breath ARIPiprazole [Abilify] 30 mg PO DAILY@1200 Cholecalciferol [Vitamin D3] 2,000 unit PO DAILY Niacin [Niacin ER] 750 mg PO HS Zolpidem Tartrate [Ambien] 10 mg PO HS Multivitamin [Men's Multi-Vitamin] 1 tab PO DAILY ALPRAZolam [Xanax] 0.5 mg PO QID PRN PRN Reason: Anxiety Albuterol Nebulized [Ventolin Nebulized] 2.5 mg INHALATION RT-QID PRN PRN Reason: sob lamoTRIgine [LaMICtal] 50 mg PO HS Atorvastatin [Lipitor] 40 mg PO DAILY #30 tab Isosorbide Mononitrate ER [Imdur] 30 mg PO DAILY #30 tab Lisinopril [Zestril] 20 mg PO BID Allopurinol [Zyloprim] 300 mg PO HS Apixaban [Eliquis] 5 mg PO BID Insulin Glargine [Lantus] 50 unit SQ HS Gabapentin [Neurontin] 600 mg PO TID Metoprolol Tartrate [Lopressor] 100 mg PO BID Insulin Glargine,Hum.rec.anlog [Lantus Solostar] 50 unit SQ DAILY Discharge Medication List Furosemide [Lasix] 20 mg PO BID 10/08/13 [History] glipiZIDE [Glucotrol] 10 mg PO AC-BID 10/08/13 [History] lamoTRIgine [LaMICtal] 100 mg PO DAILY@1200 10/08/13 [History] cloNIDine HCL [Catapres] 0.1 mg PO QAM@1200 01/07/14 [History] metFORMIN HCL [Glucophage] 850 mg PO TID-W/MEALS 07/12/15 [History] ARIPiprazole [Abilify] 30 mg PO DAILY@1200 05/29/16 [History] Albuterol Inhaler [Ventolin Hfa Inhaler] 2 puff INHALATION RT-Q6H PRN 05/29/16 [History] Cholecalciferol [Vitamin D3] 2,000 unit PO DAILY 05/29/16 [History] Niacin [Niacin ER] 750 mg PO HS 05/29/16 [History] Zolpidem Tartrate [Ambien] 10 mg PO HS 05/29/16 [History] Multivitamin [Men's Multi-Vitamin] 1 tab PO DAILY 09/13/16 [History] ALPRAZolam [Xanax] 0.5 mg PO QID PRN 05/16/17 [History] Albuterol Nebulized [Ventolin Nebulized] 2.5 mg INHALATION RT-QID PRN 12/22/17 [History] lamoTRIgine [LaMICtal] 50 mg PO HS 12/22/17 [History] Atorvastatin [Lipitor] 40 mg PO DAILY #30 tab 01/01/18 [Rx] Isosorbide Mononitrate ER [Imdur] 30 mg PO DAILY #30 tab 01/01/18 [Rx] Lisinopril [Zestril] 20 mg PO BID 01/15/18 [History] Allopurinol [Zyloprim] 300 mg PO HS 08/21/18 [History] Apixaban [Eliquis] 5 mg PO BID 08/21/18 [History] Insulin Glargine [Lantus] 50 unit SQ HS 08/21/18 [History] Gabapentin [Neurontin] 600 mg PO TID 09/08/18 [History] Insulin Glargine,Hum.rec.anlog [Lantus Solostar] 50 unit SQ DAILY 09/08/18 [History] Metoprolol Tartrate [Lopressor] 100 mg PO BID 09/08/18 [History] Amoxic-Pot Clav 500-125 mg [Augmentin 500-125 mg] 1 tab PO Q12HR #14 tab 09/12/18 [Rx] Follow up Appointment(s)/Referral(s): Elver Matute DO [Primary Care Provider] - 3 Days (Patient to call Dr. Matute's office Friday morning to schedule follow up appointment. The office is closed at time of discharge. ) Patient Instructions/Handouts: Amoxicillin/Clavulanate Potassium (By mouth), Fever in Adults (ED), Leukocytosis (DC) Discharge Disposition: HOME SELF-CARE
--- NOTE | 2018-09-15 12:19 | CDI ---
Documentation Clarification Form Date: 09/15/2018 11:09:00 AM From: Itzel Amador Aida Manzo, Digital Artist Hours-8:30 am & 5 pm M-F Admit Date: 09/08/2018 3:27:00 PM Patient Name: Papi Patel Visit Number: [id number] Discharge Date: 09/12/2018 3:22:00 PM ATTENTION: The Clinical Documentation Specialists (CDI) and [facility] Coding Staff appreciate your assistance in clarifying documentation. Please respond to the clarification below the line at the bottom and electronically sign. The CDI & [facility] Coding staff will review the response and follow-up if needed. Please note: Queries are made part of the Legal Health Record. If you have any questions, please contact the author of this message via ITS. Dr. Elver Matute Fever is documented in the ED, PNs, H&P, DS History/Risk Factors: Lymphoma, Chemo, DM, HTN Clinical Indicators: WBC 12.5, 9.9 X-ray: No infiltrate Labs/Microbiology reports: Blood Culture- No Growth Temperature: 101.2 Vitals on admission: T 101.0, BP 138/84, RR 18, DC 120 Other Clinical Indicators: Treatment: IV Abx In order to accurately reflect the patients severity of condition; please indicate the cause of this patients symptom of fever, if known. Fever secondary to / due to (please specify): Fever secondary to Chemo Fever secondary to Sepsis Fever of unknown origin Other, please specify Unable to determine MTDD
== END 2018-09-12 15:22 | disposition home or self-care (01) | DRG 864 ==
LOC: EC 11:37 → 3NMEDONC 15:27
PROVIDERS: ADMIT Family Medicine; ATTEND Family Medicine
DX: R50.2 Drug induced fever (principal); J81.1 Chronic pulmonary edema; C85.90 Non-Hodgkin lymphoma, unspecified, unspecified site; M48.54XA Collapsed vertebra, not elsewhere classified, thoracic region, initial encounter for fracture; I48.2 Chronic atrial fibrillation; E11.42 Type 2 diabetes mellitus with diabetic polyneuropathy; B02.9 Zoster without complications; D64.81 Anemia due to antineoplastic chemotherapy; D72.829 Elevated white blood cell count, unspecified; I25.2 Old myocardial infarction; I25.10 Atherosclerotic heart disease of native coronary artery without angina pectoris; I10 Essential (primary) hypertension; E78.5 Hyperlipidemia, unspecified; F31.9 Bipolar disorder, unspecified; G40.909 Epilepsy, unspecified, not intractable, without status epilepticus; M19.90 Unspecified osteoarthritis, unspecified site; K57.90 Diverticulosis of intestine, part unspecified, without perforation or abscess without bleeding; H93.19 Tinnitus, unspecified ear; F43.10 Post-traumatic stress disorder, unspecified; G89.3 Neoplasm related pain (acute) (chronic); R06.89 Other abnormalities of breathing; D63.8 Anemia in other chronic diseases classified elsewhere; T45.1X5A Adverse effect of antineoplastic and immunosuppressive drugs, initial encounter; L40.9 Psoriasis, unspecified; Z90.49 Acquired absence of other specified parts of digestive tract; Z79.899 Other long term (current) drug therapy; Z79.4 Long term (current) use of insulin; Z79.01 Long term (current) use of anticoagulants; Z87.891 Personal history of nicotine dependence; Z80.1 Family history of malignant neoplasm of trachea, bronchus and lung; Z86.73 Personal history of transient ischemic attack (TIA), and cerebral infarction without residual deficits; Z85.828 Personal history of other malignant neoplasm of skin
CPT/HCPCS: 36415; 71046; 80048; 80053; 81003; 83605; 83615; 83735; 84100; 84484; 84550; 85025; 85610; 85730; 87040; 87502; 93005; 94640; 94760; 96361; 96365; 96366; 99285

== ENCOUNTER 2018-09-16 16:17 | Inpatient (IN) | payer MEDICARE, OTHER ==
[2018-09-16] MEDS ORDERED: SODIUM CHLORIDE 0.9% 1,000 ML IV STA (16:44)
[2018-09-16] MEDS ORDERED: SODIUM CHLORIDE 0.9% 500 ML 500 ML IV STA (16:44)
--- NOTE | 2018-09-16 16:49 | ED ---
Fever HPI - General Chief Complaint: Fever Stated Complaint: Spinal fracture pain, fever Time Seen by Provider: 09/16/18 16:34 Source: patient, family, RN notes reviewed, old records reviewed Mode of arrival: ambulatory Limitations: no limitations - History of Present Illness Initial Comments: This is a 68-year-old male with a history of diffuse large B-cell lymphoma among other medical issues who was brought in today because of fever and back pain. Last week and a temperature 102 today's a low grade temperature he was noted have decreased blood pressure he has neuropathic fractures that were discovered today on x-rays done outpatient. Complains of back pain decrease appetite unsteady on his feet. He denies any chills or sweats he has had a nonproductive cough. He also is had some rhinorrhea. No other modifying factors at this time MD Complaint: fever, weakness, other - Related Data Home Medications Medication Instructions Recorded Confirmed Furosemide [Lasix] 20 mg PO BID 10/08/13 09/16/18 glipiZIDE [Glucotrol] 10 mg PO AC-BID 10/08/13 09/16/18 lamoTRIgine [LaMICtal] 100 mg PO DAILY@1200 10/08/13 09/16/18 cloNIDine HCL [Catapres] 0.1 mg PO DAILY@1200 01/07/14 09/16/18 metFORMIN HCL [Glucophage] 850 mg PO AC-TID 07/12/15 09/16/18 ARIPiprazole [Abilify] 30 mg PO DAILY@1200 05/29/16 09/16/18 Albuterol Inhaler [Ventolin Hfa 2 puff INHALATION RT-Q6H PRN 05/29/16 09/16/18 Inhaler] Cholecalciferol [Vitamin D3] 2,000 unit PO DAILY 05/29/16 09/16/18 Niacin [Niacin ER] 750 mg PO HS 05/29/16 09/16/18 Zolpidem Tartrate [Ambien] 10 mg PO HS 05/29/16 09/16/18 Multivitamin [Men's Multi-Vitamin] 1 tab PO DAILY 09/13/16 09/16/18 ALPRAZolam [Xanax] 0.5 mg PO QID PRN 05/16/17 09/16/18 Albuterol Nebulized [Ventolin 2.5 mg INHALATION RT-QID PRN 12/22/17 09/16/18 Nebulized] lamoTRIgine [LaMICtal] 50 mg PO HS 12/22/17 09/16/18 Lisinopril [Zestril] 20 mg PO BID 01/15/18 09/16/18 Allopurinol [Zyloprim] 300 mg PO HS 08/21/18 09/16/18 Apixaban [Eliquis] 5 mg PO BID 08/21/18 09/16/18 Insulin Glargine [Lantus] 50 unit SQ HS 08/21/18 09/16/18 Gabapentin [Neurontin] 600 mg PO TID 09/08/18 09/16/18 Metoprolol Tartrate [Lopressor] 100 mg PO BID 09/08/18 09/16/18 Previous Rx's Medication Instructions Recorded Atorvastatin [Lipitor] 40 mg PO DAILY #30 tab 01/01/18 Isosorbide Mononitrate ER [Imdur] 30 mg PO DAILY #30 tab 01/01/18 Amoxic-Pot Clav 500-125 mg 1 tab PO Q12HR #14 tab 09/12/18 [Augmentin 500-125 mg] Allergies Allergy/AdvReac Type Severity Reaction Status Date / Time meperidine [From Demerol] Allergy Hallucinati Verified 09/16/18 17:17 ons Review of Systems ROS Statement: Those systems with pertinent positive or pertinent negative responses have been documented in the HPI. ROS Other: All systems not noted in ROS Statement are negative. 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, peripheral neuropathy bilateral feet(causes balance problems at times) and hands, exposure to agent orange, last known seizure 1989, psoriasis, Shingles 2013, TINNITUS; TIA-10 yrs ago-no effects, diverticulosis, diverticulitis, hx pancreatitis, hx cellulitis 2011, heart murmer, gout Last Myocardial Infarction Date:: 12/26/17 History of Any Multi-Drug Resistant Organisms: None Reported Past Surgical History: Bowel Resection, Cardiac Ablation, Cholecystectomy, Heart Catheterization, Tonsillectomy Additional Past Surgical History / Comment(s): pancreas surgery, Biopsy of right arm mass, CERVICAL CORE BX LYMPH NODE, bronchoscopy with biopsy, pilonidial cyst surgery x 3, L foot ulcer with debridements, RT BUTTOCK CA REMOVED. HX OF PORT A CATHETER/later removed Past Anesthesia/Blood Transfusion Reactions: Previous Problems w/ Anesthesia Additional Past Anesthesia/Blood Transfusion Reaction / Comment(s): hallucination with last surgery with demerol Past Psychological History: Anxiety, Bipolar, Depression, PTSD Smoking Status: Former smoker Past Alcohol Use History: None Reported Past Drug Use History: None Reported - Past Family History Father Family Medical History: Cancer Additional Family Medical History / Comment(s): lung cancer Mother Family Medical History: Cancer Additional Family Medical History / Comment(s): lung cancer General Exam - General Exam Comments Initial Comments: This is a well-developed well-nourished awake alert oriented times female Limitations: no limitations General appearance: alert, in no apparent distress Head exam: Present: atraumatic, normocephalic, normal inspection Eye exam: Present: normal appearance, PERRL, EOMI. Absent: scleral icterus, conjunctival injection, periorbital swelling ENT exam: Present: mucous membranes dry Neck exam: Present: normal inspection. Absent: tenderness, meningismus, lymphadenopathy Respiratory exam: Present: normal lung sounds bilaterally. Absent: respiratory distress, wheezes, rales, rhonchi, stridor Cardiovascular Exam: Present: tachycardia, irregular rhythm. Absent: systolic murmur, diastolic murmur, rubs, gallop, clicks GI/Abdominal exam: Present: soft, tenderness (Rate up her quadrant abdominal pain no guarding rebound masses or bruits), normal bowel sounds. Absent: distended, guarding, rebound, rigid Extremities exam: Present: full ROM, normal capillary refill, pedal edema. Absent: tenderness, joint swelling, calf tenderness Back exam: Present: normal inspection, tenderness. Absent: full ROM Neurological exam: Present: alert, oriented X3, CN II-XII intact Psychiatric exam: Present: normal affect, normal mood Skin exam: Present: warm, dry, intact, normal color, pallor. Absent: rash Course Vital Signs 09/16/18 09/16/18 09/16/18 16:28 16:38 16:40 Temperature 98.7 F Pulse Rate 105 H 122 H 101 H Respiratory 20 30 H 27 H Rate Blood Pressure 93/51 95/67 O2 Sat by Pulse 97 94 L Oximetry 09/16/18 09/16/18 09/16/18 16:50 17:00 17:10 Temperature Pulse Rate 109 H 109 H 110 H Respiratory 22 20 21 Rate Blood Pressure 95/67 95/67 94/63 O2 Sat by Pulse Oximetry 09/16/18 09/16/18 09/16/18 17:20 17:30 17:40 Temperature Pulse Rate 111 H 105 H 120 H Respiratory 22 23 19 Rate Blood Pressure 94/63 94/63 99/64 O2 Sat by Pulse 94 L 92 L Oximetry 09/16/18 09/16/18 09/16/18 17:50 18:00 18:10 Temperature Pulse Rate 105 H 105 H 112 H Respiratory 19 16 17 Rate Blood Pressure 99/64 99/64 104/65 O2 Sat by Pulse 91 L 89 L 90 L Oximetry 09/16/18 09/16/18 09/16/18 18:20 18:30 18:40 Temperature Pulse Rate 112 H 120 H 108 H Respiratory 15 15 14 Rate Blood Pressure 104/65 104/65 98/62 O2 Sat by Pulse 90 L 91 L 93 L Oximetry - Reevaluation(s) Reevaluation #1: 09/16/18 16:48 Patient did have blood work done today like count was 6.6 hemoglobin level X.2 platelet count 273,000 Medical Decision Making - Medical Decision Making Patient is demonstrating hypokalemia as well as low potassium and magnesium. Demonstrate no fever no overt she department. I did discuss case with him and his as well as Dr. velasco facial be admitted for IV hydration and electrolyte replenishment. - Lab Data Result diagrams: 09/16/18 16:50 Lab Results 09/16/18 09/16/18 09/16/18 Range/Units 16:50 16:50 16:50 Sodium 141 (137-145) mmol/L Potassium 3.3 L (3.5-5.1) mmol/L Chloride 100 (98-107) mmol/L Carbon Dioxide 33 H (22-30) mmol/L Anion Gap 8 mmol/L BUN 17 (9-20) mg/dL Creatinine 0.85 (0.66-1.25) mg/dL Est GFR (CKD-EPI)AfAm >90 (>60 ml/min/1.73 sqM) Est GFR (CKD-EPI)NonAf >90 (>60 ml/min/1.73 sqM) Glucose 74 (74-99) mg/dL Plasma Lactic Acid Godwin 1.2 (0.7-2.0) mmol/L Calcium 9.5 (8.4-10.2) mg/dL Magnesium 1.6 (1.6-2.3) mg/dL Total Bilirubin 0.4 (0.2-1.3) mg/dL AST 32 (17-59) U/L ALT 37 (21-72) U/L Alkaline Phosphatase 105 (38-126) U/L Total Creatine Kinase 29 L (55-170) U/L CK-MB (CK-2) 1.2 (0.0-2.4) ng/mL CK-MB (CK-2) Rel Index 4.1 Troponin I <0.012 (0.000-0.034) ng/mL Total Protein 5.7 L (6.3-8.2) g/dL Albumin 3.5 (3.5-5.0) g/dL Urine Color Urine Appearance (Clear) Urine pH (5.0-8.0) Ur Specific Esmond (1.001-1.035) Urine Protein (Negative) Urine Glucose (UA) (Negative) Urine Ketones (Negative) Urine Blood (Negative) Urine Nitrite (Negative) Urine Bilirubin (Negative) Urine Urobilinogen (<2.0) mg/dL Ur Leukocyte Esterase (Negative) Urine RBC (0-5) /hpf Urine WBC (0-5) /hpf Hyaline Casts (0-2) /lpf Urine Mucus (None) /hpf Influenza Type A RNA (Not Detectd) Influenza Type B (PCR) (Not Detectd) 09/16/18 09/16/18 Range/Units 16:50 19:35 Sodium (137-145) mmol/L Potassium (3.5-5.1) mmol/L Chloride (98-107) mmol/L Carbon Dioxide (22-30) mmol/L Anion Gap mmol/L BUN (9-20) mg/dL Creatinine (0.66-1.25) mg/dL Est GFR (CKD-EPI)AfAm (>60 ml/min/1.73 sqM) Est GFR (CKD-EPI)NonAf (>60 ml/min/1.73 sqM) Glucose (74-99) mg/dL Plasma Lactic Acid Godwin (0.7-2.0) mmol/L Calcium (8.4-10.2) mg/dL Magnesium (1.6-2.3) mg/dL Total Bilirubin (0.2-1.3) mg/dL AST (17-59) U/L ALT (21-72) U/L Alkaline Phosphatase (38-126) U/L Total Creatine Kinase (55-170) U/L CK-MB (CK-2) (0.0-2.4) ng/mL CK-MB (CK-2) Rel Index Troponin I (0.000-0.034) ng/mL Total Protein (6.3-8.2) g/dL Albumin (3.5-5.0) g/dL Urine Color Yellow Urine Appearance Clear (Clear) Urine pH 5.5 (5.0-8.0) Ur Specific Esmond 1.023 (1.001-1.035) Urine Protein 1+ H (Negative) Urine Glucose (UA) Negative (Negative) Urine Ketones Negative (Negative) Urine Blood Negative (Negative) Urine Nitrite Negative (Negative) Urine Bilirubin Negative (Negative) Urine Urobilinogen <2.0 (<2.0) mg/dL Ur Leukocyte Esterase Negative (Negative) Urine RBC 1 (0-5) /hpf Urine WBC 2 (0-5) /hpf Hyaline Casts 1 (0-2) /lpf Urine Mucus Few H (None) /hpf Influenza Type A RNA Not Detected (Not Detectd) Influenza Type B (PCR) Not Detected (Not Detectd) - EKG Data -: EKG Interpreted by Me (Atrial fibrillationVentricular response rate of 117 QRS 80 QT since QTC) - Radiology Data Radiology results: report reviewed (Imaging shows no acute findings.), image r eviewed Disposition Clinical Impression: Dehydration, Back pain, Hypokalemia, Lymphoma, Diffuse large B cell lymphoma Disposition: ADMITTED IP TO THIS HOSP Condition: Fair Referrals: Elver Matute DO [Primary Care Provider] - 1-2 days
[2018-09-16] MEDS ORDERED: HYDROmorphone 1 MG/ML 1 ML SYRINGE IVP STA (17:10)
[2018-09-16 17:32] LABS: ALT 37 U/L (21-72); AST 32 U/L (17-59); Albumin 3.5 g/dL (3.5-5.0); Alkaline Phosphatase 105 U/L (38-126); Anion Gap 8 mmol/L; Blood Urea Nitrogen 17 mg/dL (9-20); Calcium 9.5 mg/dL (8.4-10.2); Carbon Dioxide 33 mmol/L (22-30); Chloride 100 mmol/L (98-107); Glucose 74 mg/dL (74-99); Magnesium 1.6 mg/dL (1.6-2.3); Potassium 3.3 mmol/L (3.5-5.1); Sodium 141 mmol/L (137-145); Total Bilirubin 0.4 mg/dL (0.2-1.3); Total Protein 5.7 g/dL (6.3-8.2)
[2018-09-16 17:41] LABS: Creatine Kinase 29 U/L (55-170)
[2018-09-16 17:53] LABS: Creatine Kinase MB 1.2 ng/mL (0.0-2.4); Troponin I <0.012 ng/mL (0.000-0.034)
[2018-09-16] MEDS ORDERED: MAGNESIUM SULFATE-D5W PMX 1 GM in DEXTROSE/WATER 1 100ML.BAG IVPB ONE (18:52)
--- NOTE | 2018-09-16 19:52 | XR ---
EXAMINATION: XR chest 2V DATE AND TIME: 09/16/2018 6:59 PM CLINICAL INDICATION: PHH; cough TECHNIQUE: Departmental protocol COMPARISON: 09/11/2018 FINDINGS: Right subclavian catheter tip superimposed over the mid SVC. EKG leads. The lungs are clear. The pleural spaces are negative. The cardiac silhouette is not enlarged. The rem ainder of the mediastinal silhouette is unremarkable. The skeletal structures and soft tissues are ne gative for acute findings. IMPRESSION: NO ACUTE PROCESS.
[2018-09-16 20:14] LABS: Appearance,Urine Clear (Clear); Bilirubin,Urine Negative (Negative); Blood,Urine Negative (Negative); Color,Urine Yellow; Glucose,Urine (UA) Negative (Negative); Hyaline Casts,Urine 1 /lpf (0-2); Ketones,Urine Negative (Negative); Leukocyte Esterase,Urine Negative (Negative); Mucus,Urine Few /hpf; Nitrite,Urine Negative (Negative); PH, Urine 5.5 (5.0-8.0); Protein,Urine 1+ (Negative); RBC,Urine 1 /hpf (0-5); Specific Gravity,Urine 1.023 (1.001-1.035); Urobilinogen,Urine <2.0 mg/dL (<2.0)
[2018-09-16] MEDS ORDERED: NALOXONE 0.4 MG/ML 1 ML VIAL IV PRN (20:30)
[2018-09-16] MEDS: ALBUTEROL NEBULIZED 2.5 MG/3 ML INHALATION PRN (20:49)
[2018-09-16] MEDS ORDERED: FUROSEMIDE 20 MG TAB PO SCH (21:00)
[2018-09-16] MEDS: APIXABAN 5 MG TAB PO SCH (22:31)
[2018-09-16] MEDS: lamoTRIgine 25 MG TAB PO SCH (22:32)
[2018-09-16] MEDS: GABAPENTIN 300 MG CAP PO SCH (22:32)
[2018-09-16] MEDS: AMOXIC-POT CLAV 500-125 MG 1 EACH TAB PO SCH (22:32)
[2018-09-16] MEDS: LISINOPRIL 20 MG TAB PO SCH (22:33)
[2018-09-16] MEDS: INSULIN DETEMIR (LEVEMIR) 100 UNIT/ML SYR SQ SCH (22:34)
[2018-09-16] MEDS: NIACIN TR 250 MG CAPSULE.ER PO SCH (22:35)
[2018-09-16] MEDS: ZOLPIDEM 10 MG TAB PO SCH (22:35)
[2018-09-16] MEDS: METOPROLOL TARTRATE 50 MG TAB PO SCH (22:35)
[2018-09-16 22:41] LABS: Glucose,Whole Blood 117 mg/dL (75-99)
[2018-09-16] MEDS: HYDROmorphone 1 MG/ML 1 ML SYRINGE IVP PRN (23:21)
[2018-09-17] MEDS: ALLOPURINOL 300 MG TAB PO SCH ×2 (01:31→23:12)
[2018-09-17] MEDS: HYDROmorphone 1 MG/ML 1 ML SYRINGE IVP PRN (04:59)
[2018-09-17] MEDS: ALBUTEROL NEBULIZED 2.5 MG/3 ML INHALATION PRN ×3 (07:36→19:29)
[2018-09-17] MEDS ORDERED: ACETAMINOPHEN TAB 500 MG TAB PO STA (07:54)
[2018-09-17] MEDS: GABAPENTIN 300 MG CAP PO SCH ×3 (09:19→21:29)
[2018-09-17] MEDS: APIXABAN 5 MG TAB PO SCH ×2 (09:19→21:29)
[2018-09-17] MEDS: LISINOPRIL 20 MG TAB PO SCH (09:19)
[2018-09-17] MEDS: METOPROLOL TARTRATE 50 MG TAB PO SCH ×2 (09:19→21:28)
[2018-09-17] MEDS: ISOSORBIDE MONONITRATE ER 30 MG TAB.ER.24H PO SCH (09:20)
[2018-09-17 09:47] LABS: Glucose,Whole Blood 138 mg/dL (75-99)
[2018-09-17 10:21] LABS: Glucose,Whole Blood 140 mg/dL (75-99)
[2018-09-17] MEDS: metFORMIN 850 MG TAB PO SCH ×3 (10:34→18:27)
[2018-09-17] MEDS: glipiZIDE 10 MG TAB PO SCH ×2 (10:34→18:26)
[2018-09-17] MEDS: ATORVASTATIN 40 MG TAB PO SCH (10:34)
[2018-09-17] MEDS: CHOLECALCIFEROL 1,000 UNIT TAB PO SCH (10:35)
[2018-09-17 10:41] LABS: Anisocytosis Slight; Basophils % (A) 1 %; Eosinophils # (A) 0.3 k/uL (0-0.7); Eosinophils % (A) 4 %; HCT 29.2 % (39.0-53.0); HGB 9.8 gm/dL (13.0-17.5); Hypochromasia Slight; Lymphocytes # (A) 0.2 k/uL (1.0-4.8); Lymphocytes % (A) 3 %; MCH 29.3 pg (25.0-35.0); MCHC 33.7 g/dL (31.0-37.0); MCV 86.9 fL (80.0-100.0); Mean Platelet Volume 7.6; Monocytes # (A) 0.5 k/uL (0-1.0); Monocytes % (A) 7 %; Neutrophils # (A) 5.3 k/uL (1.3-7.7); Neutrophils % (A) 82 %; Platelet Count 222 k/uL (150-450); RBC 3.36 m/uL (4.30-5.90); RDW 16.6 % (11.5-15.5); WBC 6.5 k/uL (3.8-10.6)
[2018-09-17 11:09] LABS: Anion Gap 4 mmol/L; Blood Urea Nitrogen 13 mg/dL (9-20); Calcium 8.6 mg/dL (8.4-10.2); Carbon Dioxide 31 mmol/L (22-30); Chloride 105 mmol/L (98-107); Glucose 113 mg/dL (74-99); Sodium 140 mmol/L (137-145)
[2018-09-17 11:10] LABS: Potassium 3.7 mmol/L (3.5-5.1)
[2018-09-17] MEDS: KETOROLAC 30 MG/ML 1 ML VIAL IVP PRN ×3 (11:21→21:37)
[2018-09-17] MEDS: AMOXIC-POT CLAV 500-125 MG 1 EACH TAB PO SCH ×2 (11:23→23:14)
[2018-09-17] MEDS: cloNIDine HCL 0.1 MG TAB PO SCH (12:51)
[2018-09-17] MEDS: MULTIVITAMINS, THERA 1 EACH TAB PO SCH (12:56)
[2018-09-17] MEDS: lamoTRIgine 100 MG TAB PO SCH (12:56)
[2018-09-17] MEDS: SODIUM CHLORIDE 0.9% 1,000 ML IV SCH (13:25)
[2018-09-17] MEDS: ARIPiprazole 15 MG TAB PO SCH (14:12)
[2018-09-17] MEDS ORDERED: ACETAMINOPHEN TAB 325 MG TAB PO PRN (14:13)
[2018-09-17] MEDS: DIGOXIN 250 MCG TAB PO SCH (14:13)
[2018-09-17] MEDS: MAGNESIUM SULFATE-D5W PMX 1 GM in DEXTROSE/WATER 1 100ML.BAG IVPB SCH ×2 (16:33→18:26)
--- NOTE | 2018-09-17 19:20 | P.HPIM ---
History of Present Illness H&P Date: 09/17/18 Chief Complaint: Fevers, back pain, This is a 68-year-old gentleman admitted with increased weakness, fever, back pain and multiple other medical issues in a patient with history of large B cell lymphoma (non-Hodgkin's lymphoma), atrial fibrillation, [place]/coronary artery disease, diabetes mellitus, hyperlipidemia, hypertension, bipolar disorder, osteoarthritis, seizure disorder, TIA diverticulosis and multiple other medical issues. Patient recently saw PCP at the beginning of this week with increased shortness of breath, positive edema. Lasix dose temporarily increased. Patient reports he was not eating well, drinking only sandra heidi and ice tea at home. States he hasn't felt well since his second chemo. -Pathological compression fracture lower thoracic spine suspicious for metastasis, per prior chest x-ray. Unsteady, weak uses a walker.T-max 101. Blood cultures obtained. Influenza ruled out.Potassium 3.3 , BUN 17, creatinine 0.85 Chest x-ray reporting non acute. Received IV fluid bolus, IV fluid hydration, nebulized bronchodilators. Toradol added for pain. Atrial fibrillation with RVR. Lopressor ordered along cardiology consulted. Review of Systems ROS Statement: Those systems with pertinent positive or pertinent negative responses have been documented in the HPI. ROS Other: All systems not noted in ROS Statement are negative. Past Medical History Past Medical History: Atrial Fibrillation, Coronary Artery Disease (CAD), Cancer, CVA/TIA, Diabetes Mellitus, Hyperlipidemia, Hypertension, Memory Impairment, Myocardial Infarction ([place]), Osteoarthritis ([place]), Seizure Disorder, Skin Disorder Additional Past Medical History / Comment(s): Pt recently admitted to [facility] on 09/08/18 with fever/sepsis, pulmonary edema d/t IVF, pathological fracture R humeral head/T11, normocytic hypochromic anemia. 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 Last Myocardial Infarction Date:: 12/26/17 History of Any Multi-Drug Resistant Organisms: None Reported Past Surgical History: Bowel Resection, Cardiac Ablation, Cholecystectomy, Heart Catheterization, Tonsillectomy Additional Past Surgical History / Comment(s): pancreas surgery dt dual divisum- port placed, biopsy of right arm mass, cervical core biopsy lymph nodes, bronchoscopy with biopsy, pilonidial cyst surgery x 3, L foot ulcer with debridements, R buttock cancer removal, ports with current port placed 08/27/18, bowel resection partial omenectomy d/t diverticulitis, ARIANNA, picc lines, colonoscopy/polypectomy-benign. Past Anesthesia/Blood Transfusion Reactions: Previous Problems w/ Anesthesia Additional Past Anesthesia/Blood Transfusion Reaction / Comment(s): hallucination with last surgery with demerol Smoking Status: Former smoker - Past Family History Father Family Medical History: Cancer Additional Family Medical History / Comment(s): Lung cancer. Father was a smoker Mother Family Medical History: Cancer Additional Family Medical History / Comment(s): Lung cancer. Mother was a smoker. Medications and Allergies Home Medications Medication Instructions Recorded Confirmed Type Furosemide [Lasix] 20 mg PO BID 10/08/13 09/16/18 History glipiZIDE [Glucotrol] 10 mg PO AC-BID 10/08/13 09/16/18 History lamoTRIgine [LaMICtal] 100 mg PO DAILY@1200 10/08/13 09/16/18 History cloNIDine HCL [Catapres] 0.1 mg PO DAILY@1200 01/07/14 09/16/18 History metFORMIN HCL [Glucophage] 850 mg PO AC-TID 07/12/15 09/16/18 History ARIPiprazole [Abilify] 30 mg PO DAILY@1200 05/29/16 09/16/18 History Albuterol Inhaler [Ventolin Hfa 2 puff INHALATION RT-Q6H PRN 05/29/16 09/16/18 History Inhaler] Cholecalciferol [Vitamin D3] 2,000 unit PO DAILY 05/29/16 09/16/18 History Niacin [Niacin ER] 750 mg PO HS 05/29/16 09/16/18 History Zolpidem Tartrate [Ambien] 10 mg PO HS 05/29/16 09/16/18 History Multivitamin [Men's Multi-Vitamin] 1 tab PO DAILY 09/13/16 09/16/18 History ALPRAZolam [Xanax] 0.5 mg PO QID PRN 05/16/17 09/16/18 History Albuterol Nebulized [Ventolin 2.5 mg INHALATION RT-QID PRN 12/22/17 09/16/18 Hi story Nebulized] lamoTRIgine [LaMICtal] 50 mg PO HS 12/22/17 09/16/18 History Atorvastatin [Lipitor] 40 mg PO DAILY #30 tab 01/01/18 09/16/18 Rx Isosorbide Mononitrate ER [Imdur] 30 mg PO DAILY #30 tab 01/01/18 09/16/18 Rx Lisinopril [Zestril] 20 mg PO BID 01/15/18 09/16/18 History Allopurinol [Zyloprim] 300 mg PO HS 08/21/18 09/16/18 History Apixaban [Eliquis] 5 mg PO BID 08/21/18 09/16/18 History Insulin Glargine [Lantus] 50 unit SQ HS 08/21/18 09/16/18 History Gabapentin [Neurontin] 600 mg PO TID 09/08/18 09/16/18 History Metoprolol Tartrate [Lopressor] 100 mg PO BID 09/08/18 09/16/18 History Amoxic-Pot Clav 500-125 mg 1 tab PO Q12HR #14 tab 09/12/18 09/16/18 Rx [Augmentin 500-125 mg] Allergies Allergy/AdvReac Type Severity Reaction Status Date / Time meperidine [From Demerol] Allergy Hallucinati Verified 09/16/18 17:17 ons Physical Exam Vitals: Vital Signs Temp Pulse Pulse Resp BP BP Pulse Ox 09/17/18 16:00 97.6 F 87 20 127/77 95 09/17/18 15:00 96 107/53 09/17/18 14:00 99 94/62 09/17/18 13:22 86 18 09/17/18 13:14 98 18 09/17/18 13:00 105 H 94/62 09/17/18 12:00 90 17 94/62 92 L 09/17/18 11:00 91 18 95 09/17/18 10:45 99 18 09/17/18 10:25 98.5 F 99 19 97/61 94 L 09/17/18 10:14 106 H 18 09/17/18 09:35 100.1 F H 138 H 18 127/68 93 L 09/17/18 09:00 142 H 20 127/68 09/17/18 08:00 146 H 27 H 117/68 09/17/18 07:55 101 F H 164 H 20 127/68 93 L 09/17/18 07:45 131 H 09/17/18 07:36 126 H 09/17/18 05:15 101 H 18 117/68 98 09/17/18 03:00 101 H 16 124/74 93 L 09/17/18 02:00 112 H 17 124/74 94 L 09/17/18 01:00 104 H 16 124/74 92 L 09/17/18 00:00 101 H 12 125/62 93 L 09/16/18 23:00 108 H 21 125/62 96 09/16/18 22:00 110 H 15 105/62 09/16/18 21:00 93 17 95/56 97 09/16/18 20:54 94 09/16/18 20:49 99 09/16/18 20:40 113 H 27 H 95/56 94 L 09/16/18 20:30 105 H 11 L 87/68 95 09/16/18 20:00 101 H 14 80/56 94 L 09/16/18 19:30 111 H 25 H 88/65 96 09/16/18 19:00 100 12 98/62 96 Intake and Output 09/17/18 09/17/18 09/17/18 06:59 14:59 22:59 Intake Total 300 Balance 300 Intake: Intake, IV Titration 300 Amount Sodium Chloride 0.9% 1, 300 000 ml @ 100 mls/hr IV . Q10H [facility] Rx#:[id number] Other: # Voids 1 # Bowel Movements 1 VITAL SIGNS: As above GENERAL: Sitting up in bed, alert and oriented 3 HEENT: Conjunctivae normal. eyes normal. Oral mucosa dry. NECK: No JVD. No thyroid enlargement. No LNs CARDIOVASCULAR: S1, S2 regular. Tachycardic, No murmur RESPIRATION: Breath sounds diminished in the bases. No wheezes, rhonchi or crackles. ABDOMEN: Soft, right upper quadrant around to back tenderness . No guarding. no masses palpable. No ascites, No palpable masses.Bowel sounds heard. LEGS: Mild pedal edema, PSYCHIATRY: Alert and oriented -3, mood and affect normal. NERVOUS SYSTEM: Cranial N 2-12 grossly normal. Moves all 4 limbs. Diffuse weakness. No focal deficits. Skin: no lesions, no rash Lymphatic system. No LN neck axilla or groin. Results CBC & Chem 7: 09/17/18 10:20 09/17/18 10:20 Labs: Abnormal Lab Results - Last 24 Hours (Table) 09/16/18 09/16/18 09/17/18 Range/Units 19:35 22:30 09:21 RBC (4.30-5.90) m/uL Hgb (13.0-17.5) gm/dL Hct (39.0-53.0) % RDW (11.5-15.5) % Lymphocytes # (1.0-4.8) k/uL Carbon Dioxide (22-30) mmol/L Glucose (74-99) mg/dL POC Glucose (mg/dL) 117 H 138 H (75-99) mg/dL Urine Protein 1+ H (Negative) Urine Mucus Few H (None) /hpf 09/17/18 09/17/18 09/17/18 Range/Units 10:09 10:20 10:20 RBC 3.36 L (4.30-5.90) m/uL Hgb 9.8 L (13.0-17.5) gm/dL Hct 29.2 L (39.0-53.0) % RDW 16.6 H (11.5-15.5) % Lymphocytes # 0.2 L (1.0-4.8) k/uL Carbon Dioxide 31 H (22-30) mmol/L Glucose 113 H (74-99) mg/dL POC Glucose (mg/dL) 140 H (75-99) mg/dL Urine Protein (Negative) Urine Mucus (None) /hpf Thrombosis Risk Factor Assmnt - Choose All That Apply Any of the Below Risk Factors Present?: Yes Each Factor Represents 1 point: Obesity (BMI >25) Other Risk Factors: Yes Each Risk Factor Represents 2 Points: Age 61-74 years, Malignancy Other congenital or acquired thrombophilia - If yes, enter type in comment: No Thrombosis Risk Factor Assessment Total Risk Factor Score: 5 Thrombosis Risk Factor Assessment Level: High Risk Assessment and Plan Assessment: -Fever, in a patient who had completed second chemotherapy -Dehydration -Back pain, Pathological compression fracture lower thoracic spine suspicious for metastasis, per prior chest x-ray, last visit -Non-Hodgkin's lymphoma -CAD, history of [place] -Chronic atrial fibrillation with RVR -Diabetes mellitus type 2 -Hypertension -Hyperlipidemia -Bipolar disorder -Seizure disorder -Hypokalemia Plan: Continue on current medication regime ,monitoring and symptomatic treatment. Maintain IV fluid hydration,.consult cardiology, oncology and radiation oncology .follow cultures closely. GI and DVT prophylaxis in place. Thigh-high teds ordered. Avoid opioids/narcotics as patient does not do well with these. Pain management; Toradol ,Alternate Tylenol with Motrin. Close monitoring of electrolytes, renal function, CBC with repeat labs ordered. Home meds have been reviewed and resumed. Prognosis guarded given multiple complex medical issues. The impression and plan of care has been dictated as directed. : I performed a history and examination of this patient, discussed the same with the dictator. I agree with the dictator's note ,documented as a scribe. Any additional findings or plans will be noted. Time taken: 35 minutes
[2018-09-17] MEDS: INSULIN DETEMIR (LEVEMIR) 100 UNIT/ML SYR SQ SCH (21:18)
[2018-09-17 21:25] LABS: Glucose,Whole Blood 103 mg/dL (75-99)
[2018-09-17] MEDS: PANTOPRAZOLE 40 MG/10 ML VIAL IVP SCH (21:27)
[2018-09-17] MEDS: ZOLPIDEM 10 MG TAB PO SCH (21:28)
[2018-09-17] MEDS: NIACIN TR 250 MG CAPSULE.ER PO SCH (21:29)
[2018-09-17] MEDS: lamoTRIgine 25 MG TAB PO SCH (23:12)
[2018-09-18] MEDS: ALPRAZolam 0.5 MG TAB PO PRN ×2 (04:12→21:54)
[2018-09-18] MEDS: DILTIAZEM 125 MG in SODIUM CHLORIDE 0.9% 100 ML IV SCH ×2 (05:51→14:41)
[2018-09-18 06:58] LABS: Anisocytosis Slight; Basophils % (A) 0 %; Eosinophils # (A) 0.6 k/uL (0-0.7); Eosinophils % (A) 7 %; HCT 33.9 % (39.0-53.0); HGB 10.6 gm/dL (13.0-17.5); Hypochromasia Moderate; Lymphocytes # (A) 0.2 k/uL (1.0-4.8); Lymphocytes % (A) 3 %; MCH 27.6 pg (25.0-35.0); MCHC 31.2 g/dL (31.0-37.0); MCV 88.5 fL (80.0-100.0); Mean Platelet Volume 7.6; Monocytes # (A) 0.4 k/uL (0-1.0); Monocytes % (A) 5 %; Neutrophils # (A) 6.9 k/uL (1.3-7.7); Neutrophils % (A) 83 %; Platelet Count 258 k/uL (150-450); RBC 3.83 m/uL (4.30-5.90); RDW 16.5 % (11.5-15.5); WBC 8.3 k/uL (3.8-10.6)
[2018-09-18 07:01] LABS: Anion Gap 9 mmol/L; Blood Urea Nitrogen 13 mg/dL (9-20); Calcium 9.1 mg/dL (8.4-10.2); Carbon Dioxide 25 mmol/L (22-30); Chloride 105 mmol/L (98-107); Glucose 143 mg/dL (74-99); Potassium 4.1 mmol/L (3.5-5.1); Sodium 139 mmol/L (137-145)
[2018-09-18] MEDS: SODIUM CHLORIDE 0.9% 1,000 ML IV SCH ×3 (08:00→17:17)
[2018-09-18] MEDS: glipiZIDE 10 MG TAB PO SCH ×2 (08:19→17:16)
[2018-09-18] MEDS: metFORMIN 850 MG TAB PO SCH ×3 (08:19→17:16)
[2018-09-18] MEDS: APIXABAN 5 MG TAB PO SCH ×2 (08:20→21:54)
[2018-09-18] MEDS: ATORVASTATIN 40 MG TAB PO SCH (08:20)
[2018-09-18] MEDS: CHOLECALCIFEROL 1,000 UNIT TAB PO SCH (08:20)
[2018-09-18] MEDS: DIGOXIN 250 MCG TAB PO SCH (08:21)
[2018-09-18] MEDS: ISOSORBIDE MONONITRATE ER 30 MG TAB.ER.24H PO SCH (08:21)
[2018-09-18] MEDS: LISINOPRIL 20 MG TAB PO SCH (08:21)
[2018-09-18] MEDS: GABAPENTIN 300 MG CAP PO SCH ×3 (08:21→21:56)
[2018-09-18] MEDS: METOPROLOL TARTRATE 50 MG TAB PO SCH ×2 (08:22→21:55)
[2018-09-18] MEDS: PANTOPRAZOLE 40 MG/10 ML VIAL IVP SCH (08:22)
[2018-09-18] MEDS: AMOXIC-POT CLAV 500-125 MG 1 EACH TAB PO SCH ×2 (10:16→21:53)
[2018-09-18] MEDS: KETOROLAC 30 MG/ML 1 ML VIAL IVP PRN (11:06)
[2018-09-18] MEDS: MULTIVITAMINS, THERA 1 EACH TAB PO SCH (11:09)
[2018-09-18] MEDS: ARIPiprazole 15 MG TAB PO SCH (11:09)
[2018-09-18] MEDS: lamoTRIgine 100 MG TAB PO SCH (11:10)
[2018-09-18] MEDS: cloNIDine HCL 0.1 MG TAB PO SCH (11:59)
[2018-09-18 12:53] VITALS: BMI 30.4
--- NOTE | 2018-09-18 13:42 | PN ---
PROGRESS NOTE This is a 68-year-old gentleman who is admitted to hospital with fever and back pain and symptoms related to non-Hodgkin's lymphoma and while in the hospital, had an episode of atrial fibrillation with rapid ventricular rate for which Cardiology was consulted. I adjusted his medication and started the patient on digoxin and continued the metoprolol. The patient developed atrial fibrillation with RVR yesterday and had been started on intravenous Cardizem this morning. Heart rate is better controlled and he is on Eliquis. On exam, heart rate is 96 to 110 beats per minute. Blood pressure is 150/80. Respiratory rate is 18. O2 sat is 92% on room air. There is no jugular venous distention. Chest exam reveals diminished air entry at the bases. Heart exam reveals first and second heart sounds. No gallop. Examination of extremities did not reveal any edema. Peripheral pulses are palpable Labs show that the hemoglobin is 10.6, platelet count is 258. Creatinine is 0.7. ASSESSMENT: Atrial fibrillation with rapid ventricular rate. PLAN: I will continue with the intravenous Cardizem at this time. MMODL / IJN: [id number] /
[2018-09-18] MEDS: ALBUTEROL NEBULIZED 2.5 MG/3 ML INHALATION PRN (14:34)
[2018-09-18] MEDS: HYDROmorphone 1 MG/ML 1 ML SYRINGE IVP PRN (14:35)
--- NOTE | 2018-09-18 14:41 | CONS ---
MAURICIO Turpin is a 68-year-old gentleman who is with history of non-Hodgkin's lymphoma with multiple mets, hypertension, diabetes, dyslipidemia, atrial fibrillation, coronary artery disease who presented to hospital complaining of shortness of breath, leg edema. His oral intake has been very poor. He has not been doing particularly well since his second chemo. Patient has pathological compression fracture of the lower thoracic spine. We were consulted because of atrial fibrillation with rapid ventricular rate. We started him on metoprolol. PAST MEDICAL HISTORY: Past medical history is significant for lymphoma, hypertension, diabetes, dyslipidemia, coronary artery disease, and atrial fibrillation. MEDICATIONS: Medications at home included Glucophage, Lamictal, Glucotrol, Catapres, Ambien, Lopressor, Zestril, Imdur, Lasix, Lipitor, Eliquis, Zyloprim, Abilify, and Xanax. ALLERGIES: The patient is allergic to DEMEROL. FAMILY HISTORY: Family history is negative for premature coronary artery disease. SOCIAL HISTORY: Social history is negative for smoking, EtOH abuse or drug abuse. REVIEW OF SYSTEMS: HEENT is unremarkable. CARDIAC: As described above. RESPIRATORY: As described above. GI: Negative. GENITOURINARY: Negative. ALLERGY/IMMUNOLOGY: Negative. SKIN: Negative. MUSCULOSKELETAL: Significant for arthritis. PSYCHOSOCIAL: Negative. ENDOCRINE: Negative. HEMATOLOGICAL: Negative. DERM: Negative. CONSTITUTIONAL: Negative. ONCOLOGICAL: Significant for non-Hodgkin's lymphoma. Rest of the system review is not relevant. PHYSICAL EXAMINATION: On exam, heart rate was 98 beats per minute. Blood pressure was low at 96/60, respiratory rate is 18. Chest exam reveals diminished air entry at the bases. Heart exam reveals first and second heart sounds, irregular rhythm. No murmur. Abdomen is soft. Examination of extremities reveals mild edema. Peripheral pulses are felt. LABS: Labs show anemia. Normal potassium and creatinine was normal. ASSESSMENT: 1. Chronic atrial fibrillation with poorly controlled ventricular rate. 2. Non-Hodgkin's lymphoma. PLAN: I am going to adjusted the dose of metoprolol for better rate control. This is a patient that I initially evaluated on the , but my dictation is missing so I am redictating it. MMODL / IJN: [id number] /
[2018-09-18 17:24] LABS: Glucose,Whole Blood 168 mg/dL (75-99)
--- NOTE | 2018-09-18 18:20 | P.CONS ---
History of Present Illness - Reason for Consult Consult date: 09/18/18 Non-Hodgkin's lymphoma on chemotherapy. Patient admitted with SOB/SIRS/ - History of Present Illness The patient is a 68-year-old white male well known to our service. He was initially seen in 2012 when he presented with a mass on the right forearm. Biopsy revealed diffuse large B-cell lymphoma. The patient has had multiple lines of therapy since then, including RCHOP, as well as subsequently RICE for relapse. Most recently he has been on bendamustine and Rituxan and has had that for 4 cycles with the last one given about 1 month ago. PET scan on 08/29/18 showed a response in visceral lesions but there was some concern for progression in the skeleton especially in the right humerus. The patient also has a known area of tumor in the lower T-spine. The patient was admitted on 09/08/18 with fever, and some shortness of breath. Cultures were negative and no definite source of infection was found. The hank joseph's blood counts remain in the normal range, and he defervesced rapidly with antibiotics. He was discharged home on by mouth antibiotics. The patient states that he continued to feel somewhat weak and generally unwell. He started having some recurrent shortness of breath and lower extremity swelling that did not respond to increase the Lasix as an outpatient. He also reports subjective fevers. He came in to the emergency room where he was found to have a temperature of 101. He was noted to have some LE swelling, heart rate in the 90s, and blood pressure in the 90s systolic, along with increased work of respiration. He was therefore admitted to the ICU with cultures, and IV antibiotics. He is also been seen by cardiology. The patient was complaining of significant back pain in addition. Consult was placed for further evaluation and recommendations Review of Systems Constitutional: Reports chronic pain, Reports fatigue, Reports fever, Reports weakness Eyes: denies blurred vision, denies pain Ears: deny: decreased hearing, ear discharge, earache, tinnitus Ears, nose, mouth and throat: Denies headache, Denies sore throat Cardiovascular: Reports leg edema, Reports orthopnea, Reports rapid heart beat, Reports shortness of breath Respiratory: Reports congestion, Reports dyspnea Gastrointestinal: Denies abdominal pain, Denies diarrhea, Denies nausea, Denies vomiting Genitourinary: Reports as per HPI Musculoskeletal: Reports as per HPI (Mid back pain), Reports muscle weakness Integumentary: Denies pruritus, Denies rash Neurological: Reports gait dysfunction, Reports weakness Psychiatric: Denies anxiety, Denies depression Endocrine: Reports fatigue Hematologic/Lymphatic: Reports as per HPI Past Medical History Past Medical History: Atrial Fibrillation, Coronary Artery Disease (CAD), Cancer, CVA/TIA, Diabetes Mellitus, Hyperlipidemia, Hypertension, Memory Impairment, Myocardial Infarction ([place]), Osteoarthritis (OA), Seizure Disorder, Skin Disorder Additional Past Medical History / Comment(s): Pt recently admitted to [facility] on 09/08/18 with fever/sepsis, pulmonary edema d/t IVF, pathological fracture R humeral head/T11, normocytic hypochromic anemia. 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 Last Myocardial Infarction Date:: 12/26/17 History of Any Multi-Drug Resistant Organisms: None Reported Past Surgical History: Bowel Resection, Cardiac Ablation, Cholecystectomy, Heart Catheterization, Tonsillectomy Additional Past Surgical History / Comment(s): pancreas surgery dt dual divisum- port placed, biopsy of right arm mass, cervical core biopsy lymph nodes, b ronchoscopy with biopsy, pilonidial cyst surgery x 3, L foot ulcer with debridements, R buttock cancer removal, ports with current port placed 08/27/18, bowel resection partial omenectomy d/t diverticulitis, ARIANNA, picc lines, colonoscopy/polypectomy-benign. Past Anesthesia/Blood Transfusion Reactions: Previous Problems w/ Anesthesia Additional Past Anesthesia/Blood Transfusion Reaction / Comm: hallucination with last surgery with demerol Smoking Status: Former smoker - Past Family History Father Family Medical History: Cancer Additional Family Medical History / Comment(s): Lung cancer. Father was a smoker Mother Family Medical History: Cancer Additional Family Medical History / Comment(s): Lung cancer. Mother was a smoker. Medications and Allergies Home Medications Medication Instructions Recorded Confirmed Type Furosemide [Lasix] 20 mg PO BID 10/08/13 09/16/18 History glipiZIDE [Glucotrol] 10 mg PO AC-BID 10/08/13 09/16/18 History lamoTRIgine [LaMICtal] 100 mg PO DAILY@1200 10/08/13 09/16/18 History cloNIDine HCL [Catapres] 0.1 mg PO DAILY@1200 01/07/14 09/16/18 History metFORMIN HCL [Glucophage] 850 mg PO AC-TID 07/12/15 09/16/18 History ARIPiprazole [Abilify] 30 mg PO DAILY@1200 05/29/16 09/16/18 History Albuterol Inhaler [Ventolin Hfa 2 puff INHALATION RT-Q6H PRN 05/29/16 09/16/18 History Inhaler] Cholecalciferol [Vitamin D3] 2,000 unit PO DAILY 05/29/16 09/16/18 History Niacin [Niacin ER] 750 mg PO HS 05/29/16 09/16/18 History Zolpidem Tartrate [Ambien] 10 mg PO HS 05/29/16 09/16/18 History Multivitamin [Men's Multi-Vitamin] 1 tab PO DAILY 09/13/16 09/16/18 History ALPRAZolam [Xanax] 0.5 mg PO QID PRN 05/16/17 09/16/18 History Albuterol Nebulized [Ventolin 2.5 mg INHALATION RT-QID PRN 12/22/17 09/16/18 History Nebulized] lamoTRIgine [LaMICtal] 50 mg PO HS 12/22/17 09/16/18 History Atorvastatin [Lipitor] 40 mg PO DAILY #30 tab 01/01/18 09/16/18 Rx Isosorbide Mononitrate ER [Imdur] 30 mg PO DAILY #30 tab 01/01/18 09/16/18 Rx Lisinopril [Zestril] 20 mg PO BID 01/15/18 09/16/18 History Allopurinol [Zyloprim] 300 mg PO HS 08/21/18 09/16/18 History Apixaban [Eliquis] 5 mg PO BID 08/21/18 09/16/18 History Insulin Glargine [Lantus] 50 unit SQ HS 08/21/18 09/16/18 History Gabapentin [Neurontin] 600 mg PO TID 09/08/18 09/16/18 History Metoprolol Tartrate [Lopressor] 100 mg PO BID 09/08/18 09/16/18 History Amoxic-Pot Clav 500-125 mg 1 tab PO Q12HR #14 tab 09/12/18 09/16/18 Rx [Augmentin 500-125 mg] Allergies Allergy/AdvReac Type Severity Reaction Status Date / Time meperidine [From Demerol] Allergy Hallucinati Verified 09/16/18 17:17 ons Physical Exam Vitals: Vital Signs Temp Pulse Pulse Resp BP BP Pulse Ox 09/18/18 17:00 63 110/69 97 09/18/18 16:00 98.1 F 80 14 110/69 95 09/18/18 15:00 71 110/69 94 L 09/18/18 14:46 81 09/18/18 14:34 74 09/18/18 14:00 97.5 F L 78 19 110/69 09/18/18 13:00 76 09/18/18 12:00 96 09/18/18 11:00 96 35 H 141/83 09/18/18 09:00 98.4 F 109 H 27 H 123/81 09/18/18 08:00 112 H 16 131/93 96 09/18/18 04:00 99.3 F 114 H 25 H 156/82 92 L 09/18/18 00:00 98.3 F 96 25 H 112/74 94 L 09/17/18 20:00 98.4 F 97 21 127/77 94 L 09/17/18 19:41 98 09/17/18 19:30 98 Intake and Output 09/18/18 09/18/18 09/18/18 06:59 14:59 22:59 Intake Total 600 1028.333 Output Total 500 300 Balance 100 728.333 Intake: IV 600 440 Diltiazem 125 mg In 40 Sodium Chloride 0.9% 100 ml @ 10 MG/HR 10 mls/hr IV .[id number] RYLIE Rx#: [id number] NS at 100ml/hr 400 Sodium Chloride 0.9% 1, 600 000 ml @ 75 mls/hr IV . [id number] STA Rx#:[id number] Intake, IV Titration 88.333 Amount Diltiazem 125 mg In 88.333 Sodium Chloride 0.9% 100 ml @ 10 MG/HR 10 mls/hr IV .[id number] RYLIE Rx#: [id number] Oral 500 Output: Urine 500 300 Other: Weight 113.398 kg - Constitutional General appearance: mild distress - EENT Eyes: EOMI, PERRLA ENT: hearing grossly normal, normal oropharynx - Neck Neck: no lymphadenopathy Thyroid: bilateral: normal size - Respiratory Respiratory: bilateral: diminished, wheezing - Cardiovascular Rhythm: irregularly irregular Heart sounds: normal: S1, S2 - Gastrointestinal General gastrointestinal: normal bowel sounds, soft - Integumentary Integumentary: normal - Neurologic Neurologic: CNII-XII intact - Musculoskeletal Musculoskeletal: generalized weakness, strength equal bilaterally - Psychiatric Psychiatric: A&O x's 3, appropriate affect Results CBC & Chem 7: 09/18/18 06:04 09/18/18 06:04 Labs: Abnormal Lab Results - Last 24 Hours (Table) 09/17/18 09/18/18 09/18/18 Range/Units 21:14 06:04 06:04 RBC 3.83 L (4.30-5.90) m/uL Hgb 10.6 L (13.0-17.5) gm/dL Hct 33.9 L (39.0-53.0) % RDW 16.5 H (11.5-15.5) % Lymphocytes # 0.2 L (1.0-4.8) k/uL Glucose 143 H (74-99) mg/dL POC Glucose (mg/dL) 103 H (75-99) mg/dL 09/18/18 Range/Units 17:12 RBC (4.30-5.90) m/uL Hgb (13.0-17.5) gm/dL Hct (39.0-53.0) % RDW (11.5-15.5) % Lymphocytes # (1.0-4.8) k/uL Glucose (74-99) mg/dL POC Glucose (mg/dL) 168 H (75-99) mg/dL Microbiology - Last 24 Hours (Table) 09/16/18 16:50 Blood Culture - Preliminary Blood No Growth after 24 hours Chest x-ray: report reviewed Assessment and Plan (1) SIRS (systemic inflammatory response syndrome) Narrative/Plan: The patient had presented with fever, increased heart rate and no blood pressure as well as increased work of respiration. Fever has resolved, with cultures remaining negative. He has no definite source of infection. He has been seen by cardiology, and medications had been adjusted to control heart rate better. He is also being treated for fluid overload. The patient had similar presentation with fever during his prior admission, again with no specific source of infection found. Defer to the admitting service and other consultants further management. A component of his pre sentation could be related to tumor effect. Current Visit: Yes Status: Acute Code(s): R65.10 - SIRS OF NON-INFECTIOUS ORIGIN W/O ACUTE ORGAN DYSFUNCTION SNOMED Code(s): 861951950 (2) Back pain Narrative/Plan: The patient has known metastatic disease around T11. He has been seen by radiation oncology, and the case was discussed in detail with them. Initially it was not clear if this symptom was worsening. In that case, I would have been concerned about tumor progression, as well as possible infection. However on and doing the patient today, he was quite certain that the pain was chronic but had not shown any major change. On my exam he did not have any significant tenderness in the lower thoracic spine. There was no evidence of any lower extremity weakness or loss of sensation. Radiation oncology confirmed that on the review of his most recent PET scan, there was no evidence of any cord compromise At this time therefore, we will hold off on additional testing. However if the patient develops fever of unknown origin again, and/or has increasing back pain or neurologic symptoms suggestive of cord compromise, then MRI of the T-spine will be ordered. Current Visit: Yes Status: Acute Code(s): M54.9 - DORSALGIA, UNSPECIFIED SNOMED Code(s): 551947277 (3) Diffuse large B cell lymphoma Narrative/Plan: Diagnostic and therapeutic circumstances as described above. He was supposed to have an additional cycle of chemotherapy last week, but this was held due to his hospital admission and concern for infection. Chemotherapy continues to be on hold until his current condition improves sufficiently. Prior PET scan had shown somewhat mixed response with evidence of response in the viscera, but concern for progression in the bone especially the right humerus area. The patient does not report any significant symptoms in that area currently. While his clinical presentation can be due to tumor effect, as noted, most recent imaging as well as physical exam Do not show definite evidence of the same. Therefore at this time the plan would be to resume his current regimen as and when the patient's performance status is adequate. However we will continue to monitor and evaluate depending on his clinical course. Current Visit: Yes Status: Chronic Priority: Medium Code(s): C83.30 - DIFFUSE LARGE B-CELL LYMPHOMA, UNSPECIFIED SITE SNOMED Code(s): 656205321 Plan: Defer to the admitting service and other consultants for management of his multiple other medical problems
--- NOTE | 2018-09-18 20:28 | P.PN ---
Subjective Progress Note Date: 09/18/18 This is a 68-year-old gentleman admitted with increased weakness, fever, back pain and multiple other medical issues in a patient with history of large B cell lymphoma (non-Hodgkin's lymphoma), atrial fibrillation, TN/coronary artery disease, diabetes mellitus, hyperlipidemia, hypertension, bipolar disorder, osteoarthritis, seizure disorder, TIA diverticulosis and multiple other medical issues. Patient recently saw PCP at the beginning of this week with increased shortness of breath, positive edema. Lasix dose temporarily increased. Patient reports he was not eating well, drinking only sandra heidi and ice tea at home. States he hasn't felt well since his second chemo. -Pathological compression f racture lower thoracic spine suspicious for metastasis, per prior chest x-ray. Unsteady, weak uses a walker.T-max 101. Blood cultures obtained. Influenza ruled out.Potassium 3.3 , BUN 17, creatinine 0.85 Chest x-ray reporting non acute. Received IV fluid bolus, IV fluid hydration, nebulized bronchodilators. Toradol added for pain. Atrial fibrillation with RVR. Lopressor ordered along cardiology consulted. 09/18/2018 maintained on digoxin, metoprolol.Last night returned into atrial fibrillation with RVR and Cardizem drip initiated. Status post initiation of Cardizem drip ,became hypotensive, Lasix placed on hold .Telemetry currently A. fib with controlled ventricular rate. Maintained on antibiotics, T-max 101 with normal WBC. Blood cultures reporting no growth at 48 hours. Feels much better this morning. Denies pain, increased diet intake. Reports good pain control with addition of Toradol. Evaluated by oncology with recommendations noted. Objective - Vital Signs Vital signs: Vital Signs Temp 98.1 F 09/18/18 16:00 Pulse 63 09/18/18 17:00 Resp 14 09/18/18 16:00 BP 110/69 09/18/18 17:00 Pulse Ox 97 09/18/18 17:00 Intake & Output 09/18/18 09/18/18 09/19/18 06:59 18:59 06:59 Intake Total 1200 1028.333 Output Total 500 300 Balance 700 728.333 Weight 113.398 kg Intake: IV 1200 440 Diltiazem 125 mg In 40 Sodium Chloride 0.9% 100 ml @ 10 MG/HR 10 mls/hr IV .[id number] RYLIE Rx#: [id number] NS at 100ml/hr 400 Sodium Chloride 0.9% 1, 1200 000 ml @ 75 mls/hr IV . [id number] STA Rx#:[id number] Intake, IV Titration 88.333 Amount Diltiazem 125 mg In 88.333 Sodium Chloride 0.9% 100 ml @ 10 MG/HR 10 mls/hr IV .[id number] RYLIE Rx#: [id number] Oral 500 Output: Urine 500 300 Other: # Voids 0 - Exam VITAL SIGNS: As above GENERAL: Sitting up in bed, alert and oriented 3 HEENT: Conjunctivae normal. eyes normal. Oral mucosa moist. NECK: No JVD. No thyroid enlargement. No LNs CARDIOVASCULAR: S1, S2 regular, No murmur, rub or gallop RESPIRATION: Breath sounds diminished in the bases. No wheezes, rhonchi or crackles. ABDOMEN: Soft, nontender, No guarding. no masses palpable. Bowel sounds heard. LEGS: Mild pedal edema, PSYCHIATRY: Alert and oriented -3, mood and affect normal. NERVOUS SYSTEM: Cranial N 2-12 grossly normal. Moves all 4 limbs. Diffuse weakness. No focal deficits. Skin: no lesions, no rash Lymphatic system. No LN neck axilla or groin. - Labs CBC & Chem 7: 09/18/18 06:04 09/18/18 06:04 Labs: Abnormal Lab Results - Last 24 Hours (Table) 09/17/18 09/18/18 09/18/18 Range/Units 21:14 06:04 06:04 RBC 3.83 L (4.30-5.90) m/uL Hgb 10.6 L (13.0-17.5) gm/dL Hct 33.9 L (39.0-53.0) % RDW 16.5 H (11.5-15.5) % Lymphocytes # 0.2 L (1.0-4.8) k/uL Glucose 143 H (74-99) mg/dL POC Glucose (mg/dL) 103 H (75-99) mg/dL 09/18/18 Range/Units 17:12 RBC (4.30-5.90) m/uL Hgb (13.0-17.5) gm/dL Hct (39.0-53.0) % RDW (11.5-15.5) % Lymphocytes # (1.0-4.8) k/uL Glucose (74-99) mg/dL POC Glucose (mg/dL) 168 H (75-99) mg/dL Microbiology - Last 24 Hours (Table) 09/16/18 16:50 Blood Culture - Preliminary Blood No Growth after 48 hours Assessment and Plan Assessment: -Sepsis secondary to Fever, in a patient who had completed second chemotherapy, possibly related partially to tumor effect. -Dehydration -Back pain, Pathological compression fracture lower thoracic spine suspicious for metastasis, per prior chest x-ray, last visit. Per radiation oncology /oncology recent PET scan reports no evidence of cord compression. -Non-Hodgkin's lymphoma -CAD, history of [place] -Chronic atrial fibrillation with RVR -Diabetes mellitus type 2 -Hypertension -Hyperlipidemia -Bipolar disorder -Seizure disorder -Hypokalemia Plan: Continue on current medication regime ,monitoring and symptomatic treatment. Beta isidro dose further adjusted as per cardiology.Dr. Leigh, orthopedic spine consulted regarding pathological compression fracture.follow cultures closely. GI and DVT prophylaxis. Pain management; Toradol ,Alternate with Tylenol . Close monitoring of electrolytes, renal function, CBC with repeat labs ordered. Prognosis guarded given multiple complex medical issues. The impression and plan of care has been dictated as directed. : I performed a history and examination of this patient, discussed the same with the dictator. I agree with the dictator's note ,documented as a scribe. Any a dditional findings or plans will be noted. Time taken: 35 minutes
[2018-09-18 21:52] LABS: Glucose,Whole Blood 194 mg/dL (75-99)
[2018-09-18] MEDS: ALLOPURINOL 300 MG TAB PO SCH (21:52)
[2018-09-18] MEDS: INSULIN DETEMIR (LEVEMIR) 100 UNIT/ML SYR SQ SCH (21:54)
[2018-09-18] MEDS: lamoTRIgine 25 MG TAB PO SCH (21:54)
[2018-09-18] MEDS: ZOLPIDEM 10 MG TAB PO SCH (21:54)
[2018-09-18] MEDS: NIACIN TR 250 MG CAPSULE.ER PO SCH (21:56)
[2018-09-19] MEDS ORDERED: FUROSEMIDE 10 MG/ML 2 ML VIAL IV ONE (00:09)
[2018-09-19 05:54] LABS: Anisocytosis Slight; Basophils % (A) 0 %; Eosinophils # (A) 0.4 k/uL (0-0.7); Eosinophils % (A) 4 %; HCT 29.2 % (39.0-53.0); Hypochromasia Moderate; Lymphocytes # (A) 0.3 k/uL (1.0-4.8); Lymphocytes % (A) 3 %; MCH 26.8 pg (25.0-35.0); MCHC 30.5 g/dL (31.0-37.0); MCV 87.9 fL (80.0-100.0); Mean Platelet Volume 7.7; Monocytes # (A) 0.5 k/uL (0-1.0); Monocytes % (A) 6 %; Neutrophils # (A) 7.2 k/uL (1.3-7.7); Neutrophils % (A) 83 %; Platelet Count 246 k/uL (150-450); RBC 3.32 m/uL (4.30-5.90); RDW 16.3 % (11.5-15.5); WBC 8.7 k/uL (3.8-10.6)
[2018-09-19 05:58] LABS: HGB 8.9 gm/dL (13.0-17.5)
[2018-09-19 06:36] LABS: Anion Gap 5 mmol/L; Blood Urea Nitrogen 12 mg/dL (9-20); Carbon Dioxide 29 mmol/L (22-30); Chloride 107 mmol/L (98-107); Glucose 81 mg/dL (74-99); Potassium 4.1 mmol/L (3.5-5.1); Sodium 141 mmol/L (137-145)
--- NOTE | 2018-09-19 06:57 | P.CONS ---
History of Present Illness - Reason for Consult Consult date: 09/18/18 bone metastases Requesting physician: Carlos Camejo - Chief Complaint fever, back pain - History of Present Illness The patient is a 68 year old male with a history of relapsed diffuse large B- cell lymphoma. He was initially diagnosed in 2012 and treated with R-CHOP. He relapsed in 2015 requiring salvage chemotherapy. He had a solitary cutaneous lesion in 10/2016 in the buttock area treated with radiotherapy. Most recently, in 04/2018 he was found to have significant relapse with liver and bone metastases. He was started on Benadamustine/Rituxan and has had a mixed re sponse. He was hospitalized due to increased weakness, fever and back pain. Since his relapse in April, the patient was found to have a metastasis in the T11 vertebral body with soft tissue extension. His recent PET-CT from 08/29 showed improvement in hepatic disease, but there was still some abnormal SUV uptake in the right humeral head with concern for path fracture, the left fifth rib and the T11 mass with an SUV of 3.8. The patient reports low-back pain going on for months. This is worse with movement/activity. He notes the pain can be up to 7/10, and when he takes [place] or Tylenol ES this lowers it to 4- 5/10. He denies numbness/tingling of the extremities or loss of bladder/bowel control. He also reports RUQ abdominal pain which he attributes to his liver disease. Of note, the patient has had decreasing performance status over the past few months. He is still ambulatory at home, but now requires a cane or walker. Review of Systems Constitutional: Reports fever Eyes: denies blurred vision Ears, nose, mouth and throat: Denies headache Cardiovascular: Denies chest pain Respiratory: Reports dyspnea, Denies cough Gastrointestinal: Reports abdominal pain Genitourinary: Denies incontinence Musculoskeletal: Reports low back pain Neurological: Reports weakness, Denies aphasia, Denies confusion, Denies numbness, Denies paresthesias Psychiatric: Denies confusion Past Medical History Past Medical History: Atrial Fibrillation, Coronary Artery Disease (CAD), Cancer, CVA/TIA, Diabetes Mellitus, Hyperlipidemia, Hypertension, Memory Impairment, Myocardial Infarction ([place]), Osteoarthritis (OA), Seizure Disorder, Skin Disorder Additional Past Medical History / Comment(s): Pt recently admitted to [facility] on 09/08/18 with fever/sepsis, pulmonary edema d/t IVF, pathological fracture R humeral head/T11, normocytic hypochromic anemia. 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 Last Myocardial Infarction Date:: 12/26/17 History of Any Multi-Drug Resistant Organisms: None Reported Past Surgical History: Bowel Resection, Cardiac Ablation, Cholecystectomy, Heart Catheterization, Tonsillectomy Additional Past Surgical History / Comment(s): pancreas surgery dt dual divisum- port placed, biopsy of right arm mass, cervical core biopsy lymph nodes, bronchoscopy with biopsy, pilonidial cyst surgery x 3, L foot ulcer with debridements, R buttock cancer removal, ports with current port placed 08/27/18, bowel resection partial omenectomy d/t diverticulitis, ARIANNA, picc lines, colonoscopy/polypectomy-benign. Past Anesthesia/Blood Transfusion Reactions: Previous Problems w/ Anesthesia Additional Past Anesthesia/Blood Transfusion Reaction / Comm: hallucination with last surgery with demerol Smoking Status: Former smoker - Past Family History Father Family Medical History: Cancer Additional Family Medical History / Comment(s): Lung cancer. Father was a smoker Mother Family Medical History: Cancer Additional Family Medical History / Comment(s): Lung cancer. Mother was a smoker. Medications and Allergies Home Medications Medication Instructions Recorded Confirmed Type Furosemide [Lasix] 20 mg PO BID 10/08/13 09/16/18 History glipiZIDE [Glucotrol] 10 mg PO AC-BID 10/08/13 09/16/18 History lamoTRIgine [LaMICtal] 100 mg PO DAILY@1200 10/08/13 09/16/18 History cloNIDine HCL [Catapres] 0.1 mg PO DAILY@1200 01/07/14 09/16/18 History metFORMIN HCL [Glucophage] 850 mg PO AC-TID 07/12/15 09/16/18 History ARIPiprazole [Abilify] 30 mg PO DAILY@1200 05/29/16 09/16/18 History Albuterol Inhaler [Ventolin Hfa 2 puff INHALATION RT-Q6H PRN 05/29/16 09/16/18 History Inhaler] Cholecalciferol [Vitamin D3] 2,000 unit PO DAILY 05/29/16 09/16/18 History Niacin [Niacin ER] 750 mg PO HS 05/29/16 09/16/18 History Zolpidem Tartrate [Ambien] 10 mg PO HS 05/29/16 09/16/18 History Multivitamin [Men's Multi-Vitamin] 1 tab PO DAILY 09/13/16 09/16/18 History ALPRAZolam [Xanax] 0.5 mg PO QID PRN 05/16/17 09/16/18 History Albuterol Nebulized [Ventolin 2.5 mg INHALATION RT-QID PRN 12/22/17 09/16/18 History Nebulized] lamoTRIgine [LaMICtal] 50 mg PO HS 12/22/17 09/16/18 History Atorvastatin [Lipitor] 40 mg PO DAILY #30 tab 01/01/18 09/16/18 Rx Isosorbide Mononitrate ER [Imdur] 30 mg PO DAILY #30 tab 01/01/18 09/16/18 Rx Lisinopril [Zestril] 20 mg PO BID 01/15/18 09/16/18 History Allopurinol [Zyloprim] 300 mg PO HS 08/21/18 09/16/18 History Apixaban [Eliquis] 5 mg PO BID 08/21/18 09/16/18 History Insulin Glargine [Lantus] 50 unit SQ HS 08/21/18 09/16/18 History Gabapentin [Neurontin] 600 mg PO TID 09/08/18 09/16/18 History Metoprolol Tartrate [Lopressor] 100 mg PO BID 09/08/18 09/16/18 History Amoxic-Pot Clav 500-125 mg 1 tab PO Q12HR #14 tab 09/12/18 09/16/18 Rx [Augmentin 500-125 mg] Allergies Allergy/AdvReac Type Severity Reaction Status Date / Time meperidine [From Demerol] Allergy Hallucinati Verified 09/16/18 17:17 ons Physical Exam Vitals: Vital Signs Temp Pulse Resp BP Pulse Ox 09/19/18 04:00 105 H 14 131/78 95 09/19/18 02:00 123 H 16 161/96 95 09/19/18 00:00 99.0 F 118 H 30 H 142/91 90 L 09/18/18 22:00 102 H 23 142/91 92 L 09/18/18 21:30 95 09/18/18 20:00 96 28 H 110/69 96 09/18/18 18:00 86 27 H 110/69 94 L 09/18/18 17:00 63 110/69 97 09/18/18 16:00 98.1 F 80 14 110/69 95 09/18/18 15:00 71 110/69 94 L 09/18/18 14:46 81 09/18/18 14:34 74 09/18/18 14:00 97.5 F L 78 19 110/69 09/18/18 13:00 76 09/18/18 12:00 96 09/18/18 11:00 96 35 H 141/83 09/18/18 09:00 98.4 F 109 H 27 H 123/81 09/18/18 08:00 112 H 16 131/93 96 Intake and Output 09/18/18 09/18/18 09/19/18 14:59 22:59 06:59 Intake Total 1028.333 800 Output Total 300 Balance 728.333 800 Intake: IV 440 800 Diltiazem 125 mg In 40 Sodium Chloride 0.9% 100 ml @ 10 MG/HR 10 mls/hr IV .[id number] RYLIE Rx#: [id number] NS at 100ml/hr 400 800 Intake, IV Titration 88.333 Amount Diltiazem 125 mg In 88.333 Sodium Chloride 0.9% 100 ml @ 10 MG/HR 10 mls/hr IV .[id number] RYLIE Rx#: [id number] Oral 500 Output: Urine 300 Other: # Voids 4 6 Weight 113.398 kg - Constitutional General appearance: no acute distress - EENT Eyes: EOMI, PERRLA ENT: NA/AT - Neck Neck: no lymphadenopathy - Respiratory Respiratory: bilateral: CTA - Cardiovascular Rhythm: regular - Gastrointestinal General gastrointestinal: no distended, no tenderness - Integumentary Integumentary: no cellulitis - Neurologic Neurologic: CNII-XII intact - Musculoskeletal Musculoskeletal: strength equal bilaterally - Psychiatric Psychiatric: A&O x's 3 Results CBC & Chem 7: 09/19/18 05:16 09/19/18 05:16 Labs: Abnormal Lab Results - Last 24 Hours (Table) 09/18/18 09/18/18 09/18/18 Range/Units 06:04 06:04 17:12 RBC 3.83 L (4.30-5.90) m/uL Hgb 10.6 L (13.0-17.5) gm/dL Hct 33.9 L (39.0-53.0) % MCHC (31.0-37.0) g/dL RDW 16.5 H (11.5-15.5) % Lymphocytes # 0.2 L (1.0-4.8) k/uL Glucose 143 H (74-99) mg/dL POC Glucose (mg/dL) 168 H (75-99) mg/dL 09/18/18 09/19/18 Range/Units 21:41 05:16 RBC 3.32 L (4.30-5.90) m/uL Hgb 8.9 L D (13.0-17.5) gm/dL Hct 29.2 L (39.0-53.0) % MCHC 30.5 L (31.0-37.0) g/dL RDW 16.3 H (11.5-15.5) % Lymphocytes # 0.3 L (1.0-4.8) k/uL Glucose (74-99) mg/dL POC Glucose (mg/dL) 194 H (75-99) mg/dL Microbiology - Last 24 Hours (Table) 09/16/18 16:50 Blood Culture - Preliminary Blood No Growth after [address] scan - abdomen: report reviewed, image reviewed CT scan - pelvis: report reviewed, image reviewed Assessment and Plan Plan: The patient is a 68 year old male with a history of relapsed diffuse large B- cell lymphoma. He was initially diagnosed in 2012 and treated with R-CHOP. He relapsed in 2015 requiring salvage chemotherapy. He had a solitary cutaneous lesion in 10/2016 in the buttock area treated with radiotherapy. Most recently, in 04/2018 he was found to have significant relapse with liver and bone metastases. He was started on Benadamustine/Rituxan and has had a mixed response. He was hospitalized due to increased weakness, fever and back pain. 1. Back pain: Patient has known lesion involving T11 with some compression deformity. This has an anterior soft tissue component and did have some abnormal uptake on recent PET-CT. I discussed with the patient that based on his imaging and clinical exam I do not feel he has any clinical cord compression. There is therefore no urgent need for radiotherapy. However, I did explain that a palliative course of radiotherapy may help to provide some pain relief. Lymphoma is typically radioresponsive. We will continue to monitor the patient during his stay. Surprisingly, the patient does not have any right arm pain despite radiographic evidence of a humerus lesion. Time with Patient: Greater than 30
[2018-09-19 07:27] LABS: Glucose,Whole Blood 74 mg/dL (75-99)
--- NOTE | 2018-09-19 07:31 | XR ---
EXAMINATION TYPE: XR chest 1V portable DATE OF EXAM: 09/19/2018 Comparison: 09/16/2018 Clinical History: 68-year-old male sob Findings: Right subclavian CVC tip at the upper SVC level. Heart normal size. Mild interstitial prominence appe ars slightly increased. No pleural effusion or lior consolidation. Impression: Slight increased interstitial changes. Correlate with patient's volume status to exclude early pulmon viraj vascular congestion. Follow-up may be helpful.
[2018-09-19] MEDS: GABAPENTIN 300 MG CAP PO SCH ×3 (08:20→22:48)
[2018-09-19] MEDS: PANTOPRAZOLE 40 MG/10 ML VIAL IVP SCH (08:21)
[2018-09-19] MEDS: LISINOPRIL 20 MG TAB PO SCH (08:21)
[2018-09-19] MEDS: ISOSORBIDE MONONITRATE ER 30 MG TAB.ER.24H PO SCH (08:21)
[2018-09-19] MEDS: METOPROLOL TARTRATE 50 MG TAB PO SCH ×2 (08:21→22:47)
[2018-09-19] MEDS: metFORMIN 850 MG TAB PO SCH ×3 (08:22→17:18)
[2018-09-19] MEDS: glipiZIDE 10 MG TAB PO SCH ×2 (08:22→17:18)
[2018-09-19] MEDS: FUROSEMIDE 20 MG TAB PO SCH ×2 (08:23→16:01)
[2018-09-19] MEDS: APIXABAN 5 MG TAB PO SCH (08:23)
[2018-09-19] MEDS: CHOLECALCIFEROL 1,000 UNIT TAB PO SCH (08:23)
[2018-09-19] MEDS: AMOXIC-POT CLAV 500-125 MG 1 EACH TAB PO SCH ×2 (08:23→22:46)
[2018-09-19] MEDS: ATORVASTATIN 40 MG TAB PO SCH (08:23)
[2018-09-19] MEDS: DIGOXIN 250 MCG TAB PO SCH (08:23)
[2018-09-19] MEDS: DILTIAZEM 125 MG in SODIUM CHLORIDE 0.9% 100 ML IV SCH (08:35)
[2018-09-19] MEDS: SODIUM CHLORIDE 0.9% 1,000 ML IV SCH (08:36)
--- NOTE | 2018-09-19 11:25 | P.CNOR ---
History of Present Illness - [facility] Consult date: 09/19/18 Consult reason: fracture, low back pain History of present illness: Patient is seen and examined at bedside he is a very pleasant 68-year-old male with multiple medical issues including non-Hodgkin's lymphoma, atrial fibrillation, coronary artery disease and admitted for sepsis. We are counseled in regards to his low back pain as the patient was found to have a T11 likely pathologic compression fracture on computed tomography scan. The patient denies any lower extremity noticed tingling or weakness. Denies any neurologic decline. Denies a acute injury in his low back. He says the pain is back has been around for about the past 3 months and he does not recall a specific incident or trauma. He feels that the symptoms have not really improved over the past 3 months. He has been taking some pain medications with some effect. Review of Systems Admitted in regards to fever and sepsis. He does have history of non-Hodgkin's lipoma. Denies current chest pain. Denies any changes lower extremities with numbness tingling or weakness. He says he has difficulty ambulating but is able to get around some degree with a walker at home. Past Medical History Past Medical History: Atrial Fibrillation, Coronary Artery Disease (CAD), Can cer, CVA/TIA, Diabetes Mellitus, Hyperlipidemia, Hypertension, Memory Impairment, Myocardial Infarction ([place]), Osteoarthritis (OA), Seizure Disorder, Skin Disorder Additional Past Medical History / Comment(s): Pt recently admitted to [facility] on 09/08/18 with fever/sepsis, pulmonary edema d/t IVF, pathological fracture R humeral head/T11, normocytic hypochromic anemia. 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 Last Myocardial Infarction Date:: 12/26/17 History of Any Multi-Drug Resistant Organisms: None Reported Past Surgical History: Bowel Resection, Cardiac Ablation, Cholecystectomy, Heart Catheterization, Tonsillectomy Additional Past Surgical History / Comment(s): pancreas surgery dt dual divisum- port placed, biopsy of right arm mass, cervical core biopsy lymph nodes, bronchoscopy with biopsy, pilonidial cyst surgery x 3, L foot ulcer with debridements, R buttock cancer removal, ports with current port placed 08/27/18, bowel resection partial omenectomy d/t diverticulitis, ARIANNA, picc lines, colono scopy/polypectomy-benign. Past Anesthesia/Blood Transfusion Reactions: Previous Problems w/ Anesthesia Additional Past Anesthesia/Blood Transfusion Reaction / Comm: hallucination with last surgery with demerol Smoking Status: Former smoker - Past Family History Father Family Medical History: Cancer Additional Family Medical History / Comment(s): Lung cancer. Father was a smoker Mother Family Medical History: Cancer Additional Family Medical History / Comment(s): Lung cancer. Mother was a smoker. Medications and Allergies Home Medications Medication Instructions Recorded Confirmed Type Furosemide [Lasix] 20 mg PO BID 10/08/13 09/16/18 History glipiZIDE [Glucotrol] 10 mg PO AC-BID 10/08/13 09/16/18 History lamoTRIgine [LaMICtal] 100 mg PO DAILY@1200 10/08/13 09/16/18 History cloNIDine HCL [Catapres] 0.1 mg PO DAILY@1200 01/07/14 09/16/18 History metFORMIN HCL [Glucophage] 850 mg PO AC-TID 07/12/15 09/16/18 History ARIPiprazole [Abilify] 30 mg PO DAILY@1200 05/29/16 09/16/18 History Albuterol Inhaler [Ventolin Hfa 2 puff INHALATION RT-Q6H PRN 05/29/16 09/16/18 History Inhaler] Cholecalciferol [Vitamin D3] 2,000 unit PO DAILY 05/29/16 09/16/18 History Niacin [Niacin ER] 750 mg PO HS 05/29/16 09/16/18 History Zolpidem Tartrate [Ambien] 10 mg PO HS 05/29/16 09/16/18 History Multivitamin [Men's Multi-Vitamin] 1 tab PO DAILY 09/13/16 09/16/18 History ALPRAZolam [Xanax] 0.5 mg PO QID PRN 05/16/17 09/16/18 History Albuterol Nebulized [Ventolin 2.5 mg INHALATION RT-QID PRN 12/22/17 09/16/18 H istory Nebulized] lamoTRIgine [LaMICtal] 50 mg PO HS 12/22/17 09/16/18 History Atorvastatin [Lipitor] 40 mg PO DAILY #30 tab 01/01/18 09/16/18 Rx Isosorbide Mononitrate ER [Imdur] 30 mg PO DAILY #30 tab 01/01/18 09/16/18 Rx Lisinopril [Zestril] 20 mg PO BID 01/15/18 09/16/18 History Allopurinol [Zyloprim] 300 mg PO HS 08/21/18 09/16/18 History Apixaban [Eliquis] 5 mg PO BID 08/21/18 09/16/18 History Insulin Glargine [Lantus] 50 unit SQ HS 08/21/18 09/16/18 History Gabapentin [Neurontin] 600 mg PO TID 09/08/18 09/16/18 History Metoprolol Tartrate [Lopressor] 100 mg PO BID 09/08/18 09/16/18 History Amoxic-Pot Clav 500-125 mg 1 tab PO Q12HR #14 tab 09/12/18 09/16/18 Rx [Augmentin 500-125 mg] Allergies Allergy/AdvReac Type Severity Reaction Status Date / Time meperidine [From Demerol] Allergy Hallucinati Verified 09/16/18 17:17 ons Physical Examination Osteopathic Statement: *. No significant issues noted on an osteopathic structural exam other than those noted in the History and Physical/Consult. - L Spine: dermatomal strength & reflexes bilateral Strength: hip flexion: 5/5 (At his lower back there is no wounds lacerations or abrasions. The skin is intact. No rashes. He has some mild tenderness to palpation over his mid and lower lumbar spine. There is no point tenderness. There is no crepitus. There is no specific tenderness over T11. His lower chemise has sustained dorsal to plantar flexion and EHL intact is no pain within her lacks rotation of his hips. There is bilateral lower extremity edema equ ally. He has 5 out 5 strength 4/plan flexion scheduled thighs soft and they're nontender.) Results - Labs Labs: Abnormal Lab Results - Last 24 Hours (Table) 09/18/18 09/18/18 09/19/18 Range/Units 17:12 21:41 05:16 RBC 3.32 L (4.30-5.90) m/uL Hgb 8.9 L D (13.0-17.5) gm/dL Hct 29.2 L (39.0-53.0) % MCHC 30.5 L (31.0-37.0) g/dL RDW 16.3 H (11.5-15.5) % Lymphocytes # 0.3 L (1.0-4.8) k/uL POC Glucose (mg/dL) 168 H 194 H (75-99) mg/dL 09/19/18 Range/Units 07:15 RBC (4.30-5.90) m/uL Hgb (13.0-17.5) gm/dL Hct (39.0-53.0) % MCHC (31.0-37.0) g/dL RDW (11.5-15.5) % Lymphocytes # (1.0-4.8) k/uL POC Glucose (mg/dL) 74 L (75-99) mg/dL Microbiology - Last 24 Hours (Table) 09/16/18 16:50 Blood Culture - Preliminary Blood No Growth after 48 hours H & H 09/17/18 09/18/18 09/19/18 Range/Units 10:20 06:04 05:16 Hgb 9.8 L 10.6 L 8.9 L D (13.0-17.5) gm/dL Hct 29.2 L 33.9 L 29.2 L (39.0-53.0) % Result Diagrams: 09/19/18 05:16 09/19/18 05:16 - Diagnostic results CT Scan - lumbar: report reviewed, image reviewed (The patient has a CAT scan of his abdomen and pelvis which shows a T11 compression deformity is about 30% height loss. There is some mottled changes within the bone itself which make it suspicious for metastatic pathologic compression fracture. There is no cord co mpromise. He has some degenerative changes at his lower lumbar spine with disc degeneration L4 5 and facet arthrosis.) Assessment and Plan Assessment: Subacute low back pain T11 compression deformity likely pathologic compression fracture Lumbar degenerative disc disease Multiple medical issues including non-Hodgkin's, sepsis fever tissue fibrillation coronary artery disease Limited ambulator with walker Plan: Subacute low back pain T11 compression deformity likely pathologic compression fracture Lumbar degenerative disc disease Multiple medical issues including non-Hodgkin's, sepsis fever tissue fibrillation coronary artery disease Limited ambulator with walker The patient has multiple medical issues and is currently admitted to intensive care unit with fever and sepsis. He is being monitored and managed medically a ppropriately. We are counseled in regards to his T11 compression deformity. He appears to have a pathologic compression fracture at T11. His symptoms are subacute and he does not appear to have gross instability at his spine. He is not having neurologic compromise at his spine. He has some degenerative changes in his lower back and this seems to be somewhat exacerbated as well. I think that he can have benefit with conservative treatment. We like to order a TLSO brace for him when he is up out of bed and ambulatory. This can offer some support for his low back and for the fracture. Fracture has some potential to heal although is somewhat difficult to determine its healing potential with a possible pathologic nature. He is considering other chemotherapy and radiation which I would defer to hematology oncology and radiation oncology as necessary. We do not plan any acute surgical intervention. He should continue his medical management for pain control. It is okay for him to ambulate with assistance without the brace and to use the brace for comfort. From an orthopedic larisa dpoint he can be followed outpatient and we'll follow him peripherally while he's here in Hospital.
[2018-09-19] MEDS: cloNIDine HCL 0.1 MG TAB PO SCH (11:50)
[2018-09-19] MEDS: ARIPiprazole 15 MG TAB PO SCH (11:50)
[2018-09-19] MEDS: DILTIAZEM ORAL 30 MG TAB PO SCH ×2 (11:51→16:01)
[2018-09-19] MEDS: lamoTRIgine 100 MG TAB PO SCH (12:00)
[2018-09-19] MEDS: MULTIVITAMINS, THERA 1 EACH TAB PO SCH (12:01)
[2018-09-19 12:19] LABS: Glucose,Whole Blood 126 mg/dL (75-99)
--- NOTE | 2018-09-19 12:46 | PN ---
PROGRESS NOTE Papi is admitted to hospital with atrial fibrillation with rapid ventricular rate. He is on intravenous Cardizem, metoprolol, and Lanoxin. Heart rate is fairly well controlled. He is already on Eliquis and free of symptoms. Has mild leg edema. Currently on Lasix. On exam, heart rate is 80 beats per minute. Blood pressure is 130/78. Respiratory rate is 18. Chest exam reveals good air entry bilaterally. Heart exam reveals first and second heart sounds. No gallop. Examination of extremities reveals bilateral 1+ edema. He has an ejection systolic murmur in the aortic area. The patient had an echocardiogram last year that showed normal LV systolic function and moderate aortic stenosis. ASSESSMENT: 1. Chronic atrial fibrillation with poorly controlled ventricular rate. 2. Moderate aortic stenosis. PLAN: I will switch the Cardizem to p.o. If he is doing well, maybe home tomorrow or the day after. MMODL / IJN: [id number] /
[2018-09-19 17:27] LABS: Glucose,Whole Blood 163 mg/dL (75-99)
--- NOTE | 2018-09-19 18:37 | P.PN ---
Subjective Progress Note Date: 09/19/18 Principal diagnosis: Sepsis Pathological compression fracture lower thoracic spine; suspicion for metastatic disease Non-Hodgkin's lymphoma 68-year-old gentleman admitted with increased weakness, fever, back pain and multiple other medical issues in a patient with history of large B cell lymphoma (non-Hodgkin's lymphoma), atrial fibrillation, [place]/coronary artery disease, diabetes mellitus, hyperlipidemia, hypertension, bipolar disorder, osteoarthritis, seizure disorder, TIA diverticulosis and multiple other medical issues. Patient recently saw PCP at the beginning of this week with increased shortness of breath, positive edema. Lasix dose temporarily increased. Patient reports he was not eating well, drinking only sandra heidi and ice tea at home. States he hasn't felt well since his second chemo. -Pathological compression fracture lower thoracic spine suspicious for metastasis, per prior chest x-ray. Unsteady, weak uses a walker.T-max 101. Blood cultures obtained. Influenza ruled out. Atrial fibrillation with RVR. Lopressor ordered along cardiology consulted. 09/19/2018 Patient is seen and evaluated in room at bedside for follow-up Patient is evaluated by oncology/radiation oncology for lesion involving T11 with compression deformity; cord compression has been ruled out so no urgent need for radiotherapy is indicated; patient is offered radiation therapy palliatively for pain control Objective - Vital Signs Vital signs: Vital Signs Temp 99.5 F 09/19/18 08:00 Pulse 82 09/19/18 08:00 Resp 26 H 09/19/18 08:00 BP 131/78 09/19/18 08:00 Pulse Ox 95 09/19/18 04:00 Intake & Output 09/18/18 09/19/18 09/19/18 18:59 06:59 18:59 Intake Total 1028.333 925 Output Total 300 Balance 728.333 925 Weight 113.398 kg 117.5 kg Intake: IV 440 800 Diltiazem 125 mg In 40 Sodium Chloride 0.9% 100 ml @ 10 MG/HR 10 mls/hr IV .[id number] RYLIE Rx#: [id number] NS at 100ml/hr 400 800 Intake, IV Titration 88.333 125 Amount Diltiazem 125 mg In 88.333 125 Sodium Chloride 0.9% 100 ml @ 10 MG/HR 10 mls/hr IV .[id number] RYLIE Rx#: [id number] Oral 500 Output: Urine 300 Other: # Voids 6 # Bowel Movements 1 - Exam GENERAL: Sitting up in bed, alert and oriented 3 HEENT: Conjunctivae normal. eyes normal. Oral mucosa moist. NECK: No JVD. No thyroid enlargement. No LNs CARDIOVASCULAR: S1, S2 regular, No murmur, rub or gallop RESPIRATION: Breath sounds diminished in the bases. No wheezes, rhonchi or crackles. ABDOMEN: Soft, nontender, No guarding. no masses palpable. Bowel sounds heard. LEGS: Mild pedal edema, PSYCHIATRY: Alert and oriented -3, mood and affect normal. NERVOUS SYSTEM: Cranial N 2-12 grossly normal. Moves all 4 limbs. Diffuse weakness. No focal deficits. Skin: no lesions, no rash Lymphatic system. No LN neck axilla or groin. - Labs CBC & Chem 7: 09/19/18 05:16 09/19/18 05:16 Labs: Abnormal Lab Results - Last 24 Hours (Table) 09/18/18 09/18/18 09/19/18 Range/Units 17:12 21:41 05:16 RBC 3.32 L (4.30-5.90) m/uL Hgb 8.9 L D (13.0-17.5) gm/dL Hct 29.2 L (39.0-53.0) % MCHC 30.5 L (31.0-37.0) g/dL RDW 16.3 H (11.5-15.5) % Lymphocytes # 0.3 L (1.0-4.8) k/uL POC Glucose (mg/dL) 168 H 194 H (75-99) mg/dL 09/19/18 Range/Units 07:15 RBC (4.30-5.90) m/uL Hgb (13.0-17.5) gm/dL Hct (39.0-53.0) % MCHC (31.0-37.0) g/dL RDW (11.5-15.5) % Lymphocytes # (1.0-4.8) k/uL POC Glucose (mg/dL) 74 L (75-99) mg/dL Microbiology - Last 24 Hours (Table) 09/16/18 16:50 Blood Culture - Preliminary Blood No Growth after 48 hours Assessment and Plan Assessment: 1. Fever; secondary to sepsis versus tumor burden/ non-Hodgkin's lymphoma - Workup for sepsis with blood cultures and urine culture has been negative; influenza has been ruled out - Patient remains afebrile with a white blood count of 8.7 - Patient remains on antibiotics in form of Augmentin 875 mg every 12 hours 2. Atrial fibrillation with RVR - Patient remains on IV Cardizem drip for rate control; await further cardiology recommendations - Remains on home dose of digoxin 250 MCG daily and metoprolol - Anticoagulation with Eliquis 5 mg twice a day 3. Pathological compression fracture at T11; suspicious for metastatic disease - No evidence of cord compression in recent PET scan report - Oncology/radiation oncology following; no urgent need for radiation oncology due to no evidence of cord compression - Radiation could be used for pain control 4. Diabetes mellitus type 2/ diabetic neuropathy; - continue with glipizide 10 mg by mouth twice a day; metformin 850 mg 3 times a day along with Levemir 50 units subcu daily at bedtime - Patient remains on Neurontin 600 mg 3 times a day 5. Hypertension; continue with Catapres 0.1 milligrams daily; metoprolol 100 mg twice a day and lisinopril 20 mg daily 6. Hyperlipidemia; continue with home dose of atorvastatin 40 mg daily at bedtime 7. Seizure disorder; Lamictal 50 mg daily at bedtime and 100 mg by mouth every morning 8. Bipolar disorder; remains on Abilify 30 mg daily 9. DVT prophylaxis; systemic anticoagulation CODE STATUS; full code Time with Patient: Greater than 30
[2018-09-19 20:26] LABS: Glucose,Whole Blood 188 mg/dL (75-99)
[2018-09-19] MEDS: ALLOPURINOL 300 MG TAB PO SCH (22:46)
[2018-09-19] MEDS: NIACIN TR 250 MG CAPSULE.ER PO SCH (22:46)
[2018-09-19] MEDS: lamoTRIgine 25 MG TAB PO SCH (22:47)
[2018-09-19] MEDS: ZOLPIDEM 10 MG TAB PO SCH (22:47)
[2018-09-19] MEDS: INSULIN DETEMIR (LEVEMIR) 100 UNIT/ML SYR SQ SCH (22:48)
[2018-09-20] MEDS: DILTIAZEM ORAL 30 MG TAB PO SCH ×2 (00:16→08:31)
[2018-09-20] MEDS: APIXABAN 5 MG TAB PO SCH ×2 (00:16→08:31)
[2018-09-20] MEDS: DILTIAZEM 125 MG in SODIUM CHLORIDE 0.9% 100 ML IV SCH ×2 (00:17→08:34)
[2018-09-20 06:23] LABS: Anion Gap 7 mmol/L; Blood Urea Nitrogen 11 mg/dL (9-20); Calcium 9.4 mg/dL (8.4-10.2); Carbon Dioxide 32 mmol/L (22-30); Chloride 104 mmol/L (98-107); Glucose 59 mg/dL (74-99); Potassium 3.8 mmol/L (3.5-5.1); Sodium 143 mmol/L (137-145)
[2018-09-20 06:26] LABS: Anisocytosis Slight; Basophils % (A) 0 %; Eosinophils # (A) 0.5 k/uL (0-0.7); Eosinophils % (A) 6 %; HCT 30.1 % (39.0-53.0); HGB 9.5 gm/dL (13.0-17.5); Hypochromasia Moderate; Lymphocytes # (A) 0.2 k/uL (1.0-4.8); Lymphocytes % (A) 3 %; MCH 27.6 pg (25.0-35.0); MCHC 31.4 g/dL (31.0-37.0); Mean Platelet Volume 7.5; Monocytes # (A) 0.5 k/uL (0-1.0); Monocytes % (A) 6 %; Neutrophils # (A) 6.5 k/uL (1.3-7.7); Neutrophils % (A) 82 %; Platelet Count 274 k/uL (150-450); RBC 3.42 m/uL (4.30-5.90); RDW 16.2 % (11.5-15.5)
[2018-09-20 06:54] LABS: Glucose,Whole Blood 63 mg/dL (75-99)
[2018-09-20 07:12] LABS: Glucose,Whole Blood 74 mg/dL (75-99)
[2018-09-20] MEDS: glipiZIDE 10 MG TAB PO SCH (08:24)
[2018-09-20] MEDS: metFORMIN 850 MG TAB PO SCH ×2 (08:28→12:27)
[2018-09-20] MEDS: METOPROLOL TARTRATE 50 MG TAB PO SCH (08:29)
[2018-09-20] MEDS: ATORVASTATIN 40 MG TAB PO SCH (08:29)
[2018-09-20] MEDS: LISINOPRIL 20 MG TAB PO SCH (08:30)
[2018-09-20] MEDS: AMOXIC-POT CLAV 500-125 MG 1 EACH TAB PO SCH (08:31)
[2018-09-20] MEDS: DIGOXIN 250 MCG TAB PO SCH (08:32)
[2018-09-20] MEDS: FUROSEMIDE 20 MG TAB PO SCH (08:32)
[2018-09-20] MEDS: CHOLECALCIFEROL 1,000 UNIT TAB PO SCH (08:32)
[2018-09-20] MEDS: GABAPENTIN 300 MG CAP PO SCH (08:33)
[2018-09-20] MEDS: ISOSORBIDE MONONITRATE ER 30 MG TAB.ER.24H PO SCH (08:33)
[2018-09-20] MEDS ORDERED: PANTOPRAZOLE 40 MG TABLET PO SCH (09:00)
[2018-09-20] MEDS: ALPRAZolam 0.5 MG TAB PO PRN (10:20)
--- NOTE | 2018-09-20 11:01 | P.PN ---
Progress Note - Text Progress Note Date: 09/20/18 Patient is a pleasant 68-year-old male who is seen and examined at bedside for follow-up evaluation for T11 compression fracture deformity most likely pathologic and low back pain. Since being seeing him yesterday he states the pain at his lumbar spine is adequately controlled. He is currently resting in bed without any new complaints. The prescribed an LSO brace has been delivered to the bedside. He has not been wearing this brace. He has no new complaints of the bedside. He denies any lower extremity weakness or radiculopathy bilaterally. Does a minimally with the assistance of a walker. Patient states he hopes to be discharged home today. Patient was initially being treated for fever admittance which has improved. He is currently afebrile. Patient has been receiving ongoing chemotherapy. Physical exam: Patient is awake, alert, and oriented 3 Vital signs stable Good chest excursion with deep inspiration and expiration Dorsiflexion, plantarflexion, and extensor hallucis longus positive sustained bilaterally Lower extremity strength 5/5 bilaterally Patellar reflex 2+ bilaterally No lower extremity hyperreflexia bilaterally No signs or symptoms of DVT; no calf pain No pain with internal and external rotation of the hips bilaterally Neurovascularly intact Assessment: T11 pathologic compression fracture deformity Low back pain Lumbar degenerative disc disease Non-Hodgkin's lymphoma Limited ambulation with walker History of atrial fibrillation and coronary artery disease Fever which has resolved Plan: 1. We will continue with conservative treatment in regards to his thoracic and lumbar spines. Imaging did show evidence of a T11 compression fracture deformity likely pathologic. Patient has been's. Sitting ongoing low back pain. He feels his symptoms are better controlled as compared to being seen and examined yesterday. An LSO brace has been delivered to the bedside. Patient may wear this brace for comfort support as needed during ambulation increase activities. At this time he feels his symptoms are well-controlled. We will plan to have him follow up on an as-needed basis in the outpatient setting. We're not currently planning for acute surgical intervention in regards to his thoracic or lumbar spine. He may contact the office as an outpatient setting for follow-up evaluation if he has exacerbation of his symptoms. Patient is cleared for discharge from orthopedic spine standpoint. 2. Patient will continue to be seen by the medical providers for his other significant medical diagnoses.
[2018-09-20] MEDS: cloNIDine HCL 0.1 MG TAB PO SCH (11:17)
[2018-09-20] MEDS: MULTIVITAMINS, THERA 1 EACH TAB PO SCH (11:17)
[2018-09-20] MEDS: lamoTRIgine 100 MG TAB PO SCH (11:17)
[2018-09-20] MEDS: ARIPiprazole 15 MG TAB PO SCH (11:17)
[2018-09-20] MEDS ORDERED: DILTIAZEM ORAL 30 MG TAB PO STA (11:31)
[2018-09-20 12:04] VITALS: BP 173/94; PULSE 101; RESP 25; TEMP 98.6
[2018-09-20 12:26] LABS: Glucose,Whole Blood 121 mg/dL (75-99)
--- NOTE | 2018-09-20 13:11 | PN ---
PROGRESS NOTE HISTORY OF PRESENT ILLNESS: Papi is a 68-year-old gentleman with chronic atrial fibrillation. I stopped the IV Cardizem yesterday. He is feeling better. Heart rate is somewhat poorly controlled on 30 q.8 of Cardizem. I am going to increase it to 60 q.8h. The patient wishes to go home. EXAM TODAY: He is comfortable at rest. Heart rate is varying between 90 and 120. Blood pressure is 130/70, respiratory rate is 18. Chest exam reveals diminished air entry at the bases. Heart exam reveals first and second heart sounds irregular rhythm. Exam of extremities did not reveal edema. Peripheral pulses are felt. LABS: Show a hemoglobin of 9.5, platelet count is 274. Potassium is 3.8, creatinine is 0.5. ASSESSMENT: Chronic atrial fibrillation with somewhat of a poorly controlled ventricular rate. The patient will continue the Eliquis. Increase the dose of Cardizem to 60 q.8h. Continue the digoxin and continue the metoprolol at 100 b.i.d. He is stable for discharge. Follow up in the outpatient setting. MMODL / MICHAELN: [id number] /
--- NOTE | 2018-09-20 14:24 | P.DS ---
Providers Date of admission: 09/16/18 20:30 Expected date of discharge: 09/20/18 Attending physician: Elver Matute Consults: 09/17/18 08:27 Consult Physician Routine Consulting Provider: Remberto Baldwin Consult Reason/Comments: afib,rvr Do you want consulting provider notified?: Yes 09/17/18 08:28 Consult Physician Routine Consulting Provider: Carlos Camejo Consult Reason/Comments: lymphoma,pain Do you want consulting provider notified?: Yes 09/17/18 17:13 Consult Physician Routine Consulting Provider: Collin Wylie Consult Reason/Comments: painful T spine Fx-pathologic? Do you want consulting provider notified?: Yes, Notify in am 09/18/18 12:17 Consult Physician Routine Consulting Provider: Berna Leigh Consult Reason/Comments: fracture Do you want consulting provider notified?: Yes Primary care physician: Elver Matute [facility] Course: This is a 68-year-old gentleman admitted with increased weakness, fever, back pain and multiple other medical issues in a patient with history of large B cell lymphoma (non-Hodgkin's lymphoma), atrial fibrillation, [place]/coronary artery disease, diabetes mellitus, hyperlipidemia, hypertension, bipolar disorder, osteoarthritis, seizure disorder, TIA diverticulosis and multiple other medical issues. Patient recently saw PCP at the beginning of this week with increased shortness of breath, positive edema. Lasix dose temporarily increased. Patient reports he was not eating well, drinking only sandra heidi and ice tea at home. States he hasn't felt well since his second chemo. -Pathological compression fracture lower thoracic spine suspicious for metastasis, per prior chest x-ray. Unsteady, weak uses a walker.T-max 101. Blood cultures obtained. Influenza ruled out.Potassium 3.3 , BUN 17, creatinine 0.85 Chest x-ray reporting non acute. Received IV fluid bolus, IV fluid hydration, nebulized bronchodilators. Toradol added for pain. Atrial fibrillation with RVR. Lopressor ordered along cardiology consulted. 09/18/2018 maintained on digoxin, metoprolol.Last night returned into atrial fibrillation with RVR and Cardizem drip initiated. Status post initiation of Cardizem drip ,became hypotensive, Lasix placed on hold .Telemetry currently A. fib with controlled ventricular rate. Maintained on antibiotics, T-max 101 with normal WBC. Blood cultures reporting no growth at 48 hours. Feels much better this morning. Denies pain, increased diet intake. Reports good pain control with addition of Toradol. Evaluated by oncology with recommendations noted. 09/19/2018 Patient is seen and evaluated in room at bedside for follow-up Patient is evaluated by oncology/radiation oncology for lesion involving T11 with compression deformity; cord compression has been ruled out so no urgent need for radiotherapy is indicated; patient is offered radiation therapy palliatively for pain control Patient Condition at Discharge: Fair Plan - Discharge Summary Discharge Rx Participant: Yes New Discharge Prescriptions: New Diltiazem Oral [Cardizem*] 60 mg PO Q8HR #90 tab Digoxin [Lanoxin] 250 mcg PO DAILY #30 tab Continue Furosemide [Lasix] 20 mg PO BID lamoTRIgine [LaMICtal] 100 mg PO DAILY@1200 glipiZIDE [Glucotrol] 10 mg PO AC-BID cloNIDine HCL [Catapres] 0.1 mg PO DAILY@1200 metFORMIN HCL [Glucophage] 850 mg PO AC-TID Albuterol Inhaler [Ventolin Hfa Inhaler] 2 puff INHALATION RT-Q6H PRN PRN Reason: Shortness Of Breath ARIPiprazole [Abilify] 30 mg PO DAILY@1200 Cholecalciferol [Vitamin D3] 2,000 unit PO DAILY Niacin [Niacin ER] 750 mg PO HS Zolpidem Tartrate [Ambien] 10 mg PO HS Multivitamin [Men's Multi-Vitamin] 1 tab PO DAILY ALPRAZolam [Xanax] 0.5 mg PO QID PRN PRN Reason: Anxiety Albuterol Nebulized [Ventolin Nebulized] 2.5 mg INHALATION RT-QID PRN PRN Reason: sob lamoTRIgine [LaMICtal] 50 mg PO HS Atorvastatin [Lipitor] 40 mg PO DAILY #30 tab Isosorbide Mononitrate ER [Imdur] 30 mg PO DAILY #30 tab Lisinopril [Zestril] 20 mg PO BID Allopurinol [Zyloprim] 300 mg PO HS Apixaban [Eliquis] 5 mg PO BID Insulin Glargine [Lantus] 50 unit SQ HS Gabapentin [Neurontin] 600 mg PO TID Metoprolol Tartrate [Lopressor] 100 mg PO BID Amoxic-Pot Clav 500-125 mg [Augmentin 500-125 mg] 1 tab PO Q12HR #14 tab Discharge Medication List Furosemide [Lasix] 20 mg PO BID 10/08/13 [History] glipiZIDE [Glucotrol] 10 mg PO AC-BID 10/08/13 [History] lamoTRIgine [LaMICtal] 100 mg PO DAILY@1200 10/08/13 [History] cloNIDine HCL [Catapres] 0.1 mg PO DAILY@1200 01/07/14 [History] metFORMIN HCL [Glucophage] 850 mg PO AC-TID 07/12/15 [History] ARIPiprazole [Abilify] 30 mg PO DAILY@1200 05/29/16 [History] Albuterol Inhaler [Ventolin Hfa Inhaler] 2 puff INHALATION RT-Q6H PRN 05/29/16 [History] Cholecalciferol [Vitamin D3] 2,000 unit PO DAILY 05/29/16 [History] Niacin [Niacin ER] 750 mg PO HS 05/29/16 [History] Zolpidem Tartrate [Ambien] 10 mg PO HS 05/29/16 [History] Multivitamin [Men's Multi-Vitamin] 1 tab PO DAILY 09/13/16 [History] ALPRAZolam [Xanax] 0.5 mg PO QID PRN 05/16/17 [History] Albuterol Nebulized [Ventolin Nebulized] 2.5 mg INHALATION RT-QID PRN 12/22/17 [History] lamoTRIgine [LaMICtal] 50 mg PO HS 12/22/17 [History] Atorvastatin [Lipitor] 40 mg PO DAILY #30 tab 01/01/18 [Rx] Isosorbide Mononitrate ER [Imdur] 30 mg PO DAILY #30 tab 01/01/18 [Rx] Lisinopril [Zestril] 20 mg PO BID 01/15/18 [History] Allopurinol [Zyloprim] 300 mg PO HS 08/21/18 [History] Apixaban [Eliquis] 5 mg PO BID 08/21/18 [History] Insulin Glargine [Lantus] 50 unit SQ HS 08/21/18 [History] Gabapentin [Neurontin] 600 mg PO TID 09/08/18 [History] Metoprolol Tartrate [Lopressor] 100 mg PO BID 09/08/18 [History] Amoxic-Pot Clav 500-125 mg [Augmentin 500-125 mg] 1 tab PO Q12HR #14 tab 09/12/18 [Rx] Digoxin [Lanoxin] 250 mcg PO DAILY #30 tab 09/20/18 [Rx] Diltiazem Oral [Cardizem*] 60 mg PO Q8HR #90 tab 09/20/18 [Rx] Follow up Appointment(s)/Referral(s): Elver Matute DO [Primary Care Provider] - 1-2 days Mark Conte PAC [PHYSICIAN TELEPHONE SWITCHBOARD OPERATOR] - As Needed (Patient may follow-up with Mark Conte PA-C or Dr. Seymour Leigh at [facility] on an as-needed basis following discharge. ) [facility] Visiting Nurse, [NON-STAFF] - 1-2 Days Patient Instructions/Handouts: A-fib (Atrial Fibrillation) (DC), Dehydration (DC) Activity/Diet/Wound Care/Special Instructions: 1. Patient may wear LSO brace for comfort support as needed during increased activities and ambulation 2. Patient should avoid excessive bending, twisting, and lifting Discharge Disposition: HOME SELF-CARE
[2018-09-20] MEDS ORDERED: DILTIAZEM ORAL 60 MG TAB PO SCH (16:00)
== END 2018-09-20 14:05 | disposition home health service (06) | DRG 841 ==
LOC: EC 16:17 → 3SCARD 20:30 → 2SICU 09-17 09:17
PROVIDERS: ADMIT Family Medicine; ATTEND Family Medicine
DX: C83.38 Diffuse large B-cell lymphoma, lymph nodes of multiple sites (principal); M48.54XA Collapsed vertebra, not elsewhere classified, thoracic region, initial encounter for fracture; I95.9 Hypotension, unspecified; E11.42 Type 2 diabetes mellitus with diabetic polyneuropathy; I48.2 Chronic atrial fibrillation; E87.70 Fluid overload, unspecified; E86.0 Dehydration; E78.5 Hyperlipidemia, unspecified; E87.6 Hypokalemia; F43.10 Post-traumatic stress disorder, unspecified; G40.909 Epilepsy, unspecified, not intractable, without status epilepticus; I10 Essential (primary) hypertension; I25.10 Atherosclerotic heart disease of native coronary artery without angina pectoris; I25.2 Old myocardial infarction; I35.0 Nonrheumatic aortic (valve) stenosis; M51.36 Other intervertebral disc degeneration, lumbar region; F32.9 Major depressive disorder, single episode, unspecified; F41.9 Anxiety disorder, unspecified; H93.19 Tinnitus, unspecified ear; L40.9 Psoriasis, unspecified; M19.90 Unspecified osteoarthritis, unspecified site; R26.81 Unsteadiness on feet; K57.90 Diverticulosis of intestine, part unspecified, without perforation or abscess without bleeding; M10.9 Gout, unspecified; G89.29 Other chronic pain; Z79.01 Long term (current) use of anticoagulants; Z79.4 Long term (current) use of insulin; Z79.899 Other long term (current) drug therapy; Z88.8 Allergy status to other drugs, medicaments and biological substances; Z86.73 Personal history of transient ischemic attack (TIA), and cerebral infarction without residual deficits; Z87.891 Personal history of nicotine dependence; Z92.3 Personal history of irradiation; Z86.010 Personal history of colon polyps; Z92.21 Personal history of antineoplastic chemotherapy; Z90.49 Acquired absence of other specified parts of digestive tract; Z57.4 Occupational exposure to toxic agents in agriculture
CPT/HCPCS: 36415; 71045; 71046; 80048; 80053; 81001; 82550; 82553; 83605; 83735; 84484; 85025; 87040; 87502; 93005; 94640; 96361; 96365; 96375; 96376; 99285